=== PATIENT | female | born 1935 | race Caucasian/White ===

== ENCOUNTER 2017-01-01 11:30 | Emergency (ER) | payer MEDICARE, OTHER ==
--- NOTE | 2017-01-01 12:10 | EDM.PDOC ---
ED HPI GI/ABDOMINAL - General Chief Complaint: Abdominal Pain Stated Complaint: Abdominal pain Time Seen by Provider: 01/01/17 12:00 Source of Information: Reports: Patient, RN notes reviewed History Limitations: Reports: No limitations - History of Present Illness INITIAL COMMENTS - FREE TEXT/NARRATIVE: 81 year old female presents to the ED today with a 1 month vague history of abdominal pain and bloating. The symptoms are intermittent. The pain is the most severe to the epigatric region and LUQ but does seem to involve her entire abdomen at times. She reports increased gas with frequent belching and occasional flatulence. She says spicy foods, tomatos, and acidic foods make her symptoms worse. Her pain also seems to be worse when she has an empty stomach. She's been eating a bland "brat" diet and that seems to be helping. She has a history of GERD but denies GERD like symptoms with this. She has regular bowel movements and denies constipation and diarrhea. She denies nausea, vomiting, chills, fever, throat pain, chest pain, shortness of breath, cough, dyspnea no exertion. No urinary symptoms but does report occasional flank pain with this. Pertinent surgical history includes an exploratory lap and appendectomy in her 20s. She denies hystorectomy or cholecystectomy. She has never had an EGD or colonoscopy. Hx of bilateral mastectomy due to breast cancer. No involvement of lymph nodes and is in remission according to patient. - Related Data Allergies/ADRs: Allergies Allergy/AdvReac Type Severity Reaction Status Date / Time benzocaine Allergy Swelling/ra Verified 01/01/17 11:42 procaine HCl [From Novocain] Allergy Swelling/ra Verified 01/01/17 11:42 Home Meds: Home Meds Acebutolol [Sectral] 1 cap PO DAILY 10/06/14 [History] Ascorbate Calcium [Vitamin C] 500 mg PO DAILY 10/06/14 [History] Calcium Citrate/Vitamin D3 [Citracal + D Maximum Caplet] 1 tab PO DAILY [History] Cholecalciferol (Vitamin D3) [Vitamin D3] 2,000 unit PO DAILY 10/06/14 [History] Cyanocobalamin (Vitamin B-12) [Vitamin B-12] 2,500 mcg SL DAILY 10/06/14 [ History] Hydrochlorothiazide 12.5 mg PO DAILY 10/06/14 [History] Levothyroxine 75 mcg PO ACBRK 10/06/14 [History] Losartan Potassium 100 mg PO DAILY 10/06/14 [History] Magnesium Oxide [Magnesium] 400 mg PO DAILY 10/06/14 [History] Multivitamin [Multi-Vitamin Daily] 1 tab PO DAILY 10/06/14 [History] Pyridoxine HCl [Vitamin B-6] 100 mg PO DAILY 10/06/14 [History] Thiamine Mononitrate [Vitamin B-1] 100 mg PO DAILY 10/06/14 [History] Ubidecarenone [Co Q-10] 200 mg PO DAILY 10/06/14 [History] atorvaSTATin [Lipitor] 10 mg PO BEDTIME 10/06/14 [History] Lecithin, Soy [Lecithin] 1,200 mg PO DAILY 11/13/14 [History] Vitamin E 400 unit PO DAILY 11/13/14 [History] Esomeprazole [NexIUM] 40 mg PO ACBREAKFAST #20 cap 01/01/17 [Rx] Sucralfate [Carafate] 1 gm PO ASDIRECTED #500 ml 01/01/17 [Rx] amLODIPine [Norvasc] 5 mg PO DAILY 01/01/17 [History] Past Medical History HEENT History: Reports: Cataract, Other (see below) Other HEENT History: wears glasses Cardiovascular History: Reports: Hypertension Musculoskeletal History: Reports: Arthritis Psychiatric History: Reports: Anxiety Endocrine/Metabolic History: Reports: Hypothyroidism Oncologic (Cancer) History: Reports: Breast - Past Surgical History GI Surgical History: Reports: Appendectomy Oncologic Surgical History: Reports: Mastectomy Social & Family History - Tobacco Use Smoking Status *Q: Never Smoker Second Hand Smoke Exposure: No - Alcohol Use Days Per Week of Alcohol Use: 0 - Recreational Drug Use Recreational Drug Use: No Drug Use in Last 12 Months: No ED ROS GENERAL - Review of Systems Review Of Systems: See Below Constitutional: Reports: no symptoms. Denies: fever, chills, diaphoresis HEENT: Reports: No symptoms Respiratory: Denies: Shortness of Breath, Pleuritic Chest Pain, Cough, Sputum Cardiovascular: Reports: No symptoms. Denies: Chest pain, Edema, Lightheadedness GI/Abdominal: Reports: Abdominal pain. Denies: Black stool, Bloody stool, Constipation, Diarrhea, Hematochezia, Nausea, Vomiting : Reports: flank pain. Denies: dysuria, frequency, urgency ED EXAM, GI/ABD - Physical Exam Exam: See Below Exam Limited By: No limitations General Appearance: alert, WD/WN, no apparent distress Respiratory/Chest: no respiratory distress, lungs clear, normal breath sounds, no accessory muscle use, chest non-tender Cardiovascular: normal peripheral pulses, regular rate, rhythm, no murmur GI/Abdominal: normal bowel sounds, soft, no organomegaly, no distention, tenderness (epigastric and LUQ). No: guarding, rebound, rigidity, Barrios's sign Back Exam: normal inspection, full range of motion. No: CVA tenderness (L), CVA tenderness (R) Course - Vital Signs Last Recorded V/S: Last Vital Signs Temp 99.2 F 01/01/17 11:39 Pulse 79 01/01/17 14:35 Resp 18 01/01/17 14:35 BP 173/69 H 01/01/17 14:35 Pulse Ox 97 01/01/17 14:35 - Orders/Labs/Meds Orders: Active Orders 24 hr Category Date Time Status EKG 12 Lead [EKG Documentation Completion] [RC] STAT Care 01/01/17 12:09 Active Labs: Laboratory Tests 01/01/17 01/01/17 01/01/17 Range/Units 12:25 12:25 13:00 WBC 5.56 (3.98-10.04) K/mm3 RBC 4.91 (3.98-5.22) M/mm3 Hgb 15.6 (11.2-15.7) gm/L Hct 46.7 H (34.1-44.9) % MCV 95.1 H (79.4-94.8) fl MCH 31.8 (25.6-32.2) pg MCHC 33.4 (32.2-35.5) g/dl RDW Std Deviation 42.3 (36.4-46.3) fL Plt Count 169 L (182-369) K/mm3 MPV 9.6 (9.4-12.3) fl Neut % (Auto) 52.8 (34.0-71.1) % Lymph % (Auto) 35.3 (19.3-51.7) % [place] % (Auto) 8.6 (4.7-12.5) % Eos % (Auto) 2.7 (0.7-5.8) Baso % (Auto) 0.4 (0.1-1.2) % Neut # (Auto) 2.94 (1.56-6.13) K/mm3 Lymph # (Auto) 1.96 (1.18-3.74) K/mm3 [place] # (Auto) 0.48 H (0.24-0.36) K/mm3 Eos # (Auto) 0.15 (0.04-0.36) K/mm3 Baso # (Auto) 0.02 (0.01-0.08) K/mm3 Sodium 140 (136-145) mEq/L Potassium 3.6 (3.5-5.1) mEq/L Chloride 104 (98-107) mEq/L Carbon Dioxide 29 (21-32) mEq/L Anion Gap 10.6 (5-15) BUN 18 (7-18) mg/dL Creatinine 0.9 (0.55-1.02) mg/dL Est Cr Clr Drug Dosing 39.18 mL/min Estimated GFR (MDRD) 60 (>60) mL/min BUN/Creatinine Ratio 20.0 H (14-18) Glucose 120 H (83-115) mg/dL Calcium 9.3 (8.5-10.1) mg/dL Total Bilirubin 0.7 (0.2-1.0) mg/dL AST 23 (15-37) U/L ALT 22 (14-59) U/L Alkaline Phosphatase 69 (46-116) U/L Total Protein 7.6 (6.4-8.2) g/dl Albumin 3.7 (3.4-5.0) g/dl Globulin 3.9 gm/dL Albumin/Globulin Ratio 1.0 (1-2) Lipase 148 (73-393) U/L Urine Color Light yellow (Yellow) Urine Appearance Clear (Clear) Urine pH 7.5 (5.0-8.0) Ur Specific [place] 1.015 (1.005-1.030) Urine Protein Negative (Negative) Urine Glucose (UA) Negative (Negative) Urine Ketones Negative (Negative) Urine Occult Blood Negative (Negative) Urine Nitrite Negative (Negative) Urine Bilirubin Negative (Negative) Urine Urobilinogen 0.2 (0.2-1.0) Ur Leukocyte Esterase Negative (Negative) Urine RBC Not seen (0-5) /hpf Urine WBC 0-5 (0-5) /hpf Ur Epithelial Cells 0-5 (0-5) /hpf Ur Squamous Epith Cells 0-5 (0-5) /hpf Urine Bacteria Few (FEW) /hpf Urine Mucus Not seen (FEW) /hpf - Re-Assessments/Exams Free Text/Narrative Re-Assessment/Exam: CBC, CMP, lipase, and UA are normal. The patients physical exam is negative for peritoneal inflammation signs. EKG reveals first degree AV block, 59 bpm. No acute ischemic changes. Acute causes of epigastric pain have been ruled out. Symptoms are consistent with gastritis. Will start her on carafate and nexium and have her f/u with her PCP. If not improved, further outpatient workup is recommended. She has an upcoming appointment with Dr. Villeda later this month. We called [facility] and attempted to schedule this sooner. Will fax the records from today and Dr. Villeda office will be in touch with the patient. Patient was encouraged to return with any worsening of symptoms or additional concerns. Departure - Departure Time of Disposition: 14:01 Disposition: Home, Self-Care 01 Condition: good Clinical Impression: Gastritis Qualifiers: Gastritis type: unspecified gastritis Chronicity: unspecified Gastritis bleeding: without bleeding Qualified Code(s): K29.70 - Gastritis, unspecified, without bleeding Prescriptions: Esomeprazole [NexIUM] 40 mg PO ACBREAKFAST #20 cap Sucralfate [Carafate] 1 gm PO ASDIRECTED #500 ml Instructions: Gastritis, Adult, [id number] Referrals: Rashi Villeda MD [Primary Care Provider] - Forms: ED Department Discharge Additional Instructions: Avoid spicy foods, acidic foods, caffeine Follow-up with Dr. Villeda as scheduled. We placed a call to his office and they will try to work you in sooner and will call with appointment time. Carafate 10ml before meals and bedtime Nexium 40mg daily, before breakfast. Return to ER if your symptoms worsen or any new symptoms arise. - My Orders Last 24 Hours: My Active Orders 01/01/17 12:09 EKG 12 Lead [EKG Documentation Completion] [RC] STAT - Assessment/Plan Last 24 Hours: My Active Orders 01/01/17 12:09 EKG 12 Lead [EKG Documentation Completion] [RC] STAT
[2017-01-01 14:41] VITALS: BP 173/69
== END 2017-01-01 14:35 | disposition home or self-care (01) ==
LOC: JD.ED 11:30
DX: K29.70 Gastritis, unspecified, without bleeding (principal); I10 Essential (primary) hypertension; F41.9 Anxiety disorder, unspecified; E03.9 Hypothyroidism, unspecified; Z85.3 Personal history of malignant neoplasm of breast; Z90.13 Acquired absence of bilateral breasts and nipples; Z90.49 Acquired absence of other specified parts of digestive tract; Z79.899 Other long term (current) drug therapy
CPT/HCPCS: 36415; 80053; 81001; 83690; 85025; 93005; 99283; 99284-25

== ENCOUNTER 2017-02-08 09:42 | Inpatient (IN) | payer MEDICARE, OTHER ==
[2017-02-08] MEDS ORDERED: Sodium Chloride 0.9% 10 ML Syringe FLUSH PRN (10:08)
[2017-02-08] MEDS ORDERED: Ondansetron 4 MG/2 ML SDV IVPUSH ONE (10:08)
[2017-02-08] MEDS ORDERED: Alum Hydrox/Mag Hydrox/Simeth 30 ML, Lidocaine 2% 15 ML PO ONE ×2 (10:09)
[2017-02-08] MEDS ORDERED: HYDROmorphone 0.5 MG/0.5 ML Syringe IVPUSH ONE (10:09)
[2017-02-08] MEDS ORDERED: Sodium Chloride 0.9% 1,000 ML IV SCH (10:15)
[2017-02-08] MEDS ORDERED: Sodium Chloride 0.9% 10 ML Syringe FLUSH ONE (12:02)
[2017-02-08] MEDS ORDERED: Iopamidol 612 MG/ML 100 ML Bottle IVPUSH ONE (12:02)
[2017-02-08] MEDS ORDERED: Diatrizoate Meglumine/Diatrizoate Sodium 37% 120 ML Bottle PO ONE (12:02)
--- NOTE | 2017-02-08 12:23 | EDM.PDOC ---
ED HPI GENERAL MEDICAL PROBLEM - General Chief Complaint: Abdominal Pain Stated Complaint: ABDOMINAL PAIN Time Seen by Provider: 02/08/17 10:00 Source of Information: Reports: Patient History Limitations: Reports: No Limitations - History of Present Illness INITIAL COMMENTS - FREE TEXT/NARRATIVE: The patient presents with upper abdominal pain. This all started January 01. She was evaluated here and found to have gastritis. She was put on carafate and nexium. She has been doing okay. At times she will have pain. Today at [facility] she developed severe pain to the upper abdomen. She has nausea and vomiting wit it. She has no diarrhea. She has some burning pain at times. Food does not affect it. She has no fever, chills or cough. She has no chest pain or shortness of breath. She saw her primary care doctor and he referred her to Dr Correa for a EKG on February 27. Onset: Gradual Duration: Week(s): Location: Reports: Abdomen (Upper) Quality: Reports: Burning, Sharp Severity: Severe Improves with: Reports: None Worsens with: Reports: None Context: Reports: Other (She was at [facility] when this started) Associated Symptoms: Reports: Nausea/Vomiting. Denies: Chest Pain, Cough, Fever /Chills, Shortness of Breath Bilateral Abdomen Pain Score (Numeric/FACES): 9 - Related Data Allergies Allergy/AdvReac Type Severity Reaction Status Date / Time benzocaine Allergy Swelling/ra Verified 02/08/17 10:01 pneumococcal vaccine Allergy Difficulty Verified 02/08/17 10:01 Breathing procaine HCl [From Novocain] Allergy Swelling/ra Verified 02/08/17 10:01 Home Meds: Home Meds Acebutolol [Sectral] 1 cap PO DAILY 10/06/14 [History] Ascorbate Calcium [Vitamin C] 500 mg PO DAILY 10/06/14 [History] Calcium Citrate/Vitamin D3 [Citracal + D Maximum Caplet] 1 tab PO DAILY [History] Cholecalciferol (Vitamin D3) [Vitamin D3] 2,000 unit PO DAILY 10/06/14 [History] Cyanocobalamin (Vitamin B-12) [Vitamin B-12] 2,500 mcg SL DAILY 10/06/14 [ History] Hydrochlorothiazide 12.5 mg PO DAILY 10/06/14 [History] Levothyroxine 75 mcg PO ACBRK 10/06/14 [History] Losartan Potassium 100 mg PO DAILY 10/06/14 [History] Magnesium Oxide [Magnesium] 400 mg PO DAILY 10/06/14 [History] Multivitamin [Multi-Vitamin Daily] 1 tab PO DAILY 10/06/14 [History] Pyridoxine HCl [Vitamin B-6] 100 mg PO DAILY 10/06/14 [History] Thiamine Mononitrate [Vitamin B-1] 100 mg PO DAILY 10/06/14 [History] Ubidecarenone [Co Q-10] 200 mg PO DAILY 10/06/14 [History] atorvaSTATin [Lipitor] 10 mg PO BEDTIME 10/06/14 [History] Lecithin, Soy [Lecithin] 1,200 mg PO DAILY 11/13/14 [History] Vitamin E 400 unit PO DAILY 11/13/14 [History] Esomeprazole [NexIUM] 40 mg PO ACBREAKFAST #20 cap 01/01/17 [Rx] Sucralfate [Carafate] 1 gm PO ASDIRECTED #500 ml 01/01/17 [Rx] amLODIPine [Norvasc] 5 mg PO DAILY 01/01/17 [History] Past Medical History HEENT History: Reports: Cataract, Other (See Below) Other HEENT History: wears glasses Cardiovascular History: Reports: Hypertension Musculoskeletal History: Reports: Arthritis Psychiatric History: Reports: Anxiety Endocrine/Metabolic History: Reports: Hypothyroidism Oncologic (Cancer) History: Reports: Breast - Past Surgical History GI Surgical History: Reports: Appendectomy Oncologic Surgical History: Reports: Mastectomy Social & Family History - Tobacco Use Smoking Status *Q: Never Smoker Second Hand Smoke Exposure: No - Caffeine Use Caffeine Use: Reports: None - Alcohol Use Days Per Week of Alcohol Use: 0 - Recreational Drug Use Recreational Drug Use: No Drug Use in Last 12 Months: No ED ROS GENERAL - Review of Systems Review Of Systems: See Below Constitutional: Reports: No Symptoms HEENT: Reports: No Symptoms Respiratory: Reports: No Symptoms Cardiovascular: Reports: No Symptoms Endocrine: Reports: No Symptoms GI/Abdominal: Reports: Abdominal Pain, Nausea, Vomiting : Reports: No Symptoms Musculoskeletal: Reports: No Symptoms Skin: Reports: No Symptoms ED EXAM, GI/ABD - Physical Exam Exam: See Below Exam Limited By: No Limitations General Appearance: Alert, No Apparent Distress Ears: Normal External Exam Nose: Normal Inspection Head: Atraumatic, Normocephalic Neck: Normal Inspection Respiratory/Chest: No Respiratory Distress, Lungs Clear, Normal Breath Sounds Cardiovascular: Regular Rate, Rhythm, No Edema, No Murmur GI/Abdominal: Soft, No Organomegaly, Tenderness (Moderate to the upper abdomen) Back Exam: Normal Inspection Extremities: Normal Inspection Course - Vital Signs Last Recorded V/S: Last Vital Signs Temp 97.6 F 02/08/17 09:54 Pulse 67 02/08/17 09:54 Resp 20 02/08/17 09:54 BP 181/67 H 02/08/17 09:54 Pulse Ox 100 02/08/17 09:54 - Orders/Labs/Meds Orders: Active Orders 24 hr Category Date Time Status Peripheral IV Care [RC] . DIRECTED Care 02/08/17 10:08 Active Abdomen Pelvis w Cont [CT] Stat Exams 02/08/17 10:08 Taken Levofloxacin/Dextrose 5%-Water [Levaquin in D5W 500 MG/ Med 02/08/17 13:39 Ordered 100 ML] 500 mg Premix Bag 1 bag IV ONETIME Sodium Chloride 0.9% [Normal Saline] 1,000 ml Med 02/08/17 10:15 Active IV ASDIRECTED Sodium Chloride 0.9% [Saline Flush] Med 02/08/17 10:08 Active 10 ml FLUSH ASDIRECTED PRN metroNIDAZOLE/Normal Saline [Flagyl 500 MG in NS 100 ML Med 02/08/17 13:39 Ordered ] 500 mg Premix Bag 1 bag IV ONETIME ED Antiemetic Medication Reflex [OM.PC] Stat Oth 02/08/17 10:08 Ordered Peripheral IV Insertion Adult [OM.PC] Stat Oth 02/08/17 10:08 Ordered Medication Orders Sodium Chloride (Normal Saline) 1,000 mls @ 125 mls/hr IV ASDIRECTED ANDREW Last Admin: 02/08/17 10:32 Dose: 125 mls/hr Sodium Chloride (Saline Flush) 10 ml FLUSH ASDIRECTED PRN PRN Reason: Keep Vein Open Last Admin: 02/08/17 10:36 Dose: 10 ml Labs: Laboratory Tests 02/08/17 02/08/17 02/08/17 Range/Units 10:50 10:50 12:01 WBC 7.31 (3.98-10.04) K/mm3 RBC 5.03 (3.98-5.22) M/mm3 Hgb 16.0 H (11.2-15.7) gm/L Hct 47.5 H (34.1-44.9) % MCV 94.4 (79.4-94.8) fl MCH 31.8 (25.6-32.2) pg MCHC 33.7 (32.2-35.5) g/dl RDW Std Deviation 42.8 (36.4-46.3) fL Plt Count 167 L (182-369) K/mm3 MPV 9.8 (9.4-12.3) fl Neut % (Auto) 59.3 (34.0-71.1) % Lymph % (Auto) 29.4 (19.3-51.7) % [place] % (Auto) 7.9 (4.7-12.5) % Eos % (Auto) 2.6 (0.7-5.8) Baso % (Auto) 0.5 (0.1-1.2) % Neut # (Auto) 4.33 (1.56-6.13) K/mm3 Lymph # (Auto) 2.15 (1.18-3.74) K/mm3 [place] # (Auto) 0.58 H (0.24-0.36) K/mm3 Eos # (Auto) 0.19 (0.04-0.36) K/mm3 Baso # (Auto) 0.04 (0.01-0.08) K/mm3 Sodium 143 (136-145) mEq/L Potassium 3.6 (3.5-5.1) mEq/L Chloride 105 (98-107) mEq/L Carbon Dioxide 29 (21-32) mEq/L Anion Gap 12.6 (5-15) BUN 18 (7-18) mg/dL Creatinine 0.9 (0.55-1.02) mg/dL Est Cr Clr Drug Dosing 39.18 mL/min Estimated GFR (MDRD) 60 (>60) mL/min BUN/Creatinine Ratio 20.0 H (14-18) Glucose 105 (83-115) mg/dL Calcium 9.7 (8.5-10.1) mg/dL Total Bilirubin 0.7 (0.2-1.0) mg/dL AST 19 (15-37) U/L ALT 27 (14-59) U/L Alkaline Phosphatase 76 (46-116) U/L Total Protein 8.3 H (6.4-8.2) g/dl Albumin 4.0 (3.4-5.0) g/dl Globulin 4.3 gm/dL Albumin/Globulin Ratio 0.9 L (1-2) Lipase 176 (73-393) U/L Urine Color Yellow (Yellow) Urine Appearance Clear (Clear) Urine pH 7.0 (5.0-8.0) Ur Specific [place] 1.020 (1.005-1.030) Urine Protein Negative (Negative) Urine Glucose (UA) Negative (Negative) Urine Ketones Negative (Negative) Urine Occult Blood Trace-intact H (Negative) Urine Nitrite Negative (Negative) Urine Bilirubin Negative (Negative) Urine Urobilinogen 0.2 (0.2-1.0) Ur Leukocyte Esterase Negative (Negative) Urine RBC 0-5 (0-5) /hpf Urine WBC 0-5 (0-5) /hpf Urine WBC Clumps Not seen (NOT SEEN) /hpf Ur Epithelial Cells 0-5 (0-5) /hpf Urine Bacteria Rare (FEW) /hpf Urine Mucus Not seen (FEW) /hpf Urine Yeast Not seen (NOT SEEN) Meds: Medications Generic Name Dose Route Start Last Admin Trade Name Freq PRN Reason Stop Dose Admin Sodium Chloride 1,000 mls @ 125 mls/hr 02/08/17 10:15 02/08/17 10:32 Normal Saline IV 125 mls/hr ASDIRECTED ANDREW Administration Sodium Chloride 10 ml 02/08/17 10:08 02/08/17 10:36 Saline Flush FLUSH 10 ml ASDIRECTED PRN Administration Keep Vein Open Discontinued Medications Generic Name Dose Route Start Last Admin Trade Name Freq PRN Reason Stop Dose Admin Al Hydroxide/Mg Hydroxide 30 0 ml 02/08/17 10:09 02/08/17 10:30 ml/ Lidocaine HCl 15 ml PO 02/08/17 10:10 30 ml ONETIME ONE Administration Diatrizoate Meglum/Diatrizoate Sod 90 ml 02/08/17 12:02 02/08/17 12:26 Gastrografin 37% PO 02/08/17 12:03 90 ml ONETIME ONE Administration Hydromorphone HCl 0.5 mg 02/08/17 10:09 02/08/17 10:36 Dilaudid IVPUSH 02/08/17 10:10 0.5 mg ONETIME ONE Administration Hydromorphone HCl 1 mg 02/08/17 12:49 02/08/17 12:55 Dilaudid IVPUSH 02/08/17 12:50 1 mg ONETIME ONE Administration Iopamidol 100 ml 02/08/17 12:02 02/08/17 12:26 Isovue-300 (61%) IVPUSH 02/08/17 12:03 100 ml ONETIME ONE Administration Metoclopramide HCl 10 mg 02/08/17 12:49 02/08/17 12:54 Reglan IVPUSH 02/08/17 12:50 10 mg ONETIME ONE Administration Ondansetron HCl 4 mg 02/08/17 10:08 02/08/17 10:33 Zofran IVPUSH 02/08/17 10:09 4 mg ONETIME ONE Administration Sodium Chloride 10 ml 02/08/17 12:02 02/08/17 12:26 Saline Flush FLUSH 02/08/17 12:03 10 ml ONETIME ONE Administration - Re-Assessments/Exams Free Text/Narrative Re-Assessment/Exam: 02/08/17 12:24 I ordered an IV NS, zofran 4mg IV, dilaudid 0.5g IV, GI cocktail, labs, UA and CT of the abdomen and pelvis. 02/08/17 13:40 Her CBC and CMP look good. Her UA shows nothing acute. Her CT shows multiple loops of dilated small bowel with air contrast levels. Inflammatory changes are seen around loops of small bowel in the right abdomen. There is mucosal thickening of the small bowel in this region. This may represent enteritis. Differential of dilated loops of bowel includes ileus and small bowel obstruction. Gallstones in the gallbladder. 7mm hypodense mass in the right kidney is not a cyst. Differential includes complex cyst, infection, hematoma or neoplasm. Recommend further evaluation. I feel she needs to be admitted. I called Dr Morris and he agreed to the admission. I have started flagyl 500mg IV and levaquin 500mg IV. Departure - Departure Time of Disposition: 13:45 Disposition: Admitted As Inpatient 64 Condition: fair Clinical Impression: Ileus, Enteritis, Mass of right kidney Abdominal pain Qualifiers: Abdominal location: generalized Qualified Code(s): R10.84 - Generalized abdominal pain - Discharge Information Forms: ED Department Discharge - My Orders Last 24 Hours: My Active Orders 02/08/17 10:08 Peripheral IV Care [RC] . DIRECTED Abdomen Pelvis w Cont [CT] Stat Sodium Chloride 0.9% [Saline Flush] 10 ml FLUSH ASDIRECTED PRN ED Antiemetic Medication Reflex [OM.PC] Stat Peripheral IV Insertion Adult [OM.PC] Stat 02/08/17 10:15 Sodium Chloride 0.9% [Normal Saline] 1,000 ml IV ASDIRECTED 02/08/17 13:39 Levofloxacin/Dextrose 5%-Water [Levaquin in D5W 500 MG/100 ML] 500 mg Premix Bag 1 bag IV ONETIME metroNIDAZOLE/Normal Saline [Flagyl 500 MG in NS 100 ML] 500 mg Premix Bag 1 bag IV ONETIME - Assessment/Plan Last 24 Hours: My Active Orders 02/08/17 10:08 Peripheral IV Care [RC] . DIRECTED Abdomen Pelvis w Cont [CT] Stat Sodium Chloride 0.9% [Saline Flush] 10 ml FLUSH ASDIRECTED PRN ED Antiemetic Medication Reflex [OM.PC] Stat Peripheral IV Insertion Adult [OM.PC] Stat 02/08/17 10:15 Sodium Chloride 0.9% [Normal Saline] 1,000 ml IV ASDIRECTED 02/08/17 13:39 Levofloxacin/Dextrose 5%-Water [Levaquin in D5W 500 MG/100 ML] 500 mg Premix Bag 1 bag IV ONETIME metroNIDAZOLE/Normal Saline [Flagyl 500 MG in NS 100 ML] 500 mg Premix Bag 1 bag IV ONETIME
[2017-02-08] MEDS ORDERED: Metoclopramide 10 MG/2 ML SDV IVPUSH ONE (12:49)
[2017-02-08] MEDS ORDERED: HYDROmorphone 1 MG/ML Syringe IVPUSH ONE (12:49)
[2017-02-08] MEDS ORDERED: metroNIDAZOLE/Normal Saline 500 MG in Premix Bag 1 BAG IV ONE (13:39)
[2017-02-08] MEDS ORDERED: Levofloxacin/Dextrose 5%-Water 500 MG in Premix Bag 1 BAG IV ONE (13:39)
--- NOTE | 2017-02-08 15:03 | PCM.HP ---
H&P History of Present Illness - General Date of Service: 02/08/17 Admit Problem/Dx: Admission Diagnosis/Problem Admission Diagnosis/Problem Abdominal pain Source of Information: Patient, Old Records, Provider, RN Notes Reviewed History Limitations: Reports: No Limitations - History of Present Illness Initial Comments - Free Text/Narative: This is an 81-year-old pleasant elderly white female with past medical history of hypertension, osteoarthritis/DJD, anxiety, hypothyroidism, history of breast , breast cancer status post mastectomy who comes in with with complains of abdominal pain after she attended [employer] services today. She is currently nauseous without emesis. She has no diarrhea. He is passing gas. She denies taking any unusual drink or food. Her symptom has no associated with food. She denies any systemic symptoms. Her abdominal pain started back early December of this year. She was found to have gastritis and currently on Carafate and PPI. Patient is scheduled to see Dr. Correa for possible EGD on the of this month. Her initial emergency department workup shows a CBC remarkable for hemoglobin 16 , hematocrit 47.5 and platelet 167. Her chemistries remarkable for total protein 8.3. Liver enzymes and lipase are all normal. CRP is normal. UA shows negative for urinary tract infection. Her abdominal CT scan report reads 1) There are multiple loops of dilated small bowel with air contrast levels. Inflammatory changes are seen around loops of small bowel in the right abdomen. There is mucosal thickening of the small bowel in this region. This may represent enteritis differential of dilated loops of bowel includes ileus and small bowel obstruction. 2) Gallstones in the gallbladder. 3) 7 mm hypodense mass in the right kidney is not a cyst. Differential diagnosis includes complex cyst infection hematoma neoplasm. Patient is being admitted for medical management of acute enteritis. She is DNR/ DNI. Bilateral Abdomen Pain Score (Numeric/FACES): 9 - Related Data Allergies/Adverse Reactions: Allergies Allergy/AdvReac Type Severity Reaction Status Date / Time benzocaine Allergy Swelling/ra Verified 02/08/17 15:57 pneumococcal vaccine Allergy Difficulty Verified 02/08/17 15:57 Breathing procaine HCl [From Novocain] Allergy Swelling/ra Verified 02/08/17 15:57 Home Medications: Home Meds Acebutolol [Sectral] 1 cap PO DAILY 10/06/14 [History] Ascorbate Calcium [Vitamin C] 500 mg PO DAILY 10/06/14 [History] Calcium Citrate/Vitamin D3 [Citracal + D Maximum Caplet] 1 tab PO DAILY [History] Cholecalciferol (Vitamin D3) [Vitamin D3] 2,000 unit PO DAILY 10/06/14 [History] Cyanocobalamin (Vitamin B-12) [Vitamin B-12] 2,500 mcg SL DAILY 10/06/14 [ History] Hydrochlorothiazide 12.5 mg PO DAILY 10/06/14 [History] Levothyroxine 75 mcg PO ACBRK 10/06/14 [History] Losartan Potassium 100 mg PO DAILY 10/06/14 [History] Magnesium Oxide [Magnesium] 400 mg PO DAILY 10/06/14 [History] Multivitamin [Multi-Vitamin Daily] 1 tab PO DAILY 10/06/14 [History] Pyridoxine HCl [Vitamin B-6] 100 mg PO DAILY 10/06/14 [History] Thiamine Mononitrate [Vitamin B-1] 100 mg PO DAILY 10/06/14 [History] Ubidecarenone [Co Q-10] 200 mg PO DAILY 10/06/14 [History] atorvaSTATin [Lipitor] 10 mg PO BEDTIME 10/06/14 [History] Lecithin, Soy [Lecithin] 1,200 mg PO DAILY 11/13/14 [History] Vitamin E 400 unit PO DAILY 11/13/14 [History] Esomeprazole [NexIUM] 40 mg PO ACBREAKFAST #20 cap 01/01/17 [Rx] Sucralfate [Carafate] 1 gm PO ASDIRECTED #500 ml 01/01/17 [Rx] amLODIPine [Norvasc] 5 mg PO DAILY 01/01/17 [History] Past Medical History HEENT History: Reports: Cataract, Other (See Below) Other HEENT History: wears glasses Cardiovascular History: Reports: Hypertension Musculoskeletal History: Reports: Arthritis Psychiatric History: Reports: Anxiety Endocrine/Metabolic History: Reports: Hypothyroidism Oncologic (Cancer) History: Reports: Breast - Past Surgical History GI Surgical History: Reports: Appendectomy Oncologic Surgical History: Reports: Mastectomy Social & Family History - Tobacco Use Smoking Status *Q: Never Smoker Second Hand Smoke Exposure: No - Caffeine Use Caffeine Use: Reports: None - Alcohol Use Days Per Week of Alcohol Use: 0 - Recreational Drug Use Recreational Drug Use: No Drug Use in Last 12 Months: No H&P Review of Systems - Review of Systems: Review Of Systems: See Below General: Denies: Fever, Chills, Malaise, Weakness, Fatigue HEENT: Reports: No Symptoms Pulmonary: Denies: Shortness of Breath Cardiovascular: Denies: Chest Pain Gastrointestinal: Reports: Abdominal Pain, Flatus, Nausea. Denies: Anorexia, Black Stool, Bloody Stool, Diarrhea, Decreased Appetite, Difficulty Swallowing, Distension, Hematemesis, Hematochezia, Melena, Mucous in Stool, Stool Incontinence, Vomiting Genitourinary: Reports: No Symptoms Musculoskeletal: Reports: No Symptoms Skin: Denies: Cyanosis, Rash, Erythema Psychiatric: Denies: Depression, Anxiety, Hallucinations Neurological: Denies: Confusion, Dizziness, Difficulty Walking, Weakness, Gait Disturbance Hematologic/Lymphatic: Reports: No Symptoms Immunologic: Reports: No Symptoms Exam - Exam Exam: See Below - Vital Signs Vital Signs: Last Vital Signs Temp 36.4 C 02/08/17 09:54 Pulse 67 02/08/17 09:54 Resp 20 02/08/17 09:54 BP 181/67 H 02/08/17 09:54 Pulse Ox 100 02/08/17 09:54 Weight: 74.843 kg - Exam General: Alert, Oriented, Cooperative, Mild Distress HEENT: Conjunctiva Clear, EACs Clear, EOMI, Hearing Intact, Mucosa Moist & Lutz , Nares Patent, Normal Nasal Septum, Posterior Pharynx Clear, Pupils Equal, Pupils Reactive Neck: Supple, Trachea Midline, +2 Carotid Pulse wo Bruit Lungs: Clear to Auscultation, Normal Respiratory Effort Cardiovascular: Regular Rate, Regular Rhythm Abdomen: Normal Bowel Sounds, Soft, Tenderness (mild tenderness on upper quadrant). No: Organomegaly, Peritoneal Signs, Distention, Guarding, Rigidity, Rebound (Female) Exam: Deferred Rectal (Female) Exam: Deferred Back Exam: Normal Inspection, Decreased Range of Motion Extremities: Normal Inspection, Normal Pulses. No: Edema Peripheral Pulses: 2+: Posterior Tibial (L), Posterior Tibial (R), Dorsalis Pedis (L), Dorsalis Pedis (R) Skin: Warm, Dry, Intact Neuro Extensive - Mental Status: Oriented x3, Normal Cognition, Memory Intact Neuro Extensive - Motor, Sensory, Reflexes: CN II-XII Intact, Normal Gait Psychiatric: Alert, Normal Affect, Normal Mood - Patient Data Result Diagrams: 02/08/17 10:50 02/08/17 10:50 *Q Meaningful Use (ADM) - VTE *Q VTE Criteria *Q: - Stroke *Q Stroke Criteria *Q: - AMI *Q AMI Criteria *Q: Problem List Initiated/Reviewed/Updated: Yes Orders Last 24hrs: Medication Orders Sodium Chloride (Normal Saline) 1,000 mls @ 125 mls/hr IV ASDIRECTED ANDREW Last Admin: 02/08/17 10:32 Dose: 125 mls/hr Sodium Chloride (Saline Flush) 10 ml FLUSH ASDIRECTED PRN PRN Reason: Keep Vein Open Last Admin: 02/08/17 10:36 Dose: 10 ml Assessment/Plan Comment:: Assessment/Plan: Acute: Enteritis - DDx: Ileus vs SBO - Viral vs Bacterial - No unusual drink or food - No travel outside the country - She is able to eat or drink - She is PPI for presumptive PUD pending EGD on the of this month - Supportive care and IV Abx with Levaquin and Flagyl - Oral Probiotic - PRN meds for symptomatic control Abdominal Pain/Hx/o Gastritis - May have worsened by above - Started way back on January 01 - Currently on Carafate and PPI - She is scheduled to see Dr. Correa at the end of the month - Treatment as above Cholelithiasis - CT scan finding - Stable at this time Right Kidney 7 mm Hypodense Mass - CT scan finding - DDx: cyst, infection, hematoma or neoplasm - Informed patient about it - Defer further work up outpatient Chronic: HTN OA/DJD Anxiety HTN Gastritis Hypothyroidism Vit D Deficiency Hx/o Breast Cancer S/p Mastectomy Plan: Admit to the floor Routine AM Labs My use home compression stockings Resume Home Meds SW/CM for d/c planning Additional orders as above Code status: DNR/DNI
[2017-02-08] MEDS ORDERED: Acetaminophen 325 MG Tab PO PRN (15:42)
[2017-02-08] MEDS ORDERED: Albuterol/Ipratropium 3.0-0.5 MG/3 ML Neb Soln NEB PRN (15:42)
[2017-02-08] MEDS ORDERED: LORazepam 2 MG/ML MDV IV PRN (15:42)
[2017-02-08] MEDS ORDERED: Promethazine 12.5 MG in Sodium Chloride 0.9% 50 ML IV PRN (15:42)
[2017-02-08] MEDS ORDERED: Metoprolol Tartrate 5 MG/5 ML SDV IVPUSH PRN (15:53)
[2017-02-08] MEDS ORDERED: Temazepam 7.5 MG Cap PO PRN (16:15)
[2017-02-08] MEDS: Acetaminophen/HYDROcodone 325-5 MG Tab PO PRN ×2 (17:21→21:13)
[2017-02-08] MEDS: Sucralfate Suspension 1 GM/10 ML Cup PO SCH ×2 (19:23→21:12)
[2017-02-08] MEDS: metroNIDAZOLE/Normal Saline 500 MG in Premix Bag 1 BAG IV SCH (21:09)
[2017-02-08] MEDS: Simvastatin 10 MG Tab PO SCH (21:12)
[2017-02-08] MEDS: Famotidine 20 MG Tab PO SCH (21:12)
[2017-02-08] MEDS: Saccharomyces Boulardii (Probiotic) 250 MG Cap PO SCH (21:12)
[2017-02-08] MEDS: hydrALAZINE 20 MG/ML SDV IVPUSH PRN (21:13)
[2017-02-08] MEDS ORDERED: HYDROmorphone 0.5 MG/0.5 ML Syringe IVPUSH PRN (21:51)
[2017-02-09] MEDS: metroNIDAZOLE/Normal Saline 500 MG in Premix Bag 1 BAG IV SCH ×3 (06:37→21:35)
[2017-02-09] MEDS: Levothyroxine 75 MCG Tab PO SCH (06:39)
[2017-02-09] MEDS: Sucralfate Suspension 1 GM/10 ML Cup PO SCH ×4 (06:39→21:30)
[2017-02-09] MEDS: Metoclopramide 10 MG/2 ML SDV IVPUSH PRN ×2 (06:53→18:26)
--- NOTE | 2017-02-09 07:48 | PCM.PN ---
- General Info Date of Service: 02/09/17 Admission Dx/Problem (Free Text): Admission Diagnosis/Problem Admission Diagnosis/Problem Abdominal pain Subjective Update: Follow Up Functional Status: Reports: pain controlled, ambulating, urinating, new symptoms. Denies: tolerating diet - Review of Systems General: Denies: Fever, Weakness, Fatigue, Malaise, Chills, Night Sweats HEENT: Reports: no symptoms Pulmonary: Denies: shortness of breath Gastrointestinal: Reports: Abdominal pain, Flatus, Nausea, Vomiting. Denies: Diarrhea Genitourinary: Reports: no symptoms Musculoskeletal: Reports: no symptoms Neurological: Denies: Confusion, Difficulty Walking, Weakness, Gait Disturbance Psychiatric: Denies: confusion, depression, agitation, hallucinations Systems Review Comment:: No overnight issues. She did not sleep well last night due to pain. She has been getting PRN Dilaudid. She is not feeling good this morning. Still complaints of crmapy abdominal pain with a pain scale of 8/10. She is nauseous with x1 emesis this am. She is passing gas. No bowel movement so far. Her WBC went up but she is afebrile. CRP level picke up to 2.2. - Patient Data Vitals - most recent: Last Vital Signs Temp 36.8 C 02/09/17 07:32 Pulse 75 02/09/17 07:32 Resp 18 02/09/17 07:32 BP 129/68 02/09/17 07:32 Pulse Ox 91 L 02/09/17 07:32 Weight - most recent: 74.843 kg I&O - last 24 hours: Intake & Output 02/08/17 02/09/17 02/09/17 22:59 06:59 14:59 Intake Total 60 300 Output Total 775 Balance 60 -475 Lab Results last 24 hrs: Laboratory Results - last 24 hr 02/09/17 02/09/17 Range/Units 06:10 06:10 WBC 19.30 H (3.98-10.04) K/mm3 RBC 5.27 H (3.98-5.22) M/mm3 Hgb 17.2 H (11.2-15.7) gm/L Hct 49.4 H (34.1-44.9) % MCV 93.7 (79.4-94.8) fl MCH 32.6 H (25.6-32.2) pg MCHC 34.8 (32.2-35.5) g/dl RDW Std Deviation 43.3 (36.4-46.3) fL Plt Count 204 (182-369) K/mm3 MPV 9.9 (9.4-12.3) fl Neut % (Auto) 87.1 H (34.0-71.1) % Lymph % (Auto) 6.5 L (19.3-51.7) % [place] % (Auto) 6.3 (4.7-12.5) % Eos % (Auto) 0 L (0.7-5.8) Baso % (Auto) 0.1 (0.1-1.2) % Neut # (Auto) 16.81 H (1.56-6.13) K/mm3 Lymph # (Auto) 1.26 (1.18-3.74) K/mm3 [place] # (Auto) 1.22 H (0.24-0.36) K/mm3 Eos # (Auto) 0.00 L (0.04-0.36) K/mm3 Baso # (Auto) 0.01 (0.01-0.08) K/mm3 Manual Slide Review Abnormal smear Sodium 140 (136-145) mEq/L Potassium 3.5 (3.5-5.1) mEq/L Chloride 99 (98-107) mEq/L Carbon Dioxide 28 (21-32) mEq/L Anion Gap 16.5 H (5-15) BUN 23 H (7-18) mg/dL Creatinine 1.0 (0.55-1.02) mg/dL Est Cr Clr Drug Dosing 36.03 mL/min Estimated GFR (MDRD) 53 (>60) mL/min BUN/Creatinine Ratio 23.0 H (14-18) Glucose 136 H (83-115) mg/dL Calcium 9.7 (8.5-10.1) mg/dL Magnesium 1.9 (1.8-2.4) mg/dl C-Reactive Protein 2.2 H* (<1.0) mg/dL Med Orders - Current: Current Medications Acetaminophen (Tylenol) 650 mg PO Q4H PRN PRN Reason: Pain (Mild 1-3)/fever Hydrocodone Bitart/Acetaminophen ([place] 325-5 Mg) 1 tab PO Q4H PRN PRN Reason: Pain (moderate 4-6) Last Admin: 02/08/17 21:13 Dose: 1 tab Albuterol/Ipratropium (Duoneb 3.0-0.5 Mg/3 Ml) 3 ml NEB Q4H PRN PRN Reason: Shortness Of Breath/wheezing Amlodipine Besylate (Norvasc) 5 mg PO DAILY [facility] Atenolol (Tenormin) 25 mg PO DAILY [facility] Cholecalciferol (Vitamin D3) 2,000 units PO DAILY [facility] Enoxaparin Sodium (Lovenox) 40 mg SUBCUT DAILY [facility] Famotidine (Pepcid) 20 mg PO BID [facility] Last Admin: 02/08/17 21:12 Dose: 20 mg Hydralazine HCl (Apresoline) 10 mg IVPUSH Q4H PRN PRN Reason: Hypertension Last Admin: 02/08/17 21:13 Dose: 10 mg Hydrochlorothiazide (Hydrochlorothiazide) 12.5 mg PO DAILY [facility] Hydromorphone HCl (Dilaudid) 0.25 mg IVPUSH Q4H PRN PRN Reason: Pain (severe 7-10) Last Admin: 02/09/17 06:54 Dose: 0.25 mg Levofloxacin/Dextrose 500 mg/ (Premix) 100 mls @ 100 mls/hr IV Q24H [facility] Promethazine HCl 12.5 mg/ (Sodium Chloride) 50.5 mls @ 100 mls/hr IV Q6H PRN PRN Reason: Nausea/Vomiting Metronidazole 500 mg/ Premix 100 mls @ 100 mls/hr IV Q8H [facility] Last Admin: 02/09/17 06:37 Dose: 100 mls/hr Levothyroxine Sodium (Levothyroxine) 75 mcg PO ACBRK [facility] Last Admin: 02/09/17 06:39 Dose: 75 mcg Lorazepam (Ativan) 0.25 mg IV Q6H PRN PRN Reason: Anxiety Losartan Potassium (Cozaar) 100 mg PO DAILY [facility] Magnesium Oxide (Magnesium Oxide) 400 mg PO DAILY [facility] Metoclopramide HCl (Reglan) 10 mg IVPUSH Q4H PRN PRN Reason: Nausea/Vomiting Last Admin: 02/09/17 06:53 Dose: 10 mg Metoprolol Tartrate (Lopressor) 2.5 mg IVPUSH Q4H PRN PRN Reason: Tachycardia Multivitamins (Thera) 1 each PO DAILY [facility] Ondansetron HCl (Zofran) 4 mg IV Q6H PRN PRN Reason: Nausea/Vomiting Cyanocobalamin ( Vitamin B-12) [ Vitamin B-12] 2,500 Mcg 0 each PO DAILY [facility] Ubidecarenone 200 Mg 0 each PO DAILY [facility] Pyridoxine HCl (Vitamin B6-Pyridoxine) 100 mg PO DAILY [facility] Saccharomyces Boulardii (Florastor) 250 mg PO TID [facility] Last Admin: 02/08/17 21:12 Dose: 250 mg Scopolamine (Transderm-Scop) 1.5 mg TOP ONETIME ONE Stop: 02/09/17 08:01 Simvastatin (Zocor) 10 mg PO BEDTIME [facility] Last Admin: 02/08/17 21:12 Dose: 10 mg Sodium Chloride (Saline Flush) 10 ml FLUSH ASDIRECTED PRN PRN Reason: Keep Vein Open Last Admin: 02/08/17 10:36 Dose: 10 ml Sucralfate (Carafate) 1 gm PO ACBED [facility] Last Admin: 02/09/17 06:39 Dose: 1 gm Temazepam (Restoril) 7.5 mg PO BEDTIME PRN PRN Reason: SLEEP Thiamine HCl (Vitamin B-1) 100 mg PO DAILY [facility] Vitamin E (Vitamin E) 400 units PO DAILY [facility] Discontinued Medications Al Hydroxide/Mg Hydroxide 30 (ml/ Lidocaine HCl 15 ml) 0 ml PO ONETIME ONE Stop: 02/08/17 10:10 Last Admin: 02/08/17 10:30 Dose: 30 ml Diatrizoate Meglum/Diatrizoate Sod (Gastrografin 37%) 90 ml PO ONETIME ONE Stop: 02/08/17 12:03 Last Admin: 02/08/17 12:26 Dose: 90 ml Hydromorphone HCl (Dilaudid) 0.5 mg IVPUSH ONETIME ONE Stop: 02/08/17 10:10 Last Admin: 02/08/17 10:36 Dose: 0.5 mg Hydromorphone HCl (Dilaudid) 1 mg IVPUSH ONETIME ONE Stop: 02/08/17 12:50 Last Admin: 02/08/17 12:55 Dose: 1 mg Sodium Chloride (Normal Saline) 1,000 mls @ 125 mls/hr IV ASDIRECTED ANDREW Last Admin: 02/08/17 10:32 Dose: 125 mls/hr Levofloxacin/Dextrose 500 mg/ (Premix) 100 mls @ 100 mls/hr IV ONETIME ONE Stop: 02/08/17 14:38 Last Admin: 02/08/17 14:02 Dose: 100 mls/hr Metronidazole 500 mg/ Premix 100 mls @ 100 mls/hr IV ONETIME ONE Stop: 02/08/17 14:38 Last Admin: 02/08/17 21:08 Dose: Not Given Iopamidol (Isovue-300 (61%)) 100 ml IVPUSH ONETIME ONE Stop: 02/08/17 12:03 Last Admin: 02/08/17 12:26 Dose: 100 ml Metoclopramide HCl (Reglan) 10 mg IVPUSH ONETIME ONE Stop: 02/08/17 12:50 Last Admin: 02/08/17 12:54 Dose: 10 mg Ondansetron HCl (Zofran) 4 mg IVPUSH ONETIME ONE Stop: 02/08/17 10:09 Last Admin: 02/08/17 10:33 Dose: 4 mg Sodium Chloride (Saline Flush) 10 ml FLUSH ONETIME ONE Stop: 02/08/17 12:03 Last Admin: 02/08/17 12:26 Dose: 10 ml - Exam General: alert, oriented, cooperative, no acute distress HEENT: Pupils equal, Pupils reactive, EOMI, Mucous membr. moist/pink Neck: supple, trachea midline, no JVD Lungs: Clear to auscultation, Normal respiratory effort Cardiovascular: Regular Rate, Regular Rhythm Abdomen: bowel sounds present, soft, tenderness (mid, right lower and epigastric region) (Female) Exam: Deferred Back Exam: Normal Inspection, Decreased Range of Motion Extremities: no edema, normal pulses, no tenderness/swelling, no clubbing, no cyanosis, no calf tenderness, calf tenderness Peripheral Pulses: 2+: Dorsalis Pedis (L), Dorsalis Pedis (R) Skin: warm, dry, intact Neurological: no new focal deficit Psy/Mental Status: alert, normal affect, normal mood - Problem List Review Problem List Initiated/Reviewed/Updated: Yes - My Orders Last 24 Hours: My Active Orders 02/08/17 15:42 Ambulate [RC] ASDIRECTED Height and Weight [RC] 0400 Oxygen Therapy [RC] PRN Up ad Amee [RC] ASDIRECTED VTE/DVT Education [RC] DAILY Vital Signs [RC] Q4HR Acetaminophen [Tylenol] 650 mg PO Q4H PRN Acetaminophen/HYDROcodone [[place] 325-5 MG] 1 tab PO Q4H PRN Albuterol/Ipratropium [DuoNeb 3.0-0.5 MG/3 ML] 3 ml NEB Q4H PRN LORazepam [Ativan] 0.25 mg IV Q6H PRN Ondansetron [Zofran] 4 mg IV Q6H PRN Promethazine [Phenergan] 12.5 mg Sodium Chloride 0.9% [Normal Saline] 50 ml IV Q6H 02/08/17 15:43 Intake and Output [RC] 0400,1600 02/08/17 15:45 RT Aerosol Therapy [RC] .PRN 02/08/17 15:46 Consult to Case Management [CONS] Routine Consult to Supplier Development Manager [CONS] Routine Consult to Spiritual Care [CONS] Routine 02/08/17 15:53 Metoprolol Tartrate [Lopressor] 2.5 mg IVPUSH Q4H PRN hydrALAZINE [Apresoline] 10 mg IVPUSH Q4H PRN 02/08/17 15:55 Metoclopramide [Reglan] 10 mg IVPUSH Q4H PRN 02/08/17 16:15 Temazepam [Restoril] 7.5 mg PO BEDTIME PRN 02/08/17 17:00 Sucralfate [Carafate] 1 gm PO ACBED 02/08/17 17:34 C DIFFICILE BY PCR W/NAP1 [MOLEC] Routine 02/08/17 18:18 Code Status [Resuscitation Status] Routine 02/08/17 21:00 Famotidine [Pepcid] 20 mg PO BID Saccharomyces Boulardii [Florastor] 250 mg PO TID Simvastatin [Zocor] 10 mg PO BEDTIME 02/08/17 21:51 HYDROmorphone [Dilaudid] 0.25 mg IVPUSH Q4H PRN 02/08/17 22:00 metroNIDAZOLE/Normal Saline [Flagyl 500 MG in NS 100 ML] 500 mg Premix Bag 1 bag IV Q8H 02/08/17 Dinner Clear Liquid Diet [DIET] 02/09/17 06:00 Levothyroxine 75 mcg PO ACBRK 02/09/17 08:00 Scopolamine [Transderm-Scop] 1.5 mg TOP ONETIME ONE 02/09/17 09:00 Atenolol [Tenormin] 25 mg PO DAILY Cholecalciferol (Vitamin D3) [Vitamin D3] 2,000 units PO DAILY Enoxaparin [Lovenox] 40 mg SUBCUT DAILY Hydrochlorothiazide 12.5 mg PO DAILY Levofloxacin/Dextrose 5%-Water [Levaquin in D5W 500 MG/100 ML] 500 mg Premix Bag 1 bag IV Q24H Losartan [Cozaar] 100 mg PO DAILY Magnesium Oxide 400 mg PO DAILY Multivitamins,Therapeutic [Thera] 1 each PO DAILY Patient's Own Medication [Ptom] 0 each PO DAILY Patient's Own Medication [Ptom] 0 each PO DAILY Thiamine [Vitamin B-1] 100 mg PO DAILY Vitamin B6-pyridOXINE 100 mg PO DAILY Vitamin E (dl, acetate) [Vitamin E] 400 units PO DAILY amLODIPine [Norvasc] 5 mg PO DAILY 02/10/17 05:11 BASIC METABOLIC PANEL,BMP [CHEM] AM C-REACTIVE PROTEIN [CHEM] AM CBC WITH AUTO DIFF [HEME] AM MAGNESIUM [CHEM] AM 02/11/17 05:11 BASIC METABOLIC PANEL,BMP [CHEM] AM C-REACTIVE PROTEIN [CHEM] AM CBC WITH AUTO DIFF [HEME] AM MAGNESIUM [CHEM] AM 02/12/17 05:11 BASIC METABOLIC PANEL,BMP [CHEM] AM C-REACTIVE PROTEIN [CHEM] AM CBC WITH AUTO DIFF [HEME] AM MAGNESIUM [CHEM] AM 02/13/17 05:11 BASIC METABOLIC PANEL,BMP [CHEM] AM C-REACTIVE PROTEIN [CHEM] AM MAGNESIUM [CHEM] AM - Plan Plan:: Assessment/Plan: Acute: Enteritis - DDx: Ileus vs SBO - Viral vs Bacterial - No unusual drink or food - No travel outside the country - She was able to eat or drink - She was PPI for presumptive Gastritis/PUD pending EGD on the of this month - Continue supportive care and intravenous antibiotics with Levaquin and Flagyl - Oral Probiotic - PRN meds for symptomatic control Abdominal Pain/Hx/o Gastritis - May have worsened by above - Started way back on January 01 - Was on Carafate and PPI - She is scheduled to see Dr. Correa at the end of the month - Treatment as above Leukocytosis - WBC 19.30 (7.31), CRP is 2.2 (normal yesterday) - 2/2 Above - Will monitor Cholelithiasis - CT scan finding - Stable at this time Right Kidney 7 mm Hypodense Mass - CT scan finding - DDx: cyst, infection, hematoma or neoplasm - Informed patient about it - Defer further work up outpatient Chronic: HTN OA/DJD Anxiety HTN Gastritis Hypothyroidism Vit D Deficiency Hx/o Breast Cancer S/p Mastectomy Plan: She is clinically stable NPO for now except ice chips, sips of water and oral meds Scopolamine Patch x 1 now Increased Dilaudid dose to 0.5 mg IVP Q4 PRN Pain (hold for excessive sedation) Start D5W NS at 100 cc/hr Routine AM Labs SW/CM for d/c planning Additional orders as above Code status: DNR/DNI
[2017-02-09] MEDS ORDERED: Scopolamine 1.5 MG Transdermal Patch TOP ONE (08:00)
[2017-02-09] MEDS: Saccharomyces Boulardii (Probiotic) 250 MG Cap PO SCH ×3 (08:13→21:27)
[2017-02-09] MEDS: Hydrochlorothiazide 12.5 MG Cap PO SCH (08:13)
[2017-02-09] MEDS: Losartan 100 MG Tab PO SCH (08:13)
[2017-02-09] MEDS: Enoxaparin 40 MG/0.4 ML Syringe SUBCUT SCH (08:15)
[2017-02-09] MEDS: Levofloxacin/Dextrose 5%-Water 500 MG in Premix Bag 1 BAG IV SCH (08:15)
[2017-02-09] MEDS: amLODIPine 5 MG Tab PO SCH (08:16)
[2017-02-09] MEDS: Magnesium Oxide 400 MG Tab PO SCH (08:16)
[2017-02-09] MEDS: Famotidine 20 MG Tab PO SCH (08:16)
[2017-02-09] MEDS: Atenolol 25 MG Tab PO SCH (08:17)
[2017-02-09] MEDS: Multivitamins,Therapeutic Tab PO SCH (08:17)
[2017-02-09] MEDS: UBIDECARENONE 200 MG PO SCH (08:17)
[2017-02-09] MEDS: Cyanocobalamin (Vitamin B-12) [Vitamin B-12] 2,500 MCG PO SCH (08:17)
[2017-02-09] MEDS: Thiamine 100 MG Tab PO SCH (08:17)
[2017-02-09] MEDS: Vitamin B6-pyridOXINE 50 MG Tab PO SCH (08:18)
[2017-02-09] MEDS: Cholecalciferol (Vitamin D3) 1,000 Unit Tab PO SCH (08:18)
[2017-02-09] MEDS: Vitamin E (dl-alpha-tocopherol acetate) 400 Unit Cap PO SCH (08:18)
[2017-02-09] MEDS: HYDROmorphone 0.5 MG/0.5 ML Syringe IVPUSH PRN ×4 (09:24→23:39)
[2017-02-09] MEDS: Dextrose 5%-0.9% NaCl 1,000 ML IV SCH ×2 (09:25→23:42)
--- NOTE | 2017-02-09 11:13 | CT ---
CT abdomen and pelvis Technique: Multiple axial sections were obtained from above the dome of the diaphragm inferiorly through the pubic symphysis. Intravenous and oral contrast was utilized. Delayed images were obtained through the bladder. Comparison: No previous abdominal imaging. Findings: Small portion of the visualized lung bases shows nothing acute. Liver shows no focal parenchymal abnormality. Reflux of contrast seen into the distal esophagus. Spleen appears within normal limits. Gallbladder shows mild increased density possibly due to slightly dense sludge or small gallstones. No gallbladder wall thickening is appreciated by this exam. Adrenal glands show no nodule. Aorta shows atherosclerotic change which continues into the iliac vessels but no aneurysm is seen. No retroperitoneal adenopathy or mesenteric abnormalities are seen. No pelvic mass or adenopathy is seen. Cystic area noted near the junction of the lower uterine segment and cervix measuring approximately 1.9 cm possibly due to large nabothian cyst. Dilated loops of proximal jejunum and mid jejunum are seen. There is inflammatory change near the transitional area within the right lower abdomen. Findings may represent mild ileus or early obstruction from enteritis or other inflammatory or neoplastic process. Small low density area noted within the right kidney measuring 7 mm which is likely incidental given the patient's age but is otherwise nonspecific. Bone window settings were reviewed which show degenerative change and scoliosis within the spine. Impression: 1. Dilated loops of proximal and mid jejunum with transitional level being within the right lower abdomen. In the area of transition, there is inflammatory change which may represent enteritis or other inflammatory neoplastic process. 2. Increased density within the gallbladder either due to high density sludge or gallstones. 3. Other incidental findings as noted above. Diagnostic code #5 Agree with preliminary report issued by [facility] ([facility] preliminary report dictated on 02/08/17, 2:15 PM Central Time)
[2017-02-09] MEDS: Simvastatin 10 MG Tab PO SCH (21:34)
[2017-02-10] MEDS: HYDROmorphone 0.5 MG/0.5 ML Syringe IVPUSH PRN (04:04)
[2017-02-10] MEDS: Metoclopramide 10 MG/2 ML SDV IVPUSH PRN ×2 (04:07→17:51)
[2017-02-10] MEDS: metroNIDAZOLE/Normal Saline 500 MG in Premix Bag 1 BAG IV SCH ×3 (06:23→22:28)
[2017-02-10] MEDS: Sucralfate Suspension 1 GM/10 ML Cup PO SCH ×3 (06:23→10:46)
[2017-02-10] MEDS: Levothyroxine 75 MCG Tab PO SCH (06:23)
[2017-02-10] MEDS ORDERED: Scopolamine 1.5 MG Transdermal Patch TOP ONE (07:36)
--- NOTE | 2017-02-10 07:36 | PCM.PN ---
- General Info Date of Service: 02/10/17 Admission Dx/Problem (Free Text): Admission Diagnosis/Problem Admission Diagnosis/Problem Abdominal pain Subjective Update: Follow Up Functional Status: Reports: pain controlled, ambulating, urinating. Denies: new symptoms - Review of Systems General: Denies: Fever, Weakness, Chills, Night Sweats HEENT: Reports: no symptoms Pulmonary: Denies: shortness of breath Gastrointestinal: Reports: Flatus. Denies: Abdominal pain, Decreased appetite, Diarrhea, Difficulty swallowing, Nausea, Vomiting Genitourinary: Reports: no symptoms Musculoskeletal: Reports: no symptoms Skin: Denies: cyanosis, mottled, pallor Neurological: Denies: Confusion, Dizziness, Syncope, Weakness, Gait Disturbance Psychiatric: Denies: depression, agitation, hallucinations, suicidal ideation Systems Review Comment:: No overnight issues. 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 She is currently not symptomatic. She is afebrile and WBC is trending down. She has no new complaints. - Patient Data Vitals - most recent: Last Vital Signs Temp 36.8 C 02/10/17 04:34 Pulse 74 02/10/17 04:34 Resp 16 02/10/17 04:34 BP 118/60 02/10/17 04:34 Pulse Ox 96 02/10/17 04:34 Weight - most recent: 74.661 kg I&O - last 24 hours: Intake & Output 02/09/17 02/10/17 02/10/17 22:59 06:59 14:59 Intake Total 658 1900 Output Total 1450 Balance 658 450 Lab Results last 24 hrs: Laboratory Results - last 24 hr 02/10/17 02/10/17 Range/Units 06:21 06:21 WBC 15.12 H (3.98-10.04) K/mm3 RBC 4.41 (3.98-5.22) M/mm3 Hgb 14.2 (11.2-15.7) gm/L Hct 42.5 (34.1-44.9) % MCV 96.4 H (79.4-94.8) fl MCH 32.2 (25.6-32.2) pg MCHC 33.4 (32.2-35.5) g/dl RDW Std Deviation 44.0 (36.4-46.3) fL Plt Count 166 L (182-369) K/mm3 MPV 10.1 (9.4-12.3) fl Neut % (Auto) 87.3 H (34.0-71.1) % Lymph % (Auto) 7.9 L (19.3-51.7) % Ray % (Auto) 4.5 L (4.7-12.5) % Eos % (Auto) 0 L (0.7-5.8) Baso % (Auto) 0.1 (0.1-1.2) % Neut # (Auto) 13.21 H (1.56-6.13) K/mm3 Lymph # (Auto) 1.19 (1.18-3.74) K/mm3 Ray # (Auto) 0.68 H (0.24-0.36) K/mm3 Eos # (Auto) 0.00 L (0.04-0.36) K/mm3 Baso # (Auto) 0.01 (0.01-0.08) K/mm3 Sodium 140 (136-145) mEq/L Potassium 3.2 L (3.5-5.1) mEq/L Chloride 103 (98-107) mEq/L Carbon Dioxide 31 (21-32) mEq/L Anion Gap 9.2 (5-15) BUN 29 H (7-18) mg/dL Creatinine 0.9 (0.55-1.02) mg/dL Est Cr Clr Drug Dosing 40.04 mL/min Estimated GFR (MDRD) 60 (>60) mL/min BUN/Creatinine Ratio 32.2 H (14-18) Glucose 139 H (83-115) mg/dL Calcium 8.7 (8.5-10.1) mg/dL Magnesium 1.9 (1.8-2.4) mg/dl C-Reactive Protein 9.2 H* (<1.0) mg/dL Med Orders - Current: Current Medications Acetaminophen (Tylenol) 650 mg PO Q4H PRN PRN Reason: Pain (Mild 1-3)/fever Hydrocodone Bitart/Acetaminophen (Alpha 325-5 Mg) 1 tab PO Q4H PRN PRN Reason: Pain (moderate 4-6) Last Admin: 02/08/17 21:13 Dose: 1 tab Albuterol/Ipratropium (Duoneb 3.0-0.5 Mg/3 Ml) 3 ml NEB Q4H PRN PRN Reason: Shortness Of Breath/wheezing Amlodipine Besylate (Norvasc) 5 mg PO DAILY [facility] Last Admin: 02/09/17 08:16 Dose: 5 mg Atenolol (Tenormin) 25 mg PO DAILY [facility] Last Admin: 02/09/17 08:17 Dose: 25 mg Cholecalciferol (Vitamin D3) 2,000 units PO DAILY [facility] Last Admin: 02/09/17 08:18 Dose: 2,000 units Enoxaparin Sodium (Lovenox) 40 mg SUBCUT DAILY [facility] Last Admin: 02/09/17 08:15 Dose: 40 mg Famotidine (Pepcid) 20 mg PO DAILY [facility] Hydralazine HCl (Apresoline) 10 mg IVPUSH Q4H PRN PRN Reason: Hypertension Last Admin: 02/08/17 21:13 Dose: 10 mg Hydrochlorothiazide (Hydrochlorothiazide) 12.5 mg PO DAILY [facility] Last Admin: 02/09/17 08:13 Dose: 12.5 mg Hydromorphone HCl (Dilaudid) 0.5 mg IVPUSH Q4H PRN PRN Reason: Pain (severe 7-10) Last Admin: 02/10/17 04:04 Dose: 0.5 mg Levofloxacin/Dextrose 500 mg/ (Premix) 100 mls @ 100 mls/hr IV Q24H [facility] Last Admin: 02/09/17 08:15 Dose: 100 mls/hr Promethazine HCl 12.5 mg/ (Sodium Chloride) 50.5 mls @ 100 mls/hr IV Q6H PRN PRN Reason: Nausea/Vomiting Metronidazole 500 mg/ Premix 100 mls @ 100 mls/hr IV Q8H [facility] Last Admin: 02/10/17 06:23 Dose: 100 mls/hr Dextrose/Sodium Chloride (Dextrose 5%-Normal Saline) 1,000 mls @ 100 mls/hr IV ASDIRECTED [facility] Last Admin: 02/09/17 23:42 Dose: 100 mls/hr Levothyroxine Sodium (Levothyroxine) 75 mcg PO ACBRK [facility] Last Admin: 02/10/17 06:23 Dose: 75 mcg Lorazepam (Ativan) 0.25 mg IV Q6H PRN PRN Reason: Anxiety Losartan Potassium (Cozaar) 100 mg PO DAILY [facility] Last Admin: 02/09/17 08:13 Dose: 100 mg Magnesium Oxide (Magnesium Oxide) 400 mg PO DAILY [facility] Last Admin: 02/09/17 08:16 Dose: 400 mg Metoclopramide HCl (Reglan) 10 mg IVPUSH Q4H PRN PRN Reason: Nausea/Vomiting Last Admin: 02/10/17 04:07 Dose: 10 mg Metoprolol Tartrate (Lopressor) 2.5 mg IVPUSH Q4H PRN PRN Reason: Tachycardia Miscellaneous Information (Remove Patch) 1 ea TRDERM DAILY [facility] Stop: 02/12/17 09:01 Multivitamins (Thera) 1 each PO DAILY [facility] Last Admin: 02/09/17 08:17 Dose: 1 each Ondansetron HCl (Zofran) 4 mg IV Q6H PRN PRN Reason: Nausea/Vomiting Cyanocobalamin ( Vitamin B-12) [ Vitamin B-12] 2,500 Mcg 0 each PO DAILY [facility] Last Admin: 02/09/17 08:17 Dose: Not Given Ubidecarenone 200 Mg 0 each PO DAILY [facility] Last Admin: 02/09/17 08:17 Dose: Not Given Pyridoxine HCl (Vitamin B6-Pyridoxine) 100 mg PO DAILY [facility] Last Admin: 02/09/17 08:18 Dose: 100 mg Saccharomyces Boulardii (Florastor) 250 mg PO TID [facility] Last Admin: 02/09/17 21:27 Dose: 250 mg Simvastatin (Zocor) 10 mg PO BEDTIME [facility] Last Admin: 02/09/17 21:34 Dose: 10 mg Sodium Chloride (Saline Flush) 10 ml FLUSH ASDIRECTED PRN PRN Reason: Keep Vein Open Last Admin: 02/08/17 10:36 Dose: 10 ml Sucralfate (Carafate) 1 gm PO ACBED [facility] Last Admin: 02/10/17 06:23 Dose: Not Given Temazepam (Restoril) 7.5 mg PO BEDTIME PRN PRN Reason: SLEEP Thiamine HCl (Vitamin B-1) 100 mg PO DAILY [facility] Last Admin: 02/09/17 08:17 Dose: 100 mg Vitamin E (Vitamin E) 400 units PO DAILY [facility] Last Admin: 02/09/17 08:18 Dose: 400 units Discontinued Medications Al Hydroxide/Mg Hydroxide 30 (ml/ Lidocaine HCl 15 ml) 0 ml PO ONETIME ONE Stop: 02/08/17 10:10 Last Admin: 02/08/17 10:30 Dose: 30 ml Diatrizoate Meglum/Diatrizoate Sod (Gastrografin 37%) 90 ml PO ONETIME ONE Stop: 02/08/17 12:03 Last Admin: 02/08/17 12:26 Dose: 90 ml Famotidine (Pepcid) 20 mg PO BID [facility] Last Admin: 02/09/17 08:16 Dose: 20 mg Hydromorphone HCl (Dilaudid) 0.5 mg IVPUSH ONETIME ONE Stop: 02/08/17 10:10 Last Admin: 02/08/17 10:36 Dose: 0.5 mg Hydromorphone HCl (Dilaudid) 1 mg IVPUSH ONETIME ONE Stop: 02/08/17 12:50 Last Admin: 02/08/17 12:55 Dose: 1 mg Hydromorphone HCl (Dilaudid) 0.25 mg IVPUSH Q4H PRN PRN Reason: Pain (severe 7-10) Last Admin: 02/09/17 06:54 Dose: 0.25 mg Sodium Chloride (Normal Saline) 1,000 mls @ 125 [facility]ls[facility] Admin: 02/08/17 10:32 Dose: 125 mls/hr Levofloxacin/Dextrose 500 mg/ (Premix) 100 mls @ 100 mls/hr IV ONETIME ONE Stop: 02/08/17 14:38 Last Admin: 02/08/17 14:02 Dose: 100 mls/hr Metronidazole 500 mg/ Premix 100 mls @ 100 mls/hr IV ONETIME ONE Stop: 02/08/17 14:38 Last Admin: 02/08/17 21:08 Dose: Not Given Iopamidol (Isovue-300 (61%)) 100 ml IVPUSH ONETIME ONE Stop: 02/08/17 12:03 Last Admin: 02/08/17 12:26 Dose: 100 ml Metoclopramide HCl (Reglan) 10 mg IVPUSH ONETIME ONE Stop: 02/08/17 12:50 Last Admin: 02/08/17 12:54 Dose: 10 mg Ondansetron HCl (Zofran) 4 mg IVPUSH ONETIME ONE Stop: 02/08/17 10:09 Last Admin: 02/08/17 10:33 Dose: 4 mg Scopolamine (Transderm-Scop) 1.5 mg TOP ONETIME ONE Stop: 02/09/17 08:01 Last Admin: 02/09/17 08:12 Dose: 1.5 mg Sodium Chloride (Saline Flush) 10 ml FLUSH ONETIME ONE Stop: 02/08/17 12:03 Last Admin: 02/08/17 12:26 Dose: 10 ml - Exam General: alert, oriented, cooperative HEENT: Pupils equal, Pupils reactive, EOMI, Mucous membr. moist/pink Neck: supple, trachea midline, no JVD, no thyromegaly, +2 carotid pulse wo bruit Lungs: Clear to auscultation, Normal respiratory effort Cardiovascular: Regular Rate, Regular Rhythm Abdomen: bowel sounds present, soft, no distension, tenderness (mild) (Female) Exam: Deferred Back Exam: Normal Inspection, Full Range of Motion Extremities: no edema, normal pulses, no tenderness/swelling, no clubbing, no cyanosis, no calf tenderness Peripheral Pulses: 2+: Dorsalis Pedis (L), Dorsalis Pedis (R) Skin: warm, dry, intact Neurological: no new focal deficit Psy/Mental Status: alert, normal affect, normal mood - Problem List Review Problem List Initiated/Reviewed/Updated: Yes - My Orders Last 24 Hours: My Active Orders 02/09/17 08:15 Dextrose 5%-0.9% NaCl [Dextrose 5%-Normal Saline] 1,000 ml IV ASDIRECTED 02/09/17 08:26 HYDROmorphone [Dilaudid] 0.5 mg IVPUSH Q4H PRN 02/09/17 09:00 Atenolol [Tenormin] 25 mg PO DAILY Cholecalciferol (Vitamin D3) [Vitamin D3] 2,000 units PO DAILY Enoxaparin [Lovenox] 40 mg SUBCUT DAILY Hydrochlorothiazide 12.5 mg PO DAILY Levofloxacin/Dextrose 5%-Water [Levaquin in D5W 500 MG/100 ML] 500 mg Premix Bag 1 bag IV Q24H Losartan [Cozaar] 100 mg PO DAILY Magnesium Oxide 400 mg PO DAILY Multivitamins,Therapeutic [Thera] 1 each PO DAILY Patient's Own Medication [Ptom] 0 each PO DAILY Patient's Own Medication [Ptom] 0 each PO DAILY Thiamine [Vitamin B-1] 100 mg PO DAILY Vitamin B6-pyridOXINE 100 mg PO DAILY Vitamin E (dl, acetate) [Vitamin E] 400 units PO DAILY amLODIPine [Norvasc] 5 mg PO DAILY 02/09/17 Lunch NPO Now [Nothing per Oral Now Diet] [DIET] 02/10/17 09:00 Famotidine [Pepcid] 20 mg PO DAILY 02/11/17 05:11 BASIC METABOLIC PANEL,BMP [CHEM] AM C-REACTIVE PROTEIN [CHEM] AM CBC WITH AUTO DIFF [HEME] AM MAGNESIUM [CHEM] AM 02/12/17 05:11 BASIC METABOLIC PANEL,BMP [CHEM] AM C-REACTIVE PROTEIN [CHEM] AM CBC WITH AUTO DIFF [HEME] AM MAGNESIUM [CHEM] AM 02/12/17 09:00 Remove Patch 1 ea TRDERM DAILY 02/13/17 05:11 BASIC METABOLIC PANEL,BMP [CHEM] AM C-REACTIVE PROTEIN [CHEM] AM MAGNESIUM [CHEM] AM - Plan Plan:: Assessment/Plan: Acute: Enteritis - DDx: Ileus vs SBO - Viral vs Bacterial - No unusual drink or food - No travel outside the country - She was able to eat or drink - She was PPI for presumptive Gastritis/PUD pending EGD on the of this month - Continue supportive care and intravenous antibiotics with Levaquin and Flagyl - Oral Probiotic - PRN meds for symptomatic control - She is responding to treatment Abdominal Pain/Hx/o Gastritis, improved - May have worsened by above - Started way back on January 01 - Was on Carafate and PPI - She is scheduled to see Dr. Correa at the end of the month - Treatment as above Leukocytosis - WBC 19.30 --> 15.12, CRP is 2.2 --> 9.2 - 2/2 Above - Will monitor Hypokalemia - K 3.2 2/2 inadequate intake - Pharmacy to replete and monitor Cholelithiasis - CT scan finding - Stable at this time Right Kidney 7 mm Hypodense Mass - CT scan finding - DDx: cyst, infection, hematoma or neoplasm - Informed patient about it - Defer further work up outpatient Chronic: HTN OA/DJD Anxiety HTN Gastritis Hypothyroidism Vit D Deficiency Hx/o Breast Cancer S/p Mastectomy Plan: She is clinically stable Start clear liquid diet and advance as tolerated Discontinue D5W NS at 100 cc/hr once she is po meals Routine AM Labs SW/CM for d/c planning Additional orders as above Code status: DNR/DNI Discharge once she is tolerant to regular meal
[2017-02-10] MEDS: Saccharomyces Boulardii (Probiotic) 250 MG Cap PO SCH ×3 (08:06→22:04)
[2017-02-10] MEDS: Cholecalciferol (Vitamin D3) 1,000 Unit Tab PO SCH (08:07)
[2017-02-10] MEDS: Thiamine 100 MG Tab PO SCH (08:07)
[2017-02-10] MEDS: Vitamin B6-pyridOXINE 50 MG Tab PO SCH (08:07)
[2017-02-10] MEDS: Vitamin E (dl-alpha-tocopherol acetate) 400 Unit Cap PO SCH (08:07)
[2017-02-10] MEDS: Magnesium Oxide 400 MG Tab PO SCH (08:07)
[2017-02-10] MEDS: Multivitamins,Therapeutic Tab PO SCH (08:07)
[2017-02-10] MEDS: Atenolol 25 MG Tab PO SCH (08:08)
[2017-02-10] MEDS: Enoxaparin 40 MG/0.4 ML Syringe SUBCUT SCH (08:08)
[2017-02-10] MEDS: Hydrochlorothiazide 12.5 MG Cap PO SCH (08:09)
[2017-02-10] MEDS: amLODIPine 5 MG Tab PO SCH (08:09)
[2017-02-10] MEDS: Levofloxacin/Dextrose 5%-Water 500 MG in Premix Bag 1 BAG IV SCH (08:10)
[2017-02-10] MEDS: Losartan 100 MG Tab PO SCH (08:10)
[2017-02-10] MEDS: UBIDECARENONE 200 MG PO SCH (08:11)
[2017-02-10] MEDS: Cyanocobalamin (Vitamin B-12) [Vitamin B-12] 2,500 MCG PO SCH (08:11)
[2017-02-10] MEDS: Dextrose 5%-0.9% NaCl 1,000 ML IV SCH (08:13)
[2017-02-10] MEDS ORDERED: Famotidine 20 MG Tab PO SCH (09:00)
[2017-02-10] MEDS ORDERED: Potassium Chloride 20 MEQ Tab.ER PO SCH (13:00)
[2017-02-10] MEDS: Potassium Chloride 10 MEQ in Premix Bag 1 BAG IV SCH ×2 (14:46→16:42)
[2017-02-10] MEDS: Ondansetron 4 MG/2 ML SDV IV PRN (18:17)
--- NOTE | 2017-02-10 19:09 | CR ---
Abdomen: Supine view of the abdomen was obtained. Comparison: Previous abdominal x-ray of 02/08/17. Vascular calcification is seen. Bowel gas pattern shows fluid and contrast-filled small bowel with the bowel slightly prominent in size. Small amount of air and stool is noted within the right colon. Degenerative change and scoliosis is present within the spine. Impression: 1. Contrast and fluid filled small bowel which is slightly dilated and is suspicious for continuing small bowel obstruction. 2. Other incidental findings. Diagnostic code #3
[2017-02-10] MEDS ORDERED: Metoclopramide 10 MG/2 ML SDV IVPUSH SCH (20:15)
[2017-02-10] MEDS: Simvastatin 10 MG Tab PO SCH (22:04)
[2017-02-10] MEDS: Metoclopramide 10 MG/2 ML SDV IVPUSH SCH (22:04)
[2017-02-10] MEDS: Pantoprazole 40 MG Tab.CR PO SCH (22:04)
[2017-02-11] MEDS: HYDROmorphone 0.5 MG/0.5 ML Syringe IVPUSH PRN (00:10)
[2017-02-11] MEDS: Metoclopramide 10 MG/2 ML SDV IVPUSH SCH ×4 (04:58→21:41)
[2017-02-11] MEDS: Levothyroxine 75 MCG Tab PO SCH (05:02)
[2017-02-11] MEDS: metroNIDAZOLE/Normal Saline 500 MG in Premix Bag 1 BAG IV SCH ×3 (05:24→21:40)
--- NOTE | 2017-02-11 07:22 | PCM.PN ---
- General Info Date of Service: 02/11/17 Admission Dx/Problem (Free Text): Admission Diagnosis/Problem Admission Diagnosis/Problem Abdominal pain Subjective Update: Follow Up Functional Status: Reports: pain controlled, urinating. Denies: tolerating diet , ambulating, new symptoms - Review of Systems General: Denies: Fever, Weakness, Fatigue, Malaise, Chills HEENT: Reports: other (dry mouth) Pulmonary: Denies: shortness of breath Cardiovascular: Reports: No Symptoms Gastrointestinal: Reports: Flatus (she is passing gas but not much). Denies: Abdominal pain, Decreased appetite, Difficulty swallowing, Nausea, Vomiting Genitourinary: Reports: no symptoms Musculoskeletal: Reports: no symptoms Skin: Denies: cyanosis, pruritis, rash Neurological: Denies: Confusion, Pre-Existing Deficit, Difficulty Walking, Weakness, Gait Disturbance Psychiatric: Denies: depression, anxiety Systems Review Comment:: No overnight or acute issues. She seems to be better. Pain is controlled. She had one bowel movement already. She has been ambulating. Her labs are improving. She denies any nausea or vomiting. Family would like Dr. Correa consulted. - Patient Data Vitals - most recent: Last Vital Signs Temp 36.4 C 02/11/17 05:03 Pulse 64 02/11/17 05:03 Resp 16 02/11/17 05:03 BP 137/61 02/11/17 05:03 Pulse Ox 87 L 02/11/17 05:03 Weight - most recent: 74.48 kg I&O - last 24 hours: Intake & Output 02/10/17 02/11/17 02/11/17 22:59 06:59 14:59 Intake Total 1400 201 Output Total 900 650 Balance 500 -449 Lab Results last 24 hrs: Laboratory Results - last 24 hr 02/10/17 02/10/17 02/10/17 Range/Units 06:21 06:21 16:40 WBC 15.12 H (3.98-10.04) K/mm3 RBC 4.41 (3.98-5.22) M/mm3 Hgb 14.2 (11.2-15.7) gm/L Hct 42.5 (34.1-44.9) % MCV 96.4 H (79.4-94.8) fl MCH 32.2 (25.6-32.2) pg MCHC 33.4 (32.2-35.5) g/dl RDW Std Deviation 44.0 (36.4-46.3) fL Plt Count 166 L (182-369) K/mm3 MPV 10.1 (9.4-12.3) fl Neut % (Auto) 87.3 H (34.0-71.1) % Lymph % (Auto) 7.9 L (19.3-51.7) % [place] % (Auto) 4.5 L (4.7-12.5) % Eos % (Auto) 0 L (0.7-5.8) Baso % (Auto) 0.1 (0.1-1.2) % Neut # (Auto) 13.21 H (1.56-6.13) K/mm3 Lymph # (Auto) 1.19 (1.18-3.74) K/mm3 [place] # (Auto) 0.68 H (0.24-0.36) K/mm3 Eos # (Auto) 0.00 L (0.04-0.36) K/mm3 Baso # (Auto) 0.01 (0.01-0.08) K/mm3 Sodium 140 (136-145) mEq/L Potassium 3.2 L (3.5-5.1) mEq/L Chloride 103 (98-107) mEq/L Carbon Dioxide 31 (21-32) mEq/L Anion Gap 9.2 (5-15) BUN 29 H (7-18) mg/dL Creatinine 0.9 (0.55-1.02) mg/dL Est Cr Clr Drug Dosing 40.04 mL/min Estimated GFR (MDRD) 60 (>60) mL/min BUN/Creatinine Ratio 32.2 H (14-18) Glucose 139 H (83-115) mg/dL Calcium 8.7 (8.5-10.1) mg/dL Magnesium 1.9 (1.8-2.4) mg/dl C-Reactive Protein 9.2 H* (<1.0) mg/dL C.difficile 027-NAP1-B1 TNP C. difficile Tox (PCR) TNP 02/10/17 02/11/17 Range/Units 20:05 06:00 WBC 11.09 H (3.98-10.04) K/mm3 RBC 4.76 (3.98-5.22) M/mm3 Hgb 15.2 (11.2-15.7) gm/L Hct 46.0 H (34.1-44.9) % MCV 96.6 H (79.4-94.8) fl MCH 31.9 (25.6-32.2) pg MCHC 33.0 (32.2-35.5) g/dl RDW Std Deviation 45.1 (36.4-46.3) fL Plt Count 162 L (182-369) K/mm3 MPV 10.4 (9.4-12.3) fl Neut % (Auto) 74.3 H (34.0-71.1) % Lymph % (Auto) 16.0 L (19.3-51.7) % [place] % (Auto) 8.6 (4.7-12.5) % Eos % (Auto) 0.8 (0.7-5.8) Baso % (Auto) 0.1 (0.1-1.2) % Neut # (Auto) 8.25 H (1.56-6.13) K/mm3 Lymph # (Auto) 1.77 (1.18-3.74) K/mm3 [place] # (Auto) 0.95 H (0.24-0.36) K/mm3 Eos # (Auto) 0.09 (0.04-0.36) K/mm3 Baso # (Auto) 0.01 (0.01-0.08) K/mm3 Sodium 140 (136-145) mEq/L Potassium 3.5 (3.5-5.1) mEq/L Chloride 104 (98-107) mEq/L Carbon Dioxide 30 (21-32) mEq/L Anion Gap 9.5 (5-15) BUN 25 H (7-18) mg/dL Creatinine 0.8 (0.55-1.02) mg/dL Est Cr Clr Drug Dosing 45.04 mL/min Estimated GFR (MDRD) > 60 (>60) mL/min BUN/Creatinine Ratio 31.3 H (14-18) Glucose 125 H (83-115) mg/dL Calcium 8.9 (8.5-10.1) mg/dL Magnesium (1.8-2.4) mg/dl C-Reactive Protein (<1.0) mg/dL C.difficile 027-NAP1-B1 C. difficile Tox (PCR) Med Orders - Current: Current Medications Acetaminophen (Tylenol) 650 mg PO Q4H PRN PRN Reason: Pain (Mild 1-3)/fever Hydrocodone Bitart/Acetaminophen ([place] 325-5 Mg) 1 tab PO Q4H PRN PRN Reason: Pain (moderate 4-6) Last Admin: 02/08/17 21:13 Dose: 1 tab Albuterol/Ipratropium (Duoneb 3.0-0.5 Mg/3 Ml) 3 ml NEB Q4H PRN PRN Reason: Shortness Of Breath/wheezing Amlodipine Besylate (Norvasc) 5 mg PO DAILY [facility] Last Admin: 02/10/17 08:09 Dose: 5 mg Atenolol (Tenormin) 25 mg PO DAILY [facility] Last Admin: 02/10/17 08:08 Dose: 25 mg Cholecalciferol (Vitamin D3) 2,000 units PO DAILY [facility] Last Admin: 02/10/17 08:07 Dose: 2,000 units Enoxaparin Sodium (Lovenox) 40 mg SUBCUT DAILY [facility] Last Admin: 02/10/17 08:08 Dose: 40 mg Hydralazine HCl (Apresoline) 10 mg IVPUSH Q4H PRN PRN Reason: Hypertension Last Admin: 02/08/17 21:13 Dose: 10 mg Hydrochlorothiazide (Hydrochlorothiazide) 12.5 mg PO DAILY [facility] Last Admin: 02/10/17 08:09 Dose: 12.5 mg Hydromorphone HCl (Dilaudid) 0.5 mg IVPUSH Q4H PRN PRN Reason: Pain (severe 7-10) Last Admin: 02/11/17 00:10 Dose: 0.5 mg Levofloxacin/Dextrose 500 mg/ (Premix) 100 mls @ 100 mls/hr IV Q24H [facility] Last Admin: 02/10/17 08:10 Dose: 100 mls/hr Promethazine HCl 12.5 mg/ (Sodium Chloride) 50.5 mls @ 100 mls/hr IV Q6H PRN PRN Reason: Nausea/Vomiting Metronidazole 500 mg/ Premix 100 mls @ 100 mls/hr IV Q8H [facility] Last Admin: 02/11/17 05:24 Dose: 100 mls/hr Levothyroxine Sodium (Levothyroxine) 75 mcg PO ACBRK [facility] Last Admin: 02/11/17 05:02 Dose: 75 mcg Lorazepam (Ativan) 0.25 mg IV Q6H PRN PRN Reason: Anxiety Losartan Potassium (Cozaar) 100 mg PO DAILY [facility] Last Admin: 02/10/17 08:10 Dose: 100 mg Magnesium Oxide (Magnesium Oxide) 400 mg PO DAILY [facility] Last Admin: 02/10/17 08:07 Dose: 400 mg Magnesium Sulfate (Pharmacy To Dose - Magnesium Replacement) 1 dose .XX ASDIRECTED [facility] Metoclopramide HCl (Reglan) 10 mg IVPUSH Q4H PRN PRN Reason: Nausea/Vomiting Last Admin: 02/10/17 17:51 Dose: 10 mg Metoclopramide HCl (Reglan) 10 mg IVPUSH Q6H [facility] Last Admin: 02/11/17 04:58 Dose: 10 mg Metoprolol Tartrate (Lopressor) 2.5 mg IVPUSH Q4H PRN PRN Reason: Tachycardia Miscellaneous Information (Remove Patch) 1 ea TRDERM DAILY [facility] Stop: 02/12/17 09:01 Miscellaneous Information (Remove Patch) 0 ea TRDERM ONETIME ONE Stop: 02/13/17 07:46 Multivitamins (Thera) 1 each PO DAILY [facility] Last Admin: 02/10/17 08:07 Dose: 1 each Ondansetron HCl (Zofran) 4 mg IV Q6H PRN PRN Reason: Nausea/Vomiting Last Admin: 02/10/17 18:17 Dose: 4 mg Pantoprazole Sodium (Protonix) 40 mg PO BID [facility] Last Admin: 02/10/17 22:04 Dose: 40 mg Cyanocobalamin ( Vitamin B-12) [ Vitamin B-12] 2,500 Mcg 0 each PO DAILY [facility] Last Admin: 02/10/17 08:11 Dose: Not Given Ubidecarenone 200 Mg 0 each PO DAILY [facility] Last Admin: 02/10/17 08:11 Dose: Not Given Potassium Chloride (Pharmacy To Dose - Potassium Replacement) 1 dose .XX ASDIRECTED [facility] Pyridoxine HCl (Vitamin B6-Pyridoxine) 100 mg PO DAILY [facility] Last Admin: 02/10/17 08:07 Dose: 100 mg Saccharomyces Boulardii (Florastor) 250 mg PO TID [facility] Last Admin: 02/10/17 22:04 Dose: 250 mg Simvastatin (Zocor) 10 mg PO BEDTIME [facility] Last Admin: 02/10/17 22:04 Dose: 10 mg Sodium Chloride (Saline Flush) 10 ml FLUSH ASDIRECTED PRN PRN Reason: Keep Vein Open Last Admin: 02/08/17 10:36 Dose: 10 ml Temazepam (Restoril) 7.5 mg PO BEDTIME PRN PRN Reason: SLEEP Thiamine HCl (Vitamin B-1) 100 mg PO DAILY [facility] Last Admin: 02/10/17 08:07 Dose: 100 mg Vitamin E (Vitamin E) 400 units PO DAILY [facility] Last Admin: 02/10/17 08:07 Dose: 400 units Discontinued Medications Al Hydroxide/Mg Hydroxide 30 (ml/ Lidocaine HCl 15 ml) 0 ml PO ONETIME ONE Stop: 02/08/17 10:10 Last Admin: 02/08/17 10:30 Dose: 30 ml Diatrizoate Meglum/Diatrizoate Sod (Gastrografin 37%) 90 ml PO ONETIME ONE Stop: 02/08/17 12:03 Last Admin: 02/08/17 12:26 Dose: 90 ml Famotidine (Pepcid) 20 mg PO BID [facility] Last Admin: 02/09/17 08:16 Dose: 20 mg Famotidine (Pepcid) 20 mg PO DAILY [facility] Last Admin: 02/10/17 08:08 Dose: 20 mg Hydromorphone HCl (Dilaudid) 0.5 mg IVPUSH ONETIME ONE Stop: 02/08/17 10:10 Last Admin: 02/08/17 10:36 Dose: 0.5 mg Hydromorphone HCl (Dilaudid) 1 mg IVPUSH ONETIME ONE Stop: 02/08/17 12:50 Last Admin: 02/08/17 12:55 Dose: 1 mg Hydromorphone HCl (Dilaudid) 0.25 mg IVPUSH Q4H PRN PRN Reason: Pain (severe 7-10) Last Admin: 02/09/17 06:54 Dose: 0.25 mg Sodium Chloride (Normal Saline) 1,000 mls @ 125 mls/hr IV ASDIRECTED [facility] Last Admin: 02/08/17 10:32 Dose: 125 mls/hr Levofloxacin/Dextrose 500 mg/ (Premix) 100 mls @ 100 mls/hr IV ONETIME ONE Stop: 02/08/17 14:38 Last Admin: 02/08/17 14:02 Dose: 100 mls/hr Metronidazole 500 mg/ Premix 100 mls @ 100 mls/hr IV ONETIME ONE Stop: 02/08/17 14:38 Last Admin: 02/08/17 21:08 Dose: Not Given Dextrose/Sodium Chloride (Dextrose 5%-Normal Saline) 1,000 mls @ 100 mls/hr IV ASDIRECTED [facility] Last Admin: 02/10/17 08:13 Dose: 100 mls/hr Potassium Chloride 10 meq/ (Premix) 100 mls @ 100 mls/hr IV Q1H [facility] Stop: 02/10/17 16:29 Last Admin: 02/10/17 16:42 Dose: 100 mls/hr Iopamidol (Isovue-300 (61%)) 100 ml IVPUSH ONETIME ONE Stop: 02/08/17 12:03 Last Admin: 02/08/17 12:26 Dose: 100 ml Metoclopramide HCl (Reglan) 10 mg IVPUSH ONETIME ONE Stop: 02/08/17 12:50 Last Admin: 02/08/17 12:54 Dose: 10 mg Metoclopramide HCl (Reglan) 10 mg IVPUSH Q6H [facility] Last Admin: 02/11/17 06:14 Dose: Not Given Ondansetron HCl (Zofran) 4 mg IVPUSH ONETIME ONE Stop: 02/08/17 10:09 Last Admin: 02/08/17 10:33 Dose: 4 mg Potassium Chloride (Klor-Con M20) 40 meq PO Q4H [facility] Stop: 02/10/17 17:01 Last Admin: 02/10/17 13:10 Dose: 40 meq Scopolamine (Transderm-Scop) 1.5 mg TOP ONETIME ONE Stop: 02/09/17 08:01 Last Admin: 02/09/17 08:12 Dose: 1.5 mg Scopolamine (Transderm-Scop) 1.5 mg TOP ONETIME ONE Stop: 02/10/17 07:37 Last Admin: 02/10/17 08:05 Dose: 1.5 mg Sodium Chloride (Saline Flush) 10 ml FLUSH ONETIME ONE Stop: 02/08/17 12:03 Last Admin: 02/08/17 12:26 Dose: 10 ml Sucralfate (Carafate) 1 gm PO ACBED [facility]REW Last Admin: 02/10/17 10:46 Dose: Not Given - Exam General: alert, oriented, cooperative, no acute distress HEENT: Pupils equal, Pupils reactive, EOMI, Mucous membr. moist/pink Neck: supple, trachea midline, no JVD Lungs: Clear to auscultation, Normal respiratory effort Cardiovascular: Regular Rate, Regular Rhythm Abdomen: bowel sounds present, soft, no distension, tenderness (with deep palpation) (Female) Exam: Deferred Back Exam: Normal Inspection, Decreased Range of Motion Extremities: no edema, normal pulses, no tenderness/swelling, no clubbing, no cyanosis, no calf tenderness Peripheral Pulses: 2+: Dorsalis Pedis (L), Dorsalis Pedis (R) Skin: warm, dry, intact Neurological: no new focal deficit Psy/Mental Status: alert, normal affect, normal mood - Problem List Review Problem List Initiated/Reviewed/Updated: Yes - My Orders Last 24 Hours: My Active Orders 02/10/17 12:15 Magnesium Rep Pharmacy to Dose [Pharmacy to Dose - Magnesium Replacement] 1 dose .XX ASDIRECTED Potassium Rep Pharmacy to Dose [Pharmacy to Dose - Potassium Replacement] 1 dose .XX ASDIRECTED 02/10/17 21:00 Pantoprazole [ProTONIX] 40 mg PO BID 02/10/17 22:00 Metoclopramide [Reglan] 10 mg IVPUSH Q6H 02/10/17 Dinner NPO [Nothing Per Oral Diet] [DIET] 02/11/17 06:00 BASIC METABOLIC PANEL,BMP [CHEM] AM C-REACTIVE PROTEIN [CHEM] AM MAGNESIUM [CHEM] AM 02/12/17 05:11 BASIC METABOLIC PANEL,BMP [CHEM] AM C-REACTIVE PROTEIN [CHEM] AM CBC WITH AUTO DIFF [HEME] AM MAGNESIUM [CHEM] AM 02/12/17 09:00 Remove Patch 1 ea TRDERM DAILY 02/13/17 05:11 BASIC METABOLIC PANEL,BMP [CHEM] AM C-REACTIVE PROTEIN [CHEM] AM MAGNESIUM [CHEM] AM 02/13/17 07:45 Remove Patch 0 ea TRDERM ONETIME ONE - Plan Plan:: Assessment/Plan: Acute: Enteritis - Viral vs Bacterial - No unusual drink or food - No travel outside the country - She was able to eat or drink - She was PPI for presumptive Gastritis/PUD pending EGD on the of this month - Continue supportive care and intravenous antibiotics with Levaquin and Flagyl - Oral Probiotic - PRN meds for symptomatic control - She is responding to treatment [place] Obstruction - 2/2 Above - Supportive Care and Conservative Management - She seems to be responding Abdominal Pain/Hx/o Gastritis, improved - May have worsened by above - Started way back on January 01 - Was on Carafate and PPI - She is scheduled to see Dr. Correa at the end of the month - Treatment as above Leukocytosis - WBC 19.30 --> 15.12 ---> 11.09, CRP is 2.2 --> 9.2 --> 4.9 - 2/2 Above - Will monitor Hypokalemia - K 3.1 2/2 inadequate intake - Pharmacy to replete and monitor Cholelithiasis - CT scan finding - Stable at this time Right Kidney 7 mm Hypodense Mass - CT scan finding - DDx: cyst, infection, hematoma or neoplasm - Informed patient about it - Defer further work up outpatient Chronic: HTN OA/DJD Anxiety HTN Gastritis Hypothyroidism Vit D Deficiency Hx/o Breast Cancer S/p Mastectomy Plan: She remains clinically stable Continue NPO status Consider clear liquid diet and advance as tolerated in morning Start D5W NS at 100 cc/hr (gave verbal orders to her nurse yesterday) Routine AM Labs SW/CM for d/c planning Consulted Dr. Correa Additional orders as above Code status: DNR/DNI Discharge once she is tolerant to regular meal Spoke to Dr. Correa and informed her about the consultation. She agreed to see patient tomorrow as she is leaving out of town today. Further informed her that patient is scheduled to see her at the end of the month but family would like patient (if all possible) be evaluated while here in the hospital.
[2017-02-11] MEDS: Dextrose 5%-0.9% NaCl 1,000 ML IV SCH (10:42)
--- NOTE | 2017-02-11 11:02 | PCM.CONSN ---
- General Info Date of Service: 02/11/17 Admission Dx/Problem (Free Text): Admission Diagnosis/Problem Admission Diagnosis/Problem Abdominal pain Subjective Update: 81 year old female, known to the general surgery service, surgery consult requested by Dr. Morris. The patient was initially evaluated in the clinic on 02/05/17 for weight loss, bloating, upper abdominal pain, lower abdominal pain. She is scheduled for EGD/ colonoscopy on 02/27/17. She was initially evaluated at the ED on 01/01 when she reported vague abdominal pain with bloating x 1 month. Pain in epigastric and LUQ regions, with generalized abdominal pain at times. Pain was worse with empty stomach. Acidic/spicy foods seemed to bother her. CBC showed increased Hct at 46.7/MCV 95.1, otherwise normal. CMP normal with the exception of elevated BUN/CR ratio at 20/ Glucose of 120. Lipase was normal at 148. No elevation of liver enzymes or bilirubin. UA was negative. 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 She was diagnosed with gastritis and started on Nexium and Carafate. GERD gastritis diet advised. She also did have an abdominal US 01/08 at [place] that did not find anything acute. Hepatic steatosis was noted. She reports she was doing well up until 02/08. She reports she had really bad abdominal cramping and then did go to the ED. She reports the night prior to the ED visit she thinks she had a chicken sandwich and had toast before scientology. Denies she had constipation or diarrhea prior to symptom onset. Reports she is usually very regular. On the during scientology she had uper abdominal pain and nausea and vomiting with this, as well as a burning sensation. Her CBC was normal with the exception of Hgb/ hematocrit were elevated at 16 and 47.5. Monocytes were also elevated at 0.58. Her CMP was normal with the exception of an elevated BUN/creatinine increased creatinine ratio 20. Total protein was elevated 8.3. Lipase is normal at 176. UA was normal with exception of trace of occult blood in urine. She was given IV fluid, Zofran, Dilaudid and a GI cocktail in the ED. She also had a CT scan of her abdomen. CT report noted reflux of contrast in the distal esophagus, gallbladder showed mild increased density possibly due to slightly dense sludge or small gallstones. No gallbladder wall thickening. Cystic area noted near the junction of the lower uterine segment and cervix measuring 1.9 cm possibly due to large nabothian cyst. Dilated loops of proximal jejunum and mid jejunum were seen. Inflammatory change near the transitional area within the right lower abdomen. Findings were felt may represent mild ileus or early obstruction from enteritis or other inflammatory or neoplastic process. There is also a small low -density area noted within the right kidney measuring 7 mm which was felt to be incidental but otherwise nonspecific.She was then started on Flagyl and Levaquin and admitted to hospitalist service. 02/08 documentation from hospitalist did note patient was passing gas. She was admitted with a working diagnosis of ileus versus small bowel obstruction, viral versus bacterial enteritis. She was placed on a PPI. Supportive care and IV antibiotics with Levaquin and Flagyl were administered. Oral probiotic was given. It appears on 02/09 patient was having nausea and did vomit. She was still passing gas at that point. But had no bowel movement. Her white count did increase to 19.3. Hemoglobin was 17.2/hematocrit 49.4. Monocytes and neutrophils did increase to 16.81 and 1.22 respectively. CMP was normal with the following exceptions, BUN creatinine ratio is elevated at 23. Glucose was elevated at 136. Her CRP did increase to 2.2. Her magnesium was normal at 1.9. She was placed on nothing by mouth status that. Scopolamine patch was placed. 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 Her white count was elevated but had come down to 15.2. Hemoglobin and hematocrit were normal at that point. Neutrophil number was elevated but had decreased to 13.21. CMP was normal with the following exceptions.Potassium was low at 3.2. BUN elevated at 29. Glucose elevated 139. CRP elevated at 9.2. She was then started on a clear liquid diet. Patient later had an emesis in the afternoon. She did have a bowel movement. C. difficile was ordered but was canceled as the stool was formed. Patient was then switched to an nothing by mouth diet. She did have an x-ray of her abdomen that did show contrast and fluid-filled small bowel which is slightly dilated and is suspicious for continuing small bowel obstruction per radiology report. 02/11 was also patient was improving family requested Dr. Correa be consult. The white blood count is elevated but down to 11.09. Platelet count is down to 162. Neutrophil number is elevated but down to 8.25. CMP is normal following exceptions. BUN is elevated 26. Glucose is elevated 125. CRP is elevated but down to 4.9. Potassium is down to 3.1. The patient is in room with a friend. The friend did leave for the interview. The patient reports she still is until the past but she is feeling much better than when she initially came in. She denies she feels bloated. She reports that she is having some upper and lower abdominal pain motions to epigastric and right lateral quadrants. Rates pain a 3 out of 10. Describes this as sore. She reports that eating makes her symptoms worse. She has been avoiding eating. She has been nothing by mouth since last evening. She has ice chips in her room. She is taking pain medications with relief of symptoms. Again she denies any abdominal pain prior to symptom onset on Thursday. She reports she was doing very well up until Thursday. She denies that she was constipated or had any diarrhea prior to symptom onset. She denies any blood in her stools or black stools. She denies any reflux or heartburn. She did have a bowel movement yesterday. She denies that she has had a bowel movement today. She is unsure when she last passed gas. She denies she is passing gas today however she has not been paying attention to this. She reports she has been given Reglan to assist with this. She reports her last emesis was last night. She denies that her emesis had had stool, blood, or coffee-ground emesis. She reports that she occasionally has nausea but does not have nausea presently. She denies any fever, night sweats. She reports she does just feel cold at times. She has been up ambulating. She denies any travel, bad food, illnesses, or ill contacts prior to symptom onset. Functional Status: Reports: pain controlled, ambulating, urinating Pain Score: 3 - Review of Systems General: Reports: Other (Feels cold ). Denies: Fever, Night Sweats HEENT: Reports: no symptoms. Denies: visual changes Pulmonary: Reports: no symptoms. Denies: shortness of breath, cough, wheezing Cardiovascular: Reports: No Symptoms. Denies: Chest Pain, Palpitations, Dyspnea on Exertion, Orthopnea, Edema, Lightheadedness Gastrointestinal: Reports: Abdominal pain, Decreased appetite, Nausea (when eating; denies presently ), Vomiting (when eating; denies emesis since yesterday ). Denies: Diarrhea Genitourinary: Reports: no symptoms Musculoskeletal: Reports: shoulder pain Skin: Reports: no symptoms Neurological: Reports: No Symptoms. Denies: Dizziness, Headache, Syncope Psychiatric: Reports: no symptoms - Patient Data Vitals - most recent: Last Vital Signs Temp 98.1 F 02/11/17 08:43 Pulse 65 02/11/17 08:43 Resp 20 02/11/17 08:43 BP 148/62 H 02/11/17 09:03 Pulse Ox 90 L 02/11/17 08:43 Weight - most recent: 74.48 kg I&O - last 24 hours: Intake & Output 02/10/17 02/11/17 02/11/17 22:59 06:59 14:59 Intake Total 1400 201 Output Total 900 650 Balance 500 -449 Lab Results last 24 hrs: Laboratory Results - last 24 hr 02/10/17 02/10/17 02/11/17 Range/Units 16:40 20:05 06:00 WBC 11.09 H (3.98-10.04) K/mm3 RBC 4.76 (3.98-5.22) M/mm3 Hgb 15.2 (11.2-15.7) gm/L Hct 46.0 H (34.1-44.9) % MCV 96.6 H (79.4-94.8) fl MCH 31.9 (25.6-32.2) pg MCHC 33.0 (32.2-35.5) g/dl RDW Std Deviation 45.1 (36.4-46.3) fL Plt Count 162 L (182-369) K/mm3 MPV 10.4 (9.4-12.3) fl Neut % (Auto) 74.3 H (34.0-71.1) % Lymph % (Auto) 16.0 L (19.3-51.7) % [place] % (Auto) 8.6 (4.7-12.5) % Eos % (Auto) 0.8 (0.7-5.8) Baso % (Auto) 0.1 (0.1-1.2) % Neut # (Auto) 8.25 H (1.56-6.13) K/mm3 Lymph # (Auto) 1.77 (1.18-3.74) K/mm3 [place] # (Auto) 0.95 H (0.24-0.36) K/mm3 Eos # (Auto) 0.09 (0.04-0.36) K/mm3 Baso # (Auto) 0.01 (0.01-0.08) K/mm3 Sodium 140 (136-145) mEq/L Potassium 3.5 (3.5-5.1) mEq/L Chloride 104 (98-107) mEq/L Carbon Dioxide 30 (21-32) mEq/L Anion Gap 9.5 (5-15) BUN 25 H (7-18) mg/dL Creatinine 0.8 (0.55-1.02) mg/dL Est Cr Clr Drug Dosing 45.04 mL/min Estimated GFR (MDRD) > 60 (>60) mL/min BUN/Creatinine Ratio 31.3 H (14-18) Glucose 125 H (83-115) mg/dL Calcium 8.9 (8.5-10.1) mg/dL Magnesium (1.8-2.4) mg/dl C-Reactive Protein (<1.0) mg/dL C.difficile 027-NAP1-B1 TNP C. difficile Tox (PCR) TNP 02/11/17 Range/Units 06:00 WBC (3.98-10.04) K/mm3 RBC (3.98-5.22) M/mm3 Hgb (11.2-15.7) gm/L Hct (34.1-44.9) % MCV (79.4-94.8) fl MCH (25.6-32.2) pg MCHC (32.2-35.5) g/dl RDW Std Deviation (36.4-46.3) fL Plt Count (182-369) K/mm3 MPV (9.4-12.3) fl Neut % (Auto) (34.0-71.1) % Lymph % (Auto) (19.3-51.7) % [place] % (Auto) (4.7-12.5) % Eos % (Auto) (0.7-5.8) Baso % (Auto) (0.1-1.2) % Neut # (Auto) (1.56-6.13) K/mm3 Lymph # (Auto) (1.18-3.74) K/mm3 [place] # (Auto) (0.24-0.36) K/mm3 Eos # (Auto) (0.04-0.36) K/mm3 Baso # (Auto) (0.01-0.08) K/mm3 Sodium 141 (136-145) mEq/L Potassium 3.1 L (3.5-5.1) mEq/L Chloride 103 (98-107) mEq/L Carbon Dioxide 31 (21-32) mEq/L Anion Gap 10.1 (5-15) BUN 26 H (7-18) mg/dL Creatinine 0.9 (0.55-1.02) mg/dL Est Cr Clr Drug Dosing 40.04 mL/min Estimated GFR (MDRD) 60 (>60) mL/min BUN/Creatinine Ratio 28.9 H (14-18) Glucose 103 (83-115) mg/dL Calcium 9.1 (8.5-10.1) mg/dL Magnesium 2.0 (1.8-2.4) mg/dl C-Reactive Protein 4.9 H* (<1.0) mg/dL C.difficile 027-NAP1-B1 C. difficile Tox (PCR) Med Orders - Current: Current Medications Acetaminophen (Tylenol) 650 mg PO Q4H PRN PRN Reason: Pain (Mild 1-3)/fever Hydrocodone Bitart/Acetaminophen ([place] 325-5 Mg) 1 tab PO Q4H PRN PRN Reason: Pain (moderate 4-6) Last Admin: 02/08/17 21:13 Dose: 1 tab Albuterol/Ipratropium (Duoneb 3.0-0.5 Mg/3 Ml) 3 ml NEB Q4H PRN PRN Reason: Shortness Of Breath/wheezing Amlodipine Besylate (Norvasc) 5 mg PO DAILY [facility] Last Admin: 02/10/17 08:09 Dose: 5 mg Atenolol (Tenormin) 25 mg PO DAILY [facility] Last Admin: 02/10/17 08:08 Dose: 25 mg Cholecalciferol (Vitamin D3) 2,000 units PO DAILY [facility] Last Admin: 02/10/17 08:07 Dose: 2,000 units Enoxaparin Sodium (Lovenox) 40 mg SUBCUT DAILY [facility] Last Admin: 02/10/17 08:08 Dose: 40 mg Hydralazine HCl (Apresoline) 10 mg IVPUSH Q4H PRN PRN Reason: Hypertension Last Admin: 02/08/17 21:13 Dose: 10 mg Hydrochlorothiazide (Hydrochlorothiazide) 12.5 mg PO DAILY [facility] Last Admin: 02/10/17 08:09 Dose: 12.5 mg Hydromorphone HCl (Dilaudid) 0.5 mg IVPUSH Q4H PRN PRN Reason: Pain (severe 7-10) Last Admin: 02/11/17 00:10 Dose: 0.5 mg Levofloxacin/Dextrose 500 mg/ (Premix) 100 mls @ 100 mls/hr IV Q24H [facility] Last Admin: 02/10/17 08:10 Dose: 100 mls/hr Promethazine HCl 12.5 mg/ (Sodium Chloride) 50.5 mls @ 100 mls/hr IV Q6H PRN PRN Reason: Nausea/Vomiting Metronidazole 500 mg/ Premix 100 mls @ 100 mls/hr IV Q8H [facility] Last Admin: 02/11/17 05:24 Dose: 100 mls/hr Dextrose/Sodium Chloride (Dextrose 5%-Normal Saline) 1,000 mls @ 100 mls/hr IV ASDIRECTED [facility] Last Admin: 02/11/17 10:42 Dose: 100 mls/hr Levothyroxine Sodium (Levothyroxine) 75 mcg PO ACBRK [facility] Last Admin: 02/11/17 05:02 Dose: 75 mcg Lorazepam (Ativan) 0.25 mg IV Q6H PRN PRN Reason: Anxiety Losartan Potassium (Cozaar) 100 mg PO DAILY [facility] Last Admin: 02/10/17 08:10 Dose: 100 mg Magnesium Oxide (Magnesium Oxide) 400 mg PO DAILY [facility] Last Admin: 02/10/17 08:07 Dose: 400 mg Magnesium Sulfate (Pharmacy To Dose - Magnesium Replacement) 1 dose .XX ASDIRECTED [facility] Metoclopramide HCl (Reglan) 10 mg IVPUSH Q4H PRN PRN Reason: Nausea/Vomiting Last Admin: 02/10/17 17:51 Dose: 10 mg Metoclopramide HCl (Reglan) 10 mg IVPUSH Q6H [facility] Last Admin: 02/11/17 04:58 Dose: 10 mg Metoprolol Tartrate (Lopressor) 2.5 mg IVPUSH Q4H PRN PRN Reason: Tachycardia Miscellaneous Information (Remove Patch) 1 ea TRDERM DAILY [facility] Stop: 02/12/17 09:01 Miscellaneous Information (Remove Patch) 0 ea TRDERM ONETIME ONE Stop: 02/13/17 07:46 Multivitamins (Thera) 1 each PO DAILY [facility] Last Admin: 02/10/17 08:07 Dose: 1 each Ondansetron HCl (Zofran) 4 mg IV Q6H PRN PRN Reason: Nausea/Vomiting Last Admin: 02/10/17 18:17 Dose: 4 mg Pantoprazole Sodium (Protonix) 40 mg PO BID [facility] Last Admin: 02/10/17 22:04 Dose: 40 mg Cyanocobalamin ( Vitamin B-12) [ Vitamin B-12] 2,500 Mcg 0 each PO DAILY [facility] Last Admin: 02/10/17 08:11 Dose: Not Given Ubidecarenone 200 Mg 0 each PO DAILY [facility] Last Admin: 02/10/17 08:11 Dose: Not Given Potassium Chloride (Pharmacy To Dose - Potassium Replacement) 1 dose .XX ASDIRECTED [facility] Potassium Chloride (Klor-Con M20) 40 meq PO Q4H [facility] Stop: 02/11/17 12:01 Pyridoxine HCl (Vitamin B6-Pyridoxine) 100 mg PO DAILY [facility] Last Admin: 02/10/17 08:07 Dose: 100 mg Saccharomyces Boulardii (Florastor) 250 mg PO TID [facility] Last Admin: 02/10/17 22:04 Dose: 250 mg Simvastatin (Zocor) 10 mg PO BEDTIME [facility] Last Admin: 02/10/17 22:04 Dose: 10 mg Sodium Chloride (Saline Flush) 10 ml FLUSH ASDIRECTED PRN PRN Reason: Keep Vein Open Last Admin: 02/08/17 10:36 Dose: 10 ml Temazepam (Restoril) 7.5 mg PO BEDTIME PRN PRN Reason: SLEEP Thiamine HCl (Vitamin B-1) 100 mg PO DAILY [facility] Last Admin: 02/10/17 08:07 Dose: 100 mg Vitamin E (Vitamin E) 400 units PO DAILY [facility] Last Admin: 02/10/17 08:07 Dose: 400 units Discontinued Medications Al Hydroxide/Mg Hydroxide 30 (ml/ Lidocaine HCl 15 ml) 0 ml PO ONETIME ONE Stop: 02/08/17 10:10 Last Admin: 02/08/17 10:30 Dose: 30 ml Diatrizoate Meglum/Diatrizoate Sod (Gastrografin 37%) 90 ml PO ONETIME ONE Stop: 02/08/17 12:03 Last Admin: 02/08/17 12:26 Dose: 90 ml Famotidine (Pepcid) 20 mg PO BID [facility] Last Admin: 02/09/17 08:16 Dose: 20 mg Famotidine (Pepcid) 20 mg PO DAILY [facility] Last Admin: 02/10/17 08:08 Dose: 20 mg Hydromorphone HCl (Dilaudid) 0.5 mg IVPUSH ONETIME ONE Stop: 02/08/17 10:10 Last Admin: 02/08/17 10:36 Dose: 0.5 mg Hydromorphone HCl (Dilaudid) 1 mg IVPUSH ONETIME ONE Stop: 02/08/17 12:50 Last Admin: 02/08/17 12:55 Dose: 1 mg Hydromorphone HCl (Dilaudid) 0.25 mg IVPUSH Q4H PRN PRN Reason: Pain (severe 7-10) Last Admin: 02/09/17 06:54 Dose: 0.25 mg Sodium Chloride (Normal Saline) 1,000 mls [facility] 125 [facility] Admin: 02/08/17 10:32 Dose: 125 mls/hr Levofloxacin/Dextrose 500 mg/ (Premix) 100 mls @ 100 mls/hr IV ONETIME ONE Stop: 02/08/17 14:38 Last Admin: 02/08/17 14:02 Dose: 100 mls/hr Metronidazole 500 mg/ Premix 100 mls @ 100 mls/hr IV ONETIME ONE Stop: 02/08/17 14:38 Last Admin: 02/08/17 21:08 Dose: Not Given Dextrose/Sodium Chloride (Dextrose 5%-Normal Saline) 1,000 mls @ 100 [facility] Last Admin: 02/10/17 08:13 Dose: 100 mls/hr Potassium Chloride 10 meq/ (Premix) 100 mls @ 100 mls/hr IV Q1H [facility] Stop: 02/10/17 16:29 Last Admin: 02/10/17 16:42 Dose: 100 mls/hr Iopamidol (Isovue-300 (61%)) 100 ml IVPUSH ONETIME ONE Stop: 02/08/17 12:03 Last Admin: 02/08/17 12:26 Dose: 100 ml Metoclopramide HCl (Reglan) 10 mg IVPUSH ONETIME ONE Stop: 02/08/17 12:50 Last Admin: 02/08/17 12:54 Dose: 10 mg Metoclopramide HCl (Reglan) 10 mg IVPUSH Q6H [facility] Last Admin: 02/11/17 06:14 Dose: Not Given Ondansetron HCl (Zofran) 4 mg IVPUSH ONETIME ONE Stop: 02/08/17 10:09 Last Admin: 02/08/17 10:33 Dose: 4 mg Potassium Chloride (Klor-Con M20) 40 meq PO Q4H [facility] Stop: 02/10/17 17:01 Last Admin: 02/10/17 13:10 Dose: 40 meq Scopolamine (Transderm-Scop) 1.5 mg TOP ONETIME ONE Stop: 02/09/17 08:01 Last Admin: 02/09/17 08:12 Dose: 1.5 mg Scopolamine (Transderm-Scop) 1.5 mg TOP ONETIME ONE Stop: 02/10/17 07:37 Last Admin: 02/10/17 08:05 Dose: 1.5 mg Sodium Chloride (Saline Flush) 10 ml FLUSH ONETIME ONE Stop: 02/08/17 12:03 Last Admin: 02/08/17 12:26 Dose: 10 ml Sucralfate (Carafate) 1 gm PO ACBED [facility] Last Admin: 02/10/17 10:46 Dose: Not Given - Exam Quality Assessment: DVT prophylaxis General: alert, oriented, cooperative, no acute distress HEENT: Pupils equal, Pupils reactive, Mucous membr. moist/pink Neck: supple, no JVD. No: lymphadenopathy Lungs: Clear to auscultation, Normal respiratory effort, Crackles (in posterior bases ) Cardiovascular: Regular Rate, Regular Rhythm (with the exception of occasional extra systole ), Murmurs Abdomen: bowel sounds present (hypoactive in left lower quadrant ), soft, tenderness (generalized with deep palpation; epigastric; right lateral, left lateral ), distension (slight ). No: rigidity, rebound, guarding Back Exam: Normal Inspection Extremities: no edema, normal pulses, no tenderness/swelling, no clubbing, no cyanosis, no calf tenderness Skin: warm, dry, intact, other (pale) Neurological: no new focal deficit, normal speech Psy/Mental Status: alert, normal affect, normal mood Consult PN Assessment/Plan Procedures: Procedures ASSAY OF LIPASE (01/01/17) ASSAY OF NATRIURETIC PEPTIDE (11/13/14) ASSAY OF TROPONIN QUANT (11/13/14) ASSAY THYROID STIM HORMONE (11/13/14) BIOPSY/REMOVAL LYMPH NODES (10/11/14) BLOOD GASES ANY COMBINATION (10/11/14) BLOOD TYPING SEROLOGIC ABO (10/11/14) BLOOD TYPING SEROLOGIC RH(D) (10/11/14) CHEST X-RAY 1 VIEW FRONTAL (11/13/14) COMPATIBILITY TEST ANTIGLOB (10/11/14) COMPLETE CBC AUTOMATED (10/11/14) COMPLETE CBC W/AUTO DIFF WBC (01/01/17) COMPREHEN METABOLIC PANEL (01/01/17) CREATINE MB FRACTION (11/13/14) DRAINAGE OF HEMATOMA/FLUID (10/11/14) DXA BONE DENSITY AXIAL (11/23/15) ELECTROCARDIOGRAM TRACING (01/01/17) EMERGENCY DEPT VISIT (01/01/17) EMERGENCY DEPT VISIT (11/13/14) FIBRIN DEGRADATION QUANT (11/13/14) HEMATOCRIT (10/11/14) HEMOGLOBIN (10/11/14) IMMUNOHISTO ANTB 1ST STAIN (10/11/14) IO MAP OF SENT LYMPH NODE (10/11/14) METABOLIC PANEL TOTAL CA (10/11/14) MRI JOINT UPR EXTREM W/O DYE (01/30/17) MRI NECK SPINE W/O DYE (01/30/17) PARTIAL MASTECTOMY (10/11/14) PATH CONSULT INTRAOP 1 BLOC (10/11/14) PROTHROMBIN TIME (11/13/14) RA TRACER ID OF SENTINL NODE (10/11/14) RBC ANTIBODY SCREEN (10/11/14) ROUTINE VENIPUNCTURE (01/01/17) THER/PROPH/DIAG IV INF INIT (10/11/14) THROMBOPLASTIN TIME PARTIAL (10/11/14) TISSUE EXAM BY PATHOLOGIST (10/11/14) TISSUE EXAM BY PATHOLOGIST (10/11/14) TISSUE EXAM BY PATHOLOGIST (10/11/14) URINALYSIS AUTO W/SCOPE (01/01/17) WITHDRAWAL OF ARTERIAL BLOOD (10/11/14) (1) Abdominal pain SNOMED Code(s): 22421026 Code(s): R10.9 - UNSPECIFIED ABDOMINAL PAIN Priority: High Current Visit : Yes Qualifiers: Abdominal location: generalized Qualified Code(s): R10.84 - Generalized abdominal pain Problem List Initiated/Reviewed/Updated: Yes Plan: Assessment: 81 year old female with abdominal pain, nausea, vomiting, segment of inflamed RLQ small bowel of uncertain etiology Plan: Labs and images were reviewed with and personally by Dr. Correa. As above patient has a segment of inflamed RLQ small bowel of uncertain etiology. It appears the patient may be improving, with her decrease in WBC and CRP, as well as one bowel movement. She has not had an emesis since yesterday. Is having occasional nausea now. However, patient is not currently passing gas. The patient should remain NPO. She may have hard candy. She may chew gum. She may have sips of warm tea. At this point she should be monitored closely. If she continues to have clinical improvement we can proceed with EGD/colonoscopy as planned on 02/27 after patient has completed after resolution of symptoms and after 7 day course of antibiotics have been completed. If she continues to fail to pass gas/stool or worsens clinically surgical intervention will be considered. I did discuss this with the patient. She seemed to be inclined to want to manage conservatively. She does have epigastric pain, prior diagnosis of gastritis, she should continue PPI therapy. She did also have an occasional extrasystole and crackles in her lung bases. She denies chest pain/palpitations/cardiac symptoms. She reported she has been told she has crackles and after she has been up walking, these resolve. She has no edema. She did have a CXR in 2014, no cardiomegaly was demonstrated. This should be monitored by hospitalist service. She was encouraged to cough and deep breath, as well as ambulate. Also of note, her recent CT report did comment on gallbladder sludge, however, abdominal US was normal, no stones were noted. DVT prophylaxis, medical management to be continued by hospitalist service. Jazlyn Guzman NP-C General Surgery
[2017-02-11] MEDS: Losartan 100 MG Tab PO SCH (11:38)
[2017-02-11] MEDS: Hydrochlorothiazide 12.5 MG Cap PO SCH (11:40)
[2017-02-11] MEDS: Magnesium Oxide 400 MG Tab PO SCH (11:40)
[2017-02-11] MEDS: Atenolol 25 MG Tab PO SCH (11:41)
[2017-02-11] MEDS: Enoxaparin 40 MG/0.4 ML Syringe SUBCUT SCH (11:42)
[2017-02-11] MEDS: amLODIPine 5 MG Tab PO SCH (11:42)
[2017-02-11] MEDS: Cholecalciferol (Vitamin D3) 1,000 Unit Tab PO SCH (11:47)
[2017-02-11] MEDS: Vitamin E (dl-alpha-tocopherol acetate) 400 Unit Cap PO SCH (11:48)
[2017-02-11] MEDS: Thiamine 100 MG Tab PO SCH (11:48)
[2017-02-11] MEDS: Vitamin B6-pyridOXINE 50 MG Tab PO SCH (11:48)
[2017-02-11] MEDS: Levofloxacin/Dextrose 5%-Water 500 MG in Premix Bag 1 BAG IV SCH (11:49)
[2017-02-11] MEDS: Potassium Chloride 20 MEQ Tab.ER PO SCH ×2 (12:02→12:08)
[2017-02-11] MEDS: Saccharomyces Boulardii (Probiotic) 250 MG Cap PO SCH ×3 (12:06→20:52)
[2017-02-11] MEDS: Multivitamins,Therapeutic Tab PO SCH (12:06)
[2017-02-11] MEDS: Pantoprazole 40 MG Tab.CR PO SCH ×2 (12:06→20:52)
[2017-02-11] MEDS: UBIDECARENONE 200 MG PO SCH (12:09)
[2017-02-11] MEDS: Cyanocobalamin (Vitamin B-12) [Vitamin B-12] 2,500 MCG PO SCH (12:09)
[2017-02-11] MEDS: Potassium Chloride 10 MEQ in Premix Bag 1 BAG IV SCH ×4 (15:05→19:24)
[2017-02-11] MEDS: Simvastatin 10 MG Tab PO SCH (20:52)
[2017-02-12] MEDS: Ondansetron 4 MG/2 ML SDV IV PRN (02:22)
[2017-02-12] MEDS: Dextrose 5%-0.9% NaCl 1,000 ML IV SCH ×2 (02:26→14:55)
[2017-02-12] MEDS: Metoclopramide 10 MG/2 ML SDV IVPUSH SCH ×6 (05:01→22:11)
[2017-02-12] MEDS: metroNIDAZOLE/Normal Saline 500 MG in Premix Bag 1 BAG IV SCH ×3 (05:04→22:11)
[2017-02-12] MEDS: Levothyroxine 75 MCG Tab PO SCH (05:07)
--- NOTE | 2017-02-12 07:06 | PCM.PN ---
- General Info Date of Service: 02/12/17 Admission Dx/Problem (Free Text): Admission Diagnosis/Problem Admission Diagnosis/Problem Abdominal pain Subjective Update: Follow Up Functional Status: Reports: pain controlled, ambulating, urinating. Denies: new symptoms - Review of Systems General: Denies: Fever, Weakness, Fatigue, Malaise, Chills, Night Sweats HEENT: Reports: no symptoms Pulmonary: Denies: shortness of breath Cardiovascular: Denies: Chest Pain, Dyspnea on Exertion Gastrointestinal: Reports: Other (Abdominal tenderness). Denies: Nausea, Vomiting Genitourinary: Denies: urgency Musculoskeletal: Reports: no symptoms, neck pain, shoulder pain Skin: Denies: cyanosis, pallor, diaphoresis, pruritis Neurological: Reports: Gait Disturbance. Denies: Confusion, Dizziness, Weakness Psychiatric: Denies: depression, mood lability, agitation, hallucinations Systems Review Comment:: No overnight. She was a little nauseous associated with some reflux this morning. She has been refusing some of her pills. She is unsure if she is passing gas but she told Dr. Correa this morning she had flatulence. - Patient Data Vitals - most recent: Last Vital Signs Temp 36.6 C 02/11/17 23:43 Pulse 62 02/11/17 23:43 Resp 16 02/11/17 23:43 BP 141/73 H 02/11/17 23:43 Pulse Ox 93 L 02/11/17 23:43 Weight - most recent: 74.48 kg I&O - last 24 hours: Intake & Output 02/11/17 02/12/17 02/12/17 22:59 06:59 14:59 Intake Total 1750 Output Total 550 Balance 1200 Lab Results last 24 hrs: Laboratory Results - last 24 hr 02/11/17 02/11/17 02/12/17 Range/Units 06:00 06:00 06:00 WBC 11.09 H 11.86 H (3.98-10.04) K/mm3 RBC 4.76 5.07 (3.98-5.22) M/mm3 Hgb 15.2 16.1 H (11.2-15.7) gm/L Hct 46.0 H 47.9 H (34.1-44.9) % MCV 96.6 H 94.5 (79.4-94.8) fl MCH 31.9 31.8 (25.6-32.2) pg MCHC 33.0 33.6 (32.2-35.5) g/dl RDW Std Deviation 45.1 43.0 (36.4-46.3) fL Plt Count 162 L 188 (182-369) K/mm3 MPV 10.4 9.8 (9.4-12.3) fl Neut % (Auto) 74.3 H 74.3 H (34.0-71.1) % Lymph % (Auto) 16.0 L 15.9 L (19.3-51.7) % Howard % (Auto) 8.6 8.9 (4.7-12.5) % Eos % (Auto) 0.8 0.5 L (0.7-5.8) Baso % (Auto) 0.1 0.1 (0.1-1.2) % Neut # (Auto) 8.25 H 8.81 H (1.56-6.13) K/mm3 Lymph # (Auto) 1.77 1.88 (1.18-3.74) K/mm3 Howard # (Auto) 0.95 H 1.06 H (0.24-0.36) K/mm3 Eos # (Auto) 0.09 0.06 (0.04-0.36) K/mm3 Baso # (Auto) 0.01 0.01 (0.01-0.08) K/mm3 Sodium 141 (136-145) mEq/L Potassium 3.1 L (3.5-5.1) mEq/L Chloride 103 (98-107) mEq/L Carbon Dioxide 31 (21-32) mEq/L Anion Gap 10.1 (5-15) BUN 26 H (7-18) mg/dL Creatinine 0.9 (0.55-1.02) mg/dL Est Cr Clr Drug Dosing 40.04 mL/min Estimated GFR (MDRD) 60 (>60) mL/min BUN/Creatinine Ratio 28.9 H (14-18) Glucose 103 (83-115) mg/dL Calcium 9.1 (8.5-10.1) mg/dL Magnesium 2.0 (1.8-2.4) mg/dl C-Reactive Protein 4.9 H* (<1.0) mg/dL Med Orders - Current: Current Medications Acetaminophen (Tylenol) 650 mg PO Q4H PRN PRN Reason: Pain (Mild 1-3)/fever Hydrocodone Bitart/Acetaminophen ([place] 325-5 Mg) 1 tab PO Q4H PRN PRN Reason: Pain (moderate 4-6) Last Admin: 02/08/17 21:13 Dose: 1 tab Albuterol/Ipratropium (Duoneb 3.0-0.5 Mg/3 Ml) 3 ml NEB Q4H PRN PRN Reason: Shortness Of Breath/wheezing Amlodipine Besylate (Norvasc) 5 mg PO DAILY [facility] Last Admin: 02/11/17 11:42 Dose: 5 mg Atenolol (Tenormin) 25 mg PO DAILY [facility] Last Admin: 02/11/17 11:41 Dose: 25 mg Cholecalciferol (Vitamin D3) 2,000 units PO DAILY [facility] Last Admin: 02/11/17 11:47 Dose: Not Given Enoxaparin Sodium (Lovenox) 40 mg SUBCUT DAILY [facility] Last Admin: 02/11/17 11:42 Dose: 40 mg Hydralazine HCl (Apresoline) 10 mg IVPUSH Q4H PRN PRN Reason: Hypertension Last Admin: 02/08/17 21:13 Dose: 10 mg Hydrochlorothiazide (Hydrochlorothiazide) 12.5 mg PO DAILY [facility] Last Admin: 02/11/17 11:40 Dose: 12.5 mg Hydromorphone HCl (Dilaudid) 0.5 mg IVPUSH Q4H PRN PRN Reason: Pain (severe 7-10) Last Admin: 02/11/17 00:10 Dose: 0.5 mg Levofloxacin/Dextrose 500 mg/ (Premix) 100 mls @ 100 mls/hr IV Q24H [facility] Last Admin: 02/11/17 11:49 Dose: 100 mls/hr Promethazine HCl 12.5 mg/ (Sodium Chloride) 50.5 mls @ 100 mls/hr IV Q6H PRN PRN Reason: Nausea/Vomiting Metronidazole 500 mg/ Premix 100 mls @ 100 mls/hr IV Q8H [facility] Last Admin: 02/12/17 05:04 Dose: 100 mls/hr Dextrose/Sodium Chloride (Dextrose 5%-Normal Saline) 1,000 mls @ 100 mls/hr IV ASDIRECTED [facility] Last Admin: 02/12/17 02:26 Dose: 100 mls/hr Levothyroxine Sodium (Levothyroxine) 75 mcg PO ACBRK [facility] Last Admin: 02/12/17 05:07 Dose: 75 mcg Lorazepam (Ativan) 0.25 mg IV Q6H PRN PRN Reason: Anxiety Losartan Potassium (Cozaar) 100 mg PO DAILY [facility] Last Admin: 02/11/17 11:38 Dose: 100 mg Magnesium Oxide (Magnesium Oxide) 400 mg PO DAILY [facility] Last Admin: 02/11/17 11:40 Dose: 400 mg Magnesium Sulfate (Pharmacy To Dose - Magnesium Replacement) 1 dose .XX ASDIRECTED [facility] Metoclopramide HCl (Reglan) 10 mg IVPUSH Q4H PRN PRN Reason: Nausea/Vomiting Last Admin: 02/10/17 17:51 Dose: 10 mg Metoclopramide HCl (Reglan) 10 mg IVPUSH Q6H [facility] Last Admin: 02/12/17 05:01 Dose: 10 mg Metoprolol Tartrate (Lopressor) 2.5 mg IVPUSH Q4H PRN PRN Reason: Tachycardia Miscellaneous Information (Remove Patch) 1 ea TRDERM DAILY [facility] Stop: 02/12/17 09:01 Miscellaneous Information (Remove Patch) 0 ea TRDERM ONETIME ONE Stop: 02/13/17 07:46 Multivitamins (Thera) 1 each PO DAILY [facility] Last Admin: 02/11/17 12:06 Dose: Not Given Ondansetron HCl (Zofran) 4 mg IV Q6H PRN PRN Reason: Nausea/Vomiting Last Admin: 02/12/17 02:22 Dose: 4 mg Pantoprazole Sodium (Protonix) 40 mg PO BID [facility] Last Admin: 02/11/17 20:52 Dose: 40 mg Cyanocobalamin ( Vitamin B-12) [ Vitamin B-12] 2,500 Mcg 0 each PO DAILY [facility] Last Admin: 02/11/17 12:09 Dose: Not Given Ubidecarenone 200 Mg 0 each PO DAILY [facility] Last Admin: 02/11/17 12:09 Dose: Not Given Potassium Chloride (Pharmacy To Dose - Potassium Replacement) 1 dose .XX ASDIRECTED [facility] Pyridoxine HCl (Vitamin B6-Pyridoxine) 100 mg PO DAILY [facility] Last Admin: 02/11/17 11:48 Dose: Not Given Saccharomyces Boulardii (Florastor) 250 mg PO TID [facility] Last Admin: 02/11/17 20:52 Dose: 250 mg Simvastatin (Zocor) 10 mg PO BEDTIME [facility] Last Admin: 02/11/17 20:52 Dose: 10 mg Sodium Chloride (Saline Flush) 10 ml FLUSH ASDIRECTED PRN PRN Reason: Keep Vein Open Last Admin: 02/08/17 10:36 Dose: 10 ml Temazepam (Restoril) 7.5 mg PO BEDTIME PRN PRN Reason: SLEEP Thiamine HCl (Vitamin B-1) 100 mg PO DAILY [facility] Last Admin: 02/11/17 11:48 Dose: Not Given Vitamin E (Vitamin E) 400 units PO DAILY [facility] Last Admin: 02/11/17 11:48 Dose: Not Given Discontinued Medications Al Hydroxide/Mg Hydroxide 30 (ml/ Lidocaine HCl 15 ml) 0 ml PO ONETIME ONE Stop: 02/08/17 10:10 Last Admin: 02/08/17 10:30 Dose: 30 ml Diatrizoate Meglum/Diatrizoate Sod (Gastrografin 37%) 90 ml PO ONETIME ONE Stop: 02/08/17 12:03 Last Admin: 02/08/17 12:26 Dose: 90 ml Famotidine (Pepcid) 20 mg PO BID [facility] Last Admin: 02/09/17 08:16 Dose: 20 mg Famotidine (Pepcid) 20 mg PO DAILY [facility] Last Admin: 02/10/17 08:08 Dose: 20 mg Hydromorphone HCl (Dilaudid) 0.5 mg IVPUSH ONETIME ONE Stop: 02/08/17 10:10 Last Admin: 02/08/17 10:36 Dose: 0.5 mg Hydromorphone HCl (Dilaudid) 1 mg IVPUSH ONETIME ONE Stop: 02/08/17 12:50 Last Admin: 02/08/17 12:55 Dose: 1 mg Hydromorphone HCl (Dilaudid) 0.25 mg IVPUSH Q4H PRN PRN Reason: Pain (severe 7-10) Last Admin: 02/09/17 06:54 Dose: 0.25 mg Sodium Chloride (Normal Saline) 1,000 mls @ 125 mls/hr IV ASDIRECTED [facility] Last Admin: 02/08/17 10:32 Dose: 125 mls/hr Levofloxacin/Dextrose 500 mg/ (Premix) 100 mls @ 100 mls/hr IV ONETIME ONE Stop: 02/08/17 14:38 Last Admin: 02/08/17 14:02 Dose: 100 mls/hr Metronidazole 500 mg/ Premix 100 mls @ 100 mls/hr IV ONETIME ONE Stop: 02/08/17 14:38 Last Admin: 02/08/17 21:08 Dose: Not Given Dextrose/Sodium Chloride (Dextrose 5%-Normal Saline) 1,000 mls @ 100 mls/hr IV ASDIRECTED [facility] Last Admin: 02/10/17 08:13 Dose: 100 mls/hr Potassium Chloride 10 meq/ (Premix) 100 mls @ 100 mls/hr IV Q1H [facility] Stop: 02/10/17 16:29 Last Admin: 02/10/17 16:42 Dose: 100 mls/hr Potassium Chloride 10 meq/ (Premix) 100 mls @ 100 mls/hr IV Q1H [facility] Stop: 02/11/17 17:14 Last Admin: 02/11/17 19:24 Dose: 100 mls/hr Iopamidol (Isovue-300 (61%)) 100 ml IVPUSH ONETIME ONE Stop: 02/08/17 12:03 Last Admin: 02/08/17 12:26 Dose: 100 ml Metoclopramide HCl (Reglan) 10 mg IVPUSH ONETIME ONE Stop: 02/08/17 12:50 Last Admin: 02/08/17 12:54 Dose: 10 mg Metoclopramide HCl (Reglan) 10 mg IVPUSH Q6H [facility] Last Admin: 02/11/17 06:14 Dose: Not Given Ondansetron HCl (Zofran) 4 mg IVPUSH ONETIME ONE Stop: 02/08/17 10:09 Last Admin: 02/08/17 10:33 Dose: 4 mg Potassium Chloride (Klor-Con M20) 40 meq PO Q4H [facility] Stop: 02/10/17 17:01 Last Admin: 02/10/17 13:10 Dose: 40 meq Potassium Chloride (Klor-Con M20) 40 meq PO Q4H [facility] Stop: 02/11/17 12:01 Last Admin: 02/11/17 12:08 Dose: Not Given Scopolamine (Transderm-Scop) 1.5 mg TOP ONETIME ONE Stop: 02/09/17 08:01 Last Admin: 02/09/17 08:12 Dose: 1.5 mg Scopolamine (Transderm-Scop) 1.5 mg TOP ONETIME ONE Stop: 02/10/17 07:37 Last Admin: 02/10/17 08:05 Dose: 1.5 mg Sodium Chloride (Saline Flush) 10 ml FLUSH ONETIME ONE Stop: 02/08/17 12:03 Last Admin: 02/08/17 12:26 Dose: 10 ml Sucralfate (Carafate) 1 gm PO ACBED [facility] Last Admin: 02/10/17 10:46 Dose: Not Given - Exam General: alert, oriented, cooperative, no acute distress HEENT: Pupils equal, Pupils reactive, EOMI, Mucous membr. moist/pink Neck: supple, trachea midline, no JVD, no thyromegaly Lungs: Clear to auscultation, Normal respiratory effort Cardiovascular: Regular Rate, Regular Rhythm Abdomen: soft, tenderness, abnormal bowel sounds. No: rigidity, rebound, guarding, distension (Female) Exam: Deferred Back Exam: Normal Inspection Extremities: no edema, normal pulses, no tenderness/swelling, no clubbing, no cyanosis, no calf tenderness Peripheral Pulses: 2+: Dorsalis Pedis (L), Dorsalis Pedis (R) Skin: warm, dry, intact Neurological: no new focal deficit Psy/Mental Status: alert, normal affect, normal mood - Problem List Review Problem List Initiated/Reviewed/Updated: Yes - My Orders Last 24 Hours: My Active Orders 02/11/17 09:58 Consult to Physician [CONS] Routine 02/11/17 09:59 Notify Provider Consults [RC] ASDIRECTED 02/11/17 10:15 Dextrose 5%-0.9% NaCl [Dextrose 5%-Normal Saline] 1,000 ml IV ASDIRECTED 02/12/17 06:00 BASIC METABOLIC PANEL,BMP [CHEM] AM C-REACTIVE PROTEIN [CHEM] AM MAGNESIUM [CHEM] AM 02/12/17 09:00 Remove Patch 1 ea TRDERM DAILY 02/13/17 05:11 BASIC METABOLIC PANEL,BMP [CHEM] AM C-REACTIVE PROTEIN [CHEM] AM MAGNESIUM [CHEM] AM 02/13/17 07:45 Remove Patch 0 ea TRDERM ONETIME ONE - Plan Plan:: Assessment/Plan: Acute: Enteritis - Viral vs Bacterial - No unusual drink or food - No travel outside the country - She was able to eat or drink - She was PPI for presumptive Gastritis/PUD pending EGD on the of this month - Continue supportive care and intravenous antibiotics with Levaquin and Flagyl ( day) - Oral Probiotic - PRN meds for symptomatic control - She is responding to treatment Small [place] Obstruction - 2/2 Above cannot r/o neoplasm or inflammatory tumor - Supportive Care and Conservative Management - She schedule for endoscopy at the end of the month - Dr. Cjea following Abdominal Pain/Hx/o Gastritis, improved - May have worsened by above - Started way back on January 01 - Was on Carafate and PPI - She is scheduled to see Dr. Correa at the end of the month - Treatment as above Leukocytosis - WBC 11.86 now and CRP is 2.6 - 2/2 Above Hypokalemia and Hypomagnesemia - K 2.9 and Mg 1.7 2/2 inadequate intake - Pharmacy to replete and monitor Cholelithiasis - CT scan finding - Stable at this time Right Kidney 7 mm Hypodense Mass - CT scan finding - DDx: cyst, infection, hematoma or neoplasm - Informed patient about it - Defer further work up outpatient Chronic: HTN OA/DJD Anxiety HTN Gastritis Hypothyroidism Vit D Deficiency Hx/o Breast Cancer S/p Mastectomy Plan: She remains clinically stable Consider clear liquid diet for dinner and advance as tolerated Will d/c D5W NS at 100 cc/hr once she is tolerating full liquids Routine AM Labs SW/CM for d/c planning Dr. Correa following Consider follow up CT scan if no symptom improvement Additional orders as above Code status: DNR/DNI LOS > 96 hrs due to slow response to treatment
[2017-02-12] MEDS ORDERED: Magnesium Sulfate/Water 2 GM in Premix Bag 1 BAG IV ONE (08:30)
--- NOTE | 2017-02-12 08:30 | PCM.CONSN ---
- General Info Date of Service: 02/12/17 - Review of Systems Systems Review Comment:: Difficult to ascertain current pain. Some abdominal discomfort, improved or the same from yesterday. No emesis. Denies flatus or BM. Last ate 2 days ago. Last BM 2 days ago. Afebrile. - Patient Data Vitals - most recent: Last Vital Signs Temp 98.8 F 02/12/17 07:56 Pulse 60 02/12/17 07:56 Resp 12 02/12/17 07:56 BP 176/74 H 02/12/17 07:56 Pulse Ox 92 L 02/12/17 07:56 Weight - most recent: 164 lb 3.2 oz I&O - last 24 hours: Intake & Output 02/11/17 02/12/17 02/12/17 22:59 06:59 14:59 Intake Total 1750 1766 Output Total 550 1000 Balance 1200 766 Lab Results last 24 hrs: Laboratory Results - last 24 hr 02/12/17 02/12/17 Range/Units 06:00 06:00 WBC 11.86 H (3.98-10.04) K/mm3 RBC 5.07 (3.98-5.22) M/mm3 Hgb 16.1 H (11.2-15.7) gm/L Hct 47.9 H (34.1-44.9) % MCV 94.5 (79.4-94.8) fl MCH 31.8 (25.6-32.2) pg MCHC 33.6 (32.2-35.5) g/dl RDW Std Deviation 43.0 (36.4-46.3) fL Plt Count 188 (182-369) K/mm3 MPV 9.8 (9.4-12.3) fl Neut % (Auto) 74.3 H (34.0-71.1) % Lymph % (Auto) 15.9 L (19.3-51.7) % [place] % (Auto) 8.9 (4.7-12.5) % Eos % (Auto) 0.5 L (0.7-5.8) Baso % (Auto) 0.1 (0.1-1.2) % Neut # (Auto) 8.81 H (1.56-6.13) K/mm3 Lymph # (Auto) 1.88 (1.18-3.74) K/mm3 [place] # (Auto) 1.06 H (0.24-0.36) K/mm3 Eos # (Auto) 0.06 (0.04-0.36) K/mm3 Baso # (Auto) 0.01 (0.01-0.08) K/mm3 Sodium 139 (136-145) mEq/L Potassium 2.9 L (3.5-5.1) mEq/L Chloride 103 (98-107) mEq/L Carbon Dioxide 28 (21-32) mEq/L Anion Gap 10.9 (5-15) BUN 19 H (7-18) mg/dL Creatinine 0.8 (0.55-1.02) mg/dL Est Cr Clr Drug Dosing 45.04 mL/min Estimated GFR (MDRD) > 60 (>60) mL/min BUN/Creatinine Ratio 23.8 H (14-18) Glucose 113 (83-115) mg/dL Calcium 8.6 (8.5-10.1) mg/dL Magnesium 1.7 L (1.8-2.4) mg/dl C-Reactive Protein 2.6 H* (<1.0) mg/dL Med Orders - Current: Current Medications Acetaminophen (Tylenol) 650 mg PO Q4H PRN PRN Reason: Pain (Mild 1-3)/fever Hydrocodone Bitart/Acetaminophen ([place] 325-5 Mg) 1 tab PO Q4H PRN PRN Reason: Pain (moderate 4-6) Last Admin: 02/08/17 21:13 Dose: 1 tab Albuterol/Ipratropium (Duoneb 3.0-0.5 Mg/3 Ml) 3 ml NEB Q4H PRN PRN Reason: Shortness Of Breath/wheezing Amlodipine Besylate (Norvasc) 5 mg PO DAILY [facility] Last Admin: 02/11/17 11:42 Dose: 5 mg Atenolol (Tenormin) 25 mg PO DAILY [facility] Last Admin: 02/11/17 11:41 Dose: 25 mg Cholecalciferol (Vitamin D3) 2,000 units PO DAILY [facility] Last Admin: 02/11/17 11:47 Dose: Not Given Enoxaparin Sodium (Lovenox) 40 mg SUBCUT DAILY [facility] Last Admin: 02/11/17 11:42 Dose: 40 mg Hydralazine HCl (Apresoline) 10 mg IVPUSH Q4H PRN PRN Reason: Hypertension Last Admin: 02/08/17 21:13 Dose: 10 mg Hydrochlorothiazide (Hydrochlorothiazide) 12.5 mg PO DAILY [facility] Last Admin: 02/11/17 11:40 Dose: 12.5 mg Hydromorphone HCl (Dilaudid) 0.5 mg IVPUSH Q4H PRN PRN Reason: Pain (severe 7-10) Last Admin: 02/11/17 00:10 Dose: 0.5 mg Levofloxacin/Dextrose 500 mg/ (Premix) 100 mls @ 100 mls/hr IV Q24H [facility] Last Admin: 02/11/17 11:49 Dose: 100 mls/hr Promethazine HCl 12.5 mg/ (Sodium Chloride) 50.5 mls @ 100 mls/hr IV Q6H PRN PRN Reason: Nausea/Vomiting Metronidazole 500 mg/ Premix 100 mls @ 100 mls/hr IV Q8H [facility] Last Admin: 02/12/17 05:04 Dose: 100 mls/hr Dextrose/Sodium Chloride (Dextrose 5%-Normal Saline) 1,000 mls @ 100 mls/hr IV ASDIRECTED [facility] Last Admin: 02/12/17 02:26 Dose: 100 mls/hr Magnesium Sulfate 2 gm/ Premix 50 mls @ 25 mls/hr IV ONETIME ONE Stop: 02/12/17 10:29 Potassium Chloride 10 meq/ (Premix) 100 mls @ 100 mls/hr IV Q1H [facility] Stop: 02/12/17 14:29 Levothyroxine Sodium (Levothyroxine) 75 mcg PO ACBRK [facility] Last Admin: 02/12/17 05:07 Dose: 75 mcg Lorazepam (Ativan) 0.25 mg IV Q6H PRN PRN Reason: Anxiety Losartan Potassium (Cozaar) 100 mg PO DAILY [facility] Last Admin: 02/11/17 11:38 Dose: 100 mg Magnesium Oxide (Magnesium Oxide) 400 mg PO DAILY [facility] Last Admin: 02/11/17 11:40 Dose: 400 mg Magnesium Sulfate (Pharmacy To Dose - Magnesium Replacement) 1 dose .XX ASDIRECTED [facility] Metoclopramide HCl (Reglan) 10 mg IVPUSH Q4H PRN PRN Reason: Nausea/Vomiting Last Admin: 02/10/17 17:51 Dose: 10 mg Metoclopramide HCl (Reglan) 10 mg IVPUSH Q6H [facility] Last Admin: 02/12/17 05:01 Dose: 10 mg Metoprolol Tartrate (Lopressor) 2.5 mg IVPUSH Q4H PRN PRN Reason: Tachycardia Miscellaneous Information (Remove Patch) 1 ea TRDERM DAILY [facility] Stop: 02/12/17 09:01 Miscellaneous Information (Remove Patch) 0 ea TRDERM ONETIME ONE Stop: 02/13/17 07:46 Multivitamins (Thera) 1 each PO DAILY [facility] Last Admin: 02/11/17 12:06 Dose: Not Given Ondansetron HCl (Zofran) 4 mg IV Q6H PRN PRN Reason: Nausea/Vomiting Last Admin: 02/12/17 02:22 Dose: 4 mg Pantoprazole Sodium (Protonix) 40 mg PO BID [facility] Last Admin: 02/11/17 20:52 Dose: 40 mg Cyanocobalamin ( Vitamin B-12) [ Vitamin B-12] 2,500 Mcg 0 each PO DAILY [facility] Last Admin: 02/11/17 12:09 Dose: Not Given Ubidecarenone 200 Mg 0 each PO DAILY [facility] Last Admin: 02/11/17 12:09 Dose: Not Given Potassium Chloride (Pharmacy To Dose - Potassium Replacement) 1 dose .XX ASDIRECTED [facility] Pyridoxine HCl (Vitamin B6-Pyridoxine) 100 mg PO DAILY [facility] Last Admin: 02/11/17 11:48 Dose: Not Given Saccharomyces Boulardii (Florastor) 250 mg PO TID [facility] Last Admin: 02/11/17 20:52 Dose: 250 mg Simvastatin (Zocor) 10 mg PO BEDTIME [facility] Last Admin: 02/11/17 20:52 Dose: 10 mg Sodium Chloride (Saline Flush) 10 ml FLUSH ASDIRECTED PRN PRN Reason: Keep Vein Open Last Admin: 02/08/17 10:36 Dose: 10 ml Temazepam (Restoril) 7.5 mg PO BEDTIME PRN PRN Reason: SLEEP Thiamine HCl (Vitamin B-1) 100 mg PO DAILY [facility] Last Admin: 02/11/17 11:48 Dose: Not Given Vitamin E (Vitamin E) 400 units PO DAILY [facility] Last Admin: 02/11/17 11:48 Dose: Not Given Discontinued Medications Al Hydroxide/Mg Hydroxide 30 (ml/ Lidocaine HCl 15 ml) 0 ml PO ONETIME ONE Stop: 02/08/17 10:10 Last Admin: 02/08/17 10:30 Dose: 30 ml Diatrizoate Meglum/Diatrizoate Sod (Gastrografin 37%) 90 ml PO ONETIME ONE Stop: 02/08/17 12:03 Last Admin: 02/08/17 12:26 Dose: 90 ml Famotidine (Pepcid) 20 mg PO BID [facility] Last Admin: 02/09/17 08:16 Dose: 20 mg Famotidine (Pepcid) 20 mg PO DAILY [facility] Last Admin: 02/10/17 08:08 Dose: 20 mg Hydromorphone HCl (Dilaudid) 0.5 mg IVPUSH ONETIME ONE Stop: 02/08/17 10:10 Last Admin: 02/08/17 10:36 Dose: 0.5 mg Hydromorphone HCl (Dilaudid) 1 mg IVPUSH ONETIME ONE Stop: 02/08/17 12:50 Last Admin: 02/08/17 12:55 Dose: 1 mg Hydromorphone HCl (Dilaudid) 0.25 mg IVPUSH Q4H PRN PRN Reason: Pain (severe 7-10) Last Admin: 02/09/17 06:54 Dose: 0.25 mg Sodium Chloride (Normal Saline) 1,000 mls @ 125 [facility]ls[facility] Last Admin: 02/08/17 10:32 Dose: 125 mls/hr Levofloxacin/Dextrose 500 mg/ (Premix) 100 mls @ 100 mls/hr IV ONETIME ONE Stop: 02/08/17 14:38 Last Admin: 02/08/17 14:02 Dose: 100 mls/hr Metronidazole 500 mg/ Premix 100 mls @ 100 mls/hr IV ONETIME ONE Stop: 02/08/17 14:38 Last Admin: 02/08/17 21:08 Dose: Not Given Dextrose/Sodium Chloride (Dextrose 5%-Normal Saline) 1,000 mls @ 100 [facility]ls[facility] Last Admin: 02/10/17 08:13 Dose: 100 mls/hr Potassium Chloride 10 meq/ (Premix) 100 mls @ 100 mls/hr IV Q1H [facility] Stop: 02/10/17 16:29 Last Admin: 02/10/17 16:42 Dose: 100 mls/hr Potassium Chloride 10 meq/ (Premix) 100 mls @ 100 mls/hr IV Q1H [facility] Stop: 02/11/17 17:14 Last Admin: 02/11/17 19:24 Dose: 100 mls/hr Iopamidol (Isovue-300 (61%)) 100 ml IVPUSH ONETIME ONE Stop: 02/08/17 12:03 Last Admin: 02/08/17 12:26 Dose: 100 ml Metoclopramide HCl (Reglan) 10 mg IVPUSH ONETIME ONE Stop: 02/08/17 12:50 Last Admin: 02/08/17 12:54 Dose: 10 mg Metoclopramide HCl (Reglan) 10 mg IVPUSH Q6H [facility] Last Admin: 02/11/17 06:14 Dose: Not Given Ondansetron HCl (Zofran) 4 mg IVPUSH ONETIME ONE Stop: 02/08/17 10:09 Last Admin: 02/08/17 10:33 Dose: 4 mg Potassium Chloride (Klor-Con M20) 40 meq PO Q4H [facility] Stop: 02/10/17 17:01 Last Admin: 02/10/17 13:10 Dose: 40 meq Potassium Chloride (Klor-Con M20) 40 meq PO Q4H [facility] Stop: 02/11/17 12:01 Last Admin: 02/11/17 12:08 Dose: Not Given Scopolamine (Transderm-Scop) 1.5 mg TOP ONETIME ONE Stop: 02/09/17 08:01 Last Admin: 02/09/17 08:12 Dose: 1.5 mg Scopolamine (Transderm-Scop) 1.5 mg TOP ONETIME ONE Stop: 02/10/17 07:37 Last Admin: 02/10/17 08:05 Dose: 1.5 mg Sodium Chloride (Saline Flush) 10 ml FLUSH ONETIME ONE Stop: 02/08/17 12:03 Last Admin: 02/08/17 12:26 Dose: 10 ml Sucralfate (Carafate) 1 gm PO ACBED [facility] Last Admin: 02/10/17 10:46 Dose: Not Given - Exam General: alert, oriented, cooperative, no acute distress HEENT: No: Scleral icterus Lungs: Clear to auscultation, Normal respiratory effort Cardiovascular: Regular Rate, Regular Rhythm Abdomen: soft, no distension, tenderness (mild generalized abdominal tenderness ). No: rigidity, guarding Extremities: no edema, no clubbing Skin: warm, dry, intact Neurological: no new focal deficit Psy/Mental Status: alert, normal affect, normal mood Consult PN Assessment/Plan Procedures: Procedures ASSAY OF LIPASE (01/01/17) ASSAY OF NATRIURETIC PEPTIDE (11/13/14) ASSAY OF TROPONIN QUANT (11/13/14) ASSAY THYROID STIM HORMONE (11/13/14) BIOPSY/REMOVAL LYMPH NODES (10/11/14) BLOOD GASES ANY COMBINATION (10/11/14) BLOOD TYPING SEROLOGIC ABO (10/11/14) BLOOD TYPING SEROLOGIC RH(D) (10/11/14) CHEST X-RAY 1 VIEW FRONTAL (11/13/14) COMPATIBILITY TEST ANTIGLOB (10/11/14) COMPLETE CBC AUTOMATED (10/11/14) COMPLETE CBC W/AUTO DIFF WBC (01/01/17) COMPREHEN METABOLIC PANEL (01/01/17) CREATINE MB FRACTION (11/13/14) DRAINAGE OF HEMATOMA/FLUID (10/11/14) DXA BONE DENSITY AXIAL (11/23/15) ELECTROCARDIOGRAM TRACING (01/01/17) EMERGENCY DEPT VISIT (01/01/17) EMERGENCY DEPT VISIT (11/13/14) FIBRIN DEGRADATION QUANT (11/13/14) HEMATOCRIT (10/11/14) HEMOGLOBIN (10/11/14) IMMUNOHISTO ANTB 1ST STAIN (10/11/14) IO MAP OF SENT LYMPH NODE (10/11/14) METABOLIC PANEL TOTAL CA (10/11/14) MRI JOINT UPR EXTREM W/O DYE (01/30/17) MRI NECK SPINE W/O DYE (01/30/17) PARTIAL MASTECTOMY (10/11/14) PATH CONSULT INTRAOP 1 BLOC (10/11/14) PROTHROMBIN TIME (11/13/14) RA TRACER ID OF SENTINL NODE (10/11/14) RBC ANTIBODY SCREEN (10/11/14) ROUTINE VENIPUNCTURE (01/01/17) THER/PROPH/DIAG IV INF INIT (10/11/14) THROMBOPLASTIN TIME PARTIAL (10/11/14) TISSUE EXAM BY PATHOLOGIST (10/11/14) TISSUE EXAM BY PATHOLOGIST (10/11/14) TISSUE EXAM BY PATHOLOGIST (10/11/14) URINALYSIS AUTO W/SCOPE (01/01/17) WITHDRAWAL OF ARTERIAL BLOOD (10/11/14) (1) Abdominal pain SNOMED Code(s): 16532845 Code(s): R10.9 - UNSPECIFIED ABDOMINAL PAIN Priority: High Current Visit : Yes Qualifiers: Abdominal location: generalized Qualified Code(s): R10.84 - Generalized abdominal pain (2) Enteritis SNOMED Code(s): 59006855 Code(s): K52.9 - NONINFECTIVE GASTROENTERITIS AND COLITIS, UNSPECIFIED Priority: High Current Visit: Yes (3) Ileus SNOMED Code(s): 584957847 Code(s): K56.7 - ILEUS, UNSPECIFIED Priority: High Current Visit: Yes (4) Hypokalemia SNOMED Code(s): 25552431 Code(s): E87.6 - HYPOKALEMIA Priority: High Current Visit: Yes (5) Gastritis SNOMED Code(s): 8559237 Code(s): K29.70 - GASTRITIS, UNSPECIFIED, WITHOUT BLEEDING Current Visit: No Qualifiers: Gastritis type: unspecified gastritis Chronicity: unspecified Gastritis bleeding: without bleeding Qualified Code(s): K29.70 - Gastritis, unspecified , without bleeding Problem List Initiated/Reviewed/Updated: Yes Plan: 81 yo woman with suspected ileus 2/2 enteritis of uncertain etiology and gastritis NPO until patient has resumption of flatus Recommend replacing K to 4.0, Mg to 2.0 and Phos to 3.0 to optimize bowel motility CRP decreased today, WBC nearly normal, but essentially unchanged from yesterday. Etiology of enteritis unclear. Discussed with patient that we would plan to obtain repeat CAT scan with oral contrast on Thursday if still no bowel function, if evidence of bowel obstruction versus ileus at that time, surgery will need to be considered. Discussed my recommendations with Case Management at the time of this morning's visit.
[2017-02-12] MEDS: Pantoprazole 40 MG Tab.CR PO SCH ×2 (08:54→20:01)
[2017-02-12] MEDS: amLODIPine 5 MG Tab PO SCH (08:56)
[2017-02-12] MEDS: Losartan 100 MG Tab PO SCH (08:58)
[2017-02-12] MEDS: Hydrochlorothiazide 12.5 MG Cap PO SCH (08:58)
[2017-02-12] MEDS ORDERED: Remove TRANSDERM SCOP Patch TRDERM SCH (09:00)
[2017-02-12] MEDS: Enoxaparin 40 MG/0.4 ML Syringe SUBCUT SCH (09:01)
[2017-02-12] MEDS: Vitamin E (dl-alpha-tocopherol acetate) 400 Unit Cap PO SCH (09:11)
[2017-02-12] MEDS: Thiamine 100 MG Tab PO SCH (09:11)
[2017-02-12] MEDS: Cholecalciferol (Vitamin D3) 1,000 Unit Tab PO SCH (09:11)
[2017-02-12] MEDS: Vitamin B6-pyridOXINE 50 MG Tab PO SCH (09:11)
[2017-02-12] MEDS: Multivitamins,Therapeutic Tab PO SCH (09:11)
[2017-02-12] MEDS: UBIDECARENONE 200 MG PO SCH (09:12)
[2017-02-12] MEDS: Cyanocobalamin (Vitamin B-12) [Vitamin B-12] 2,500 MCG PO SCH (09:14)
[2017-02-12] MEDS: Magnesium Oxide 400 MG Tab PO SCH (09:14)
[2017-02-12] MEDS: Potassium Chloride 10 MEQ in Premix Bag 1 BAG IV SCH ×7 (11:01→15:02)
[2017-02-12] MEDS: Saccharomyces Boulardii (Probiotic) 250 MG Cap PO SCH ×3 (11:02→20:01)
[2017-02-12] MEDS: Atenolol 25 MG Tab PO SCH (11:03)
[2017-02-12] MEDS: Levofloxacin/Dextrose 5%-Water 500 MG in Premix Bag 1 BAG IV SCH (11:05)
[2017-02-12] MEDS: hydrALAZINE 20 MG/ML SDV IVPUSH PRN (18:01)
[2017-02-12] MEDS: Aluminum Hydroxide/Magnesium Hydroxide/Simethicone Susp 30 ML Cup PO PRN (18:01)
[2017-02-12] MEDS: Simvastatin 10 MG Tab PO SCH (20:00)
[2017-02-12] MEDS: Pantoprazole 40 MG Vial IVPUSH SCH (20:43)
[2017-02-12] MEDS ORDERED: Famotidine 20 MG/2 ML SDV IVPUSH SCH (21:00)
[2017-02-13] MEDS: Aluminum Hydroxide/Magnesium Hydroxide/Simethicone Susp 30 ML Cup PO PRN (01:30)
[2017-02-13] MEDS: HYDROmorphone 0.5 MG/0.5 ML Syringe IVPUSH PRN ×2 (01:54→17:34)
[2017-02-13] MEDS: Dextrose 5%-0.9% NaCl 1,000 ML IV SCH ×2 (02:44→19:01)
[2017-02-13] MEDS: Metoclopramide 10 MG/2 ML SDV IVPUSH SCH ×4 (05:04→21:11)
[2017-02-13] MEDS: Levothyroxine 75 MCG Tab PO SCH (05:04)
[2017-02-13] MEDS: metroNIDAZOLE/Normal Saline 500 MG in Premix Bag 1 BAG IV SCH ×3 (05:05→21:11)
[2017-02-13] MEDS: Simvastatin 10 MG Tab PO SCH ×2 (05:27→21:10)
[2017-02-13] MEDS: Saccharomyces Boulardii (Probiotic) 250 MG Cap PO SCH ×3 (05:28→21:10)
--- NOTE | 2017-02-13 07:43 | PCM.PN ---
Addendum entered and electronically signed by Gali Manuel PA-C 13:28: Reviewed POC with Dr. Correa this afternoon; recommends NPO until passing gas. If not resolved by Thursday, repeat CT scan of abd/pelvis. Original Note: - General Info Date of Service: 02/13/17 Admission Dx/Problem (Free Text): Admission Diagnosis/Problem Admission Diagnosis/Problem Abdominal pain Lola is seen this morning on team rounding. States overall abdominal pain is improved this morning, intermittent nausea. Slept fairly well last night. Ambulated loop this morning and several times yesterday. No new complaints/concerns. VSS, afebrile. Functional Status: Reports: pain controlled, ambulating, urinating. Denies: tolerating diet (NPO), new symptoms - Review of Systems General: Reports: Weakness. Denies: Fever HEENT: Reports: no symptoms Pulmonary: Denies: shortness of breath, cough Cardiovascular: Denies: Chest Pain, Palpitations Gastrointestinal: Reports: Abdominal pain, Nausea, Vomiting (x 1 overnight, 500ml bilious reported by nursing) Neurological: Reports: No Symptoms Psychiatric: Reports: no symptoms - Patient Data Vitals - most recent: Last Vital Signs Temp 99.0 F 02/12/17 15:12 Pulse 57 L 02/12/17 15:12 Resp 18 02/12/17 15:12 BP 167/65 H 02/12/17 15:12 Pulse Ox 92 L 02/12/17 15:12 Weight - most recent: 168 lb 14.4 oz I&O - last 24 hours: Intake & Output 02/12/17 02/13/17 02/13/17 22:59 06:59 14:59 Intake Total 1500 984 Output Total 650 1000 Balance 850 -16 Med Orders - Current: Current Medications Acetaminophen (Tylenol) 650 mg PO Q4H PRN PRN Reason: Pain (Mild 1-3)/fever Hydrocodone Bitart/Acetaminophen ([place]ver 325-5 Mg) 1 tab PO Q4H PRN PRN Reason: Pain (moderate 4-6) Last Admin: 02/08/17 21:13 Dose: 1 tab Al Hydroxide/Mg Hydroxide (Mag-Al Plus) 30 ml PO Q4H PRN PRN Reason: Heartburn Last Admin: 02/13/17 01:30 Dose: 30 ml Albuterol/Ipratropium (Duoneb 3.0-0.5 Mg/3 Ml) 3 ml NEB Q4H PRN PRN Reason: Shortness Of Breath/wheezing Amlodipine Besylate (Norvasc) 5 mg PO DAILY [facility] Last Admin: 02/12/17 08:56 Dose: 5 mg Atenolol (Tenormin) 25 mg PO DAILY [facility] Last Admin: 02/12/17 11:03 Dose: 25 mg Cholecalciferol (Vitamin D3) 2,000 units PO DAILY [facility] Last Admin: 02/12/17 09:11 Dose: Not Given Enoxaparin Sodium (Lovenox) 40 mg SUBCUT DAILY [facility] Last Admin: 02/12/17 09:01 Dose: 40 mg Famotidine (Pepcid) 20 mg IVPUSH BID [facility] Last Admin: 02/12/17 22:12 Dose: 20 mg Hydralazine HCl (Apresoline) 10 mg IVPUSH Q4H PRN PRN Reason: Hypertension Last Admin: 02/12/17 18:01 Dose: 10 mg Hydrochlorothiazide (Hydrochlorothiazide) 12.5 mg PO DAILY [facility] Last Admin: 02/12/17 08:58 Dose: 12.5 mg Hydromorphone HCl (Dilaudid) 0.5 mg IVPUSH Q4H PRN PRN Reason: Pain (severe 7-10) Last Admin: 02/13/17 01:54 Dose: 0.5 mg Levofloxacin/Dextrose 500 mg/ (Premix) 100 mls @ 100 mls/hr IV Q24H [facility] Last Admin: 02/12/17 11:05 Dose: 100 mls/hr Promethazine HCl 12.5 mg/ (Sodium Chloride) 50.5 mls @ 100 mls/hr IV Q6H PRN PRN Reason: Nausea/Vomiting Metronidazole 500 mg/ Premix 100 mls @ 100 mls/hr IV Q8H [facility] Last Admin: 02/13/17 05:05 Dose: 100 mls/hr Dextrose/Sodium Chloride (Dextrose 5%-Normal Saline) 1,000 mls @ 100 mls/hr IV ASDIRECTED [facility] Last Admin: 02/13/17 02:44 Dose: 100 mls/hr Levothyroxine Sodium (Levothyroxine) 75 mcg PO ACBRK [facility] Last Admin: 02/13/17 05:04 Dose: 75 mcg Lorazepam (Ativan) 0.25 mg IV Q6H PRN PRN Reason: Anxiety Losartan Potassium (Cozaar) 100 mg PO DAILY [facility] Last Admin: 02/12/17 08:58 Dose: 100 mg Magnesium Oxide (Magnesium Oxide) 400 mg PO DAILY [facility] Last Admin: 02/12/17 09:14 Dose: 400 mg Magnesium Sulfate (Pharmacy To Dose - Magnesium Replacement) 1 dose .XX ASDIRECTED [facility] Metoclopramide HCl (Reglan) 10 mg IVPUSH Q4H PRN PRN Reason: Nausea/Vomiting Last Admin: 02/10/17 17:51 Dose: 10 mg Metoclopramide HCl (Reglan) 10 mg IVPUSH Q6H [facility] Last Admin: 02/13/17 05:04 Dose: 10 mg Metoprolol Tartrate (Lopressor) 2.5 mg IVPUSH Q4H PRN PRN Reason: Tachycardia Miscellaneous Information (Remove Patch) 0 ea TRDERM ONETIME ONE Stop: 02/13/17 07:46 Multivitamins (Thera) 1 each PO DAILY [facility] Last Admin: 02/12/17 09:11 Dose: Not Given Ondansetron HCl (Zofran) 4 mg IV Q6H PRN PRN Reason: Nausea/Vomiting Last Admin: 02/12/17 02:22 Dose: 4 mg Pantoprazole Sodium (Protonix Iv) 40 mg IVPUSH Q12H [facility] Last Admin: 02/12/17 20:43 Dose: 40 mg Cyanocobalamin ( Vitamin B-12) [ Vitamin B-12] 2,500 Mcg 0 each PO DAILY [facility] Last Admin: 02/12/17 09:14 Dose: Not Given Ubidecarenone 200 Mg 0 each PO DAILY [facility] Last Admin: 02/12/17 09:12 Dose: Not Given Potassium Chloride (Pharmacy To Dose - Potassium Replacement) 1 dose .XX ASDIRECTED [facility] Pyridoxine HCl (Vitamin B6-Pyridoxine) 100 mg PO DAILY [facility] Last Admin: 02/12/17 09:11 Dose: Not Given Saccharomyces Boulardii (Florastor) 250 mg PO TID [facility] Last Admin: 02/13/17 05:28 Dose: Not Given Simvastatin (Zocor) 10 mg PO BEDTIME [facility] Last Admin: 02/13/17 05:27 Dose: Not Given Sodium Chloride (Saline Flush) 10 ml FLUSH ASDIRECTED PRN PRN Reason: Keep Vein Open Last Admin: 02/08/17 10:36 Dose: 10 ml Temazepam (Restoril) 7.5 mg PO BEDTIME PRN PRN Reason: SLEEP Thiamine HCl (Vitamin B-1) 100 mg PO DAILY [facility] Last Admin: 02/12/17 09:11 Dose: Not Given Vitamin E (Vitamin E) 400 units PO DAILY [facility] Last Admin: 02/12/17 09:11 Dose: Not Given Discontinued Medications Al Hydroxide/Mg Hydroxide 30 (ml/ Lidocaine HCl 15 ml) 0 ml PO ONETIME ONE Stop: 02/08/17 10:10 Last Admin: 02/08/17 10:30 Dose: 30 ml Diatrizoate Meglum/Diatrizoate Sod (Gastrografin 37%) 90 ml PO ONETIME ONE Stop: 02/08/17 12:03 Last Admin: 02/08/17 12:26 Dose: 90 ml Famotidine (Pepcid) 20 mg PO BID [facility] Last Admin: 02/09/17 08:16 Dose: 20 mg Famotidine (Pepcid) 20 mg PO DAILY [facility] Last Admin: 02/10/17 08:08 Dose: 20 mg Hydromorphone HCl (Dilaudid) 0.5 mg IVPUSH ONETIME ONE Stop: 02/08/17 10:10 Last Admin: 02/08/17 10:36 Dose: 0.5 mg Hydromorphone HCl (Dilaudid) 1 mg IVPUSH ONETIME ONE Stop: 02/08/17 12:50 Last Admin: 02/08/17 12:55 Dose: 1 mg Hydromorphone HCl (Dilaudid) 0.25 mg IVPUSH Q4H PRN PRN Reason: Pain (severe 7-10) Last Admin: 02/09/17 06:54 Dose: 0.25 mg Sodium Chloride (Normal Saline) 1,000 mls @ 125 mls/hr IV ASDIRECTED [facility] Last Admin: 02/08/17 10:32 Dose: 125 mls/hr Levofloxacin/Dextrose 500 mg/ (Premix) 100 mls @ 100 mls/hr IV ONETIME ONE Stop: 02/08/17 14:38 Last Admin: 02/08/17 14:02 Dose: 100 mls/hr Metronidazole 500 mg/ Premix 100 mls @ 100 mls/hr IV ONETIME ONE Stop: 02/08/17 14:38 Last Admin: 02/08/17 21:08 Dose: Not Given Dextrose/Sodium Chloride (Dextrose 5%-Normal Saline) 1,000 mls @ 100 mls/hr IV ASDIRECTED [facility] Last Admin: 02/10/17 08:13 Dose: 100 mls/hr Potassium Chloride 10 meq/ (Premix) 100 mls @ 100 mls/hr IV Q1H [facility] Stop: 02/10/17 16:29 Last Admin: 02/10/17 16:42 Dose: 100 mls/hr Potassium Chloride 10 meq/ (Premix) 100 mls @ 100 mls/hr IV Q1H [facility] Stop: 02/11/17 17:14 Last Admin: 02/11/17 19:24 Dose: 100 mls/hr Magnesium Sulfate 2 gm/ Premix 50 mls @ 25 mls/hr IV ONETIME ONE Stop: 02/12/17 10:29 Last Admin: 02/12/17 10:02 Dose: 25 mls/hr Potassium Chloride 10 meq/ (Premix) 100 mls @ 100 mls/hr IV Q1H [facility] Stop: 02/12/17 14:29 Last Admin: 02/12/17 15:02 Dose: Not Given Iopamidol (Isovue-300 (61%)) 100 ml IVPUSH ONETIME ONE Stop: 02/08/17 12:03 Last Admin: 02/08/17 12:26 Dose: 100 ml Metoclopramide HCl (Reglan) 10 mg IVPUSH ONETIME ONE Stop: 02/08/17 12:50 Last Admin: 02/08/17 12:54 Dose: 10 mg Metoclopramide HCl (Reglan) 10 mg IVPUSH Q6H [facility] Last Admin: 02/11/17 06:14 Dose: Not Given Miscellaneous Information (Remove Patch) 1 ea TRDERM DAILY [facility] Stop: 02/12/17 09:01 Last Admin: 02/12/17 09:13 Dose: 1 ea Ondansetron HCl (Zofran) 4 mg IVPUSH ONETIME ONE Stop: 02/08/17 10:09 Last Admin: 02/08/17 10:33 Dose: 4 mg Pantoprazole Sodium (Protonix) 40 mg PO BID [facility] Last Admin: 02/12/17 08:54 Dose: 40 mg Potassium Chloride (Klor-Con M20) 40 meq PO Q4H [facility] Stop: 02/10/17 17:01 Last Admin: 02/10/17 13:10 Dose: 40 meq Potassium Chloride (Klor-Con M20) 40 meq PO Q4H [facility] Stop: 02/11/17 12:01 Last Admin: 02/11/17 12:08 Dose: Not Given Scopolamine (Transderm-Scop) 1.5 mg TOP ONETIME ONE Stop: 02/09/17 08:01 Last Admin: 02/09/17 08:12 Dose: 1.5 mg Scopolamine (Transderm-Scop) 1.5 mg TOP ONETIME ONE Stop: 02/10/17 07:37 Last Admin: 02/10/17 08:05 Dose: 1.5 mg Sodium Chloride (Saline Flush) 10 ml FLUSH ONETIME ONE Stop: 02/08/17 12:03 Last Admin: 02/08/17 12:26 Dose: 10 ml Sucralfate (Carafate) 1 gm PO ACBED [facility] Last Admin: 02/10/17 10:46 Dose: Not Given - Exam Quality Assessment: DVT prophylaxis General: alert, oriented, cooperative, no acute distress HEENT: Pupils equal, Pupils reactive, EOMI, Mucous membr. moist/pink Neck: supple Lungs: Clear to auscultation, Normal respiratory effort, Decreased breath sounds (bases bilat). No: Crackles, Rales Cardiovascular: Regular Rate, Regular Rhythm Abdomen: bowel sounds present (normoactive this morning), soft, tenderness ( epigastric and upper abdomen). No: no distension, rigidity, rebound, guarding (Female) Exam: Deferred Back Exam: Normal Inspection Extremities: no edema, no calf tenderness Peripheral Pulses: 1+: Dorsalis Pedis (L), Dorsalis Pedis (R) Neurological: no new focal deficit Psy/Mental Status: alert, normal affect, normal mood - Problem List & Annotations (1) Abdominal pain SNOMED Code(s): 50102117 Code(s): R10.9 - UNSPECIFIED ABDOMINAL PAIN Status: Acute Priority: High Current Visit: Yes Qualifiers: Abdominal location: generalized Qualified Code(s): R10.84 - Generalized abdominal pain (2) Enteritis SNOMED Code(s): 47707103 Code(s): K52.9 - NONINFECTIVE GASTROENTERITIS AND COLITIS, UNSPECIFIED Status: Acute Priority: High Current Visit: Yes (3) Ileus SNOMED Code(s): 693732898 Code(s): K56.7 - ILEUS, UNSPECIFIED Status: Acute Priority: High Current Visit: Yes (4) Hypokalemia SNOMED Code(s): 60091470 Code(s): E87.6 - HYPOKALEMIA Status: Acute Priority: High Current Visit : Yes - Problem List Review Problem List Initiated/Reviewed/Updated: Yes - My Orders Last 24 Hours: My Active Orders 02/13/17 07:36 TSH [CHEM] Routine - Plan Plan:: Assessment/Plan: Acute: Enteritis - Viral vs Bacterial--day 6 of IV levaquin and flagyl today--will plan to stop IV abx tomorrow - No unusual drink or food - No travel outside the country - She was able to eat or drink - She was PPI for presumptive Gastritis/PUD pending EGD on the of this month with Dr. Correa - Continue supportive care and intravenous antibiotics with Levaquin and Flagyl - Oral Probiotic - PRN meds for symptomatic control; antiementic and pain control Small Bowell Obstruction - 2/2 Above cannot r/o neoplasm or inflammatory tumor - Supportive Care and Conservative Management - She schedule for endoscopy at the end of the month - Dr. Correa consulted- consulted and following Abdominal Pain/Hx/o Gastritis, improved - May have worsened by above - Started on January 01 - Was on Carafate and PPI - She is scheduled to see Dr. Correa at the end of the month - Treatment as above Leukocytosis--improved - 2/2 Above Hypokalemia and Hypomagnesemia - Pharmacy to replete and monitor Cholelithiasis - CT scan finding, negative prior abd US as outpatient. - Stable at this time Right Kidney 7 mm Hypodense Mass - CT scan finding - DDx: cyst, infection, hematoma or neoplasm - Informed patient about findings - Defer further work up at this time; defer to outpatient eval with PCP. Chronic: HTN OA/DJD Anxiety HTN Gastritis Hypothyroidism Vit D Deficiency Hx/o Breast Cancer S/p Mastectomy Plan: She remains clinically stable Consider clear liquid diet for dinner and advance as tolerated Will d/c D5W NS at 100 cc/hr once she is tolerating full liquids Routine AM Labs SW/CM for d/c planning Dr. Correa Consulted Consider follow up CT scan if no symptom improvement Additional orders as above Code status: DNR/DNI LOS > 96 hrs due to slow response to treatment
[2017-02-13] MEDS: Magnesium Oxide 400 MG Tab PO SCH (08:25)
[2017-02-13] MEDS: Multivitamins,Therapeutic Tab PO SCH ×2 (08:25→09:14)
[2017-02-13] MEDS: Vitamin B6-pyridOXINE 50 MG Tab PO SCH ×2 (08:25→09:15)
[2017-02-13] MEDS: Thiamine 100 MG Tab PO SCH ×2 (08:25→09:15)
[2017-02-13] MEDS: Hydrochlorothiazide 12.5 MG Cap PO SCH (08:25)
[2017-02-13] MEDS: Cholecalciferol (Vitamin D3) 1,000 Unit Tab PO SCH ×2 (08:25→09:15)
[2017-02-13] MEDS: Atenolol 25 MG Tab PO SCH (08:26)
[2017-02-13] MEDS: Vitamin E (dl-alpha-tocopherol acetate) 400 Unit Cap PO SCH ×2 (08:26→09:15)
[2017-02-13] MEDS: amLODIPine 5 MG Tab PO SCH (08:26)
[2017-02-13] MEDS: Enoxaparin 40 MG/0.4 ML Syringe SUBCUT SCH (08:27)
[2017-02-13] MEDS: Losartan 100 MG Tab PO SCH (08:27)
[2017-02-13] MEDS: Pantoprazole 40 MG Vial IVPUSH SCH ×2 (08:27→21:10)
[2017-02-13] MEDS: Cyanocobalamin (Vitamin B-12) [Vitamin B-12] 2,500 MCG PO SCH (08:31)
[2017-02-13] MEDS: Levofloxacin/Dextrose 5%-Water 500 MG in Premix Bag 1 BAG IV SCH (08:32)
[2017-02-13] MEDS: Potassium Chloride 10 MEQ in Premix Bag 1 BAG IV SCH ×6 (08:32→17:11)
--- NOTE | 2017-02-13 08:45 | PCM.CONSN ---
- General Info Date of Service: 02/13/17 Subjective Update: No particular complaints at this time. Emesis last noc after given CLD for dinner. No nausea now. No belching. No flatus or BM. Abd pain improved. Afebrile. Functional Status: Denies: new symptoms - Patient Data Vitals - most recent: Last Vital Signs Temp 99.0 F 02/12/17 15:12 Pulse 57 L 02/13/17 08:26 Resp 18 02/12/17 15:12 BP 146/64 H 02/13/17 08:27 Pulse Ox 92 L 02/12/17 15:12 Weight - most recent: 168 lb 14.4 oz I&O - last 24 hours: Intake & Output 02/12/17 02/13/17 02/13/17 22:59 06:59 14:59 Intake Total 1500 984 Output Total 650 1000 Balance 850 -16 Lab Results last 24 hrs: Laboratory Results - last 24 hr 02/13/17 02/13/17 Range/Units 05:55 06:53 Sodium 140 (136-145) mEq/L Potassium 3.1 L (3.5-5.1) mEq/L Chloride 104 (98-107) mEq/L Carbon Dioxide 26 (21-32) mEq/L Anion Gap 13.1 (5-15) BUN 16 (7-18) mg/dL Creatinine 0.8 (0.55-1.02) mg/dL Est Cr Clr Drug Dosing 45.04 mL/min Estimated GFR (MDRD) > 60 (>60) mL/min BUN/Creatinine Ratio 20.0 H (14-18) Glucose 107 (83-115) mg/dL Calcium 8.5 (8.5-10.1) mg/dL Magnesium 2.1 (1.8-2.4) mg/dl C-Reactive Protein 1.2 H* (<1.0) mg/dL TSH 3rd Generation 4.260 H (0.358-3.74) uIU/mL Med Orders - Current: Current Medications Acetaminophen (Tylenol) 650 mg PO Q4H PRN PRN Reason: Pain (Mild 1-3)/fever Hydrocodone Bitart/Acetaminophen (Sterling 325-5 Mg) 1 tab PO Q4H PRN PRN Reason: Pain (moderate 4-6) Last Admin: 02/08/17 21:13 Dose: 1 tab Al Hydroxide/Mg Hydroxide (Mag-Al Plus) 30 ml PO Q4H PRN PRN Reason: Heartburn Last Admin: 02/13/17 01:30 Dose: 30 ml Albuterol/Ipratropium (Duoneb 3.0-0.5 Mg/3 Ml) 3 ml NEB Q4H PRN PRN Reason: Shortness Of Breath/wheezing Amlodipine Besylate (Norvasc) 5 mg PO DAILY [facility] Last Admin: 02/13/17 08:26 Dose: 5 mg Atenolol (Tenormin) 25 mg PO DAILY [facility] Last Admin: 02/13/17 08:26 Dose: 25 mg Cholecalciferol (Vitamin D3) 2,000 units PO DAILY [facility] Last Admin: 02/13/17 08:25 Dose: 2,000 units Enoxaparin Sodium (Lovenox) 40 mg SUBCUT DAILY [facility] Last Admin: 02/13/17 08:27 Dose: 40 mg Hydralazine HCl (Apresoline) 10 mg IVPUSH Q4H PRN PRN Reason: Hypertension Last Admin: 02/12/17 18:01 Dose: 10 mg Hydrochlorothiazide (Hydrochlorothiazide) 12.5 mg PO DAILY [facility] Last Admin: 02/13/17 08:25 Dose: 12.5 mg Hydromorphone HCl (Dilaudid) 0.5 mg IVPUSH Q4H PRN PRN Reason: Pain (severe 7-10) Last Admin: 02/13/17 01:54 Dose: 0.5 mg Levofloxacin/Dextrose 500 mg/ (Premix) 100 mls @ 100 mls/hr IV Q24H [facility] Last Admin: 02/13/17 08:32 Dose: 100 mls/hr Promethazine HCl 12.5 mg/ (Sodium Chloride) 50.5 mls @ 100 mls/hr IV Q6H PRN PRN Reason: Nausea/Vomiting Metronidazole 500 mg/ Premix 100 mls @ 100 mls/hr IV Q8H [facility] Last Admin: 02/13/17 05:05 Dose: 100 mls/hr Dextrose/Sodium Chloride (Dextrose 5%-Normal Saline) 1,000 mls @ 100 mls/hr IV ASDIRECTED [facility] Last Admin: 02/13/17 02:44 Dose: 100 mls/hr Potassium Chloride 10 meq/ (Premix) 100 mls @ 100 mls/hr IV Q1H [facility] Stop: 02/13/17 14:14 Last Admin: 02/13/17 08:32 Dose: 100 mls/hr Levothyroxine Sodium (Levothyroxine) 75 mcg PO ACBRK [facility] Last Admin: 02/13/17 05:04 Dose: 75 mcg Lorazepam (Ativan) 0.25 mg IV Q6H PRN PRN Reason: Anxiety Losartan Potassium (Cozaar) 100 mg PO DAILY [facility] Last Admin: 02/13/17 08:27 Dose: 100 mg Magnesium Oxide (Magnesium Oxide) 400 mg PO DAILY [facility] Last Admin: 02/13/17 08:25 Dose: 400 mg Magnesium Sulfate (Pharmacy To Dose - Magnesium Replacement) 1 dose .XX ASDIRECTED [facility] Metoclopramide HCl (Reglan) 10 mg IVPUSH Q4H PRN PRN Reason: Nausea/Vomiting Last Admin: 02/10/17 17:51 Dose: 10 mg Metoclopramide HCl (Reglan) 10 mg IVPUSH Q6H [facility] Last Admin: 02/13/17 05:04 Dose: 10 mg Metoprolol Tartrate (Lopressor) 2.5 mg IVPUSH Q4H PRN PRN Reason: Tachycardia Multivitamins (Thera) 1 each PO DAILY [facility] Last Admin: 02/13/17 08:25 Dose: 1 each Ondansetron HCl (Zofran) 4 mg IV Q6H PRN PRN Reason: Nausea/Vomiting Last Admin: 02/12/17 02:22 Dose: 4 mg Pantoprazole Sodium (Protonix Iv) 40 mg IVPUSH Q12H [facility] Last Admin: 02/13/17 08:27 Dose: 40 mg Cyanocobalamin ( Vitamin B-12) [ Vitamin B-12] 2,500 Mcg 0 each PO DAILY [facility] Last Admin: 02/13/17 08:31 Dose: Not Given Ubidecarenone 200 Mg 0 each PO DAILY [facility] Last Admin: 02/12/17 09:12 Dose: Not Given Potassium Chloride (Pharmacy To Dose - Potassium Replacement) 1 dose .XX ASDIRECTED [facility] Pyridoxine HCl (Vitamin B6-Pyridoxine) 100 mg PO DAILY [facility] Last Admin: 02/13/17 08:25 Dose: 100 mg Saccharomyces Boulardii (Florastor) 250 mg PO BID [facility] Last Admin: 02/13/17 08:25 Dose: 250 mg Simvastatin (Zocor) 10 mg PO BEDTIME [facility] Last Admin: 02/13/17 05:27 Dose: Not Given Sodium Chloride (Saline Flush) 10 ml FLUSH ASDIRECTED PRN PRN Reason: Keep Vein Open Last Admin: 02/08/17 10:36 Dose: 10 ml Temazepam (Restoril) 7.5 mg PO BEDTIME PRN PRN Reason: SLEEP Thiamine HCl (Vitamin B-1) 100 mg PO DAILY [facility] Last Admin: 02/13/17 08:25 Dose: 100 mg Vitamin E (Vitamin E) 400 units PO DAILY [facility] Last Admin: 02/13/17 08:26 Dose: 400 units Discontinued Medications Al Hydroxide/Mg Hydroxide 30 (ml/ Lidocaine HCl 15 ml) 0 ml PO ONETIME ONE Stop: 02/08/17 10:10 Last Admin: 02/08/17 10:30 Dose: 30 ml Diatrizoate Meglum/Diatrizoate Sod (Gastrografin 37%) 90 ml PO ONETIME ONE Stop: 02/08/17 12:03 Last Admin: 02/08/17 12:26 Dose: 90 ml Famotidine (Pepcid) 20 mg PO BID [facility] Last Admin: 02/09/17 08:16 Dose: 20 mg Famotidine (Pepcid) 20 mg PO DAILY [facility] Last Admin: 02/10/17 08:08 Dose: 20 mg Famotidine (Pepcid) 20 mg IVPUSH BID [facility] Last Admin: 02/12/17 22:12 Dose: 20 mg Hydromorphone HCl (Dilaudid) 0.5 mg IVPUSH ONETIME ONE Stop: 02/08/17 10:10 Last Admin: 02/08/17 10:36 Dose: 0.5 mg Hydromorphone HCl (Dilaudid) 1 mg IVPUSH ONETIME ONE Stop: 02/08/17 12:50 Last Admin: 02/08/17 12:55 Dose: 1 mg Hydromorphone HCl (Dilaudid) 0.25 mg IVPUSH Q4H PRN PRN Reason: Pain (severe 7-10) Last Admin: 02/09/17 06:54 Dose: 0.25 mg Sodium Chloride (Normal Saline) 1,000 mls @ 125 mls/hr IV ASDIRECTED [facility] Last Admin: 02/08/17 10:32 Dose: 125 mls/hr Levofloxacin/Dextrose 500 mg/ (Premix) 100 mls @ 100 mls/hr IV ONETIME ONE Stop: 02/08/17 14:38 Last Admin: 02/08/17 14:02 Dose: 100 mls/hr Metronidazole 500 mg/ Premix 100 mls @ 100 mls/hr IV ONETIME ONE Stop: 02/08/17 14:38 Last Admin: 02/08/17 21:08 Dose: Not Given Dextrose/Sodium Chloride (Dextrose 5%-Normal Saline) 1,000 mls @ 100 mls/hr IV ASDIRECTED [facility] Last Admin: 02/10/17 08:13 Dose: 100 mls/hr Potassium Chloride 10 meq/ (Premix) 100 mls @ 100 mls/hr IV Q1H [facility] Stop: 02/10/17 16:29 Last Admin: 02/10/17 16:42 Dose: 100 mls/hr Potassium Chloride 10 meq/ (Premix) 100 mls @ 100 mls/hr IV Q1H [facility] Stop: 02/11/17 17:14 Last Admin: 02/11/17 19:24 Dose: 100 mls/hr Magnesium Sulfate 2 gm/ Premix 50 mls @ 25 mls/hr IV ONETIME ONE Stop: 02/12/17 10:29 Last Admin: 02/12/17 10:02 Dose: 25 mls/hr Potassium Chloride 10 meq/ (Premix) 100 mls @ 100 mls/hr IV Q1H [facility] Stop: 02/12/17 14:29 Last Admin: 02/12/17 15:02 Dose: Not Given Iopamidol (Isovue-300 (61%)) 100 ml IVPUSH ONETIME ONE Stop: 02/08/17 12:03 Last Admin: 02/08/17 12:26 Dose: 100 ml Metoclopramide HCl (Reglan) 10 mg IVPUSH ONETIME ONE Stop: 02/08/17 12:50 Last Admin: 02/08/17 12:54 Dose: 10 mg Metoclopramide HCl (Reglan) 10 mg IVPUSH Q6H [facility] Last Admin: 02/11/17 06:14 Dose: Not Given Miscellaneous Information (Remove Patch) 1 ea TRDERM DAILY [facility] Stop: 02/12/17 09:01 Last Admin: 02/12/17 09:13 Dose: 1 ea Miscellaneous Information (Remove Patch) 0 ea TRDERM ONETIME ONE Stop: 02/13/17 07:46 Last Admin: 02/13/17 08:24 Dose: Not Given Ondansetron HCl (Zofran) 4 mg IVPUSH ONETIME ONE Stop: 02/08/17 10:09 Last Admin: 02/08/17 10:33 Dose: 4 mg Pantoprazole Sodium (Protonix) 40 mg PO BID [facility] Last Admin: 02/12/17 08:54 Dose: 40 mg Potassium Chloride (Klor-Con M20) 40 meq PO Q4H [facility] Stop: 02/10/17 17:01 Last Admin: 02/10/17 13:10 Dose: 40 meq Potassium Chloride (Klor-Con M20) 40 meq PO Q4H [facility] Stop: 02/11/17 12:01 Last Admin: 02/11/17 12:08 Dose: Not Given Saccharomyces Boulardii (Florastor) 250 mg PO TID [facility] Last Admin: 02/13/17 05:28 Dose: Not Given Scopolamine (Transderm-Scop) 1.5 mg TOP ONETIME ONE Stop: 02/09/17 08:01 Last Admin: 02/09/17 08:12 Dose: 1.5 mg Scopolamine (Transderm-Scop) 1.5 mg TOP ONETIME ONE Stop: 02/10/17 07:37 Last Admin: 02/10/17 08:05 Dose: 1.5 mg Sodium Chloride (Saline Flush) 10 ml FLUSH ONETIME ONE Stop: 02/08/17 12:03 Last Admin: 02/08/17 12:26 Dose: 10 ml Sucralfate (Carafate) 1 gm PO ACBED [facility] Last Admin: 02/10/17 10:46 Dose: Not Given - Exam Quality Assessment: No: supplemental oxygen General: alert, oriented, cooperative, no acute distress Lungs: Normal respiratory effort Cardiovascular: Regular Rate Abdomen: soft, no distension, tenderness (minimal epigastric ). No: rigidity, rebound, guarding, distension Extremities: no edema Skin: warm, dry, intact Neurological: no new focal deficit Psy/Mental Status: alert, normal affect, normal mood Consult PN Assessment/Plan Procedures: Procedures ASSAY OF LIPASE (01/01/17) ASSAY OF NATRIURETIC PEPTIDE (11/13/14) ASSAY OF TROPONIN QUANT (11/13/14) ASSAY THYROID STIM HORMONE (11/13/14) BIOPSY/REMOVAL LYMPH NODES (10/11/14) BLOOD GASES ANY COMBINATION (10/11/14) BLOOD TYPING SEROLOGIC ABO (10/11/14) BLOOD TYPING SEROLOGIC RH(D) (10/11/14) CHEST X-RAY 1 VIEW FRONTAL (11/13/14) COMPATIBILITY TEST ANTIGLOB (10/11/14) COMPLETE CBC AUTOMATED (10/11/14) COMPLETE CBC W/AUTO DIFF WBC (01/01/17) COMPREHEN METABOLIC PANEL (01/01/17) CREATINE MB FRACTION (11/13/14) DRAINAGE OF HEMATOMA/FLUID (10/11/14) DXA BONE DENSITY AXIAL (11/23/15) ELECTROCARDIOGRAM TRACING (01/01/17) EMERGENCY DEPT VISIT (01/01/17) EMERGENCY DEPT VISIT (11/13/14) FIBRIN DEGRADATION QUANT (11/13/14) HEMATOCRIT (10/11/14) HEMOGLOBIN (10/11/14) IMMUNOHISTO ANTB 1ST STAIN (10/11/14) IO MAP OF SENT LYMPH NODE (10/11/14) METABOLIC PANEL TOTAL CA (10/11/14) MRI JOINT UPR EXTREM W/O DYE (01/30/17) MRI NECK SPINE W/O DYE (01/30/17) PARTIAL MASTECTOMY (10/11/14) PATH CONSULT INTRAOP 1 BLOC (10/11/14) PROTHROMBIN TIME (11/13/14) RA TRACER ID OF SENTINL NODE (10/11/14) RBC ANTIBODY SCREEN (10/11/14) ROUTINE VENIPUNCTURE (01/01/17) THER/PROPH/DIAG IV INF INIT (10/11/14) THROMBOPLASTIN TIME PARTIAL (10/11/14) TISSUE EXAM BY PATHOLOGIST (10/11/14) TISSUE EXAM BY PATHOLOGIST (10/11/14) TISSUE EXAM BY PATHOLOGIST (10/11/14) URINALYSIS AUTO W/SCOPE (01/01/17) WITHDRAWAL OF ARTERIAL BLOOD (10/11/14) (1) Abdominal pain SNOMED Code(s): 48053072 Code(s): R10.9 - UNSPECIFIED ABDOMINAL PAIN Priority: High Current Visit : Yes Qualifiers: Abdominal location: generalized Qualified Code(s): R10.84 - Generalized abdominal pain (2) Enteritis SNOMED Code(s): 26345502 Code(s): K52.9 - NONINFECTIVE GASTROENTERITIS AND COLITIS, UNSPECIFIED Priority: High Current Visit: Yes (3) Hypokalemia SNOMED Code(s): 81517176 Code(s): E87.6 - HYPOKALEMIA Priority: High Current Visit: Yes (4) Ileus SNOMED Code(s): 438641370 Code(s): K56.7 - ILEUS, UNSPECIFIED Priority: High Current Visit: Yes (5) Gastritis SNOMED Code(s): 7040064 Code(s): K29.70 - GASTRITIS, UNSPECIFIED, WITHOUT BLEEDING Current Visit: No Qualifiers: Gastritis type: unspecified gastritis Chronicity: unspecified Gastritis bleeding: without bleeding Qualified Code(s): K29.70 - Gastritis, unspecified , without bleeding Problem List Initiated/Reviewed/Updated: Yes Plan: 81 yo woman with suspected ileus 2/2 enteritis of uncertain etiology and gastritis NPO until patient has resumption of flatus Could consider PICC line and initiation of TPN over weekend if bowel function still has not resumed Recommend replacing K to 4.0, Mg to 2.0 and Phos to 3.0 to optimize bowel motility Recommend completing abx course for 10 days Labs improved today, CRP nearly normal Abdominal examination improved. Etiology of enteritis unclear. Discussed with patient that we would plan to obtain repeat CAT scan with oral contrast on Thursday if still no bowel function, if evidence of bowel obstruction versus ileus at that time, surgery will need to be considered. Discussed my recommendations with Gali Manuel PA-C at the time of this morning's visit.
[2017-02-13] MEDS: UBIDECARENONE 200 MG PO SCH (09:11)
[2017-02-13] MEDS ORDERED: amLODIPine 5 MG Tab PO ONE (12:55)
[2017-02-13] MEDS ORDERED: Scopolamine 1.5 MG Transdermal Patch TRDERM ONE (13:00)
[2017-02-13] MEDS: Ondansetron 4 MG/2 ML SDV IV PRN (17:33)
[2017-02-14] MEDS: metroNIDAZOLE/Normal Saline 500 MG in Premix Bag 1 BAG IV SCH ×3 (05:38→20:59)
[2017-02-14] MEDS: Metoclopramide 10 MG/2 ML SDV IVPUSH SCH ×4 (05:38→20:59)
[2017-02-14] MEDS: Levothyroxine 88 MCG Tab PO SCH (05:39)
--- NOTE | 2017-02-14 07:09 | PCM.PN ---
- General Info Date of Service: 02/14/17 Admission Dx/Problem (Free Text): Admission Diagnosis/Problem Admission Diagnosis/Problem Abdominal pain Subjective Update: Follow Up Functional Status: Reports: pain controlled, ambulating, urinating. Denies: new symptoms - Review of Systems General: Denies: Fever, Weakness, Fatigue, Malaise, Chills HEENT: Reports: no symptoms Pulmonary: Denies: shortness of breath Cardiovascular: Denies: Chest Pain, Palpitations Gastrointestinal: Reports: Abdominal pain, Flatus (tiny). Denies: Constipation , Decreased appetite, Diarrhea, Difficulty swallowing, Nausea, Vomiting Genitourinary: Reports: no symptoms Musculoskeletal: Reports: no symptoms Skin: Reports: no symptoms Neurological: Denies: Confusion, Difficulty Walking, Gait Disturbance Psychiatric: Denies: depression, anxiety, hallucinations - Patient Data Vitals - most recent: Last Vital Signs Temp 37.3 C 02/14/17 05:00 Pulse 59 L 02/14/17 05:00 Resp 16 02/14/17 05:00 BP 121/80 02/14/17 05:00 Pulse Ox 96 02/14/17 05:00 Weight - most recent: 76.612 kg I&O - last 24 hours: Intake & Output 02/13/17 02/14/17 02/14/17 22:59 06:59 14:59 Intake Total 1236 Output Total 800 Balance 436 Lab Results last 24 hrs: Laboratory Results - last 24 hr 02/13/17 02/13/17 02/13/17 Range/Units 05:55 05:55 06:53 WBC 10.76 H (3.98-10.04) K/mm3 RBC 4.97 (3.98-5.22) M/mm3 Hgb 15.9 H (11.2-15.7) gm/L Hct 46.3 H (34.1-44.9) % MCV 93.2 (79.4-94.8) fl MCH 32.0 (25.6-32.2) pg MCHC 34.3 (32.2-35.5) g/dl RDW Std Deviation 42.2 (36.4-46.3) fL Plt Count 140 L (182-369) K/mm3 MPV 9.9 (9.4-12.3) fl Neut % (Auto) 66.2 (34.0-71.1) % Lymph % (Auto) 21.9 (19.3-51.7) % Cottle % (Auto) 9.8 (4.7-12.5) % Eos % (Auto) 1.5 (0.7-5.8) Baso % (Auto) 0.1 (0.1-1.2) % Neut # (Auto) 7.13 H (1.56-6.13) K/mm3 Lymph # (Auto) 2.36 (1.18-3.74) K/mm3 Cottle # (Auto) 1.05 H (0.24-0.36) K/mm3 Eos # (Auto) 0.16 (0.04-0.36) K/mm3 Baso # (Auto) 0.01 (0.01-0.08) K/mm3 Sodium 140 (136-145) mEq/L Potassium 3.1 L (3.5-5.1) mEq/L Chloride 104 (98-107) mEq/L Carbon Dioxide 26 (21-32) mEq/L Anion Gap 13.1 (5-15) BUN 16 (7-18) mg/dL Creatinine 0.8 (0.55-1.02) mg/dL Est Cr Clr Drug Dosing 45.04 mL/min Estimated GFR (MDRD) > 60 (>60) mL/min BUN/Creatinine Ratio 20.0 H (14-18) Glucose 107 (83-115) mg/dL Calcium 8.5 (8.5-10.1) mg/dL Magnesium 2.1 (1.8-2.4) mg/dl C-Reactive Protein 1.2 H* (<1.0) mg/dL TSH 3rd Generation 4.260 H (0.358-3.74) uIU/mL 02/14/17 Range/Units 06:00 WBC 11.43 H (3.98-10.04) K/mm3 RBC 4.79 (3.98-5.22) M/mm3 Hgb 15.5 (11.2-15.7) gm/L Hct 44.8 (34.1-44.9) % MCV 93.5 (79.4-94.8) fl MCH 32.4 H (25.6-32.2) pg MCHC 34.6 (32.2-35.5) g/dl RDW Std Deviation 43.0 (36.4-46.3) fL Plt Count 195 (182-369) K/mm3 MPV 9.6 (9.4-12.3) fl Neut % (Auto) 71.7 H (34.0-71.1) % Lymph % (Auto) 16.0 L (19.3-51.7) % Cottle % (Auto) 9.6 (4.7-12.5) % Eos % (Auto) 2.1 (0.7-5.8) Baso % (Auto) 0.2 (0.1-1.2) % Neut # (Auto) 8.19 H (1.56-6.13) K/mm3 Lymph # (Auto) 1.83 (1.18-3.74) K/mm3 Cottle # (Auto) 1.10 H (0.24-0.36) K/mm3 Eos # (Auto) 0.24 (0.04-0.36) K/mm3 Baso # (Auto) 0.02 (0.01-0.08) K/mm3 Sodium (136-145) mEq/L Potassium (3.5-5.1) mEq/L Chloride (98-107) mEq/L Carbon Dioxide (21-32) mEq/L Anion Gap (5-15) BUN (7-18) mg/dL Creatinine (0.55-1.02) mg/dL Est Cr Clr Drug Dosing mL/min Estimated GFR (MDRD) (>60) mL/min BUN/Creatinine Ratio (14-18) Glucose (83-115) mg/dL Calcium (8.5-10.1) mg/dL Magnesium (1.8-2.4) mg/dl C-Reactive Protein (<1.0) mg/dL TSH 3rd Generation (0.358-3.74) uIU/mL Med Orders - Current: Current Medications Acetaminophen (Tylenol) 650 mg PO Q4H PRN PRN Reason: Pain (Mild 1-3)/fever Hydrocodone Bitart/Acetaminophen (Buckley 325-5 Mg) 1 tab PO Q4H PRN PRN Reason: Pain (moderate 4-6) Last Admin: 02/08/17 21:13 Dose: 1 tab Al Hydroxide/Mg Hydroxide (Mag-Al Plus) 30 ml PO Q4H PRN PRN Reason: Heartburn Last Admin: 02/13/17 01:30 Dose: 30 ml Albuterol/Ipratropium (Duoneb 3.0-0.5 Mg/3 Ml) 3 ml NEB Q4H PRN PRN Reason: Shortness Of Breath/wheezing Amlodipine Besylate (Norvasc) 10 mg PO DAILY [facility] Cholecalciferol (Vitamin D3) 2,000 units PO DAILY [facility] Last Admin: 02/13/17 09:15 Dose: Not Given Enoxaparin Sodium (Lovenox) 40 mg SUBCUT DAILY [facility] Last Admin: 02/13/17 08:27 Dose: 40 mg Hydralazine HCl (Apresoline) 10 mg IVPUSH Q4H PRN PRN Reason: Hypertension Last Admin: 02/12/17 18:01 Dose: 10 mg Hydrochlorothiazide (Hydrochlorothiazide) 12.5 mg PO DAILY [facility] Last Admin: 02/13/17 08:25 Dose: 12.5 mg Hydromorphone HCl (Dilaudid) 0.5 mg IVPUSH Q4H PRN PRN Reason: Pain (severe 7-10) Last Admin: 02/13/17 17:34 Dose: 0.5 mg Levofloxacin/Dextrose 500 mg/ (Premix) 100 mls @ 100 mls/hr IV Q24H [facility] Stop: 02/16/17 10:00 Last Admin: 02/13/17 08:32 Dose: 100 mls/hr Promethazine HCl 12.5 mg/ (Sodium Chloride) 50.5 mls @ 100 mls/hr IV Q6H PRN PRN Reason: Nausea/Vomiting Metronidazole 500 mg/ Premix 100 mls @ 100 mls/hr IV Q8H [facility] Stop: 02/16/17 23:30 Last Admin: 02/14/17 05:38 Dose: 100 mls/hr Dextrose/Sodium Chloride (Dextrose 5%-Normal Saline) 1,000 mls @ 100 mls/hr IV ASDIRECTED [facility] Last Admin: 02/13/17 19:01 Dose: 100 mls/hr Levothyroxine Sodium (Synthroid) 88 mcg PO ACBREAKFAST [facility] Last Admin: 02/14/17 05:39 Dose: 88 mcg Lorazepam (Ativan) 0.25 mg IV Q6H PRN PRN Reason: Anxiety Losartan Potassium (Cozaar) 100 mg PO DAILY [facility] Last Admin: 02/13/17 08:27 Dose: 100 mg Magnesium Oxide (Magnesium Oxide) 400 mg PO DAILY [facility] Last Admin: 02/13/17 08:25 Dose: 400 mg Magnesium Sulfate (Pharmacy To Dose - Magnesium Replacement) 1 dose .XX ASDIRECTED [facility] Metoclopramide HCl (Reglan) 10 mg IVPUSH Q4H PRN PRN Reason: Nausea/Vomiting Last Admin: 02/10/17 17:51 Dose: 10 mg Metoclopramide HCl (Reglan) 10 mg IVPUSH Q6H [facility] Last Admin: 02/14/17 05:38 Dose: 10 mg Metoprolol Tartrate (Lopressor) 2.5 mg IVPUSH Q4H PRN PRN Reason: Tachycardia Miscellaneous Information (Remove Patch) 0 ea TRDERM ONETIME ONE Stop: 02/16/17 13:01 Multivitamins (Thera) 1 each PO DAILY [facility] Last Admin: 02/13/17 09:14 Dose: Not Given Ondansetron HCl (Zofran) 4 mg IV Q6H PRN PRN Reason: Nausea/Vomiting Last Admin: 02/13/17 17:33 Dose: 4 mg Pantoprazole Sodium (Protonix Iv) 40 mg IVPUSH Q12H [facility] Last Admin: 02/13/17 21:10 Dose: 40 mg Cyanocobalamin ( Vitamin B-12) [ Vitamin B-12] 2,500 Mcg 0 each PO DAILY [facility] Last Admin: 02/13/17 08:31 Dose: Not Given Ubidecarenone 200 Mg 0 each PO DAILY [facility] Last Admin: 02/13/17 09:11 Dose: Not Given Potassium Chloride (Pharmacy To Dose - Potassium Replacement) 1 dose .XX ASDIRECTED [facility] Pyridoxine HCl (Vitamin B6-Pyridoxine) 100 mg PO DAILY [facility] Last Admin: 02/13/17 09:15 Dose: Not Given Saccharomyces Boulardii (Florastor) 250 mg PO BID [facility] Last Admin: 02/13/17 21:10 Dose: 250 mg Simvastatin (Zocor) 10 mg PO BEDTIME [facility] Last Admin: 02/13/17 21:10 Dose: 10 mg Sodium Chloride (Saline Flush) 10 ml FLUSH ASDIRECTED PRN PRN Reason: Keep Vein Open Last Admin: 02/08/17 10:36 Dose: 10 ml Temazepam (Restoril) 7.5 mg PO BEDTIME PRN PRN Reason: SLEEP Thiamine HCl (Vitamin B-1) 100 mg PO DAILY [facility] Last Admin: 02/13/17 09:15 Dose: Not Given Vitamin E (Vitamin E) 400 units PO DAILY [facility] Last Admin: 02/13/17 09:15 Dose: Not Given Discontinued Medications Amlodipine Besylate (Norvasc) 5 mg PO DAILY [facility] Last Admin: 02/13/17 08:26 Dose: 5 mg Amlodipine Besylate (Norvasc) 5 mg PO ONETIME ONE Stop: 02/13/17 12:56 Last Admin: 02/13/17 13:23 Dose: 5 mg Atenolol (Tenormin) 25 mg PO DAILY [facility] Last Admin: 02/13/17 08:26 Dose: 25 mg Al Hydroxide/Mg Hydroxide 30 (ml/ Lidocaine HCl 15 ml) 0 ml PO ONETIME ONE Stop: 02/08/17 10:10 Last Admin: 02/08/17 10:30 Dose: 30 ml Diatrizoate Meglum/Diatrizoate Sod (Gastrografin 37%) 90 ml PO ONETIME ONE Stop: 02/08/17 12:03 Last Admin: 02/08/17 12:26 Dose: 90 ml Famotidine (Pepcid) 20 mg PO BID [facility] Last Admin: 02/09/17 08:16 Dose: 20 mg Famotidine (Pepcid) 20 mg PO DAILY [facility] Last Admin: 02/10/17 08:08 Dose: 20 mg Famotidine (Pepcid) 20 mg IVPUSH BID [facility] Last Admin: 02/12/17 22:12 Dose: 20 mg Hydromorphone HCl (Dilaudid) 0.5 mg IVPUSH ONETIME ONE Stop: 02/08/17 10:10 Last Admin: 02/08/17 10:36 Dose: 0.5 mg Hydromorphone HCl (Dilaudid) 1 mg IVPUSH ONETIME ONE Stop: 02/08/17 12:50 Last Admin: 02/08/17 12:55 Dose: 1 mg Hydromorphone HCl (Dilaudid) 0.25 mg IVPUSH Q4H PRN PRN Reason: Pain (severe 7-10) Last Admin: 02/09/17 06:54 Dose: 0.25 mg Sodium Chloride (Normal Saline) 1,000 mls @ 125 mls/hr IV ASDIRECTED ANDREW Last Admin: 02/08/17 10:32 Dose: 125 mls/hr Levofloxacin/Dextrose 500 mg/ (Premix) 100 mls @ 100 mls/hr IV ONETIME ONE Stop: 02/08/17 14:38 Last Admin: 02/08/17 14:02 Dose: 100 mls/hr Metronidazole 500 mg/ Premix 100 mls @ 100 mls/hr IV ONETIME ONE Stop: 02/08/17 14:38 Last Admin: 02/08/17 21:08 Dose: Not Given Dextrose/Sodium Chloride (Dextrose 5%-Normal Saline) 1,000 mls @ 100 mls/hr IV ASDIRECTED [facility] Last Admin: 02/10/17 08:13 Dose: 100 mls/hr Potassium Chloride 10 meq/ (Premix) 100 mls @ 100 mls/hr IV Q1H ANDREW Stop: 02/10/17 16:29 Last Admin: 02/10/17 16:42 Dose: 100 mls/hr Potassium Chloride 10 meq/ (Premix) 100 mls @ 100 mls/hr IV Q1H ANDREW Stop: 02/11/17 17:14 Last Admin: 02/11/17 19:24 Dose: 100 mls/hr Magnesium Sulfate 2 gm/ Premix 50 mls @ 25 mls/hr IV ONETIME ONE Stop: 02/12/17 10:29 Last Admin: 02/12/17 10:02 Dose: 25 mls/hr Potassium Chloride 10 meq/ (Premix) 100 mls @ 100 mls/hr IV Q1H ANDREW Stop: 02/12/17 14:29 Last Admin: 02/12/17 15:02 Dose: Not Given Potassium Chloride 10 meq/ (Premix) 100 mls @ 100 mls/hr IV Q1H ANDREW Stop: 02/13/17 14:14 Last Admin: 02/13/17 17:11 Dose: 100 mls/hr Iopamidol (Isovue-300 (61%)) 100 ml IVPUSH ONETIME ONE Stop: 02/08/17 12:03 Last Admin: 02/08/17 12:26 Dose: 100 ml Levothyroxine Sodium (Levothyroxine) 75 mcg PO ACBRK [facility] Last Admin: 02/13/17 05:04 Dose: 75 mcg Metoclopramide HCl (Reglan) 10 mg IVPUSH ONETIME ONE Stop: 02/08/17 12:50 Last Admin: 02/08/17 12:54 Dose: 10 mg Metoclopramide HCl (Reglan) 10 mg IVPUSH Q6H [facility] Last Admin: 02/11/17 06:14 Dose: Not Given Miscellaneous Information (Remove Patch) 1 ea TRDERM DAILY [facility] Stop: 02/12/17 09:01 Last Admin: 02/12/17 09:13 Dose: 1 ea Miscellaneous Information (Remove Patch) 0 ea TRDERM ONETIME ONE Stop: 02/13/17 07:46 Last Admin: 02/13/17 08:24 Dose: Not Given Ondansetron HCl (Zofran) 4 mg IVPUSH ONETIME ONE Stop: 02/08/17 10:09 Last Admin: 02/08/17 10:33 Dose: 4 mg Pantoprazole Sodium (Protonix) 40 mg PO BID [facility] Last Admin: 02/12/17 08:54 Dose: 40 mg Potassium Chloride (Klor-Con M20) 40 meq PO Q4H [facility] Stop: 02/10/17 17:01 Last Admin: 02/10/17 13:10 Dose: 40 meq Potassium Chloride (Klor-Con M20) 40 meq PO Q4H [facility] Stop: 02/11/17 12:01 Last Admin: 02/11/17 12:08 Dose: Not Given Saccharomyces Boulardii (Florastor) 250 mg PO TID [facility] Last Admin: 02/13/17 05:28 Dose: Not Given Scopolamine (Transderm-Scop) 1.5 mg TOP ONETIME ONE Stop: 02/09/17 08:01 Last Admin: 02/09/17 08:12 Dose: 1.5 mg Scopolamine (Transderm-Scop) 1.5 mg TOP ONETIME ONE Stop: 02/10/17 07:37 Last Admin: 02/10/17 08:05 Dose: 1.5 mg Scopolamine (Transderm-Scop) 1.5 mg TRDERM Q72H ONE Stop: 02/13/17 13:01 Last Admin: 02/13/17 13:22 Dose: 1.5 mg Sodium Chloride (Saline Flush) 10 ml FLUSH ONETIME ONE Stop: 02/08/17 12:03 Last Admin: 02/08/17 12:26 Dose: 10 ml Sucralfate (Carafate) 1 gm PO ACBED ANDREW Last Admin: 02/10/17 10:46 Dose: Not Given - Exam General: alert, oriented, cooperative, no acute distress HEENT: Pupils equal, Pupils reactive, EOMI, Mucous membr. moist/pink Neck: supple, trachea midline Lungs: Clear to auscultation, Normal respiratory effort Cardiovascular: Regular Rate, Regular Rhythm Abdomen: bowel sounds present, soft, no distension, tenderness. No: rigidity, rebound, guarding (Female) Exam: Deferred Back Exam: Normal Inspection, Decreased Range of Motion Extremities: no edema, normal pulses, no tenderness/swelling, no clubbing, no cyanosis, no calf tenderness Peripheral Pulses: 2+: Dorsalis Pedis (L), Dorsalis Pedis (R) Skin: warm, dry, intact Neurological: no new focal deficit Psy/Mental Status: alert, normal affect, normal mood - Problem List Review Problem List Initiated/Reviewed/Updated: Yes - My Orders Last 24 Hours: My Active Orders 02/13/17 09:00 Saccharomyces Boulardii [Florastor] 250 mg PO BID 02/16/17 13:00 Remove Patch 0 ea TRDERM ONETIME ONE - Plan Plan:: Assessment/Plan: Acute: Enteritis - Viral vs Bacterial vs Inflammatory - No unusual drink or food - No travel outside the country - She was able to eat or drink - She was PPI for presumptive Gastritis/PUD pending EGD on the of this month with Dr. Correa - Continue supportive care and intravenous antibiotics with Levaquin and Flagyl - Oral Probiotic - PRN meds for symptomatic control; antiementic and pain control Small Bowell Obstruction - 2/2 Above cannot r/o neoplasm or inflammatory tumor - Supportive Care and Conservative Management - She schedule for endoscopy at the end of the month - Dr. Correa consulted- consulted and following Abdominal Pain/Hx/o Gastritis, improved - May have worsened by above - Started on January 01 - Was on Carafate and PPI - She is scheduled to see Dr. Correa at the end of the month - Treatment as above Leukocytosis - 2/2 Above Hypokalemia and Hypomagnesemia - Pharmacy to replete and monitor Cholelithiasis - CT scan finding, negative prior abd US as outpatient. - Stable at this time Right Kidney 7 mm Hypodense Mass - CT scan finding - DDx: cyst, infection, hematoma or neoplasm - Informed patient about findings - Defer further work up at this time; defer to outpatient eval with PCP. Chronic: HTN OA/DJD Anxiety HTN Gastritis Hypothyroidism Vit D Deficiency Hx/o Breast Cancer S/p Mastectomy Plan: She remains clinically stable Routine AM Labs 1 gram Mag Sulfate IV x1 Hold of PICC since she has tiny flatus reported today Dr. Correa Consulted Additional orders as above Code status: DNR/DNI Dr. Correa's Recommendations: NPO until patient has resumption of flatus Could consider PICC line and initiation of TPN over weekend if bowel function still has not resumed Recommend replacing K to 4.0, Mg to 2.0 and Phos to 3.0 to optimize bowel motility Recommend completing abx course for 10 days Labs improved today, CRP nearly normal Abdominal examination improved Etiology of enteritis unclear Discussed with patient that we would plan to obtain repeat CAT scan with oral contrast on Thursday if still no bowel function, if evidence of bowel obstruction versus ileus at that time, surgery will need to be considered. LOS > 96 hrs due to slow response to treatment
[2017-02-14] MEDS: Losartan 100 MG Tab PO SCH (10:00)
[2017-02-14] MEDS: amLODIPine 10 MG Tab PO SCH (10:00)
[2017-02-14] MEDS: Hydrochlorothiazide 12.5 MG Cap PO SCH (10:00)
[2017-02-14] MEDS: Pantoprazole 40 MG Vial IVPUSH SCH ×2 (10:00→20:42)
[2017-02-14] MEDS: Saccharomyces Boulardii (Probiotic) 250 MG Cap PO SCH ×2 (10:00→20:42)
[2017-02-14] MEDS: Magnesium Oxide 400 MG Tab PO SCH (10:00)
[2017-02-14] MEDS: Enoxaparin 40 MG/0.4 ML Syringe SUBCUT SCH (10:01)
[2017-02-14] MEDS: Levofloxacin/Dextrose 5%-Water 500 MG in Premix Bag 1 BAG IV SCH (10:01)
[2017-02-14] MEDS: Dextrose 5%-0.9% NaCl 1,000 ML IV SCH ×2 (10:02→21:08)
[2017-02-14] MEDS: Cholecalciferol (Vitamin D3) 1,000 Unit Tab PO SCH (10:08)
[2017-02-14] MEDS: Multivitamins,Therapeutic Tab PO SCH (10:08)
[2017-02-14] MEDS: Thiamine 100 MG Tab PO SCH (10:08)
[2017-02-14] MEDS: Cyanocobalamin (Vitamin B-12) [Vitamin B-12] 2,500 MCG PO SCH (10:08)
[2017-02-14] MEDS: Vitamin B6-pyridOXINE 50 MG Tab PO SCH (10:08)
[2017-02-14] MEDS: UBIDECARENONE 200 MG PO SCH (10:08)
[2017-02-14] MEDS: Vitamin E (dl-alpha-tocopherol acetate) 400 Unit Cap PO SCH (10:08)
[2017-02-14] MEDS: HYDROmorphone 0.5 MG/0.5 ML Syringe IVPUSH PRN ×2 (11:42→20:44)
--- NOTE | 2017-02-14 12:32 | PCM.CONSN ---
- General Info Date of Service: 02/14/17 - Review of Systems Systems Review Comment:: No significant changes overnight. A small amt of flatus this AM. No N/V. Afebrile. Patient is NOT hungry. - Patient Data Vitals - most recent: Last Vital Signs Temp 98.8 F 02/14/17 12:03 Pulse 59 L 02/14/17 12:03 Resp 16 02/14/17 12:03 BP 127/61 02/14/17 12:03 Pulse Ox 99 02/14/17 12:03 Weight - most recent: 164 lb 3.2 oz I&O - last 24 hours: Intake & Output 02/13/17 02/14/17 02/14/17 22:59 06:59 14:59 Intake Total 1236 976 Output Total 800 750 Balance 436 226 Lab Results last 24 hrs: Laboratory Results - last 24 hr 02/13/17 02/14/17 02/14/17 Range/Units 05:55 06:00 06:00 WBC 10.76 H 11.43 H (3.98-10.04) K/mm3 RBC 4.97 4.79 (3.98-5.22) M/mm3 Hgb 15.9 H 15.5 (11.2-15.7) gm/L Hct 46.3 H 44.8 (34.1-44.9) % MCV 93.2 93.5 (79.4-94.8) fl MCH 32.0 32.4 H (25.6-32.2) pg MCHC 34.3 34.6 (32.2-35.5) g/dl RDW Std Deviation 42.2 43.0 (36.4-46.3) fL Plt Count 140 L 195 (182-369) K/mm3 MPV 9.9 9.6 (9.4-12.3) fl Neut % (Auto) 66.2 71.7 H (34.0-71.1) % Lymph % (Auto) 21.9 16.0 L (19.3-51.7) % Gove % (Auto) 9.8 9.6 (4.7-12.5) % Eos % (Auto) 1.5 2.1 (0.7-5.8) Baso % (Auto) 0.1 0.2 (0.1-1.2) % Neut # (Auto) 7.13 H 8.19 H (1.56-6.13) K/mm3 Lymph # (Auto) 2.36 1.83 (1.18-3.74) K/mm3 Gove # (Auto) 1.05 H 1.10 H (0.24-0.36) K/mm3 Eos # (Auto) 0.16 0.24 (0.04-0.36) K/mm3 Baso # (Auto) 0.01 0.02 (0.01-0.08) K/mm3 Sodium 139 (136-145) mEq/L Potassium 3.2 L (3.5-5.1) mEq/L Chloride 106 (98-107) mEq/L Carbon Dioxide 24 (21-32) mEq/L Anion Gap 12.2 (5-15) BUN 15 (7-18) mg/dL Creatinine 0.8 (0.55-1.02) mg/dL Est Cr Clr Drug Dosing 45.04 mL/min Estimated GFR (MDRD) > 60 (>60) mL/min BUN/Creatinine Ratio 18.8 H (14-18) Glucose 106 (83-115) mg/dL Calcium 8.0 L (8.5-10.1) mg/dL Magnesium 1.8 (1.8-2.4) mg/dl C-Reactive Protein 1.0 (<1.0) mg/dL Med Orders - Current: Current Medications Acetaminophen (Tylenol) 650 mg PO Q4H PRN PRN Reason: Pain (Mild 1-3)/fever Hydrocodone Bitart/Acetaminophen ([place] 325-5 Mg) 1 tab PO Q4H PRN PRN Reason: Pain (moderate 4-6) Last Admin: 02/08/17 21:13 Dose: 1 tab Al Hydroxide/Mg Hydroxide (Mag-Al Plus) 30 ml PO Q4H PRN PRN Reason: Heartburn Last Admin: 02/13/17 01:30 Dose: 30 ml Albuterol/Ipratropium (Duoneb 3.0-0.5 Mg/3 Ml) 3 ml NEB Q4H PRN PRN Reason: Shortness Of Breath/wheezing Amlodipine Besylate (Norvasc) 10 mg PO DAILY [facility] Last Admin: 02/14/17 10:00 Dose: 10 mg Cholecalciferol (Vitamin D3) 2,000 units PO DAILY [facility] Last Admin: 02/14/17 10:08 Dose: Not Given Enoxaparin Sodium (Lovenox) 40 mg SUBCUT DAILY [facility] Last Admin: 02/14/17 10:01 Dose: 40 mg Hydralazine HCl (Apresoline) 10 mg IVPUSH Q4H PRN PRN Reason: Hypertension Last Admin: 02/12/17 18:01 Dose: 10 mg Hydrochlorothiazide (Hydrochlorothiazide) 12.5 mg PO DAILY [facility] Last Admin: 02/14/17 10:00 Dose: 12.5 mg Hydromorphone HCl (Dilaudid) 0.5 mg IVPUSH Q4H PRN PRN Reason: Pain (severe 7-10) Last Admin: 02/14/17 11:42 Dose: 0.5 mg Levofloxacin/Dextrose 500 mg/ (Premix) 100 mls @ 100 mls/hr IV Q24H [facility] Stop: 02/16/17 10:00 Last Admin: 02/14/17 10:01 Dose: 100 mls/hr Promethazine HCl 12.5 mg/ (Sodium Chloride) 50.5 mls @ 100 mls/hr IV Q6H PRN PRN Reason: Nausea/Vomiting Metronidazole 500 mg/ Premix 100 mls @ 100 mls/hr IV Q8H [facility] Stop: 02/16/17 23:30 Last Admin: 02/14/17 05:38 Dose: 100 mls/hr Dextrose/Sodium Chloride (Dextrose 5%-Normal Saline) 1,000 mls @ 100 mls/hr IV ASDIRECTED [facility] Last Admin: 02/14/17 10:02 Dose: 100 mls/hr Levothyroxine Sodium (Synthroid) 88 mcg PO ACBREAKFAST [facility] Last Admin: 02/14/17 05:39 Dose: 88 mcg Lorazepam (Ativan) 0.25 mg IV Q6H PRN PRN Reason: Anxiety Losartan Potassium (Cozaar) 100 mg PO DAILY [facility] Last Admin: 02/14/17 10:00 Dose: 100 mg Magnesium Oxide (Magnesium Oxide) 400 mg PO DAILY [facility] Last Admin: 02/14/17 10:00 Dose: 400 mg Magnesium Sulfate (Pharmacy To Dose - Magnesium Replacement) 1 dose .XX ASDIRECTED [facility] Metoclopramide HCl (Reglan) 10 mg IVPUSH Q4H PRN PRN Reason: Nausea/Vomiting Last Admin: 02/10/17 17:51 Dose: 10 mg Metoclopramide HCl (Reglan) 10 mg IVPUSH Q6H [facility] Last Admin: 02/14/17 10:01 Dose: 10 mg Metoprolol Tartrate (Lopressor) 2.5 mg IVPUSH Q4H PRN PRN Reason: Tachycardia Miscellaneous Information (Remove Patch) 0 ea TRDERM ONETIME ONE Stop: 02/16/17 13:01 Multivitamins (Thera) 1 each PO DAILY [facility] Last Admin: 02/14/17 10:08 Dose: Not Given Ondansetron HCl (Zofran) 4 mg IV Q6H PRN PRN Reason: Nausea/Vomiting Last Admin: 02/13/17 17:33 Dose: 4 mg Pantoprazole Sodium (Protonix Iv) 40 mg IVPUSH Q12H [facility] Last Admin: 02/14/17 10:00 Dose: 40 mg Cyanocobalamin ( Vitamin B-12) [ Vitamin B-12] 2,500 Mcg 0 each PO DAILY [facility] Last Admin: 02/14/17 10:08 Dose: Not Given Ubidecarenone 200 Mg 0 each PO DAILY [facility] Last Admin: 02/14/17 10:08 Dose: Not Given Potassium Chloride (Pharmacy To Dose - Potassium Replacement) 1 dose .XX ASDIRECTED [facility] Pyridoxine HCl (Vitamin B6-Pyridoxine) 100 mg PO DAILY [facility] Last Admin: 02/14/17 10:08 Dose: Not Given Saccharomyces Boulardii (Florastor) 250 mg PO BID [facility] Last Admin: 02/14/17 10:00 Dose: 250 mg Simvastatin (Zocor) 10 mg PO BEDTIME [facility] Last Admin: 02/13/17 21:10 Dose: 10 mg Sodium Chloride (Saline Flush) 10 ml FLUSH ASDIRECTED PRN PRN Reason: Keep Vein Open Last Admin: 02/08/17 10:36 Dose: 10 ml Temazepam (Restoril) 7.5 mg PO BEDTIME PRN PRN Reason: SLEEP Thiamine HCl (Vitamin B-1) 100 mg PO DAILY [facility] Last Admin: 02/14/17 10:08 Dose: Not Given Vitamin E (Vitamin E) 400 units PO DAILY [facility] Last Admin: 02/14/17 10:08 Dose: Not Given Discontinued Medications Amlodipine Besylate (Norvasc) 5 mg PO DAILY [facility] Last Admin: 02/13/17 08:26 Dose: 5 mg Amlodipine Besylate (Norvasc) 5 mg PO ONETIME ONE Stop: 02/13/17 12:56 Last Admin: 02/13/17 13:23 Dose: 5 mg Atenolol (Tenormin) 25 mg PO DAILY [facility] Last Admin: 02/13/17 08:26 Dose: 25 mg Al Hydroxide/Mg Hydroxide 30 (ml/ Lidocaine HCl 15 ml) 0 ml PO ONETIME ONE Stop: 02/08/17 10:10 Last Admin: 02/08/17 10:30 Dose: 30 ml Diatrizoate Meglum/Diatrizoate Sod (Gastrografin 37%) 90 ml PO ONETIME ONE Stop: 02/08/17 12:03 Last Admin: 02/08/17 12:26 Dose: 90 ml Famotidine (Pepcid) 20 mg PO BID [facility] Last Admin: 02/09/17 08:16 Dose: 20 mg Famotidine (Pepcid) 20 mg PO DAILY [facility] Last Admin: 02/10/17 08:08 Dose: 20 mg Famotidine (Pepcid) 20 mg IVPUSH BID [facility] Last Admin: 02/12/17 22:12 Dose: 20 mg Hydromorphone HCl (Dilaudid) 0.5 mg IVPUSH ONETIME ONE Stop: 02/08/17 10:10 Last Admin: 02/08/17 10:36 Dose: 0.5 mg Hydromorphone HCl (Dilaudid) 1 mg IVPUSH ONETIME ONE Stop: 02/08/17 12:50 Last Admin: 02/08/17 12:55 Dose: 1 mg Hydromorphone HCl (Dilaudid) 0.25 mg IVPUSH Q4H PRN PRN Reason: Pain (severe 7-10) Last Admin: 02/09/17 06:54 Dose: 0.25 mg Sodium Chloride (Normal Saline) 1,000 mls @ 125 mls/hr IV ASDIRECTED [facility] Last Admin: 02/08/17 10:32 Dose: 125 mls/hr Levofloxacin/Dextrose 500 mg/ (Premix) 100 mls @ 100 mls/hr IV ONETIME ONE Stop: 02/08/17 14:38 Last Admin: 02/08/17 14:02 Dose: 100 mls/hr Metronidazole 500 mg/ Premix 100 mls @ 100 mls/hr IV ONETIME ONE Stop: 02/08/17 14:38 Last Admin: 02/08/17 21:08 Dose: Not Given Dextrose/Sodium Chloride (Dextrose 5%-Normal Saline) 1,000 mls @ 100 mls/hr IV ASDIRECTED [facility] Last Admin: 02/10/17 08:13 Dose: 100 mls/hr Potassium Chloride 10 meq/ (Premix) 100 mls @ 100 mls/hr IV Q1H [facility] Stop: 02/10/17 16:29 Last Admin: 02/10/17 16:42 Dose: 100 mls/hr Potassium Chloride 10 meq/ (Premix) 100 mls @ 100 mls/hr IV Q1H [facility] Stop: 02/11/17 17:14 Last Admin: 02/11/17 19:24 Dose: 100 mls/hr Magnesium Sulfate 2 gm/ Premix 50 mls @ 25 mls/hr IV ONETIME ONE Stop: 02/12/17 10:29 Last Admin: 02/12/17 10:02 Dose: 25 mls/hr Potassium Chloride 10 meq/ (Premix) 100 mls @ 100 mls/hr IV Q1H [facility] Stop: 02/12/17 14:29 Last Admin: 02/12/17 15:02 Dose: Not Given Potassium Chloride 10 meq/ (Premix) 100 mls @ 100 mls/hr IV Q1H [facility] Stop: 02/13/17 14:14 Last Admin: 02/13/17 17:11 Dose: 100 mls/hr Iopamidol (Isovue-300 (61%)) 100 ml IVPUSH ONETIME ONE Stop: 02/08/17 12:03 Last Admin: 02/08/17 12:26 Dose: 100 ml Levothyroxine Sodium (Levothyroxine) 75 mcg PO ACBRK [facility] Last Admin: 02/13/17 05:04 Dose: 75 mcg Metoclopramide HCl (Reglan) 10 mg IVPUSH ONETIME ONE Stop: 02/08/17 12:50 Last Admin: 02/08/17 12:54 Dose: 10 mg Metoclopramide HCl (Reglan) 10 mg IVPUSH Q6H [facility] Last Admin: 02/11/17 06:14 Dose: Not Given Miscellaneous Information (Remove Patch) 1 ea TRDERM DAILY [facility] Stop: 02/12/17 09:01 Last Admin: 02/12/17 09:13 Dose: 1 ea Miscellaneous Information (Remove Patch) 0 ea TRDERM ONETIME ONE Stop: 02/13/17 07:46 Last Admin: 02/13/17 08:24 Dose: Not Given Ondansetron HCl (Zofran) 4 mg IVPUSH ONETIME ONE Stop: 02/08/17 10:09 Last Admin: 02/08/17 10:33 Dose: 4 mg Pantoprazole Sodium (Protonix) 40 mg PO BID [facility] Last Admin: 02/12/17 08:54 Dose: 40 mg Potassium Chloride (Klor-Con M20) 40 meq PO Q4H [facility] Stop: 02/10/17 17:01 Last Admin: 02/10/17 13:10 Dose: 40 meq Potassium Chloride (Klor-Con M20) 40 meq PO Q4H [facility] Stop: 02/11/17 12:01 Last Admin: 02/11/17 12:08 Dose: Not Given Saccharomyces Boulardii (Florastor) 250 mg PO TID [facility] Last Admin: 02/13/17 05:28 Dose: Not Given Scopolamine (Transderm-Scop) 1.5 mg TOP ONETIME ONE Stop: 02/09/17 08:01 Last Admin: 02/09/17 08:12 Dose: 1.5 mg Scopolamine (Transderm-Scop) 1.5 mg TOP ONETIME ONE Stop: 02/10/17 07:37 Last Admin: 02/10/17 08:05 Dose: 1.5 mg Scopolamine (Transderm-Scop) 1.5 mg TRDERM Q72H ONE Stop: 02/13/17 13:01 Last Admin: 02/13/17 13:22 Dose: 1.5 mg Sodium Chloride (Saline Flush) 10 ml FLUSH ONETIME ONE Stop: 02/08/17 12:03 Last Admin: 02/08/17 12:26 Dose: 10 ml Sucralfate (Carafate) 1 gm PO ACBED [facility] Last Admin: 02/10/17 10:46 Dose: Not Given - Exam Quality Assessment: No: supplemental oxygen General: alert, oriented, cooperative, no acute distress Lungs: Clear to auscultation, Normal respiratory effort Cardiovascular: Regular Rate, Regular Rhythm Abdomen: soft, no distension, tenderness (mild diffuse, worst at epigastrium ). No: rigidity, rebound, guarding Skin: warm, dry, intact Neurological: no new focal deficit Psy/Mental Status: alert, normal affect, normal mood Consult PN Assessment/Plan Procedures: Procedures ASSAY OF LIPASE (01/01/17) ASSAY OF NATRIURETIC PEPTIDE (11/13/14) ASSAY OF TROPONIN QUANT (11/13/14) ASSAY THYROID STIM HORMONE (11/13/14) BIOPSY/REMOVAL LYMPH NODES (10/11/14) BLOOD GASES ANY COMBINATION (10/11/14) BLOOD TYPING SEROLOGIC ABO (10/11/14) BLOOD TYPING SEROLOGIC RH(D) (10/11/14) CHEST X-RAY 1 VIEW FRONTAL (11/13/14) COMPATIBILITY TEST ANTIGLOB (10/11/14) COMPLETE CBC AUTOMATED (10/11/14) COMPLETE CBC W/AUTO DIFF WBC (01/01/17) COMPREHEN METABOLIC PANEL (01/01/17) CREATINE MB FRACTION (11/13/14) DRAINAGE OF HEMATOMA/FLUID (10/11/14) DXA BONE DENSITY AXIAL (11/23/15) ELECTROCARDIOGRAM TRACING (01/01/17) EMERGENCY DEPT VISIT (01/01/17) EMERGENCY DEPT VISIT (11/13/14) FIBRIN DEGRADATION QUANT (11/13/14) HEMATOCRIT (10/11/14) HEMOGLOBIN (10/11/14) IMMUNOHISTO ANTB 1ST STAIN (10/11/14) IO MAP OF SENT LYMPH NODE (10/11/14) METABOLIC PANEL TOTAL CA (10/11/14) MRI JOINT UPR EXTREM W/O DYE (01/30/17) MRI NECK SPINE W/O DYE (01/30/17) PARTIAL MASTECTOMY (10/11/14) PATH CONSULT INTRAOP 1 BLOC (10/11/14) PROTHROMBIN TIME (11/13/14) RA TRACER ID OF SENTINL NODE (10/11/14) RBC ANTIBODY SCREEN (10/11/14) ROUTINE VENIPUNCTURE (01/01/17) THER/PROPH/DIAG IV INF INIT (10/11/14) THROMBOPLASTIN TIME PARTIAL (10/11/14) TISSUE EXAM BY PATHOLOGIST (10/11/14) TISSUE EXAM BY PATHOLOGIST (10/11/14) TISSUE EXAM BY PATHOLOGIST (10/11/14) URINALYSIS AUTO W/SCOPE (01/01/17) WITHDRAWAL OF ARTERIAL BLOOD (10/11/14) (1) Abdominal pain SNOMED Code(s): 48058215 Code(s): R10.9 - UNSPECIFIED ABDOMINAL PAIN Priority: High Current Visit : Yes Qualifiers: Abdominal location: generalized Qualified Code(s): R10.84 - Generalized abdominal pain (2) Enteritis SNOMED Code(s): 89990882 Code(s): K52.9 - NONINFECTIVE GASTROENTERITIS AND COLITIS, UNSPECIFIED Priority: High Current Visit: Yes (3) Ileus SNOMED Code(s): 674415565 Code(s): K56.7 - ILEUS, UNSPECIFIED Priority: High Current Visit: Yes (4) Hypokalemia SNOMED Code(s): 14328030 Code(s): E87.6 - HYPOKALEMIA Priority: High Current Visit: Yes (5) Gastritis SNOMED Code(s): 9456218 Code(s): K29.70 - GASTRITIS, UNSPECIFIED, WITHOUT BLEEDING Current Visit: No Qualifiers: Gastritis type: unspecified gastritis Chronicity: unspecified Gastritis bleeding: without bleeding Qualified Code(s): K29.70 - Gastritis, unspecified , without bleeding Problem List Initiated/Reviewed/Updated: Yes Plan: 81 yo woman with suspected ileus 2/2 enteritis of uncertain etiology and gastritis NPO until patient has resumption of flatus, small amt of flatus this AM, but with lack of hunger would wait on advancing to [facility] Could consider PICC line and initiation of TPN over weekend if bowel function still has not resumed Recommend replacing K to 4.0, Mg to 2.0 and Phos to 3.0 to optimize bowel motility Recommend completing abx course for 10 days Labs improved today, CRP normal WBC slightly up? Abdominal examination stable. Etiology of enteritis unclear. Discussed with patient that we would plan to obtain repeat CAT scan with oral contrast on Thursday if still no bowel function, if evidence of bowel obstruction versus ileus at that time, surgery will need to be considered.
[2017-02-14] MEDS: Potassium Chloride 100 ML IV SCH ×4 (15:38→18:57)
[2017-02-14] MEDS: Simvastatin 10 MG Tab PO SCH (20:42)
[2017-02-15] MEDS: metroNIDAZOLE/Normal Saline 500 MG in Premix Bag 1 BAG IV SCH ×3 (06:08→21:02)
[2017-02-15] MEDS: Levothyroxine 88 MCG Tab PO SCH (06:09)
[2017-02-15] MEDS: Metoclopramide 10 MG/2 ML SDV IVPUSH SCH ×4 (06:09→21:09)
--- NOTE | 2017-02-15 06:17 | PCM.PN ---
- General Info Date of Service: 02/15/17 Admission Dx/Problem (Free Text): Admission Diagnosis/Problem Admission Diagnosis/Problem Abdominal pain Subjective Update: Follow Up Functional Status: Reports: pain controlled, ambulating, urinating. Denies: new symptoms - Review of Systems General: Denies: Fever, Weakness, Fatigue, Malaise, Chills HEENT: Reports: no symptoms Pulmonary: Denies: shortness of breath Cardiovascular: Denies: Chest Pain Gastrointestinal: Reports: Flatus. Denies: Abdominal pain, Constipation, Decreased appetite, Diarrhea, Hematochezia, Melena, Nausea, Vomiting, Other ( tenderness) Genitourinary: Reports: no symptoms Musculoskeletal: Reports: no symptoms Skin: Reports: no symptoms Neurological: Reports: No Symptoms. Denies: Confusion, Difficulty Walking, Weakness, Gait Disturbance Psychiatric: Denies: depression, anxiety, agitation, hallucinations Systems Review Comment:: No overnight or acute issues. She states "you gonna be very happy". "I felt like I exploded last night like a geyser". She has no new complaints. She has been ambulating TID-QID as tolerated. - Patient Data Vitals - most recent: Last Vital Signs Temp 36.7 C 02/15/17 02:35 Pulse 56 L 02/15/17 02:35 Resp 16 02/15/17 02:35 BP 123/57 L 02/15/17 02:35 Pulse Ox 96 02/15/17 02:35 Weight - most recent: 78.744 kg I&O - last 24 hours: Intake & Output 02/14/17 02/14/17 02/15/17 14:59 22:59 06:59 Intake Total 1050 1288 Output Total 900 1000 Balance 150 288 Lab Results last 24 hrs: Laboratory Results - last 24 hr 02/14/17 02/14/17 Range/Units 06:00 06:00 WBC 11.43 H (3.98-10.04) K/mm3 RBC 4.79 (3.98-5.22) M/mm3 Hgb 15.5 (11.2-15.7) gm/L Hct 44.8 (34.1-44.9) % MCV 93.5 (79.4-94.8) fl MCH 32.4 H (25.6-32.2) pg MCHC 34.6 (32.2-35.5) g/dl RDW Std Deviation 43.0 (36.4-46.3) fL Plt Count 195 (182-369) K/mm3 MPV 9.6 (9.4-12.3) fl Neut % (Auto) 71.7 H (34.0-71.1) % Lymph % (Auto) 16.0 L (19.3-51.7) % [place] % (Auto) 9.6 (4.7-12.5) % Eos % (Auto) 2.1 (0.7-5.8) Baso % (Auto) 0.2 (0.1-1.2) % Neut # (Auto) 8.19 H (1.56-6.13) K/mm3 Lymph # (Auto) 1.83 (1.18-3.74) K/mm3 [place] # (Auto) 1.10 H (0.24-0.36) K/mm3 Eos # (Auto) 0.24 (0.04-0.36) K/mm3 Baso # (Auto) 0.02 (0.01-0.08) K/mm3 Sodium 139 (136-145) mEq/L Potassium 3.2 L (3.5-5.1) mEq/L Chloride 106 (98-107) mEq/L Carbon Dioxide 24 (21-32) mEq/L Anion Gap 12.2 (5-15) BUN 15 (7-18) mg/dL Creatinine 0.8 (0.55-1.02) mg/dL Est Cr Clr Drug Dosing 45.04 mL/min Estimated GFR (MDRD) > 60 (>60) mL/min BUN/Creatinine Ratio 18.8 H (14-18) Glucose 106 (83-115) mg/dL Calcium 8.0 L (8.5-10.1) mg/dL Magnesium 1.8 (1.8-2.4) mg/dl C-Reactive Protein 1.0 (<1.0) mg/dL Med Orders - Current: Current Medications Acetaminophen (Tylenol) 650 mg PO Q4H PRN PRN Reason: Pain (Mild 1-3)/fever Hydrocodone Bitart/Acetaminophen (Ingraham 325-5 Mg) 1 tab PO Q4H PRN PRN Reason: Pain (moderate 4-6) Last Admin: 02/08/17 21:13 Dose: 1 tab Al Hydroxide/Mg Hydroxide (Mag-Al Plus) 30 ml PO Q4H PRN PRN Reason: Heartburn Last Admin: 02/13/17 01:30 Dose: 30 ml Albuterol/Ipratropium (Duoneb 3.0-0.5 Mg/3 Ml) 3 ml NEB Q4H PRN PRN Reason: Shortness Of Breath/wheezing Amlodipine Besylate (Norvasc) 10 mg PO DAILY [facility] Last Admin: 02/14/17 10:00 Dose: 10 mg Cholecalciferol (Vitamin D3) 2,000 units PO DAILY [facility] Last Admin: 02/14/17 10:08 Dose: Not Given Enoxaparin Sodium (Lovenox) 40 mg SUBCUT DAILY [facility] Last Admin: 02/14/17 10:01 Dose: 40 mg Hydralazine HCl (Apresoline) 10 mg IVPUSH Q4H PRN PRN Reason: Hypertension Last Admin: 02/12/17 18:01 Dose: 10 mg Hydrochlorothiazide (Hydrochlorothiazide) 12.5 mg PO DAILY [facility] Last Admin: 02/14/17 10:00 Dose: 12.5 mg Hydromorphone HCl (Dilaudid) 0.5 mg IVPUSH Q4H PRN PRN Reason: Pain (severe 7-10) Last Admin: 02/14/17 20:44 Dose: 0.5 mg Levofloxacin/Dextrose 500 mg/ (Premix) 100 mls @ 100 mls/hr IV Q24H [facility] Stop: 02/16/17 10:00 Last Admin: 02/14/17 10:01 Dose: 100 mls/hr Promethazine HCl 12.5 mg/ (Sodium Chloride) 50.5 mls @ 100 mls/hr IV Q6H PRN PRN Reason: Nausea/Vomiting Metronidazole 500 mg/ Premix 100 mls @ 100 mls/hr IV Q8H [facility] Stop: 02/16/17 23:30 Last Admin: 02/15/17 06:08 Dose: 100 mls/hr Dextrose/Sodium Chloride (Dextrose 5%-Normal Saline) 1,000 mls @ 100 mls/hr IV ASDIRECTED [facility] Last Admin: 02/14/17 21:08 Dose: 100 mls/hr Levothyroxine Sodium (Synthroid) 88 mcg PO ACBREAKFAST [facility] Last Admin: 02/15/17 06:09 Dose: 88 mcg Lorazepam (Ativan) 0.25 mg IV Q6H PRN PRN Reason: Anxiety Losartan Potassium (Cozaar) 100 mg PO DAILY [facility] Last Admin: 02/14/17 10:00 Dose: 100 mg Magnesium Oxide (Magnesium Oxide) 400 mg PO DAILY [facility] Last Admin: 02/14/17 10:00 Dose: 400 mg Magnesium Sulfate (Pharmacy To Dose - Magnesium Replacement) 1 dose .XX ASDIRECTED [facility] Metoclopramide HCl (Reglan) 10 mg IVPUSH Q4H PRN PRN Reason: Nausea/Vomiting Last Admin: 02/10/17 17:51 Dose: 10 mg Metoclopramide HCl (Reglan) 10 mg IVPUSH Q6H [facility] Last Admin: 02/15/17 06:09 Dose: 10 mg Metoprolol Tartrate (Lopressor) 2.5 mg IVPUSH Q4H PRN PRN Reason: Tachycardia Miscellaneous Information (Remove Patch) 0 ea TRDERM ONETIME ONE Stop: 02/16/17 13:01 Multivitamins (Thera) 1 each PO DAILY [facility] Last Admin: 02/14/17 10:08 Dose: Not Given Ondansetron HCl (Zofran) 4 mg IV Q6H PRN PRN Reason: Nausea/Vomiting Last Admin: 02/13/17 17:33 Dose: 4 mg Pantoprazole Sodium (Protonix Iv) 40 mg IVPUSH Q12H [facility] Last Admin: 02/14/17 20:42 Dose: 40 mg Cyanocobalamin ( Vitamin B-12) [ Vitamin B-12] 2,500 Mcg 0 each PO DAILY [facility] Last Admin: 02/14/17 10:08 Dose: Not Given Ubidecarenone 200 Mg 0 each PO DAILY [facility] Last Admin: 02/14/17 10:08 Dose: Not Given Potassium Chloride (Pharmacy To Dose - Potassium Replacement) 1 dose .XX ASDIRECTED [facility] Pyridoxine HCl (Vitamin B6-Pyridoxine) 100 mg PO DAILY [facility] Last Admin: 02/14/17 10:08 Dose: Not Given Saccharomyces Boulardii (Florastor) 250 mg PO BID [facility] Last Admin: 02/14/17 20:42 Dose: 250 mg Simvastatin (Zocor) 10 mg PO BEDTIME [facility] Last Admin: 02/14/17 20:42 Dose: 10 mg Sodium Chloride (Saline Flush) 10 ml FLUSH ASDIRECTED PRN PRN Reason: Keep Vein Open Last Admin: 02/08/17 10:36 Dose: 10 ml Temazepam (Restoril) 7.5 mg PO BEDTIME PRN PRN Reason: SLEEP Thiamine HCl (Vitamin B-1) 100 mg PO DAILY [facility] Last Admin: 02/14/17 10:08 Dose: Not Given Vitamin E (Vitamin E) 400 units PO DAILY [facility] Last Admin: 02/14/17 10:08 Dose: Not Given Discontinued Medications Amlodipine Besylate (Norvasc) 5 mg PO DAILY [facility] Last Admin: 02/13/17 08:26 Dose: 5 mg Amlodipine Besylate (Norvasc) 5 mg PO ONETIME ONE Stop: 02/13/17 12:56 Last Admin: 02/13/17 13:23 Dose: 5 mg Atenolol (Tenormin) 25 mg PO DAILY [facility] Last Admin: 02/13/17 08:26 Dose: 25 mg Al Hydroxide/Mg Hydroxide 30 (ml/ Lidocaine HCl 15 ml) 0 ml PO ONETIME ONE Stop: 02/08/17 10:10 Last Admin: 02/08/17 10:30 Dose: 30 ml Diatrizoate Meglum/Diatrizoate Sod (Gastrografin 37%) 90 ml PO ONETIME ONE Stop: 02/08/17 12:03 Last Admin: 02/08/17 12:26 Dose: 90 ml Famotidine (Pepcid) 20 mg PO BID [facility] Last Admin: 02/09/17 08:16 Dose: 20 mg Famotidine (Pepcid) 20 mg PO DAILY [facility] Last Admin: 02/10/17 08:08 Dose: 20 mg Famotidine (Pepcid) 20 mg IVPUSH BID [facility] Last Admin: 02/12/17 22:12 Dose: 20 mg Hydromorphone HCl (Dilaudid) 0.5 mg IVPUSH ONETIME ONE Stop: 02/08/17 10:10 Last Admin: 02/08/17 10:36 Dose: 0.5 mg Hydromorphone HCl (Dilaudid) 1 mg IVPUSH ONETIME ONE Stop: 02/08/17 12:50 Last Admin: 06/11/17 12:55 Dose: 1 mg Hydromorphone HCl (Dilaudid) 0.25 mg IVPUSH Q4H PRN PRN Reason: Pain (severe 7-10) Last Admin: 02/09/17 06:54 Dose: 0.25 mg Sodium Chloride (Normal Saline) 1,000 mls @ 125 mls/hr IV ASDIRECTED [facility] Last Admin: 02/08/17 10:32 Dose: 125 mls/hr Levofloxacin/Dextrose 500 mg/ (Premix) 100 mls @ 100 mls/hr IV ONETIME ONE Stop: 02/08/17 14:38 Last Admin: 02/08/17 14:02 Dose: 100 mls/hr Metronidazole 500 mg/ Premix 100 mls @ 100 mls/hr IV ONETIME ONE Stop: 02/08/17 14:38 Last Admin: 02/08/17 21:08 Dose: Not Given Dextrose/Sodium Chloride (Dextrose 5%-Normal Saline) 1,000 mls @ 100 mls/hr IV ASDIRECTED [facility] Last Admin: 02/10/17 08:13 Dose: 100 mls/hr Potassium Chloride 10 meq/ (Premix) 100 mls @ 100 mls/hr IV Q1H [facility] Stop: 02/10/17 16:29 Last Admin: 02/10/17 16:42 Dose: 100 mls/hr Potassium Chloride 10 meq/ (Premix) 100 mls @ 100 mls/hr IV Q1H [facility] Stop: 02/11/17 17:14 Last Admin: 02/11/17 19:24 Dose: 100 mls/hr Magnesium Sulfate 2 gm/ Premix 50 mls @ 25 mls/hr IV ONETIME ONE Stop: 02/12/17 10:29 Last Admin: 02/12/17 10:02 Dose: 25 mls/hr Potassium Chloride 10 meq/ (Premix) 100 mls @ 100 mls/hr IV Q1H [facility] Stop: 02/12/17 14:29 Last Admin: 02/12/17 15:02 Dose: Not Given Potassium Chloride 10 meq/ (Premix) 100 mls @ 100 mls/hr IV Q1H [facility] Stop: 02/13/17 14:14 Last Admin: 02/13/17 17:11 Dose: 100 mls/hr Potassium Chloride (Kcl 10 Meq In Water 100 Ml) 100 mls @ 100 mls/hr IV Q1H [facility] Stop: 02/14/17 17:59 Last Admin: 02/14/17 18:57 Dose: 100 mls/hr Magnesium Sulfate/Dextrose 1 (gm/ Premix) 100 mls @ 100 mls/hr IV ONETIME ONE Stop: 02/14/17 14:46 Last Admin: 02/14/17 15:38 Dose: 100 mls/hr Iopamidol (Isovue-300 (61%)) 100 ml IVPUSH ONETIME ONE Stop: 02/08/17 12:03 Last Admin: 02/08/17 12:26 Dose: 100 ml Levothyroxine Sodium (Levothyroxine) 75 mcg PO ACBRK [facility] Last Admin: 02/13/17 05:04 Dose: 75 mcg Metoclopramide HCl (Reglan) 10 mg IVPUSH ONETIME ONE Stop: 02/08/17 12:50 Last Admin: 02/08/17 12:54 Dose: 10 mg Metoclopramide HCl (Reglan) 10 mg IVPUSH Q6H [facility] Last Admin: 02/11/17 06:14 Dose: Not Given Miscellaneous Information (Remove Patch) 1 ea TRDERM DAILY [facility] Stop: 02/12/17 09:01 Last Admin: 02/12/17 09:13 Dose: 1 ea Miscellaneous Information (Remove Patch) 0 ea TRDERM ONETIME ONE Stop: 02/13/17 07:46 Last Admin: 02/13/17 08:24 Dose: Not Given Ondansetron HCl (Zofran) 4 mg IVPUSH ONETIME ONE Stop: 02/08/17 10:09 Last Admin: 02/08/17 10:33 Dose: 4 mg Pantoprazole Sodium (Protonix) 40 mg PO BID [facility] Last Admin: 02/12/17 08:54 Dose: 40 mg Potassium Chloride (Klor-Con M20) 40 meq PO Q4H [facility] Stop: 02/10/17 17:01 Last Admin: 02/10/17 13:10 Dose: 40 meq Potassium Chloride (Klor-Con M20) 40 meq PO Q4H [facility] Stop: 02/11/17 12:01 Last Admin: 02/11/17 12:08 Dose: Not Given Saccharomyces Boulardii (Florastor) 250 mg PO TID [facility] Last Admin: 02/13/17 05:28 Dose: Not Given Scopolamine (Transderm-Scop) 1.5 mg TOP ONETIME ONE Stop: 02/09/17 08:01 Last Admin: 02/09/17 08:12 Dose: 1.5 mg Scopolamine (Transderm-Scop) 1.5 mg TOP ONETIME ONE Stop: 02/10/17 07:37 Last Admin: 02/10/17 08:05 Dose: 1.5 mg Scopolamine (Transderm-Scop) 1.5 mg TRDERM Q72H ONE Stop: 02/13/17 13:01 Last Admin: 02/13/17 13:22 Dose: 1.5 mg Sodium Chloride (Saline Flush) 10 ml FLUSH ONETIME ONE Stop: 02/08/17 12:03 Last Admin: 02/08/17 12:26 Dose: 10 ml Sucralfate (Carafate) 1 gm PO ACBED [facility] Last Admin: 02/10/17 10:46 Dose: Not Given - Exam General: alert, oriented, cooperative, no acute distress HEENT: Pupils equal, Pupils reactive, EOMI, Mucous membr. moist/pink Neck: supple, trachea midline, no JVD, no thyromegaly Lungs: Clear to auscultation, Normal respiratory effort Cardiovascular: Regular Rate, Regular Rhythm Abdomen: bowel sounds present, soft, no distension, tenderness (mild on deep palpation). No: rigidity, rebound, guarding (Female) Exam: Deferred Back Exam: Normal Inspection, Decreased Range of Motion Extremities: no edema, normal pulses, no tenderness/swelling, no clubbing, no cyanosis, no calf tenderness Skin: warm, dry, intact Neurological: no new focal deficit Psy/Mental Status: alert, normal affect, normal mood - Problem List Review Problem List Initiated/Reviewed/Updated: Yes - My Orders Last 24 Hours: My Active Orders 02/15/17 05:11 T4 FREE [CHEM] AM 02/16/17 13:00 Remove Patch 0 ea TRDERM ONETIME ONE - Plan Plan:: Assessment/Plan: Acute: Enteritis - Viral vs Bacterial vs Inflammatory - No unusual drink or food - No travel outside the country - She was able to eat or drink - She was PPI for presumptive Gastritis/PUD pending EGD on the of this month with Dr. Correa - Continue supportive care and intravenous antibiotics with Levaquin and Flagyl - Oral Probiotic - PRN meds for symptomatic control; antiementic and pain control Small Bowell Obstruction - 2/2 Above cannot r/o neoplasm or inflammatory tumor - Supportive Care and Conservative Management - She schedule for endoscopy at the end of the month - Dr. Correa consulted- consulted and following Abdominal Pain/Hx/o Gastritis, improved - May have worsened by above - Started on January 01 - Was on Carafate and PPI - She is scheduled to see Dr. Correa at the end of the month - Treatment as above Hypokalemia and Hypomagnesemia - Pharmacy to replete and monitor Cholelithiasis - CT scan finding, negative prior abd US as outpatient. - Stable at this time Right Kidney 7 mm Hypodense Mass - CT scan finding - DDx: cyst, infection, hematoma or neoplasm - Informed patient about findings - Defer further work up at this time; defer to outpatient eval with PCP. Resolved: S/p Leukocytosis - 2/2 Above Chronic: HTN OA/DJD Anxiety HTN Gastritis Hypothyroidism, patient dose has been increased from 75 to 88 mcg Vit D Deficiency Hx/o Breast Cancer S/p Mastectomy Plan: She remains clinically stable Will defer to Dr. Correa if patient okay to start clear liquid today Routine AM Labs Dr. Correa following Continue to ambulate TID-QID Additional orders as above Code status: DNR/DNI LOS > 96 hrs due to slow response to treatment
[2017-02-15] MEDS: Dextrose 5%-0.9% NaCl 1,000 ML IV SCH ×2 (09:01→20:59)
[2017-02-15] MEDS: Levofloxacin/Dextrose 5%-Water 500 MG in Premix Bag 1 BAG IV SCH (09:03)
[2017-02-15] MEDS: Saccharomyces Boulardii (Probiotic) 250 MG Cap PO SCH ×2 (09:05→21:01)
[2017-02-15] MEDS: Enoxaparin 40 MG/0.4 ML Syringe SUBCUT SCH (09:05)
[2017-02-15] MEDS: Pantoprazole 40 MG Vial IVPUSH SCH ×2 (09:05→21:02)
[2017-02-15] MEDS: Magnesium Oxide 400 MG Tab PO SCH (09:06)
[2017-02-15] MEDS: Hydrochlorothiazide 12.5 MG Cap PO SCH (09:06)
[2017-02-15] MEDS: Losartan 100 MG Tab PO SCH (09:06)
[2017-02-15] MEDS: Cyanocobalamin (Vitamin B-12) [Vitamin B-12] 2,500 MCG PO SCH (09:07)
[2017-02-15] MEDS: amLODIPine 10 MG Tab PO SCH (09:07)
[2017-02-15] MEDS: UBIDECARENONE 200 MG PO SCH (09:07)
[2017-02-15] MEDS: Vitamin E (dl-alpha-tocopherol acetate) 400 Unit Cap PO SCH (09:08)
[2017-02-15] MEDS: Thiamine 100 MG Tab PO SCH (09:08)
[2017-02-15] MEDS: Multivitamins,Therapeutic Tab PO SCH (09:08)
[2017-02-15] MEDS: Cholecalciferol (Vitamin D3) 1,000 Unit Tab PO SCH (09:08)
[2017-02-15] MEDS: Vitamin B6-pyridOXINE 50 MG Tab PO SCH (09:08)
[2017-02-15] MEDS ORDERED: Magnesium Sulfate/Water 50 ML IV ONE (10:00)
[2017-02-15] MEDS: Potassium Chloride 100 ML IV SCH ×4 (10:22→14:11)
--- NOTE | 2017-02-15 12:24 | PCM.CONSN ---
- General Info Date of Service: 02/15/17 - Review of Systems Systems Review Comment:: 3+ BMs over the past 24 hours. Afebrile. Feels so much better. "Feels like a plug was pulled." - Patient Data Vitals - most recent: Last Vital Signs Temp 98.4 F 02/15/17 11:57 Pulse 61 02/15/17 11:57 Resp 16 02/15/17 11:57 BP 116/56 L 02/15/17 11:57 Pulse Ox 98 02/15/17 11:57 Weight - most recent: 164 lb 3.2 oz I&O - last 24 hours: Intake & Output 02/14/17 02/15/17 02/15/17 22:59 06:59 14:59 Intake Total 1050 1288 Output Total 900 1000 250 Balance 150 288 -250 Lab Results last 24 hrs: Laboratory Results - last 24 hr 02/15/17 02/15/17 02/15/17 Range/Units 05:45 05:45 05:45 WBC 10.00 (3.98-10.04) K/mm3 RBC 4.26 (3.98-5.22) M/mm3 Hgb 13.8 (11.2-15.7) gm/L Hct 40.4 (34.1-44.9) % MCV 94.8 (79.4-94.8) fl MCH 32.4 H (25.6-32.2) pg MCHC 34.2 (32.2-35.5) g/dl RDW Std Deviation 42.7 (36.4-46.3) fL Plt Count 178 L (182-369) K/mm3 MPV 9.8 (9.4-12.3) fl Neut % (Auto) 66.3 (34.0-71.1) % Lymph % (Auto) 20.5 (19.3-51.7) % [place] % (Auto) 9.7 (4.7-12.5) % Eos % (Auto) 2.7 (0.7-5.8) Baso % (Auto) 0.2 (0.1-1.2) % Neut # (Auto) 6.63 H (1.56-6.13) K/mm3 Lymph # (Auto) 2.05 (1.18-3.74) K/mm3 [place] # (Auto) 0.97 H (0.24-0.36) K/mm3 Eos # (Auto) 0.27 (0.04-0.36) K/mm3 Baso # (Auto) 0.02 (0.01-0.08) K/mm3 Sodium 141 (136-145) mEq/L Potassium 3.1 L (3.5-5.1) mEq/L Chloride 108 H (98-107) mEq/L Carbon Dioxide 22 (21-32) mEq/L Anion Gap 14.1 (5-15) BUN 11 (7-18) mg/dL Creatinine 0.8 (0.55-1.02) mg/dL Est Cr Clr Drug Dosing 45.04 mL/min Estimated GFR (MDRD) > 60 (>60) mL/min BUN/Creatinine Ratio 13.8 L (14-18) Glucose 96 (83-115) mg/dL Calcium 7.5 L (8.5-10.1) mg/dL Magnesium (1.8-2.4) mg/dl Free T4 1.48 H (0.76-1.46) ng/dL 02/15/17 Range/Units 05:45 WBC (3.98-10.04) K/mm3 RBC (3.98-5.22) M/mm3 Hgb (11.2-15.7) gm/L Hct (34.1-44.9) % MCV (79.4-94.8) fl MCH (25.6-32.2) pg MCHC (32.2-35.5) g/dl RDW Std Deviation (36.4-46.3) fL Plt Count (182-369) K/mm3 MPV (9.4-12.3) fl Neut % (Auto) (34.0-71.1) % Lymph % (Auto) (19.3-51.7) % [place] % (Auto) (4.7-12.5) % Eos % (Auto) (0.7-5.8) Baso % (Auto) (0.1-1.2) % Neut # (Auto) (1.56-6.13) K/mm3 Lymph # (Auto) (1.18-3.74) K/mm3 [place] # (Auto) (0.24-0.36) K/mm3 Eos # (Auto) (0.04-0.36) K/mm3 Baso # (Auto) (0.01-0.08) K/mm3 Sodium (136-145) mEq/L Potassium (3.5-5.1) mEq/L Chloride (98-107) mEq/L Carbon Dioxide (21-32) mEq/L Anion Gap (5-15) BUN (7-18) mg/dL Creatinine (0.55-1.02) mg/dL Est Cr Clr Drug Dosing mL/min Estimated GFR (MDRD) (>60) mL/min BUN/Creatinine Ratio (14-18) Glucose (83-115) mg/dL Calcium (8.5-10.1) mg/dL Magnesium 1.9 (1.8-2.4) mg/dl Free T4 (0.76-1.46) ng/dL Med Orders - Current: Current Medications Acetaminophen (Tylenol) 650 mg PO Q4H PRN PRN Reason: Pain (Mild 1-3)/fever Hydrocodone Bitart/Acetaminophen ([place] 325-5 Mg) 1 tab PO Q4H PRN PRN Reason: Pain (moderate 4-6) Last Admin: 02/08/17 21:13 Dose: 1 tab Al Hydroxide/Mg Hydroxide (Mag-Al Plus) 30 ml PO Q4H PRN PRN Reason: Heartburn Last Admin: 02/13/17 01:30 Dose: 30 ml Albuterol/Ipratropium (Duoneb 3.0-0.5 Mg/3 Ml) 3 ml NEB Q4H PRN PRN Reason: Shortness Of Breath/wheezing Amlodipine Besylate (Norvasc) 10 mg PO DAILY [facility] Last Admin: 02/15/17 09:07 Dose: 10 mg Cholecalciferol (Vitamin D3) 2,000 units PO DAILY [facility] Last Admin: 02/15/17 09:08 Dose: Not Given Enoxaparin Sodium (Lovenox) 40 mg SUBCUT DAILY [facility] Last Admin: 02/15/17 09:05 Dose: 40 mg Hydralazine HCl (Apresoline) 10 mg IVPUSH Q4H PRN PRN Reason: Hypertension Last Admin: 02/12/17 18:01 Dose: 10 mg Hydrochlorothiazide (Hydrochlorothiazide) 12.5 mg PO DAILY [facility] Last Admin: 02/15/17 09:06 Dose: 12.5 mg Hydromorphone HCl (Dilaudid) 0.5 mg IVPUSH Q4H PRN PRN Reason: Pain (severe 7-10) Last Admin: 02/14/17 20:44 Dose: 0.5 mg Levofloxacin/Dextrose 500 mg/ (Premix) 100 mls @ 100 mls/hr IV Q24H [facility] Stop: 02/16/17 10:00 Last Admin: 02/15/17 09:03 Dose: 100 mls/hr Promethazine HCl 12.5 mg/ (Sodium Chloride) 50.5 mls @ 100 mls/hr IV Q6H PRN PRN Reason: Nausea/Vomiting Metronidazole 500 mg/ Premix 100 mls @ 100 mls/hr IV Q8H [facility] Stop: 02/16/17 23:30 Last Admin: 02/15/17 06:08 Dose: 100 mls/hr Dextrose/Sodium Chloride (Dextrose 5%-Normal Saline) 1,000 mls @ 100 mls/hr IV ASDIRECTED [facility] Last Admin: 02/15/17 09:01 Dose: 100 mls/hr Potassium Chloride (Kcl 10 Meq In Water 100 Ml) 100 mls @ 100 mls/hr IV Q1H [facility] Stop: 02/15/17 13:59 Last Admin: 02/15/17 12:02 Dose: 100 mls/hr Levothyroxine Sodium (Synthroid) 88 mcg PO ACBREAKFAST [facility] Last Admin: 02/15/17 06:09 Dose: 88 mcg Lorazepam (Ativan) 0.25 mg IV Q6H PRN PRN Reason: Anxiety Losartan Potassium (Cozaar) 100 mg PO DAILY [facility] Last Admin: 02/15/17 09:06 Dose: 100 mg Magnesium Oxide (Magnesium Oxide) 400 mg PO DAILY [facility] Last Admin: 02/15/17 09:06 Dose: 400 mg Magnesium Sulfate (Pharmacy To Dose - Magnesium Replacement) 1 dose .XX ASDIRECTED [facility] Metoclopramide HCl (Reglan) 10 mg IVPUSH Q4H PRN PRN Reason: Nausea/Vomiting Last Admin: 02/10/17 17:51 Dose: 10 mg Metoclopramide HCl (Reglan) 10 mg IVPUSH Q6H [facility] Last Admin: 02/15/17 09:05 Dose: 10 mg Metoprolol Tartrate (Lopressor) 2.5 mg IVPUSH Q4H PRN PRN Reason: Tachycardia Miscellaneous Information (Remove Patch) 0 ea TRDERM ONETIME ONE Stop: 02/16/17 13:01 Multivitamins (Thera) 1 each PO DAILY [facility] Last Admin: 02/15/17 09:08 Dose: Not Given Ondansetron HCl (Zofran) 4 mg IV Q6H PRN PRN Reason: Nausea/Vomiting Last Admin: 02/13/17 17:33 Dose: 4 mg Pantoprazole Sodium (Protonix Iv) 40 mg IVPUSH Q12H [facility] Last Admin: 02/15/17 09:05 Dose: 40 mg Cyanocobalamin ( Vitamin B-12) [ Vitamin B-12] 2,500 Mcg 0 each PO DAILY [facility] Last Admin: 02/15/17 09:07 Dose: Not Given Ubidecarenone 200 Mg 0 each PO DAILY [facility] Last Admin: 02/15/17 09:07 Dose: Not Given Potassium Chloride (Pharmacy To Dose - Potassium Replacement) 1 dose .XX ASDIRECTED [facility] Pyridoxine HCl (Vitamin B6-Pyridoxine) 100 mg PO DAILY [facility] Last Admin: 02/15/17 09:08 Dose: Not Given Saccharomyces Boulardii (Florastor) 250 mg PO BID [facility] Last Admin: 02/15/17 09:05 Dose: 250 mg Simvastatin (Zocor) 10 mg PO BEDTIME [facility] Last Admin: 02/14/17 20:42 Dose: 10 mg Sodium Chloride (Saline Flush) 10 ml FLUSH ASDIRECTED PRN PRN Reason: Keep Vein Open Last Admin: 02/08/17 10:36 Dose: 10 ml Temazepam (Restoril) 7.5 mg PO BEDTIME PRN PRN Reason: SLEEP Thiamine HCl (Vitamin B-1) 100 mg PO DAILY [facility] Last Admin: 02/15/17 09:08 Dose: Not Given Vitamin E (Vitamin E) 400 units PO DAILY [facility] Last Admin: 02/15/17 09:08 Dose: Not Given Discontinued Medications Amlodipine Besylate (Norvasc) 5 mg PO DAILY [facility] Last Admin: 02/13/17 08:26 Dose: 5 mg Amlodipine Besylate (Norvasc) 5 mg PO ONETIME ONE Stop: 02/13/17 12:56 Last Admin: 02/13/17 13:23 Dose: 5 mg Atenolol (Tenormin) 25 mg PO DAILY [facility] Last Admin: 02/13/17 08:26 Dose: 25 mg Al Hydroxide/Mg Hydroxide 30 (ml/ Lidocaine HCl 15 ml) 0 ml PO ONETIME ONE Stop: 02/08/17 10:10 Last Admin: 02/08/17 10:30 Dose: 30 ml Diatrizoate Meglum/Diatrizoate Sod (Gastrografin 37%) 90 ml PO ONETIME ONE Stop: 02/08/17 12:03 Last Admin: 02/08/17 12:26 Dose: 90 ml Famotidine (Pepcid) 20 mg PO BID [facility] Last Admin: 02/09/17 08:16 Dose: 20 mg Famotidine (Pepcid) 20 mg PO DAILY [facility] Last Admin: 02/10/17 08:08 Dose: 20 mg Famotidine (Pepcid) 20 mg IVPUSH BID [facility] Last Admin: 02/12/17 22:12 Dose: 20 mg Hydromorphone HCl (Dilaudid) 0.5 mg IVPUSH ONETIME ONE Stop: 02/08/17 10:10 Last Admin: 02/08/17 10:36 Dose: 0.5 mg Hydromorphone HCl (Dilaudid) 1 mg IVPUSH ONETIME ONE Stop: 02/08/17 12:50 Last Admin: 02/08/17 12:55 Dose: 1 mg Hydromorphone HCl (Dilaudid) 0.25 mg IVPUSH Q4H PRN PRN Reason: Pain (severe 7-10) Last Admin: 02/09/17 06:54 Dose: 0.25 mg Sodium Chloride (Normal Saline) 1,000 mls @ 125 mls/hr IV ASDIRECTED [facility] Last Admin: 02/08/17 10:32 Dose: 125 mls/hr Levofloxacin/Dextrose 500 mg/ (Premix) 100 mls @ 100 mls/hr IV ONETIME ONE Stop: 02/08/17 14:38 Last Admin: 02/08/17 14:02 Dose: 100 mls/hr Metronidazole 500 mg/ Premix 100 mls @ 100 mls/hr IV ONETIME ONE Stop: 02/08/17 14:38 Last Admin: 02/08/17 21:08 Dose: Not Given Dextrose/Sodium Chloride (Dextrose 5%-Normal Saline) 1,000 mls @ 100 mls/hr IV ASDIRECTED [facility] Last Admin: 02/10/17 08:13 Dose: 100 mls/hr Potassium Chloride 10 meq/ (Premix) 100 mls @ 100 mls/hr IV Q1H [facility] Stop: 02/10/17 16:29 Last Admin: 02/10/17 16:42 Dose: 100 mls/hr Potassium Chloride 10 meq/ (Premix) 100 mls @ 100 mls/hr IV Q1H [facility] Stop: 02/11/17 17:14 Last Admin: 02/11/17 19:24 Dose: 100 mls/hr Magnesium Sulfate 2 gm/ Premix 50 mls @ 25 mls/hr IV ONETIME ONE Stop: 02/12/17 10:29 Last Admin: 02/12/17 10:02 Dose: 25 mls/hr Potassium Chloride 10 meq/ (Premix) 100 mls @ 100 mls/hr IV Q1H [facility] Stop: 02/12/17 14:29 Last Admin: 02/12/17 15:02 Dose: Not Given Potassium Chloride 10 meq/ (Premix) 100 mls @ 100 mls/hr IV Q1H [facility] Stop: 02/13/17 14:14 Last Admin: 02/13/17 17:11 Dose: 100 mls/hr Potassium Chloride (Kcl 10 Meq In Water 100 Ml) 100 mls @ 100 mls/hr IV Q1H [facility] Stop: 02/14/17 17:59 Last Admin: 02/14/17 18:57 Dose: 100 mls/hr Magnesium Sulfate/Dextrose 1 (gm/ Premix) 100 mls @ 100 mls/hr IV ONETIME ONE Stop: 02/14/17 14:46 Last Admin: 02/14/17 15:38 Dose: 100 mls/hr Magnesium Sulfate (Magnesium Sulfate 2 Gm In Water 50 Ml) 50 mls @ 50 mls/hr IV ONETIME ONE Stop: 02/15/17 10:59 Iopamidol (Isovue-300 (61%)) 100 ml IVPUSH ONETIME ONE Stop: 02/08/17 12:03 Last Admin: 02/08/17 12:26 Dose: 100 ml Levothyroxine Sodium (Levothyroxine) 75 mcg PO ACBRK [facility] Last Admin: 02/13/17 05:04 Dose: 75 mcg Metoclopramide HCl (Reglan) 10 mg IVPUSH ONETIME ONE Stop: 02/08/17 12:50 Last Admin: 02/08/17 12:54 Dose: 10 mg Metoclopramide HCl (Reglan) 10 mg IVPUSH Q6H [facility] Last Admin: 02/11/17 06:14 Dose: Not Given Miscellaneous Information (Remove Patch) 1 ea TRDERM DAILY [facility] Stop: 02/12/17 09:01 Last Admin: 02/12/17 09:13 Dose: 1 ea Miscellaneous Information (Remove Patch) 0 ea TRDERM ONETIME ONE Stop: 02/13/17 07:46 Last Admin: 02/13/17 08:24 Dose: Not Given Ondansetron HCl (Zofran) 4 mg IVPUSH ONETIME ONE Stop: 02/08/17 10:09 Last Admin: 02/08/17 10:33 Dose: 4 mg Pantoprazole Sodium (Protonix) 40 mg PO BID [facility] Last Admin: 02/12/17 08:54 Dose: 40 mg Potassium Chloride (Klor-Con M20) 40 meq PO Q4H [facility] Stop: 02/10/17 17:01 Last Admin: 02/10/17 13:10 Dose: 40 meq Potassium Chloride (Klor-Con M20) 40 meq PO Q4H [facility] Stop: 02/11/17 12:01 Last Admin: 02/11/17 12:08 Dose: Not Given Saccharomyces Boulardii (Florastor) 250 mg PO TID [facility] Last Admin: 02/13/17 05:28 Dose: Not Given Scopolamine (Transderm-Scop) 1.5 mg TOP ONETIME ONE Stop: 02/09/17 08:01 Last Admin: 02/09/17 08:12 Dose: 1.5 mg Scopolamine (Transderm-Scop) 1.5 mg TOP ONETIME ONE Stop: 02/10/17 07:37 Last Admin: 02/10/17 08:05 Dose: 1.5 mg Scopolamine (Transderm-Scop) 1.5 mg TRDERM Q72H ONE Stop: 02/13/17 13:01 Last Admin: 02/13/17 13:22 Dose: 1.5 mg Sodium Chloride (Saline Flush) 10 ml FLUSH ONETIME ONE Stop: 02/08/17 12:03 Last Admin: 02/08/17 12:26 Dose: 10 ml Sucralfate (Carafate) 1 gm PO ACBED [facility] Last Admin: 02/10/17 10:46 Dose: Not Given - Exam General: alert, oriented, cooperative, no acute distress Lungs: Clear to auscultation Cardiovascular: Regular Rate, Regular Rhythm Abdomen: soft, no tenderness, no distension, other (states "sore" in upper abdomen ) Skin: warm, dry, intact Neurological: no new focal deficit Psy/Mental Status: alert, normal affect, normal mood Consult PN Assessment/Plan Procedures: Procedures ASSAY OF LIPASE (01/01/17) ASSAY OF NATRIURETIC PEPTIDE (11/13/14) ASSAY OF TROPONIN QUANT (11/13/14) ASSAY THYROID STIM HORMONE (11/13/14) BIOPSY/REMOVAL LYMPH NODES (10/11/14) BLOOD GASES ANY COMBINATION (10/11/14) BLOOD TYPING SEROLOGIC ABO (10/11/14) BLOOD TYPING SEROLOGIC RH(D) (10/11/14) CHEST X-RAY 1 VIEW FRONTAL (11/13/14) COMPATIBILITY TEST ANTIGLOB (10/11/14) COMPLETE CBC AUTOMATED (10/11/14) COMPLETE CBC W/AUTO DIFF WBC (01/01/17) COMPREHEN METABOLIC PANEL (01/01/17) CREATINE MB FRACTION (11/13/14) DRAINAGE OF HEMATOMA/FLUID (10/11/14) DXA BONE DENSITY AXIAL (11/23/15) ELECTROCARDIOGRAM TRACING (01/01/17) EMERGENCY DEPT VISIT (01/01/17) EMERGENCY DEPT VISIT (11/13/14) FIBRIN DEGRADATION QUANT (11/13/14) HEMATOCRIT (10/11/14) HEMOGLOBIN (10/11/14) IMMUNOHISTO ANTB 1ST STAIN (10/11/14) IO MAP OF SENT LYMPH NODE (10/11/14) METABOLIC PANEL TOTAL CA (10/11/14) MRI JOINT UPR EXTREM W/O DYE (01/30/17) MRI NECK SPINE W/O DYE (01/30/17) PARTIAL MASTECTOMY (10/11/14) PATH CONSULT INTRAOP 1 BLOC (10/11/14) PROTHROMBIN TIME (11/13/14) RA TRACER ID OF SENTINL NODE (10/11/14) RBC ANTIBODY SCREEN (10/11/14) ROUTINE VENIPUNCTURE (01/01/17) THER/PROPH/DIAG IV INF INIT (10/11/14) THROMBOPLASTIN TIME PARTIAL (10/11/14) TISSUE EXAM BY PATHOLOGIST (10/11/14) TISSUE EXAM BY PATHOLOGIST (10/11/14) TISSUE EXAM BY PATHOLOGIST (10/11/14) URINALYSIS AUTO W/SCOPE (01/01/17) WITHDRAWAL OF ARTERIAL BLOOD (10/11/14) (1) Abdominal pain SNOMED Code(s): 92191706 Code(s): R10.9 - UNSPECIFIED ABDOMINAL PAIN Priority: High Current Visit : Yes Qualifiers: Abdominal location: generalized Qualified Code(s): R10.84 - Generalized abdominal pain (2) Enteritis SNOMED Code(s): 79708409 Code(s): K52.9 - NONINFECTIVE GASTROENTERITIS AND COLITIS, UNSPECIFIED Priority: High Current Visit: Yes (3) Ileus SNOMED Code(s): 186605441 Code(s): K56.7 - ILEUS, UNSPECIFIED Priority: High Current Visit: Yes (4) Hypokalemia SNOMED Code(s): 95837625 Code(s): E87.6 - HYPOKALEMIA Priority: High Current Visit: Yes (5) Gastritis SNOMED Code(s): 1872201 Code(s): K29.70 - GASTRITIS, UNSPECIFIED, WITHOUT BLEEDING Current Visit: No Qualifiers: Gastritis type: unspecified gastritis Chronicity: unspecified Gastritis bleeding: without bleeding Qualified Code(s): K29.70 - Gastritis, unspecified , without bleeding Problem List Initiated/Reviewed/Updated: Yes Plan: 81 yo woman with suspected ileus 2/2 enteritis of uncertain etiology and gastritis Will advance FLD and may adv to Regular when tolerated. Recommend replacing K to 4.0, Mg to 2.0 and Phos to 3.0 to optimize bowel motility Recommend completing abx course for 10 days Labs improved today Abdominal examination improved. Etiology of enteritis unclear. Likely will not need surgical intervention, will plan for endoscopy on as previously planned.
[2017-02-15] MEDS: Ondansetron 4 MG/2 ML SDV IV PRN (13:06)
[2017-02-15] MEDS: HYDROmorphone 0.5 MG/0.5 ML Syringe IVPUSH PRN (14:11)
[2017-02-15] MEDS: Simvastatin 10 MG Tab PO SCH (21:01)
[2017-02-16] MEDS: Metoclopramide 10 MG/2 ML SDV IVPUSH SCH (03:16)
[2017-02-16] MEDS: Levothyroxine 88 MCG Tab PO SCH (06:11)
[2017-02-16] MEDS: metroNIDAZOLE/Normal Saline 500 MG in Premix Bag 1 BAG IV SCH (06:11)
[2017-02-16] MEDS: Dextrose 5%-0.9% NaCl 1,000 ML IV SCH (06:12)
--- NOTE | 2017-02-16 07:10 | PCM.CONSN ---
- General Info Date of Service: 02/16/17 Admission Dx/Problem (Free Text): Admission Diagnosis/Problem Admission Diagnosis/Problem Abdominal pain Subjective Update: Patient reports she is feeling much better. She did have four stools yesterday. She has not had a bowel movement today. Feels she is "emptied out. " She is passing gas. She had clear and full liquid meals yesterday and did tolerate these. Reports she was a little nauseated with the broth in the am, but had no nausea with the cream of wheat. She feels she is getting her appetite back. She denies any vomiting. She is passing gas. She denies pain, reports her abdomen just feels a bit sore, motions to her epigastrium and RUQ. She reports she has been pushing water and has noted an increase in urination, but no pain/burning with increased urination. She is wondering when she will be discharged, would prefer tomorrow. Is ordering a regular diet this am. Functional Status: Reports: pain controlled, tolerating diet, ambulating, urinating. Denies: new symptoms Pain Score: 0 (Generalized abdominal "soreness" RUQ and epigastrium ) - Review of Systems General: Reports: No Symptoms, Appetite (improved tolerated full and clear liquid diet ). Denies: Fever, Weakness, Fatigue, Chills, Night Sweats HEENT: Reports: no symptoms. Denies: headaches, visual changes Pulmonary: Reports: no symptoms. Denies: shortness of breath Cardiovascular: Reports: No Symptoms. Denies: Chest Pain, Palpitations, Dyspnea on Exertion, Edema, Lightheadedness Gastrointestinal: Reports: No symptoms. Denies: Constipation, Nausea, Vomiting Genitourinary: Reports: no symptoms (increased volume of urination, no pain or burning with urination ) Musculoskeletal: Reports: no symptoms Skin: Reports: no symptoms Neurological: Reports: No Symptoms. Denies: Confusion, Dizziness, Headache, Trouble Speaking, Difficulty Walking, Change in Speech Psychiatric: Reports: no symptoms. Denies: confusion - Patient Data Vitals - most recent: Last Vital Signs Temp 97.9 F 02/16/17 03:21 Pulse 54 L 02/16/17 03:21 Resp 18 02/16/17 03:21 BP 132/60 02/16/17 03:21 Pulse Ox 99 02/16/17 03:21 Weight - most recent: 77.474 kg I&O - last 24 hours: Intake & Output 02/15/17 02/16/17 02/16/17 22:59 06:59 14:59 Intake Total 2390 1228 Output Total 800 1925 Balance 1590 -697 Lab Results last 24 hrs: Laboratory Results - last 24 hr 02/15/17 02/15/17 02/15/17 Range/Units 05:45 05:45 05:45 WBC 10.00 (3.98-10.04) K/mm3 RBC 4.26 (3.98-5.22) M/mm3 Hgb 13.8 (11.2-15.7) gm/L Hct 40.4 (34.1-44.9) % MCV 94.8 (79.4-94.8) fl MCH 32.4 H (25.6-32.2) pg MCHC 34.2 (32.2-35.5) g/dl RDW Std Deviation 42.7 (36.4-46.3) fL Plt Count 178 L (182-369) K/mm3 MPV 9.8 (9.4-12.3) fl Neut % (Auto) 66.3 (34.0-71.1) % Lymph % (Auto) 20.5 (19.3-51.7) % [place] % (Auto) 9.7 (4.7-12.5) % Eos % (Auto) 2.7 (0.7-5.8) Baso % (Auto) 0.2 (0.1-1.2) % Neut # (Auto) 6.63 H (1.56-6.13) K/mm3 Lymph # (Auto) 2.05 (1.18-3.74) K/mm3 Wy[place] # (Auto) 0.97 H (0.24-0.36) K/mm3 Eos # (Auto) 0.27 (0.04-0.36) K/mm3 Baso # (Auto) 0.02 (0.01-0.08) K/mm3 Sodium 141 (136-145) mEq/L Potassium 3.1 L (3.5-5.1) mEq/L Chloride 108 H (98-107) mEq/L Carbon Dioxide 22 (21-32) mEq/L Anion Gap 14.1 (5-15) BUN 11 (7-18) mg/dL Creatinine 0.8 (0.55-1.02) mg/dL Est Cr Clr Drug Dosing 45.04 mL/min Estimated GFR (MDRD) > 60 (>60) mL/min BUN/Creatinine Ratio 13.8 L (14-18) Glucose 96 (83-115) mg/dL Calcium 7.5 L (8.5-10.1) mg/dL Magnesium 1.9 (1.8-2.4) mg/dl Med Orders - Current: Current Medications Acetaminophen (Tylenol) 650 mg PO Q4H PRN PRN Reason: Pain (Mild 1-3)/fever Hydrocodone Bitart/Acetaminophen ([place] 325-5 Mg) 1 tab PO Q4H PRN PRN Reason: Pain (moderate 4-6) Last Admin: 02/08/17 21:13 Dose: 1 tab Al Hydroxide/Mg Hydroxide (Mag-Al Plus) 30 ml PO Q4H PRN PRN Reason: Heartburn Last Admin: 02/13/17 01:30 Dose: 30 ml Albuterol/Ipratropium (Duoneb 3.0-0.5 Mg/3 Ml) 3 ml NEB Q4H PRN PRN Reason: Shortness Of Breath/wheezing Amlodipine Besylate (Norvasc) 10 mg PO DAILY [facility] Last Admin: 02/15/17 09:07 Dose: 10 mg Cholecalciferol (Vitamin D3) 2,000 units PO DAILY [facility] Last Admin: 02/15/17 09:08 Dose: Not Given Enoxaparin Sodium (Lovenox) 40 mg SUBCUT DAILY [facility] Last Admin: 02/15/17 09:05 Dose: 40 mg Hydralazine HCl (Apresoline) 10 mg IVPUSH Q4H PRN PRN Reason: Hypertension Last Admin: 02/12/17 18:01 Dose: 10 mg Hydrochlorothiazide (Hydrochlorothiazide) 12.5 mg PO DAILY [facility] Last Admin: 02/15/17 09:06 Dose: 12.5 mg Hydromorphone HCl (Dilaudid) 0.5 mg IVPUSH Q4H PRN PRN Reason: Pain (severe 7-10) Last Admin: 02/15/17 14:11 Dose: 0.5 mg Levofloxacin/Dextrose 500 mg/ (Premix) 100 mls @ 100 mls/hr IV Q24H [facility] Stop: 02/16/17 10:00 Last Admin: 02/15/17 09:03 Dose: 100 mls/hr Promethazine HCl 12.5 mg/ (Sodium Chloride) 50.5 mls @ 100 mls/hr IV Q6H PRN PRN Reason: Nausea/Vomiting Metronidazole 500 mg/ Premix 100 mls @ 100 mls/hr IV Q8H [facility] Stop: 02/16/17 23:30 Last Admin: 02/16/17 06:11 Dose: 100 mls/hr Dextrose/Sodium Chloride (Dextrose 5%-Normal Saline) 1,000 mls @ 100 mls/hr IV ASDIRECTED [facility] Last Admin: 02/16/17 06:12 Dose: 100 mls/hr Levothyroxine Sodium (Synthroid) 88 mcg PO [facility] Last Admin: 02/16/17 06:11 Dose: 88 mcg Lorazepam (Ativan) 0.25 mg IV Q6H PRN PRN Reason: Anxiety Losartan Potassium (Cozaar) 100 mg PO DAILY [facility] Last Admin: 02/15/17 09:06 Dose: 100 mg Magnesium Oxide (Magnesium Oxide) 400 mg PO DAILY [facility] Last Admin: 02/15/17 09:06 Dose: 400 mg Magnesium Sulfate (Pharmacy To Dose - Magnesium Replacement) 1 dose .XX ASDIRECTED [facility] Metoclopramide HCl (Reglan) 10 mg IVPUSH Q4H PRN PRN Reason: Nausea/Vomiting Last Admin: 02/10/17 17:51 Dose: 10 mg Metoclopramide HCl (Reglan) 10 mg IVPUSH Q6H [facility] Last Admin: 02/16/17 03:16 Dose: 10 mg Metoprolol Tartrate (Lopressor) 2.5 mg IVPUSH Q4H PRN PRN Reason: Tachycardia Miscellaneous Information (Remove Patch) 0 ea TRDERM ONETIME ONE Stop: 02/16/17 13:01 Multivitamins (Thera) 1 each PO DAILY [facility] Last Admin: 02/15/17 09:08 Dose: Not Given Ondansetron HCl (Zofran) 4 mg IV Q6H PRN PRN Reason: Nausea/Vomiting Last Admin: 02/15/17 13:06 Dose: 4 mg Pantoprazole Sodium (Protonix Iv) 40 mg IVPUSH Q12H [facility] Last Admin: 02/15/17 21:02 Dose: 40 mg Cyanocobalamin ( Vitamin B-12) [ Vitamin B-12] 2,500 Mcg 0 each PO DAILY [facility] Last Admin: 02/15/17 09:07 Dose: Not Given Ubidecarenone 200 Mg 0 each PO DAILY [facility] Last Admin: 02/15/17 09:07 Dose: Not Given Potassium Chloride (Pharmacy To Dose - Potassium Replacement) 1 dose .XX ASDIRECTED [facility] Pyridoxine HCl (Vitamin B6-Pyridoxine) 100 mg PO DAILY [facility] Last Admin: 02/15/17 09:08 Dose: Not Given Saccharomyces Boulardii (Florastor) 250 mg PO BID [facility] Last Admin: 02/15/17 21:01 Dose: 250 mg Simvastatin (Zocor) 10 mg PO BEDTIME [facility] Last Admin: 02/15/17 21:01 Dose: 10 mg Sodium Chloride (Saline Flush) 10 ml FLUSH ASDIRECTED PRN PRN Reason: Keep Vein Open Last Admin: 02/08/17 10:36 Dose: 10 ml Temazepam (Restoril) 7.5 mg PO BEDTIME PRN PRN Reason: SLEEP Thiamine HCl (Vitamin B-1) 100 mg PO DAILY [facility] Last Admin: 02/15/17 09:08 Dose: Not Given Vitamin E (Vitamin E) 400 units PO DAILY [facility] Last Admin: 02/15/17 09:08 Dose: Not Given Discontinued Medications Amlodipine Besylate (Norvasc) 5 mg PO DAILY [facility] Last Admin: 02/13/17 08:26 Dose: 5 mg Amlodipine Besylate (Norvasc) 5 mg PO ONETIME ONE Stop: 02/13/17 12:56 Last Admin: 02/13/17 13:23 Dose: 5 mg Atenolol (Tenormin) 25 mg PO DAILY [facility] Last Admin: 02/13/17 08:26 Dose: 25 mg Al Hydroxide/Mg Hydroxide 30 (ml/ Lidocaine HCl 15 ml) 0 ml PO ONETIME ONE Stop: 02/08/17 10:10 Last Admin: 02/08/17 10:30 Dose: 30 ml Diatrizoate Meglum/Diatrizoate Sod (Gastrografin 37%) 90 ml PO ONETIME ONE Stop: 02/08/17 12:03 Last Admin: 02/08/17 12:26 Dose: 90 ml Famotidine (Pepcid) 20 mg PO BID [facility] Last Admin: 02/09/17 08:16 Dose: 20 mg Famotidine (Pepcid) 20 mg PO DAILY [facility] Last Admin: 02/10/17 08:08 Dose: 20 mg Famotidine (Pepcid) 20 mg IVPUSH BID [facility] Last Admin: 02/12/17 22:12 Dose: 20 mg Hydromorphone HCl (Dilaudid) 0.5 mg IVPUSH ONETIME ONE Stop: 02/08/17 10:10 Last Admin: 02/08/17 10:36 Dose: 0.5 mg Hydromorphone HCl (Dilaudid) 1 mg IVPUSH ONETIME ONE Stop: 02/08/17 12:50 Last Admin: 02/08/17 12:55 Dose: 1 mg Hydromorphone HCl (Dilaudid) 0.25 mg IVPUSH Q4H PRN PRN Reason: Pain (severe 7-10) Last Admin: 02/09/17 06:54 Dose: 0.25 mg Sodium Chloride (Normal Saline) 1,000 mls @ 125 mls/hr IV ASDIRECTED [facility] Last Admin: 02/08/17 10:32 Dose: 125 mls/hr Levofloxacin/Dextrose 500 mg/ (Premix) 100 mls @ 100 mls/hr IV ONETIME ONE Stop: 02/08/17 14:38 Last Admin: 02/08/17 14:02 Dose: 100 mls/hr Metronidazole 500 mg/ Premix 100 mls @ 100 mls/hr IV ONETIME ONE Stop: 02/08/17 14:38 Last Admin: 02/08/17 21:08 Dose: Not Given Dextrose/Sodium Chloride (Dextrose 5%-Normal Saline) 1,000 mls @ 100 mls/hr IV [facility]IRECTED [facility] Last Admin: 02/10/17 08:13 Dose: 100 mls/hr Potassium Chloride 10 meq/ (Premix) 100 mls @ 100 mls/hr IV Q1H [facility] Stop: 02/10/17 16:29 Last Admin: 02/10/17 16:42 Dose: 100 mls/hr Potassium Chloride 10 meq/ (Premix) 100 mls @ 100 mls/hr IV Q1H [facility] Stop: 02/11/17 17:14 Last Admin: 02/11/17 19:24 Dose: 100 mls/hr Magnesium Sulfate 2 gm/ Premix 50 mls @ 25 mls/hr IV ONETIME ONE Stop: 02/12/17 10:29 Last Admin: 02/12/17 10:02 Dose: 25 mls/hr Potassium Chloride 10 meq/ (Premix) 100 mls @ 100 mls/hr IV Q1H [facility] Stop: 02/12/17 14:29 Last Admin: 02/12/17 15:02 Dose: Not Given Potassium Chloride 10 meq/ (Premix) 100 mls @ 100 mls/hr IV Q1H [facility] Stop: 02/13/17 14:14 Last Admin: 02/13/17 17:11 Dose: 100 mls/hr Potassium Chloride (Kcl 10 Meq In Water 100 Ml) 100 mls @ 100 mls/hr IV Q1H [facility] Stop: 02/14/17 17:59 Last Admin: 02/14/17 18:57 Dose: 100 mls/hr Magnesium Sulfate/Dextrose 1 (gm/ Premix) 100 mls @ 100 mls/hr IV ONETIME ONE Stop: 02/14/17 14:46 Last Admin: 02/14/17 15:38 Dose: 100 mls/hr Potassium Chloride (Kcl 10 Meq In Water 100 Ml) 100 mls @ 100 mls/hr IV Q1H [facility] Stop: 02/15/17 13:59 Last Admin: 02/15/17 14:11 Dose: 100 mls/hr Magnesium Sulfate (Magnesium Sulfate 2 Gm In Water 50 Ml) 50 mls @ 50 mls/hr IV ONETIME ONE Stop: 02/15/17 10:59 Last Admin: 02/15/17 15:14 Dose: 50 mls/hr Iopamidol (Isovue-300 (61%)) 100 ml IVPUSH ONETIME ONE Stop: 02/08/17 12:03 Last Admin: 02/08/17 12:26 Dose: 100 ml Levothyroxine Sodium (Levothyroxine) 75 mcg PO ACBRK [facility] Last Admin: 02/13/17 05:04 Dose: 75 mcg Metoclopramide HCl (Reglan) 10 mg IVPUSH ONETIME ONE Stop: 02/08/17 12:50 Last Admin: 02/08/17 12:54 Dose: 10 mg Metoclopramide HCl (Reglan) 10 mg IVPUSH Q6H [facility] Last Admin: 02/11/17 06:14 Dose: Not Given Miscellaneous Information (Remove Patch) 1 ea TRDERM DAILY [facility] Stop: 02/12/17 09:01 Last Admin: 02/12/17 09:13 Dose: 1 ea Miscellaneous Information (Remove Patch) 0 ea TRDERM ONETIME ONE Stop: 02/13/17 07:46 Last Admin: 02/13/17 08:24 Dose: Not Given Ondansetron HCl (Zofran) 4 mg IVPUSH ONETIME ONE Stop: 02/08/17 10:09 Last Admin: 02/08/17 10:33 Dose: 4 mg Pantoprazole Sodium (Protonix) 40 mg PO BID [facility] Last Admin: 02/12/17 08:54 Dose: 40 mg Potassium Chloride (Klor-Con M20) 40 meq PO Q4H [facility] Stop: 02/10/17 17:01 Last Admin: 02/10/17 13:10 Dose: 40 meq Potassium Chloride (Klor-Con M20) 40 meq PO Q4H [facility] Stop: 02/11/17 12:01 Last Admin: 02/11/17 12:08 Dose: Not Given Saccharomyces Boulardii (Florastor) 250 mg PO TID [facility] Last Admin: 02/13/17 05:28 Dose: Not Given Scopolamine (Transderm-Scop) 1.5 mg TOP ONETIME ONE Stop: 02/09/17 08:01 Last Admin: 02/09/17 08:12 Dose: 1.5 mg Scopolamine (Transderm-Scop) 1.5 mg TOP ONETIME ONE Stop: 02/10/17 07:37 Last Admin: 02/10/17 08:05 Dose: 1.5 mg Scopolamine (Transderm-Scop) 1.5 mg TRDERM Q72H ONE Stop: 02/13/17 13:01 Last Admin: 02/13/17 13:22 Dose: 1.5 mg Sodium Chloride (Saline Flush) 10 ml FLUSH ONETIME ONE Stop: 02/08/17 12:03 Last Admin: 02/08/17 12:26 Dose: 10 ml Sucralfate (Carafate) 1 gm PO ACBED [facility] Last Admin: 02/10/17 10:46 Dose: Not Given - Exam Quality Assessment: No: skin breakdown General: alert, oriented, cooperative, no acute distress HEENT: Pupils equal, Pupils reactive, Mucous membr. moist/pink. No: Scleral icterus Lungs: Clear to auscultation, Normal respiratory effort. No: Crackles, Rales, Rhonchi, Wheezing Cardiovascular: Regular Rate, Regular Rhythm, Murmurs (systolic ). No: Irregular Rhythm, Gallops, Rubs Abdomen: bowel sounds present, soft, no tenderness, no distension. No: rigidity , rebound, guarding Extremities: no edema, no tenderness/swelling (BLE TEDS in place ), no calf tenderness Skin: warm, dry, intact Neurological: no new focal deficit Psy/Mental Status: alert, normal affect, normal mood Consult PN Assessment/Plan Procedures: Procedures ASSAY OF LIPASE (01/01/17) ASSAY OF NATRIURETIC PEPTIDE (11/13/14) ASSAY OF TROPONIN QUANT (11/13/14) ASSAY THYROID STIM HORMONE (11/13/14) BIOPSY/REMOVAL LYMPH NODES (10/11/14) BLOOD GASES ANY COMBINATION (10/11/14) BLOOD TYPING SEROLOGIC ABO (10/11/14) BLOOD TYPING SEROLOGIC RH(D) (10/11/14) CHEST X-RAY 1 VIEW FRONTAL (11/13/14) COMPATIBILITY TEST ANTIGLOB (10/11/14) COMPLETE CBC AUTOMATED (10/11/14) COMPLETE CBC W/AUTO DIFF WBC (01/01/17) COMPREHEN METABOLIC PANEL (01/01/17) CREATINE MB FRACTION (11/13/14) DRAINAGE OF HEMATOMA/FLUID (10/11/14) DXA BONE DENSITY AXIAL (11/23/15) ELECTROCARDIOGRAM TRACING (01/01/17) EMERGENCY DEPT VISIT (01/01/17) EMERGENCY DEPT VISIT (11/13/14) FIBRIN DEGRADATION QUANT (11/13/14) HEMATOCRIT (10/11/14) HEMOGLOBIN (10/11/14) IMMUNOHISTO ANTB 1ST STAIN (10/11/14) IO MAP OF SENT LYMPH NODE (10/11/14) METABOLIC PANEL TOTAL CA (10/11/14) MRI JOINT UPR EXTREM W/O DYE (01/30/17) MRI NECK SPINE W/O DYE (01/30/17) PARTIAL MASTECTOMY (10/11/14) PATH CONSULT INTRAOP 1 BLOC (10/11/14) PROTHROMBIN TIME (11/13/14) RA TRACER ID OF SENTINL NODE (10/11/14) RBC ANTIBODY SCREEN (10/11/14) ROUTINE VENIPUNCTURE (01/01/17) THER/PROPH/DIAG IV INF INIT (10/11/14) THROMBOPLASTIN TIME PARTIAL (10/11/14) TISSUE EXAM BY PATHOLOGIST (10/11/14) TISSUE EXAM BY PATHOLOGIST (10/11/14) TISSUE EXAM BY PATHOLOGIST (10/11/14) URINALYSIS AUTO W/SCOPE (01/01/17) WITHDRAWAL OF ARTERIAL BLOOD (10/11/14) (1) Abdominal pain SNOMED Code(s): 87943127 Code(s): R10.9 - UNSPECIFIED ABDOMINAL PAIN Priority: High Current Visit : Yes Qualifiers: Abdominal location: generalized Qualified Code(s): R10.84 - Generalized abdominal pain Problem List Initiated/Reviewed/Updated: Yes Plan: 81 yo woman with suspected ileus 2/2 enteritis of uncertain etiology and gastritis -Will advance to Regular diet -Labs today: CBC is within acceptable limits. CMP shows low K of 3.2, Mg of 1.9. Vital signs are within normal limits -Recommend replacing K to 4.0, Mg to 2.0 and Phos to 3.0 to optimize bowel motility -Recommend completing abx course for 10 days -Abdominal examination improved. -Etiology of enteritis unclear. -Likely will not need surgical intervention, will plan for endoscopy on as previously planned. Surgical service will sign off on patient care, as she is tolerating diet, passing flatus and having bowel movements. Hospitalist to manage/discharge when deemed ready. Hospitalist team may contact general surgery with change/ worsening condition of patient. Patient will not need to follow up in the clinic after discharge, unless she has worsening of symptoms or concerns. Will plan endoscopy as above and follow up post endoscopy in the clinic. Case discussed with Dr. Correa. Plan formulated above. Jazlyn Guzman NP-C General Surgery
--- NOTE | 2017-02-16 07:37 | PCM.CONS ---
H&P History of Present Illness - General Date of Service: 02/11/17 Admit Problem/Dx: Admission Diagnosis/Problem Admission Diagnosis/Problem Abdominal pain Source of Information: Patient History Limitations: Reports: No Limitations - History of Present Illness Initial Comments - Free Text/Narative: 81 year old female, known to the general surgery service, surgery consult requested by Dr. Morris. The patient was initially evaluated in the clinic on 02/05/17 for weight loss, bloating, upper abdominal pain, lower abdominal pain. She is scheduled for EGD/ colonoscopy on 02/27/17. She was initially evaluated at the ED on 01/01 when she reported vague abdominal pain with bloating x 1 month. Pain in epigastric and LUQ regions, with generalized abdominal pain at times. Pain was worse with empty stomach. Acidic/spicy foods seemed to bother her. CBC showed increased Hct at 46.7/MCV 95.1, otherwise normal. CMP normal with the exception of elevated BUN/CR ratio at 20/ Glucose of 120. Lipase was normal at 148. No elevation of liver enzymes or bilirubin. UA was negative. 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 She was diagnosed with gastritis and started on Nexium and Carafate. GERD gastritis diet advised. She also did have an abdominal US 01/08 at [place] that did not find anything acute. Hepatic steatosis was noted. She reports she was doing well up until 02/08. She reports she had really bad abdominal cramping and then did go to the ED. She reports the night prior to the ED visit she thinks she had a chicken sandwich and had toast before sabianism. Denies she had constipation or diarrhea prior to symptom onset. Reports she is usually very regular. On the during sabianism she had uper abdominal pain and nausea and vomiting with this, as well as a burning sensation. Her CBC was normal with the exception of Hgb/ hematocrit were elevated at 16 and 47.5. Monocytes were also elevated at 0.58. Her CMP was normal with the exception of an elevated BUN/creatinine increased creatinine ratio 20. Total protein was elevated 8.3. Lipase is normal at 176. UA was normal with exception of trace of occult blood in urine. She was given IV fluid, Zofran, Dilaudid and a GI cocktail in the ED. She also had a CT scan of her abdomen. CT report noted reflux of contrast in the distal esophagus, gallbladder showed mild increased density possibly due to slightly dense sludge or small gallstones. No gallbladder wall thickening. Cystic area noted near the junction of the lower uterine segment and cervix measuring 1.9 cm possibly due to large nabothian cyst. Dilated loops of proximal jejunum and mid jejunum were seen. Inflammatory change near the transitional area within the right lower abdomen. Findings were felt may represent mild ileus or early obstruction from enteritis or other inflammatory or neoplastic process. There is also a small low -density area noted within the right kidney measuring 7 mm which was felt to be incidental but otherwise nonspecific.She was then started on Flagyl and Levaquin and admitted to hospitalist service. 02/08 documentation from hospitalist did note patient was passing gas. She was admitted with a working diagnosis of ileus versus small bowel obstruction, viral versus bacterial enteritis. She was placed on a PPI. Supportive care and IV antibiotics with Levaquin and Flagyl were administered. Oral probiotic was given. It appears on 02/09 patient was having nausea and did vomit. She was still passing gas at that point. But had no bowel movement. Her white count did increase to 19.3. Hemoglobin was 17.2/hematocrit 49.4. Monocytes and neutrophils did increase to 16.81 and 1.22 respectively. CMP was normal with the following exceptions, BUN creatinine ratio is elevated at 23. Glucose was elevated at 136. Her CRP did increase to 2.2. Her magnesium was normal at 1.9. She was placed on nothing by mouth status that. Scopolamine patch was placed. On 02/10 patient had a liter of vomit in the [employer]. Her white count was elevated but had come down to 15.2. Hemoglobin and hematocrit were normal at that point. Neutrophil number was elevated but had decreased to 13.21. CMP was normal with the following exceptions.Potassium was low at 3.2. BUN elevated at 29. Glucose elevated 139. CRP elevated at 9.2. She was then started on a clear liquid diet. Patient later had an emesis in the afternoon. She did have a bowel movement. C. difficile was ordered but was canceled as the stool was formed. Patient was then switched to an nothing by mouth diet. She did have an x-ray of her abdomen that did show contrast and fluid-filled small bowel which is slightly dilated and is suspicious for continuing small bowel obstruction per radiology report. 02/11 was also patient was improving family requested Dr. Correa be consult. The white blood count is elevated but down to 11.09. Platelet count is down to 162. Neutrophil number is elevated but down to 8.25. CMP is normal following exceptions. BUN is elevated 26. Glucose is elevated 125. CRP is elevated but down to 4.9. Potassium is down to 3.1. The patient is in room with a friend. The friend did leave for the interview. The patient reports she still is until the past but she is feeling much better than when she initially came in. She denies she feels bloated. She reports that she is having some upper and lower abdominal pain motions to epigastric and right lateral quadrants. Rates pain a 3 out of 10. Describes this as sore. She reports that eating makes her symptoms worse. She has been avoiding eating. She has been nothing by mouth since last evening. She has ice chips in her room. She is taking pain medications with relief of symptoms. Again she denies any abdominal pain prior to symptom onset on Thursday. She reports she was doing very well up until Thursday. She denies that she was constipated or had any diarrhea prior to symptom onset. She denies any blood in her stools or black stools. She denies any reflux or heartburn. She did have a bowel movement yesterday. She denies that she has had a bowel movement today. She is unsure when she last passed gas. She denies she is passing gas today however she has not been paying attention to this. She reports she has been given Reglan to assist with this. She reports her last emesis was last night. She denies that her emesis had had stool, blood, or coffee-ground emesis. She reports that she occasionally has nausea but does not have nausea presently. She denies any fever, night sweats. She reports she does just feel cold at times. She has been up ambulating. She denies any travel, bad food, illnesses, or ill contacts prior to symptom onset. Bilateral Abdomen Pain Score (Numeric/FACES): 9 Lower Abdomen Pain Score (Numeric/FACES): 6 - Related Data Allergies/Adverse Reactions: Allergies Allergy/AdvReac Type Severity Reaction Status Date / Time benzocaine Allergy Swelling/ra Verified 02/08/17 15:57 sh pneumococcal vaccine Allergy Difficulty Verified 02/08/17 15:57 Breathing procaine HCl [From Novocain] Allergy Swelling/ra Verified 02/08/17 15:57 sh Home Medications: Home Meds Acebutolol [Sectral] 1 cap PO DAILY 10/06/14 [History] Ascorbate Calcium [Vitamin C] 500 mg PO DAILY 10/06/14 [History] Calcium Citrate/Vitamin D3 [Citracal + D Maximum Caplet] 1 tab PO DAILY [History] Cholecalciferol (Vitamin D3) [Vitamin D3] 2,000 unit PO DAILY 10/06/14 [History] Cyanocobalamin (Vitamin B-12) [Vitamin B-12] 2,500 mcg SL DAILY 10/06/14 [ History] Hydrochlorothiazide 12.5 mg PO DAILY 10/06/14 [History] Levothyroxine 75 mcg PO ACBRK 10/06/14 [History] Losartan Potassium 100 mg PO DAILY 10/06/14 [History] Magnesium Oxide [Magnesium] 400 mg PO DAILY 10/06/14 [History] Multivitamin [Multi-Vitamin Daily] 1 tab PO DAILY 10/06/14 [History] Pyridoxine HCl [Vitamin B-6] 100 mg PO DAILY 10/06/14 [History] Thiamine Mononitrate [Vitamin B-1] 100 mg PO DAILY 10/06/14 [History] Ubidecarenone [Co Q-10] 200 mg PO DAILY 10/06/14 [History] atorvaSTATin [Lipitor] 10 mg PO BEDTIME 10/06/14 [History] Lecithin, Soy [Lecithin] 1,200 mg PO DAILY 11/13/14 [History] Vitamin E 400 unit PO DAILY 11/13/14 [History] Esomeprazole [NexIUM] 40 mg PO ACBREAKFAST #20 cap 01/01/17 [Rx] Sucralfate [Carafate] 1 gm PO ASDIRECTED #500 ml 01/01/17 [Rx] amLODIPine [Norvasc] 5 mg PO DAILY 01/01/17 [History] Past Medical History HEENT History: Reports: Cataract, Other (See Below) Other HEENT History: wears glasses Cardiovascular History: Reports: Hypertension Gastrointestinal History: Reports: Gastritis, GERD [employer] History: Reports: Other OB/BYN History: uncomplicated Musculoskeletal History: Reports: Arthritis Neurological History: Reports: None Psychiatric History: Reports: Anxiety Endocrine/Metabolic History: Reports: Hypothyroidism Hematologic History: Reports: None Oncologic (Cancer) History: Reports: Breast Dermatologic History: Reports: None - Infectious Disease History Infectious Disease History: Reports: Chicken Pox, Influenza, Measles - Past Surgical History GI Surgical History: Reports: Appendectomy Oncologic Surgical History: Reports: Mastectomy Social & Family History - Family History HEENT: Reports: None Cardiac: Reports: High Cholesterol, Hypertension, [place] Respiratory: Reports: None : Reports: None OBGYN: Reports: None Musculoskeletal: Reports: Arthritis Neurological: Reports: None Psychiatric: Reports: None Endocrine/Metabolic: Reports: Diabetes, type II Hematologic: Reports: None Dermatologic: Reports: None Oncologic: Reports: Breast Other Oncologic Family History: daughter had breast cancer - Tobacco Use Smoking Status *Q: Never Smoker Second Hand Smoke Exposure: No - Caffeine Use Caffeine Use: Reports: None - Alcohol Use Days Per Week of Alcohol Use: 0 - Recreational Drug Use Recreational Drug Use: No Drug Use in Last 12 Months: No H&P Review of Systems - Review of Systems: Review Of Systems: See Below Free Text/Narrative: General: Reports: Other (Feels cold ). Denies: Fever, Night Sweats HEENT: Reports: no symptoms. Denies: visual changes Pulmonary: Reports: no symptoms. Denies: shortness of breath, cough, wheezing Cardiovascular: Reports: No Symptoms. Denies: Chest Pain, Palpitations, Dyspnea on Exertion, Orthopnea, Edema, Lightheadedness Gastrointestinal: Reports: Abdominal pain, Decreased appetite, Nausea (when eating; denies presently ), Vomiting (when eating; denies emesis since yesterday ). Denies: Diarrhea Genitourinary: Reports: no symptoms Musculoskeletal: Reports: shoulder pain Skin: Reports: no symptoms Neurological: Reports: No Symptoms. Denies: Dizziness, Headache, Syncope Psychiatric: Reports: no symptoms Exam - Exam Exam: See Below - Vital Signs Vital Signs: Last Vital Signs Temp 97.9 F 02/16/17 03:21 Pulse 54 L 02/16/17 03:21 Resp 18 02/16/17 03:21 BP 132/60 02/16/17 03:21 Pulse Ox 99 02/16/17 03:21 Weight: 74.48 kg - Exam General: Alert, Oriented, Cooperative HEENT: Conjunctiva Clear. No: Scleral Icterus Lungs: Clear to Auscultation (posterior crackles ), Normal Respiratory Effort, Crackles Cardiovascular: Regular Rate, Regular Rhythm, Systolic Murmur Abdomen: Soft, Hypoactive Bowel Sounds Back Exam: Normal Inspection, Full Range of Motion Extremities: Normal Inspection. No: Clubbing, Calf Tenderness, Edema Skin: Warm, Dry, Intact Neuro Extensive - Mental Status: Alert, Oriented x3, Normal Mood/Affect, Normal Cognition, Memory Intact Psychiatric: Alert, Normal Affect, Normal Mood Physical Exam Comments:: Exam Quality Assessment: DVT prophylaxis General: alert, oriented, cooperative, no acute distress HEENT: Pupils equal, Pupils reactive, Mucous membr. moist/pink Neck: supple, no JVD. No: lymphadenopathy Lungs: Clear to auscultation, Normal respiratory effort, Crackles (in posterior bases ) Cardiovascular: Regular Rate, Regular Rhythm (with the exception of occasional extra systole ), Murmurs Abdomen: bowel sounds present (hypoactive in left lower quadrant ), soft, tenderness (generalized with deep palpation; epigastric; right lateral, left lateral ), distension (slight ). No: rigidity, rebound, guarding Back Exam: Normal Inspection Extremities: no edema, normal pulses, no tenderness/swelling, no clubbing, no cyanosis, no calf tenderness Skin: warm, dry, intact, other (pale) Neurological: no new focal deficit, normal speech Psy/Mental Status: alert, normal affect, normal mood - Patient Data Lab Results Last 24 hrs: Laboratory Results - last 24 hr 02/15/17 02/15/17 02/15/17 Range/Units 05:45 05:45 05:45 WBC 10.00 (3.98-10.04) K/mm3 RBC 4.26 (3.98-5.22) M/mm3 Hgb 13.8 (11.2-15.7) gm/L Hct 40.4 (34.1-44.9) % MCV 94.8 (79.4-94.8) fl MCH 32.4 H (25.6-32.2) pg MCHC 34.2 (32.2-35.5) g/dl RDW Std Deviation 42.7 (36.4-46.3) fL Plt Count 178 L (182-369) K/mm3 MPV 9.8 (9.4-12.3) fl Neut % (Auto) 66.3 (34.0-71.1) % Lymph % (Auto) 20.5 (19.3-51.7) % Nuckolls % (Auto) 9.7 (4.7-12.5) % Eos % (Auto) 2.7 (0.7-5.8) Baso % (Auto) 0.2 (0.1-1.2) % Neut # (Auto) 6.63 H (1.56-6.13) K/mm3 Lymph # (Auto) 2.05 (1.18-3.74) K/mm3 Nuckolls # (Auto) 0.97 H (0.24-0.36) K/mm3 Eos # (Auto) 0.27 (0.04-0.36) K/mm3 Baso # (Auto) 0.02 (0.01-0.08) K/mm3 Sodium 141 (136-145) mEq/L Potassium 3.1 L (3.5-5.1) mEq/L Chloride 108 H (98-107) mEq/L Carbon Dioxide 22 (21-32) mEq/L Anion Gap 14.1 (5-15) BUN 11 (7-18) mg/dL Creatinine 0.8 (0.55-1.02) mg/dL Est Cr Clr Drug Dosing 45.04 mL/min Estimated GFR (MDRD) > 60 (>60) mL/min BUN/Creatinine Ratio 13.8 L (14-18) Glucose 96 (83-115) mg/dL Calcium 7.5 L (8.5-10.1) mg/dL Magnesium 1.9 (1.8-2.4) mg/dl Result Diagrams: 02/15/17 05:45 02/15/17 05:45 Consult PN Assessment/Plan Procedures: Procedures ASSAY OF LIPASE (01/01/17) ASSAY OF NATRIURETIC PEPTIDE (11/13/14) ASSAY OF TROPONIN QUANT (11/13/14) ASSAY THYROID STIM HORMONE (11/13/14) BIOPSY/REMOVAL LYMPH NODES (10/11/14) BLOOD GASES ANY COMBINATION (10/11/14) BLOOD TYPING SEROLOGIC ABO (10/11/14) BLOOD TYPING SEROLOGIC RH(D) (10/11/14) CHEST X-RAY 1 VIEW FRONTAL (11/13/14) COMPATIBILITY TEST ANTIGLOB (10/11/14) COMPLETE CBC AUTOMATED (10/11/14) COMPLETE CBC W/AUTO DIFF WBC (01/01/17) COMPREHEN METABOLIC PANEL (01/01/17) CREATINE MB FRACTION (11/13/14) DRAINAGE OF HEMATOMA/FLUID (10/11/14) DXA BONE DENSITY AXIAL (11/23/15) ELECTROCARDIOGRAM TRACING (01/01/17) EMERGENCY DEPT VISIT (01/01/17) EMERGENCY DEPT VISIT (11/13/14) FIBRIN DEGRADATION QUANT (11/13/14) HEMATOCRIT (10/11/14) HEMOGLOBIN (10/11/14) IMMUNOHISTO ANTB 1ST STAIN (10/11/14) IO MAP OF SENT LYMPH NODE (10/11/14) METABOLIC PANEL TOTAL CA (10/11/14) MRI JOINT UPR EXTREM W/O DYE (01/30/17) MRI NECK SPINE W/O DYE (01/30/17) PARTIAL MASTECTOMY (10/11/14) PATH CONSULT INTRAOP 1 BLOC (10/11/14) PROTHROMBIN TIME (11/13/14) RA TRACER ID OF SENTINL NODE (10/11/14) RBC ANTIBODY SCREEN (10/11/14) ROUTINE VENIPUNCTURE (01/01/17) THER/PROPH/DIAG IV INF INIT (10/11/14) THROMBOPLASTIN TIME PARTIAL (10/11/14) TISSUE EXAM BY PATHOLOGIST (10/11/14) TISSUE EXAM BY PATHOLOGIST (10/11/14) TISSUE EXAM BY PATHOLOGIST (10/11/14) URINALYSIS AUTO W/SCOPE (01/01/17) WITHDRAWAL OF ARTERIAL BLOOD (10/11/14) (1) Abdominal pain SNOMED Code(s): 80658736 Code(s): R10.9 - UNSPECIFIED ABDOMINAL PAIN Priority: High Current Visit : Yes Qualifiers: Abdominal location: generalized Qualified Code(s): R10.84 - Generalized abdominal pain Problem List Initiated/Reviewed/Updated: Yes Plan: Assessment: 81 year old female with abdominal pain, nausea, vomiting, segment of inflamed RLQ small bowel of uncertain etiology Plan: Labs and images were reviewed with and personally by Dr. Correa. As above patient has a segment of inflamed RLQ small bowel of uncertain etiology. It appears the patient may be improving, with her decrease in WBC and CRP, as well as one bowel movement. She has not had an emesis since yesterday. Is having occasional nausea now. However, patient is not currently passing gas. The patient should remain NPO. She may have hard candy. She may chew gum. She may have sips of warm tea. At this point she should be monitored closely. If she continues to have clinical improvement we can proceed with EGD/colonoscopy as planned on 02/27 after patient has completed after resolution of symptoms and after 7 day course of antibiotics have been completed. If she continues to fail to pass gas/stool or worsens clinically surgical intervention will be considered. I did discuss this with the patient. She seemed to be inclined to want to manage conservatively. She does have epigastric pain, prior diagnosis of gastritis, she should continue PPI therapy. She did also have an occasional extrasystole and crackles in her lung bases. She denies chest pain/palpitations/cardiac symptoms. She reported she has been told she has crackles and after she has been up walking, these resolve. She has no edema. She did have a CXR in 2014, no cardiomegaly was demonstrated. This should be monitored by hospitalist service. She was encouraged to cough and deep breath, as well as ambulate. Also of note, her recent CT report did comment on gallbladder sludge, however, abdominal US was normal, no stones were noted. DVT prophylaxis, medical management to be continued by hospitalist service. Jazlyn Guzman NP-C General Surgery Requesting Provider: Dr. Jeet Morris Date Consult Requested: 02/11/17 Patient History Reviewed: Yes Admission H&P Reviewed: Yes Notified Requestor: Yes Time Spent (in minutes): 30
[2017-02-16] MEDS: Levofloxacin/Dextrose 5%-Water 500 MG in Premix Bag 1 BAG IV SCH (08:18)
[2017-02-16] MEDS: Pantoprazole 40 MG Vial IVPUSH SCH (08:19)
[2017-02-16] MEDS: Enoxaparin 40 MG/0.4 ML Syringe SUBCUT SCH (08:20)
[2017-02-16] MEDS: amLODIPine 10 MG Tab PO SCH (08:20)
[2017-02-16] MEDS: Hydrochlorothiazide 12.5 MG Cap PO SCH (08:21)
[2017-02-16] MEDS: Losartan 100 MG Tab PO SCH (08:21)
[2017-02-16] MEDS: Saccharomyces Boulardii (Probiotic) 250 MG Cap PO SCH ×2 (08:22→20:20)
[2017-02-16] MEDS: Multivitamins,Therapeutic Tab PO SCH (08:25)
[2017-02-16] MEDS: Vitamin B6-pyridOXINE 50 MG Tab PO SCH (08:25)
[2017-02-16] MEDS: Cyanocobalamin (Vitamin B-12) [Vitamin B-12] 2,500 MCG PO SCH (08:25)
[2017-02-16] MEDS: Thiamine 100 MG Tab PO SCH (08:25)
[2017-02-16] MEDS: UBIDECARENONE 200 MG PO SCH (08:25)
[2017-02-16] MEDS: Cholecalciferol (Vitamin D3) 1,000 Unit Tab PO SCH (08:26)
[2017-02-16] MEDS: Vitamin E (dl-alpha-tocopherol acetate) 400 Unit Cap PO SCH (08:26)
[2017-02-16] MEDS: Pantoprazole 40 MG Tab.CR PO SCH (09:01)
[2017-02-16] MEDS: Magnesium Oxide 400 MG Tab PO SCH (10:15)
[2017-02-16] MEDS: Potassium Chloride 20 MEQ Tab.ER PO SCH ×2 (10:29→20:21)
--- NOTE | 2017-02-16 11:47 | PCM.PN ---
<Gali Manuel M - Last Filed: 02/16/17 11:42> - General Info Date of Service: 02/16/17 Admission Dx/Problem (Free Text): Admission Diagnosis/Problem Admission Diagnosis/Problem Abdominal pain Lola is seen this morning with team rounding. She reports large BM last evening, good appetite- at 100% breakfast without n/v or abd pain. VSS. Labs with K+ remaining low but replaced with PO KCL today. If continues to tolerate meals today will plan for DC home tomorrow- she is anxious to return home. Functional Status: Reports: pain controlled, tolerating diet, ambulating, urinating. Denies: new symptoms - Review of Systems General: Reports: No Symptoms. Denies: Weakness (resolved) Pulmonary: Reports: no symptoms Cardiovascular: Reports: No Symptoms Gastrointestinal: Reports: No symptoms. Denies: Abdominal pain, Decreased appetite, Diarrhea, Hematochezia, Melena, Nausea, Vomiting Genitourinary: Reports: no symptoms Neurological: Reports: No Symptoms Psychiatric: Reports: no symptoms - Patient Data Vitals - most recent: Last Vital Signs Temp 98.1 F 02/16/17 11:38 Pulse 66 02/16/17 11:38 Resp 18 02/16/17 11:38 BP 121/61 02/16/17 11:38 Pulse Ox 97 02/16/17 11:38 Weight - most recent: 74.48 kg I&O - last 24 hours: Intake & Output 02/15/17 02/16/17 02/16/17 22:59 06:59 14:59 Intake Total 2390 1228 972 Output Total 800 1925 Balance 1590 -697 972 Lab Results last 24 hrs: Laboratory Results - last 24 hr 02/16/17 02/16/17 Range/Units 07:30 07:30 WBC 8.56 (3.98-10.04) K/mm3 RBC 4.33 (3.98-5.22) M/mm3 Hgb 14.0 (11.2-15.7) gm/L Hct 40.4 (34.1-44.9) % MCV 93.3 (79.4-94.8) fl MCH 32.3 H (25.6-32.2) pg MCHC 34.7 (32.2-35.5) g/dl RDW Std Deviation 42.9 (36.4-46.3) fL Plt Count 183 (182-369) K/mm3 MPV 9.3 L (9.4-12.3) fl Neut % (Auto) 63.4 (34.0-71.1) % Lymph % (Auto) 21.5 (19.3-51.7) % [place] % (Auto) 11.2 (4.7-12.5) % Eos % (Auto) 3.2 (0.7-5.8) Baso % (Auto) 0.2 (0.1-1.2) % Neut # (Auto) 5.43 (1.56-6.13) K/mm3 Lymph # (Auto) 1.84 (1.18-3.74) K/mm3 [place] # (Auto) 0.96 H (0.24-0.36) K/mm3 Eos # (Auto) 0.27 (0.04-0.36) K/mm3 Baso # (Auto) 0.02 (0.01-0.08) K/mm3 Sodium 141 (136-145) mEq/L Potassium 3.2 L (3.5-5.1) mEq/L Chloride 107 (98-107) mEq/L Carbon Dioxide 25 (21-32) mEq/L Anion Gap 12.2 (5-15) BUN 6 L (7-18) mg/dL Creatinine 0.7 (0.55-1.02) mg/dL Est Cr Clr Drug Dosing 51.48 mL/min Estimated GFR (MDRD) > 60 (>60) mL/min BUN/Creatinine Ratio 8.6 L (14-18) Glucose 101 (83-115) mg/dL Calcium 7.8 L (8.5-10.1) mg/dL Magnesium 1.9 (1.8-2.4) mg/dl Med Orders - Current: Current Medications Acetaminophen (Tylenol) 650 mg PO Q4H PRN PRN Reason: Pain (Mild 1-3)/fever Hydrocodone Bitart/Acetaminophen ([place] 325-5 Mg) 1 tab PO Q4H PRN PRN Reason: Pain (moderate 4-6) Last Admin: 02/08/17 21:13 Dose: 1 tab Al Hydroxide/Mg Hydroxide (Mag-Al Plus) 30 ml PO Q4H PRN PRN Reason: Heartburn Last Admin: 02/13/17 01:30 Dose: 30 ml Albuterol/Ipratropium (Duoneb 3.0-0.5 Mg/3 Ml) 3 ml NEB Q4H PRN PRN Reason: Shortness Of Breath/wheezing Amlodipine Besylate (Norvasc) 10 mg PO DAILY [facility] Last Admin: 02/16/17 08:20 Dose: 10 mg Cholecalciferol (Vitamin D3) 2,000 units PO DAILY [facility] Last Admin: 02/16/17 08:26 Dose: Not Given Enoxaparin Sodium (Lovenox) 40 mg SUBCUT DAILY [facility] Last Admin: 02/16/17 08:20 Dose: 40 mg Hydralazine HCl (Apresoline) 10 mg IVPUSH Q4H PRN PRN Reason: Hypertension Last Admin: 02/12/17 18:01 Dose: 10 mg Hydrochlorothiazide (Hydrochlorothiazide) 12.5 mg PO DAILY [facility] Last Admin: 02/16/17 08:21 Dose: 12.5 mg Hydromorphone HCl (Dilaudid) 0.5 mg IVPUSH Q4H PRN PRN Reason: Pain (severe 7-10) Last Admin: 02/15/17 14:11 Dose: 0.5 mg Promethazine HCl 12.5 mg/ (Sodium Chloride) 50.5 mls @ 100 mls/hr IV Q6H PRN PRN Reason: Nausea/Vomiting Levothyroxine Sodium (Synthroid) 88 mcg PO ACBREAKFAST [facility] Last Admin: 02/16/17 06:11 Dose: 88 mcg Lorazepam (Ativan) 0.25 mg IV Q6H PRN PRN Reason: Anxiety Losartan Potassium (Cozaar) 100 mg PO DAILY [facility] Last Admin: 02/16/17 08:21 Dose: 100 mg Magnesium Oxide (Magnesium Oxide) 400 mg PO DAILY [facility] Last Admin: 02/16/17 10:15 Dose: Not Given Metoclopramide HCl (Reglan) 10 mg IVPUSH Q4H PRN PRN Reason: Nausea/Vomiting Last Admin: 02/10/17 17:51 Dose: 10 mg Metoprolol Tartrate (Lopressor) 2.5 mg IVPUSH Q4H PRN PRN Reason: Tachycardia Miscellaneous Information (Remove Patch) 0 ea TRDERM ONETIME ONE Stop: 02/16/17 13:01 Multivitamins (Thera) 1 each PO DAILY [facility] Last Admin: 02/16/17 08:25 Dose: Not Given Ondansetron HCl (Zofran) 4 mg IV Q6H PRN PRN Reason: Nausea/Vomiting Last Admin: 02/15/17 13:06 Dose: 4 mg Pantoprazole Sodium (Protonix) 40 mg PO DAILY [facility] Last Admin: 02/16/17 09:01 Dose: Not Given Cyanocobalamin ( Vitamin B-12) [ Vitamin B-12] 2,500 Mcg 0 each PO DAILY [facility] Last Admin: 02/16/17 08:25 Dose: Not Given Ubidecarenone 200 Mg 0 each PO DAILY [facility] Last Admin: 02/16/17 08:25 Dose: Not Given Potassium Chloride (Klor-Con M20) 20 meq PO BID [facility] Last Admin: 02/16/17 10:29 Dose: 20 meq Pyridoxine HCl (Vitamin B6-Pyridoxine) 100 mg PO DAILY [facility] Last Admin: 02/16/17 08:25 Dose: Not Given Saccharomyces Boulardii (Florastor) 250 mg PO BID [facility] Last Admin: 02/16/17 08:22 Dose: 250 mg Simvastatin (Zocor) 10 mg PO BEDTIME [facility] Last Admin: 02/15/17 21:01 Dose: 10 mg Sodium Chloride (Saline Flush) 10 ml FLUSH ASDIRECTED PRN PRN Reason: Keep Vein Open Last Admin: 02/08/17 10:36 Dose: 10 ml Temazepam (Restoril) 7.5 mg PO BEDTIME PRN PRN Reason: SLEEP Thiamine HCl (Vitamin B-1) 100 mg PO DAILY [facility] Last Admin: 02/16/17 08:25 Dose: Not Given Vitamin E (Vitamin E) 400 units PO DAILY [facility] Last Admin: 02/16/17 08:26 Dose: Not Given Discontinued Medications Amlodipine Besylate (Norvasc) 5 mg PO DAILY [facility] Last Admin: 02/13/17 08:26 Dose: 5 mg Amlodipine Besylate (Norvasc) 5 mg PO ONETIME ONE Stop: 02/13/17 12:56 Last Admin: 02/13/17 13:23 Dose: 5 mg Atenolol (Tenormin) 25 mg PO DAILY [facility] Last Admin: 02/13/17 08:26 Dose: 25 mg Al Hydroxide/Mg Hydroxide 30 (ml/ Lidocaine HCl 15 ml) 0 ml PO ONETIME ONE Stop: 02/08/17 10:10 Last Admin: 02/08/17 10:30 Dose: 30 ml Diatrizoate Meglum/Diatrizoate Sod (Gastrografin 37%) 90 ml PO ONETIME ONE Stop: 02/08/17 12:03 Last Admin: 02/08/17 12:26 Dose: 90 ml Famotidine (Pepcid) 20 mg PO BID [facility] Last Admin: 02/09/17 08:16 Dose: 20 mg Famotidine (Pepcid) 20 mg PO DAILY [facility] Last Admin: 02/10/17 08:08 Dose: 20 mg Famotidine (Pepcid) 20 mg IVPUSH BID [facility] Last Admin: 02/12/17 22:12 Dose: 20 mg Hydromorphone HCl (Dilaudid) 0.5 mg IVPUSH ONETIME ONE Stop: 02/08/17 10:10 Last Admin: 02/08/17 10:36 Dose: 0.5 mg Hydromorphone HCl (Dilaudid) 1 mg IVPUSH ONETIME ONE Stop: 02/08/17 12:50 Last Admin: 02/08/17 12:55 Dose: 1 mg Hydromorphone HCl (Dilaudid) 0.25 mg IVPUSH Q4H PRN PRN Reason: Pain (severe 7-10) Last Admin: 02/09/17 06:54 Dose: 0.25 mg Sodium Chloride (Normal Saline) 1,000 mls @ 125 mls/hr IV ASDIRECTED [facility] Last Admin: 02/08/17 10:32 Dose: 125 mls/hr Levofloxacin/Dextrose 500 mg/ (Premix) 100 mls @ 100 mls/hr IV ONETIME ONE Stop: 02/08/17 14:38 Last Admin: 02/08/17 14:02 Dose: 100 mls/hr Metronidazole 500 mg/ Premix 100 mls @ 100 mls/hr IV ONETIME ONE Stop: 02/08/17 14:38 Last Admin: 02/08/17 21:08 Dose: Not Given Levofloxacin/Dextrose 500 mg/ (Premix) 100 mls @ 100 mls/hr IV Q24H [facility] Stop: 02/16/17 10:00 Last Admin: 02/16/17 08:18 Dose: 100 mls/hr Metronidazole 500 mg/ Premix 100 mls @ 100 mls/hr IV Q8H [facility] Stop: 02/16/17 23:30 Last Admin: 02/16/17 06:11 Dose: 100 mls/hr Dextrose/Sodium Chloride (Dextrose 5%-Normal Saline) 1,000 mls @ 100 mls/hr IV ASDIRECTED [facility] Last Admin: 02/10/17 08:13 Dose: 100 mls/hr Potassium Chloride 10 meq/ (Premix) 100 mls @ 100 mls/hr IV Q1H [facility] Stop: 02/10/17 16:29 Last Admin: 02/10/17 16:42 Dose: 100 mls/hr Dextrose/Sodium Chloride (Dextrose 5%-Normal Saline) 1,000 mls @ 100 mls/hr IV ASDIRECTED [facility] Last Admin: 02/16/17 06:12 Dose: 100 mls/hr Potassium Chloride 10 meq/ (Premix) 100 mls @ 100 mls/hr IV Q1H [facility] Stop: 02/11/17 17:14 Last Admin: 02/11/17 19:24 Dose: 100 mls/hr Magnesium Sulfate 2 gm/ Premix 50 mls @ 25 mls/hr IV ONETIME ONE Stop: 02/12/17 10:29 Last Admin: 02/12/17 10:02 Dose: 25 mls/hr Potassium Chloride 10 meq/ (Premix) 100 mls @ 100 mls/hr IV Q1H [facility] Stop: 02/12/17 14:29 Last Admin: 02/12/17 15:02 Dose: Not Given Potassium Chloride 10 meq/ (Premix) 100 mls @ 100 mls/hr IV Q1H [facility] Stop: 02/13/17 14:14 Last Admin: 02/13/17 17:11 Dose: 100 mls/hr Potassium Chloride (Kcl 10 Meq In Water 100 Ml) 100 mls @ 100 mls/hr IV Q1H [facility] Stop: 02/14/17 17:59 Last Admin: 02/14/17 18:57 Dose: 100 mls/hr Magnesium Sulfate/Dextrose 1 (gm/ Premix) 100 mls @ 100 mls/hr IV ONETIME ONE Stop: 02/14/17 14:46 Last Admin: 02/14/17 15:38 Dose: 100 mls/hr Potassium Chloride (Kcl 10 Meq In Water 100 Ml) 100 mls @ 100 mls/hr IV Q1H [facility] Stop: 02/15/17 13:59 Last Admin: 02/15/17 14:11 Dose: 100 mls/hr Magnesium Sulfate (Magnesium Sulfate 2 Gm In Water 50 Ml) 50 mls @ 50 mls/hr IV ONETIME ONE Stop: 02/15/17 10:59 Last Admin: 02/15/17 15:14 Dose: 50 mls/hr Iopamidol (Isovue-300 (61%)) 100 ml IVPUSH ONETIME ONE Stop: 02/08/17 12:03 Last Admin: 02/08/17 12:26 Dose: 100 ml Levothyroxine Sodium (Levothyroxine) 75 mcg PO ACBRK [facility] Last Admin: 02/13/17 05:04 Dose: 75 mcg Magnesium Sulfate (Pharmacy To Dose - Magnesium Replacement) 1 dose .XX ASDIRECTED [facility] Metoclopramide HCl (Reglan) 10 mg IVPUSH ONETIME ONE Stop: 02/08/17 12:50 Last Admin: 02/08/17 12:54 Dose: 10 mg Metoclopramide HCl (Reglan) 10 mg IVPUSH Q6H [facility] Last Admin: 02/11/17 06:14 Dose: Not Given Metoclopramide HCl (Reglan) 10 mg IVPUSH Q6H [facility] Last Admin: 02/16/17 03:16 Dose: 10 mg Miscellaneous Information (Remove Patch) 1 ea TRDERM DAILY [facility] Stop: 02/12/17 09:01 Last Admin: 02/12/17 09:13 Dose: 1 ea Miscellaneous Information (Remove Patch) 0 ea TRDERM ONETIME ONE Stop: 02/13/17 07:46 Last Admin: 02/13/17 08:24 Dose: Not Given Ondansetron HCl (Zofran) 4 mg IVPUSH ONETIME ONE Stop: 02/08/17 10:09 Last Admin: 02/08/17 10:33 Dose: 4 mg Pantoprazole Sodium (Protonix) 40 mg PO BID [facility] Last Admin: 02/12/17 08:54 Dose: 40 mg Pantoprazole Sodium (Protonix Iv) 40 mg IVPUSH Q12H [facility] Last Admin: 02/16/17 08:19 Dose: 40 mg Potassium Chloride (Pharmacy To Dose - Potassium Replacement) 1 dose .XX ASDIRECTED [facility] Potassium Chloride (Klor-Con M20) 40 meq PO Q4H [facility] Stop: 02/10/17 17:01 Last Admin: 02/10/17 13:10 Dose: 40 meq Potassium Chloride (Klor-Con M20) 40 meq PO Q4H [facility] Stop: 02/11/17 12:01 Last Admin: 02/11/17 12:08 Dose: Not Given Saccharomyces Boulardii (Florastor) 250 mg PO TID [facility] Last Admin: 02/13/17 05:28 Dose: Not Given Scopolamine (Transderm-Scop) 1.5 mg TOP ONETIME ONE Stop: 02/09/17 08:01 Last Admin: 02/09/17 08:12 Dose: 1.5 mg Scopolamine (Transderm-Scop) 1.5 mg TOP ONETIME ONE Stop: 02/10/17 07:37 Last Admin: 02/10/17 08:05 Dose: 1.5 mg Scopolamine (Transderm-Scop) 1.5 mg TRDERM Q72H ONE Stop: 02/13/17 13:01 Last Admin: 02/13/17 13:22 Dose: 1.5 mg Sodium Chloride (Saline Flush) 10 ml FLUSH ONETIME ONE Stop: 02/08/17 12:03 Last Admin: 02/08/17 12:26 Dose: 10 ml Sucralfate (Carafate) 1 gm PO ACBED [facility] Last Admin: 02/10/17 10:46 Dose: Not Given - Exam Quality Assessment: DVT prophylaxis General: alert, oriented, cooperative, no acute distress HEENT: Pupils equal, Pupils reactive, EOMI, Mucous membr. moist/pink Neck: supple Lungs: Clear to auscultation, Normal respiratory effort Cardiovascular: Regular Rate, Regular Rhythm Abdomen: bowel sounds present, soft, no tenderness, no distension. No: rigidity , rebound, guarding, organomegaly (Female) Exam: Deferred Extremities: no edema, no calf tenderness Peripheral Pulses: 1+: Dorsalis Pedis (L), Dorsalis Pedis (R) Neurological: no new focal deficit Psy/Mental Status: alert, normal affect, normal mood - Problem List & Annotations (1) Abdominal pain SNOMED Code(s): 21370947 Code(s): R10.9 - UNSPECIFIED ABDOMINAL PAIN Status: Resolved Priority: High Current Visit: Yes Qualifiers: Abdominal location: generalized Qualified Code(s): R10.84 - Generalized abdominal pain (2) Enteritis SNOMED Code(s): 22255722 Code(s): K52.9 - NONINFECTIVE GASTROENTERITIS AND COLITIS, UNSPECIFIED Status: Resolved Priority: High Current Visit: Yes (3) Ileus SNOMED Code(s): 427263277 Code(s): K56.7 - ILEUS, UNSPECIFIED Status: Resolved Priority: High Current Visit: Yes (4) Hypokalemia SNOMED Code(s): 20579660 Code(s): E87.6 - HYPOKALEMIA Status: Acute Priority: High Current Visit : Yes (5) Hypomagnesemia SNOMED Code(s): 517606788 Code(s): E83.42 - HYPOMAGNESEMIA Status: Acute Current Visit: Yes - Problem List Review Problem List Initiated/Reviewed/Updated: Yes - My Orders Last 24 Hours: My Active Orders 02/16/17 09:00 Pantoprazole [ProTONIX] 40 mg PO DAILY Potassium Chloride [Klor-Con M20] 20 meq PO BID 02/17/17 05:11 BASIC METABOLIC PANEL,BMP [CHEM] AM CBC WITH AUTO DIFF [HEME] AM MAGNESIUM [CHEM] AM - Plan Plan:: Assessment/Plan: Acute: Enteritis ----Resolved - Viral vs Bacterial vs Inflammatory---DC abx today - No unusual drink or food - No travel outside the country - She was able to eat or drink - She was PPI for presumptive Gastritis/PUD pending EGD on the of this month with Dr. Correa - Continue supportive care and intravenous antibiotics with Levaquin and Flagyl - Oral Probiotic - PRN meds for symptomatic control; antiementic and pain control Partial Small [place] Obstruction---Resolved - 2/2 Above cannot r/o neoplasm or inflammatory tumor - Supportive Care and Conservative Management - She schedule for endoscopy at the end of the month - Dr. Correa consulted- consulted and following Abdominal Pain/Hx/o Gastritis---Resolved - May have worsened by above - Started on January 01 - Was on Carafate and PPI - She is scheduled to see Dr. Correa at the end of the month - Treatment as above Hypokalemia and Hypomagnesemia - Pharmacy to replete and monitor Cholelithiasis - CT scan finding, negative prior abd US as outpatient. - Stable at this time Right Kidney 7 mm Hypodense Mass - CT scan finding - DDx: cyst, infection, hematoma or neoplasm - Informed patient about findings - Defer further work up at this time; defer to outpatient eval with PCP. Resolved: S/p Leukocytosis - 2/2 Above Chronic: HTN OA/DJD Anxiety HTN Gastritis Hypothyroidism, patient dose has been increased from 75 to 88 mcg Vit D Deficiency Hx/o Breast Cancer S/p Mastectomy Plan: She remains clinically stable Tolerating diet well thus far today; if continues to do well will plan for DC home tomorrow Routine AM Labs Dr. Correa following - agrees with above noted POC Continue to ambulate TID-QID DVT/GI prophylax Additional orders as above Code status: DNR/DNI LOS > 96 hrs due to slow response to treatment--Plan DC home tomorrow <Leeanna Sims - Last Filed: 02/16/17 14:14> - Patient Data Vitals - most recent: Last Vital Signs Temp 36.7 C 02/16/17 11:38 Pulse 66 02/16/17 11:38 Resp 18 02/16/17 11:38 BP 121/61 02/16/17 11:38 Pulse Ox 97 02/16/17 11:38 I&O - last 24 hours: Intake & Output 02/15/17 02/16/17 02/16/17 22:59 06:59 14:59 Intake Total 2390 1228 972 Output Total 800 1925 Balance 1590 -697 972 Lab Results last 24 hrs: Laboratory Results - last 24 hr 02/16/17 02/16/17 Range/Units 07:30 07:30 WBC 8.56 (3.98-10.04) K/mm3 RBC 4.33 (3.98-5.22) M/mm3 Hgb 14.0 (11.2-15.7) gm/L Hct 40.4 (34.1-44.9) % MCV 93.3 (79.4-94.8) fl MCH 32.3 H (25.6-32.2) pg MCHC 34.7 (32.2-35.5) g/dl RDW Std Deviation 42.9 (36.4-46.3) fL Plt Count 183 (182-369) K/mm3 MPV 9.3 L (9.4-12.3) fl Neut % (Auto) 63.4 (34.0-71.1) % Lymph % (Auto) 21.5 (19.3-51.7) % [place] % (Auto) 11.2 (4.7-12.5) % Eos % (Auto) 3.2 (0.7-5.8) Baso % (Auto) 0.2 (0.1-1.2) % Neut # (Auto) 5.43 (1.56-6.13) K/mm3 Lymph # (Auto) 1.84 (1.18-3.74) K/mm3 [place] # (Auto) 0.96 H (0.24-0.36) K/mm3 Eos # (Auto) 0.27 (0.04-0.36) K/mm3 Baso # (Auto) 0.02 (0.01-0.08) K/mm3 Sodium 141 (136-145) mEq/L Potassium 3.2 L (3.5-5.1) mEq/L Chloride 107 (98-107) mEq/L Carbon Dioxide 25 (21-32) mEq/L Anion Gap 12.2 (5-15) BUN 6 L (7-18) mg/dL Creatinine 0.7 (0.55-1.02) mg/dL Est Cr Clr Drug Dosing 51.48 mL/min Estimated GFR (MDRD) > 60 (>60) mL/min BUN/Creatinine Ratio 8.6 L (14-18) Glucose 101 (83-115) mg/dL Calcium 7.8 L (8.5-10.1) mg/dL Magnesium 1.9 (1.8-2.4) mg/dl Med Orders - Current: Current Medications Acetaminophen (Tylenol) 650 mg PO Q4H PRN PRN Reason: Pain (Mild 1-3)/fever Hydrocodone Bitart/Acetaminophen ([place] 325-5 Mg) 1 tab PO Q4H PRN PRN Reason: Pain (moderate 4-6) Last Admin: 02/08/17 21:13 Dose: 1 tab Al Hydroxide/Mg Hydroxide (Mag-Al Plus) 30 ml PO Q4H PRN PRN Reason: Heartburn Last Admin: 02/13/17 01:30 Dose: 30 ml Albuterol/Ipratropium (Duoneb 3.0-0.5 Mg/3 Ml) 3 ml NEB Q4H PRN PRN Reason: Shortness Of Breath/wheezing Amlodipine Besylate (Norvasc) 10 mg PO DAILY [facility] Last Admin: 02/16/17 08:20 Dose: 10 mg Cholecalciferol (Vitamin D3) 2,000 units PO DAILY [facility] Last Admin: 02/16/17 08:26 Dose: Not Given Enoxaparin Sodium (Lovenox) 40 mg SUBCUT DAILY [facility] Last Admin: 02/16/17 08:20 Dose: 40 mg Hydralazine HCl (Apresoline) 10 mg IVPUSH Q4H PRN PRN Reason: Hypertension Last Admin: 02/12/17 18:01 Dose: 10 mg Hydrochlorothiazide (Hydrochlorothiazide) 12.5 mg PO DAILY [facility] Last Admin: 02/16/17 08:21 Dose: 12.5 mg Hydromorphone HCl (Dilaudid) 0.5 mg IVPUSH Q4H PRN PRN Reason: Pain (severe 7-10) Last Admin: 02/15/17 14:11 Dose: 0.5 mg Promethazine HCl 12.5 mg/ (Sodium Chloride) 50.5 mls @ 100 mls/hr IV Q6H PRN PRN Reason: Nausea/Vomiting Levothyroxine Sodium (Synthroid) 88 mcg PO ACBREAKFAST [facility] Last Admin: 02/16/17 06:11 Dose: 88 mcg Lorazepam (Ativan) 0.25 mg IV Q6H PRN PRN Reason: Anxiety Losartan Potassium (Cozaar) 100 mg PO DAILY [facility] Last Admin: 02/16/17 08:21 Dose: 100 mg Magnesium Oxide (Magnesium Oxide) 400 mg PO DAILY [facility] Last Admin: 02/16/17 10:15 Dose: Not Given Metoclopramide HCl (Reglan) 10 mg IVPUSH Q4H PRN PRN Reason: Nausea/Vomiting Last Admin: 02/10/17 17:51 Dose: 10 mg Metoprolol Tartrate (Lopressor) 2.5 mg IVPUSH Q4H PRN PRN Reason: Tachycardia Multivitamins (Thera) 1 each PO DAILY [facility] Last Admin: 02/16/17 08:25 Dose: Not Given Ondansetron HCl (Zofran) 4 mg IV Q6H PRN PRN Reason: Nausea/Vomiting Last Admin: 02/15/17 13:06 Dose: 4 mg Pantoprazole Sodium (Protonix) 40 mg PO DAILY [facility] Last Admin: 02/16/17 09:01 Dose: Not Given Cyanocobalamin ( Vitamin B-12) [ Vitamin B-12] 2,500 Mcg 0 each PO DAILY [facility] Last Admin: 02/16/17 08:25 Dose: Not Given Ubidecarenone 200 Mg 0 each PO DAILY [facility] Last Admin: 02/16/17 08:25 Dose: Not Given Potassium Chloride (Klor-Con M20) 20 meq PO BID [facility] Last Admin: 02/16/17 10:29 Dose: 20 meq Pyridoxine HCl (Vitamin B6-Pyridoxine) 100 mg PO DAILY [facility] Last Admin: 02/16/17 08:25 Dose: Not Given Saccharomyces Boulardii (Florastor) 250 mg PO BID [facility] Last Admin: 02/16/17 08:22 Dose: 250 mg Simvastatin (Zocor) 10 mg PO BEDTIME [facility] Last Admin: 02/15/17 21:01 Dose: 10 mg Sodium Chloride (Saline Flush) 10 ml FLUSH ASDIRECTED PRN PRN Reason: Keep Vein Open Last Admin: 02/08/17 10:36 Dose: 10 ml Temazepam (Restoril) 7.5 mg PO BEDTIME PRN PRN Reason: SLEEP Thiamine HCl (Vitamin B-1) 100 mg PO DAILY [facility] Last Admin: 02/16/17 08:25 Dose: Not Given Vitamin E (Vitamin E) 400 units PO DAILY [facility] Last Admin: 02/16/17 08:26 Dose: Not Given Discontinued Medications Amlodipine Besylate (Norvasc) 5 mg PO DAILY [facility] Last Admin: 02/13/17 08:26 Dose: 5 mg Amlodipine Besylate (Norvasc) 5 mg PO ONETIME ONE Stop: 02/13/17 12:56 Last Admin: 02/13/17 13:23 Dose: 5 mg Atenolol (Tenormin) 25 mg PO DAILY [facility] Last Admin: 02/13/17 08:26 Dose: 25 mg Al Hydroxide/Mg Hydroxide 30 (ml/ Lidocaine HCl 15 ml) 0 ml PO ONETIME ONE Stop: 02/08/17 10:10 Last Admin: 02/08/17 10:30 Dose: 30 ml Diatrizoate Meglum/Diatrizoate Sod (Gastrografin 37%) 90 ml PO ONETIME ONE Stop: 02/08/17 12:03 Last Admin: 02/08/17 12:26 Dose: 90 ml Famotidine (Pepcid) 20 mg PO BID [facility] Last Admin: 02/09/17 08:16 Dose: 20 mg Famotidine (Pepcid) 20 mg PO DAILY [facility] Last Admin: 02/10/17 08:08 Dose: 20 mg Famotidine (Pepcid) 20 mg IVPUSH BID [facility] Last Admin: 02/12/17 22:12 Dose: 20 mg Hydromorphone HCl (Dilaudid) 0.5 mg IVPUSH ONETIME ONE Stop: 02/08/17 10:10 Last Admin: 02/08/17 10:36 Dose: 0.5 mg Hydromorphone HCl (Dilaudid) 1 mg IVPUSH ONETIME ONE Stop: 02/08/17 12:50 Last Admin: 02/08/17 12:55 Dose: 1 mg Hydromorphone HCl (Dilaudid) 0.25 mg IVPUSH Q4H PRN PRN Reason: Pain (severe 7-10) Last Admin: 02/09/17 06:54 Dose: 0.25 mg Sodium Chloride (Normal Saline) 1,000 mls @ 125 mls/hr IV ASDIRECTED [facility] Last Admin: 02/08/17 10:32 Dose: 125 mls/hr Levofloxacin/Dextrose 500 mg/ (Premix) 100 mls @ 100 mls/hr IV ONETIME ONE Stop: 02/08/17 14:38 Last Admin: 02/08/17 14:02 Dose: 100 mls/hr Metronidazole 500 mg/ Premix 100 mls @ 100 mls/hr IV ONETIME ONE Stop: 02/08/17 14:38 Last Admin: 02/08/17 21:08 Dose: Not Given Levofloxacin/Dextrose 500 mg/ (Premix) 100 mls @ 100 mls/hr IV Q24H [facility] Stop: 02/16/17 10:00 Last Admin: 02/16/17 08:18 Dose: 100 mls/hr Metronidazole 500 mg/ Premix 100 mls @ 100 mls/hr IV Q8H [facility] Stop: 02/16/17 23:30 Last Admin: 02/16/17 06:11 Dose: 100 mls/hr Dextrose/Sodium Chloride (Dextrose 5%-Normal Saline) 1,000 mls @ 100 mls/hr IV ASDIRECTED [facility] Last Admin: 02/10/17 08:13 Dose: 100 mls/hr Potassium Chloride 10 meq/ (Premix) 100 mls @ 100 mls/hr IV Q1H [facility] Stop: 02/10/17 16:29 Last Admin: 02/10/17 16:42 Dose: 100 mls/hr Dextrose/Sodium Chloride (Dextrose 5%-Normal Saline) 1,000 mls @ 100 mls/hr IV ASDIRECTED [facility] Last Admin: 02/16/17 06:12 Dose: 100 mls/hr Potassium Chloride 10 meq/ (Premix) 100 mls @ 100 mls/hr IV Q1H [facility] Stop: 02/11/17 17:14 Last Admin: 02/11/17 19:24 Dose: 100 mls/hr Magnesium Sulfate 2 gm/ Premix 50 mls @ 25 mls/hr IV ONETIME ONE Stop: 02/12/17 10:29 Last Admin: 02/12/17 10:02 Dose: 25 mls/hr Potassium Chloride 10 meq/ (Premix) 100 mls @ 100 mls/hr IV Q1H [facility] Stop: 02/12/17 14:29 Last Admin: 02/12/17 15:02 Dose: Not Given Potassium Chloride 10 meq/ (Premix) 100 mls @ 100 mls/hr IV Q1H [facility] Stop: 02/13/17 14:14 Last Admin: 02/13/17 17:11 Dose: 100 mls/hr Potassium Chloride (Kcl 10 Meq In Water 100 Ml) 100 mls @ 100 mls/hr IV Q1H [facility] Stop: 02/14/17 17:59 Last Admin: 02/14/17 18:57 Dose: 100 mls/hr Magnesium Sulfate/Dextrose 1 (gm/ Premix) 100 mls @ 100 mls/hr IV ONETIME ONE Stop: 02/14/17 14:46 Last Admin: 02/14/17 15:38 Dose: 100 mls/hr Potassium Chloride (Kcl 10 Meq In Water 100 Ml) 100 mls @ 100 mls/hr IV Q1H [facility] Stop: 02/15/17 13:59 Last Admin: 02/15/17 14:11 Dose: 100 mls/hr Magnesium Sulfate (Magnesium Sulfate 2 Gm In Water 50 Ml) 50 mls @ 50 mls/hr IV ONETIME ONE Stop: 02/15/17 10:59 Last Admin: 02/15/17 15:14 Dose: 50 mls/hr Iopamidol (Isovue-300 (61%)) 100 ml IVPUSH ONETIME ONE Stop: 02/08/17 12:03 Last Admin: 02/08/17 12:26 Dose: 100 ml Levothyroxine Sodium (Levothyroxine) 75 mcg PO ACBRK [facility] Last Admin: 02/13/17 05:04 Dose: 75 mcg Magnesium Sulfate (Pharmacy To Dose - Magnesium Replacement) 1 dose .XX ASDIRECTED [facility] Metoclopramide HCl (Reglan) 10 mg IVPUSH ONETIME ONE Stop: 02/08/17 12:50 Last Admin: 02/08/17 12:54 Dose: 10 mg Metoclopramide HCl (Reglan) 10 mg IVPUSH Q6H [facility] Last Admin: 02/11/17 06:14 Dose: Not Given Metoclopramide HCl (Reglan) 10 mg IVPUSH Q6H [facility] Last Admin: 02/16/17 03:16 Dose: 10 mg Miscellaneous Information (Remove Patch) 1 ea TRDERM DAILY [facility] Stop: 02/12/17 09:01 Last Admin: 02/12/17 09:13 Dose: 1 ea Miscellaneous Information (Remove Patch) 0 ea TRDERM ONETIME ONE Stop: 02/13/17 07:46 Last Admin: 02/13/17 08:24 Dose: Not Given Miscellaneous Information (Remove Patch) 0 ea TRDERM ONETIME ONE Stop: 02/16/17 13:01 Ondansetron HCl (Zofran) 4 mg IVPUSH ONETIME ONE Stop: 02/08/17 10:09 Last Admin: 02/08/17 10:33 Dose: 4 mg Pantoprazole Sodium (Protonix) 40 mg PO BID [facility] Last Admin: 02/12/17 08:54 Dose: 40 mg Pantoprazole Sodium (Protonix Iv) 40 mg IVPUSH Q12H [facility] Last Admin: 02/16/17 08:19 Dose: 40 mg Potassium Chloride (Pharmacy To Dose - Potassium Replacement) 1 dose .XX ASDIRECTED [facility] Potassium Chloride (Klor-Con M20) 40 meq PO Q4H [facility] Stop: 02/10/17 17:01 Last Admin: 02/10/17 13:10 Dose: 40 meq Potassium Chloride (Klor-Con M20) 40 meq PO Q4H [facility] Stop: 02/11/17 12:01 Last Admin: 02/11/17 12:08 Dose: Not Given Saccharomyces Boulardii (Florastor) 250 mg PO TID [facility] Last Admin: 02/13/17 05:28 Dose: Not Given Scopolamine (Transderm-Scop) 1.5 mg TOP ONETIME ONE Stop: 02/09/17 08:01 Last Admin: 02/09/17 08:12 Dose: 1.5 mg Scopolamine (Transderm-Scop) 1.5 mg TOP ONETIME ONE Stop: 02/10/17 07:37 Last Admin: 02/10/17 08:05 Dose: 1.5 mg Scopolamine (Transderm-Scop) 1.5 mg TRDERM Q72H ONE Stop: 02/13/17 13:01 Last Admin: 02/13/17 13:22 Dose: 1.5 mg Sodium Chloride (Saline Flush) 10 ml FLUSH ONETIME ONE Stop: 02/08/17 12:03 Last Admin: 02/08/17 12:26 Dose: 10 ml Sucralfate (Carafate) 1 gm PO ACBED [facility] Last Admin: 02/10/17 10:46 Dose: Not Given - Plan Plan:: Agree with assessment and plan.
[2017-02-16] MEDS: Simvastatin 10 MG Tab PO SCH (20:21)
[2017-02-17] MEDS: Levothyroxine 88 MCG Tab PO SCH (07:09)
--- NOTE | 2017-02-17 07:13 | PCM.DCSUM1 ---
<Gali Manuel - Last Filed: 02/17/17 07:13> Discharge Summary - Hospital Course Free Text/Narrative:: This is an 81-year-old pleasant elderly white female with past medical history of hypertension, osteoarthritis/DJD, anxiety, hypothyroidism, history of breast , breast cancer status post mastectomy who comes in with with complains of abdominal pain after she attended hoahaoism services today. She is currently nauseous without emesis. She has no diarrhea, is passing gas. She denies taking any unusual drink or food. Her symptom has no associated with food. She denies any systemic symptoms. Her abdominal pain started back early December of this year. She was found to have gastritis and currently on Carafate and PPI. Patient is scheduled to see Dr. Correa for possible EGD on the of this month. Her initial emergency department workup shows a CBC remarkable for hemoglobin 16 , hematocrit 47.5 and platelet 167. Her chemistries remarkable for total protein 8.3. Liver enzymes and lipase are all normal. CRP is normal. UA shows negative for urinary tract infection. Her abdominal CT scan report reads 1) There are multiple loops of dilated small bowel with air contrast levels. Inflammatory changes are seen around loops of small bowel in the right abdomen. There is mucosal thickening of the small bowel in this region. This may represent enteritis differential of dilated loops of bowel includes ileus and small bowel obstruction. 2) Gallstones in the gallbladder. 3) 7 mm hypodense mass in the right kidney is not a cyst. Differential diagnosis includes complex cyst infection hematoma neoplasm. Patient is being admitted for medical management of acute enteritis, partial SBO. She is DNR/DNI. She was treated with IV abx x 7 days, levaquin, flagyl and florastor, IVF. She was maintained NPO status until flatus. Dr. Correa was consulted for opinion. Recommended continue with medical managment. She was on scheduled reglan for prokinetic. She declined/refused NG tube and wished to continue with conservative nonsurgical managment. Pain was controlled with IV narcotic, dilaudid, until she was able to advance and take PO. She did have very large BM , nausea and pain resolved slowly. Diet was advanced, tolerated very well without n/v or further abd. pain. She was hypokalemic and hypomagnesemic, electrolytes were replaced. She will be discharged home today with [facility] nursing and PT. Face to face encounter today reveals patient will benefit from further PT for strengthening and balance, nursing care for assistance with medication education, VS monitoring, disease process education regarding recent current illness of partial small bowel obstruction, enteritis, electrolyte abnormalities. She continues to be weak from this illness and hospital stay. She will be home bound for a period of time. She will f/up with PCP, Dr. Villeda within one week of DC who will then oversee her [facility]. She rec'd 7 days of IV abx, WBC, CRP resolved to normal, no need for further PO abx as outpatient. - Discharge Data Discharge Date: 02/17/17 (admit date 02/08/17) Discharge Disposition: Home, W Home Health Agency 06 Condition: Good - Discharge Diagnosis/Problem(s) (1) Abdominal pain SNOMED Code(s): 80617394 ICD Code: R10.9 - UNSPECIFIED ABDOMINAL PAIN Status: Resolved Priority: High Current Visit: Yes Qualifiers: Abdominal location: generalized Qualified Code(s): R10.84 - Generalized abdominal pain (2) Enteritis SNOMED Code(s): 06491097 ICD Code: K52.9 - NONINFECTIVE GASTROENTERITIS AND COLITIS, UNSPECIFIED Status: Resolved Priority: High Current Visit: Yes (3) Ileus SNOMED Code(s): 210614122 ICD Code: K56.7 - ILEUS, UNSPECIFIED Status: Resolved Priority: High Current Visit: Yes (4) Hypokalemia SNOMED Code(s): 87375958 ICD Code: E87.6 - HYPOKALEMIA Status: Acute Priority: High Current Visit: Yes (5) Hypomagnesemia SNOMED Code(s): 448896175 ICD Code: E83.42 - HYPOMAGNESEMIA Status: Acute Current Visit: Yes - Patient Summary/Data Operative Procedure(s) Performed: None Complications: None Consults: Consultations 02/08/17 15:46 Consult to Case Management [CONS] Routine Consult to Publisher Assistant [CONS] Routine Consult to Spiritual Care [CONS] Routine 02/11/17 09:58 Consult to Physician [CONS] Routine 02/12/17 10:02 PT Evaluation and Treatment [CONS] Routine Labs Pending at D/C: None Recommended Follow-up Testing/Procedures: Therapy recommend home health & home PT Keep previously scheduled appointment on 6/30/[address] Brenna Correa for endoscopy Follow up with Dr. Villeda within one week of discharge with labs at that time ; BMP and magnesium levels Planned Operative Procedure(s) after DC: None Hospital Course: As above - Patient Instructions Diet: Usual Diet as Tolerated Activity: As Tolerated Showering/Bathing: May Shower Notify Provider of: Fever, Increased Pain, Nausea and/or Vomiting - Discharge Plan Prescriptions/Med Rec: Levothyroxine [Synthroid] 88 mcg PO ACBREAKFAST #30 tablet Potassium Chloride [Klor-Con M20] 20 meq PO BID #20 tab.er amLODIPine [Norvasc] 10 mg PO DAILY #30 tablet Home Medications: Home Meds Acebutolol [Sectral] 200 mg PO DAILY 10/06/14 [History] Ascorbate Calcium [Vitamin C] 500 mg PO DAILY 10/06/14 [History] Calcium Citrate/Vitamin D3 [Citracal + D Maximum Caplet] 1 tab PO DAILY [History] Cholecalciferol (Vitamin D3) [Vitamin D3] 2,000 unit PO DAILY 10/06/14 [History] Cyanocobalamin (Vitamin B-12) [Vitamin B-12] 2,500 mcg SL DAILY 10/06/14 [ History] Hydrochlorothiazide 12.5 mg PO DAILY 10/06/14 [History] Losartan Potassium 100 mg PO DAILY 10/06/14 [History] Magnesium Oxide [Magnesium] 400 mg PO DAILY 10/06/14 [History] Multivitamin [Multi-Vitamin Daily] 1 tab PO DAILY 10/06/14 [History] Pyridoxine HCl [Vitamin B-6] 100 mg PO DAILY 10/06/14 [History] Thiamine Mononitrate [Vitamin B-1] 100 mg PO DAILY 10/06/14 [History] Ubidecarenone [Co Q-10] 200 mg PO DAILY 10/06/14 [History] atorvaSTATin [Lipitor] 10 mg PO BEDTIME 10/06/14 [History] Lecithin, Soy [Lecithin] 1,200 mg PO DAILY 11/13/14 [History] Vitamin E 400 unit PO DAILY 11/13/14 [History] Esomeprazole [NexIUM] 40 mg PO ACBREAKFAST #20 cap 01/01/17 [Rx] Sucralfate [Carafate] 1 gm PO ASDIRECTED #500 ml 01/01/17 [Rx] Levothyroxine [Synthroid] 88 mcg PO ACBREAKFAST #30 tablet 02/17/17 [Rx] Potassium Chloride [Klor-Con M20] 20 meq PO BID #20 tab.er 02/17/17 [Rx] amLODIPine [Norvasc] 10 mg PO DAILY #30 tablet 02/17/17 [Rx] Patient Handouts: Ileus, Hypokalemia, Hypomagnesemia, Small Bowel Obstruction Forms: ED Department Discharge Referrals: Rashi Villeda MD [Primary Care Provider] - (Have follow-up CT of the abdomen to evaluate right kidney. Follow up with Dr. Villeda on February 23, 2017 at 10:10 am; labs prior to appointment.) Maria Elena Correa MD [Physician] - - Discharge Summary/Plan Comment DC Time >30 min.: Yes (40 min) - General Info Date of Service: 02/17/17 Admission Dx/Problem (Free Text: Admission Diagnosis/Problem Admission Diagnosis/Problem Abdominal pain Lola is doing well this morning; tolerated regular diet x 3 meals yesterday without n/v or abd pain. VSS Labs stable; WBC WNL, H&H WNL. She is anxious for dc home today. - Review of Systems General: Reports: No Symptoms, Weakness (much improved; working with PT/OT- will cont with [facility] upon DC) HEENT: Reports: no symptoms Pulmonary: Reports: no symptoms Cardiovascular: Reports: No Symptoms Gastrointestinal: Reports: No symptoms Genitourinary: Reports: no symptoms Musculoskeletal: Reports: no symptoms Skin: Reports: no symptoms Neurological: Reports: No Symptoms Psychiatric: Reports: no symptoms - Patient Data Vitals - Most Recent: Last Vital Signs Temp 98.1 F 02/17/17 02:57 Pulse 66 02/17/17 02:57 Resp 18 02/17/17 02:57 BP 140/87 02/17/17 03:07 Pulse Ox 94 L 02/17/17 02:57 Weight - Most Recent: 76.158 kg I&O - Last 24 hours: Intake & Output 02/16/17 02/17/17 02/17/17 22:59 06:59 14:59 Intake Total 970 Output Total 1950 Balance -980 Lab Results - Last 24 hrs: Laboratory Results - last 24 hr 02/16/17 02/16/17 02/17/17 Range/Units 07:30 07:30 06:20 WBC 8.56 7.73 (3.98-10.04) K/mm3 RBC 4.33 4.36 (3.98-5.22) M/mm3 Hgb 14.0 14.0 (11.2-15.7) gm/L Hct 40.4 41.0 (34.1-44.9) % MCV 93.3 94.0 (79.4-94.8) fl MCH 32.3 H 32.1 (25.6-32.2) pg MCHC 34.7 34.1 (32.2-35.5) g/dl RDW Std Deviation 42.9 43.2 (36.4-46.3) fL Plt Count 183 190 (182-369) K/mm3 MPV 9.3 L 9.4 (9.4-12.3) fl Neut % (Auto) 63.4 58.0 (34.0-71.1) % Lymph % (Auto) 21.5 28.8 (19.3-51.7) % [place] % (Auto) 11.2 10.0 (4.7-12.5) % Eos % (Auto) 3.2 2.5 (0.7-5.8) Baso % (Auto) 0.2 0.3 (0.1-1.2) % Neut # (Auto) 5.43 4.49 (1.56-6.13) K/mm3 Lymph # (Auto) 1.84 2.23 (1.18-3.74) K/mm3 [place] # (Auto) 0.96 H 0.77 H (0.24-0.36) K/mm3 Eos # (Auto) 0.27 0.19 (0.04-0.36) K/mm3 Baso # (Auto) 0.02 0.02 (0.01-0.08) K/mm3 Sodium 141 (136-145) mEq/L Potassium 3.2 L (3.5-5.1) mEq/L Chloride 107 (98-107) mEq/L Carbon Dioxide 25 (21-32) mEq/L Anion Gap 12.2 (5-15) BUN 6 L (7-18) mg/dL Creatinine 0.7 (0.55-1.02) mg/dL Est Cr Clr Drug Dosing 51.48 mL/min Estimated GFR (MDRD) > 60 (>60) mL/min BUN/Creatinine Ratio 8.6 L (14-18) Glucose 101 (83-115) mg/dL Calcium 7.8 L (8.5-10.1) mg/dL Magnesium 1.9 (1.8-2.4) mg/dl 02/17/17 Range/Units 06:20 WBC (3.98-10.04) K/mm3 RBC (3.98-5.22) M/mm3 Hgb (11.2-15.7) gm/L Hct (34.1-44.9) % MCV (79.4-94.8) fl MCH (25.6-32.2) pg MCHC (32.2-35.5) g/dl RDW Std Deviation (36.4-46.3) fL Plt Count (182-369) K/mm3 MPV (9.4-12.3) fl Neut % (Auto) (34.0-71.1) % Lymph % (Auto) (19.3-51.7) % [place] % (Auto) (4.7-12.5) % Eos % (Auto) (0.7-5.8) Baso % (Auto) (0.1-1.2) % Neut # (Auto) (1.56-6.13) K/mm3 Lymph # (Auto) (1.18-3.74) K/mm3 [place] # (Auto) (0.24-0.36) K/mm3 Eos # (Auto) (0.04-0.36) K/mm3 Baso # (Auto) (0.01-0.08) K/mm3 Sodium 142 (136-145) mEq/L Potassium 3.7 (3.5-5.1) mEq/L Chloride 107 (98-107) mEq/L Carbon Dioxide 26 (21-32) mEq/L Anion Gap 12.7 (5-15) BUN 8 (7-18) mg/dL Creatinine 0.7 (0.55-1.02) mg/dL Est Cr Clr Drug Dosing 51.48 mL/min Estimated GFR (MDRD) > 60 (>60) mL/min BUN/Creatinine Ratio 11.4 L (14-18) Glucose 94 (83-115) mg/dL Calcium 8.4 L (8.5-10.1) mg/dL Magnesium 1.9 (1.8-2.4) mg/dl Med Orders - Current: Current Medications Acetaminophen (Tylenol) 650 mg PO Q4H PRN PRN Reason: Pain (Mild 1-3)/fever Hydrocodone Bitart/Acetaminophen ([place] 325-5 Mg) 1 tab PO Q4H PRN PRN Reason: Pain (moderate 4-6) Last Admin: 02/08/17 21:13 Dose: 1 tab Al Hydroxide/Mg Hydroxide (Mag-Al Plus) 30 ml PO Q4H PRN PRN Reason: Heartburn Last Admin: 02/13/17 01:30 Dose: 30 ml Albuterol/Ipratropium (Duoneb 3.0-0.5 Mg/3 Ml) 3 ml NEB Q4H PRN PRN Reason: Shortness Of Breath/wheezing Amlodipine Besylate (Norvasc) 10 mg PO DAILY [facility] Last Admin: 02/16/17 08:20 Dose: 10 mg Cholecalciferol (Vitamin D3) 2,000 units PO DAILY [facility] Last Admin: 02/16/17 08:26 Dose: Not Given Enoxaparin Sodium (Lovenox) 40 mg SUBCUT DAILY [facility] Last Admin: 02/16/17 08:20 Dose: 40 mg Hydralazine HCl (Apresoline) 10 mg IVPUSH Q4H PRN PRN Reason: Hypertension Last Admin: 02/12/17 18:01 Dose: 10 mg Hydrochlorothiazide (Hydrochlorothiazide) 12.5 mg PO DAILY [facility] Last Admin: 02/16/17 08:21 Dose: 12.5 mg Hydromorphone HCl (Dilaudid) 0.5 mg IVPUSH Q4H PRN PRN Reason: Pain (severe 7-10) Last Admin: 02/15/17 14:11 Dose: 0.5 mg Promethazine HCl 12.5 mg/ (Sodium Chloride) 50.5 mls @ 100 mls/hr IV Q6H PRN PRN Reason: Nausea/Vomiting Levothyroxine Sodium (Synthroid) 88 mcg PO ACBREAKFAST [facility] Last Admin: 02/17/17 07:09 Dose: 88 mcg Lorazepam (Ativan) 0.25 mg IV Q6H PRN PRN Reason: Anxiety Losartan Potassium (Cozaar) 100 mg PO DAILY [facility] Last Admin: 02/16/17 08:21 Dose: 100 mg Magnesium Oxide (Magnesium Oxide) 400 mg PO DAILY [facility] Last Admin: 02/16/17 10:15 Dose: Not Given Metoclopramide HCl (Reglan) 10 mg IVPUSH Q4H PRN PRN Reason: Nausea/Vomiting Last Admin: 02/10/17 17:51 Dose: 10 mg Metoprolol Tartrate (Lopressor) 2.5 mg IVPUSH Q4H PRN PRN Reason: Tachycardia Multivitamins (Thera) 1 each PO DAILY [facility] Last Admin: 02/16/17 08:25 Dose: Not Given Ondansetron HCl (Zofran) 4 mg IV Q6H PRN PRN Reason: Nausea/Vomiting Last Admin: 02/15/17 13:06 Dose: 4 mg Pantoprazole Sodium (Protonix) 40 mg PO DAILY [facility] Last Admin: 02/16/17 09:01 Dose: Not Given Cyanocobalamin ( Vitamin B-12) [ Vitamin B-12] 2,500 Mcg 0 each PO DAILY [facility] Last Admin: 02/16/17 08:25 Dose: Not Given Ubidecarenone 200 Mg 0 each PO DAILY [facility] Last Admin: 02/16/17 08:25 Dose: Not Given Potassium Chloride (Klor-Con M20) 20 meq PO BID [facility] Last Admin: 02/16/17 20:21 Dose: 20 meq Pyridoxine HCl (Vitamin B6-Pyridoxine) 100 mg PO DAILY [facility] Last Admin: 02/16/17 08:25 Dose: Not Given Saccharomyces Boulardii (Florastor) 250 mg PO BID [facility] Last Admin: 02/16/17 20:20 Dose: 250 mg Simvastatin (Zocor) 10 mg PO BEDTIME [facility] Last Admin: 02/16/17 20:21 Dose: 10 mg Sodium Chloride (Saline Flush) 10 ml FLUSH ASDIRECTED PRN PRN Reason: Keep Vein Open Last Admin: 02/08/17 10:36 Dose: 10 ml Temazepam (Restoril) 7.5 mg PO BEDTIME PRN PRN Reason: SLEEP Thiamine HCl (Vitamin B-1) 100 mg PO DAILY [facility] Last Admin: 02/16/17 08:25 Dose: Not Given Vitamin E (Vitamin E) 400 units PO DAILY [facility] Last Admin: 02/16/17 08:26 Dose: Not Given Discontinued Medications Amlodipine Besylate (Norvasc) 5 mg PO DAILY [facility] Last Admin: 02/13/17 08:26 Dose: 5 mg Amlodipine Besylate (Norvasc) 5 mg PO ONETIME ONE Stop: 02/13/17 12:56 Last Admin: 02/13/17 13:23 Dose: 5 mg Atenolol (Tenormin) 25 mg PO DAILY [facility] Last Admin: 02/13/17 08:26 Dose: 25 mg Al Hydroxide/Mg Hydroxide 30 (ml/ Lidocaine HCl 15 ml) 0 ml PO ONETIME ONE Stop: 02/08/17 10:10 Last Admin: 02/08/17 10:30 Dose: 30 ml Diatrizoate Meglum/Diatrizoate Sod (Gastrografin 37%) 90 ml PO ONETIME ONE Stop: 02/08/17 12:03 Last Admin: 02/08/17 12:26 Dose: 90 ml Famotidine (Pepcid) 20 mg PO BID [facility] Last Admin: 02/09/17 08:16 Dose: 20 mg Famotidine (Pepcid) 20 mg PO DAILY [facility] Last Admin: 02/10/17 08:08 Dose: 20 mg Famotidine (Pepcid) 20 mg IVPUSH BID [facility] Last Admin: 02/12/17 22:12 Dose: 20 mg Hydromorphone HCl (Dilaudid) 0.5 mg IVPUSH ONETIME ONE Stop: 02/08/17 10:10 Last Admin: 02/08/17 10:36 Dose: 0.5 mg Hydromorphone HCl (Dilaudid) 1 mg IVPUSH ONETIME ONE Stop: 02/08/17 12:50 Last Admin: 02/08/17 12:55 Dose: 1 mg Hydromorphone HCl (Dilaudid) 0.25 mg IVPUSH Q4H PRN PRN Reason: Pain (severe 7-10) Last Admin: 02/09/17 06:54 Dose: 0.25 mg Sodium Chloride (Normal Saline) 1,000 mls @ 125 mls/hr IV ASDIRECTED [facility] Last Admin: 02/08/17 10:32 Dose: 125 mls/hr Levofloxacin/Dextrose 500 mg/ (Premix) 100 mls @ 100 mls/hr IV ONETIME ONE Stop: 02/08/17 14:38 Last Admin: 02/08/17 14:02 Dose: 100 mls/hr Metronidazole 500 mg/ Premix 100 mls @ 100 mls/hr IV ONETIME ONE Stop: 02/08/17 14:38 Last Admin: 02/08/17 21:08 Dose: Not Given Levofloxacin/Dextrose 500 mg/ (Premix) 100 mls @ 100 mls/hr IV Q24H [facility] Stop: 02/16/17 10:00 Last Admin: 02/16/17 08:18 Dose: 100 mls/hr Metronidazole 500 mg/ Premix 100 mls @ 100 mls/hr IV Q8H [facility] Stop: 02/16/17 23:30 Last Admin: 02/16/17 06:11 Dose: 100 mls/hr Dextrose/Sodium Chloride (Dextrose 5%-Normal Saline) 1,000 mls @ 100 mls/hr IV ASDIRECTED [facility] Last Admin: 02/10/17 08:13 Dose: 100 mls/hr Potassium Chloride 10 meq/ (Premix) 100 mls @ 100 mls/hr IV Q1H [facility] Stop: 02/10/17 16:29 Last Admin: 02/10/17 16:42 Dose: 100 mls/hr Dextrose/Sodium Chloride (Dextrose 5%-Normal Saline) 1,000 mls @ 100 mls/hr IV ASDIRECTED [facility] Last Admin: 02/16/17 06:12 Dose: 100 mls/hr Potassium Chloride 10 meq/ (Premix) 100 mls @ 100 mls/hr IV Q1H [facility] Stop: 02/11/17 17:14 Last Admin: 02/11/17 19:24 Dose: 100 mls/hr Magnesium Sulfate 2 gm/ Premix 50 mls @ 25 mls/hr IV ONETIME ONE Stop: 02/12/17 10:29 Last Admin: 02/12/17 10:02 Dose: 25 mls/hr Potassium Chloride 10 meq/ (Premix) 100 mls @ 100 mls/hr IV Q1H [facility] Stop: 02/12/17 14:29 Last Admin: 02/12/17 15:02 Dose: Not Given Potassium Chloride 10 meq/ (Premix) 100 mls @ 100 mls/hr IV Q1H [facility] Stop: 02/13/17 14:14 Last Admin: 02/13/17 17:11 Dose: 100 mls/hr Potassium Chloride (Kcl 10 Meq In Water 100 Ml) 100 mls @ 100 mls/hr IV Q1H [facility] Stop: 02/14/17 17:59 Last Admin: 02/14/17 18:57 Dose: 100 mls/hr Magnesium Sulfate/Dextrose 1 (gm/ Premix) 100 mls @ 100 mls/hr IV ONETIME ONE Stop: 02/14/17 14:46 Last Admin: 02/14/17 15:38 Dose: 100 mls/hr Potassium Chloride (Kcl 10 Meq In Water 100 Ml) 100 mls @ 100 mls/hr IV Q1H [facility] Stop: 02/15/17 13:59 Last Admin: 02/15/17 14:11 Dose: 100 mls/hr Magnesium Sulfate (Magnesium Sulfate 2 Gm In Water 50 Ml) 50 mls @ 50 mls/hr IV ONETIME ONE Stop: 02/15/17 10:59 Last Admin: 02/15/17 15:14 Dose: 50 mls/hr Iopamidol (Isovue-300 (61%)) 100 ml IVPUSH ONETIME ONE Stop: 02/08/17 12:03 Last Admin: 02/08/17 12:26 Dose: 100 ml Levothyroxine Sodium (Levothyroxine) 75 mcg PO ACBRK [facility] Last Admin: 02/13/17 05:04 Dose: 75 mcg Magnesium Sulfate (Pharmacy To Dose - Magnesium Replacement) 1 dose .XX ASDIRECTED [facility] Metoclopramide HCl (Reglan) 10 mg IVPUSH ONETIME ONE Stop: 02/08/17 12:50 Last Admin: 02/08/17 12:54 Dose: 10 mg Metoclopramide HCl (Reglan) 10 mg IVPUSH Q6H [facility] Last Admin: 02/11/17 06:14 Dose: Not Given Metoclopramide HCl (Reglan) 10 mg IVPUSH Q6H [facility] Last Admin: 02/16/17 03:16 Dose: 10 mg Miscellaneous Information (Remove Patch) 1 ea TRDERM DAILY [facility] Stop: 02/12/17 09:01 Last Admin: 02/12/17 09:13 Dose: 1 ea Miscellaneous Information (Remove Patch) 0 ea TRDERM ONETIME ONE Stop: 02/13/17 07:46 Last Admin: 02/13/17 08:24 Dose: Not Given Miscellaneous Information (Remove Patch) 0 ea TRDERM ONETIME ONE Stop: 02/16/17 13:01 Last Admin: 02/16/17 14:12 Dose: Not Given Ondansetron HCl (Zofran) 4 mg IVPUSH ONETIME ONE Stop: 02/08/17 10:09 Last Admin: 02/08/17 10:33 Dose: 4 mg Pantoprazole Sodium (Protonix) 40 mg PO BID [facility] Last Admin: 02/12/17 08:54 Dose: 40 mg Pantoprazole Sodium (Protonix Iv) 40 mg IVPUSH Q12H [facility] Last Admin: 02/16/17 08:19 Dose: 40 mg Potassium Chloride (Pharmacy To Dose - Potassium Replacement) 1 dose .XX ASDIRECTED [facility] Potassium Chloride (Klor-Con M20) 40 meq PO Q4H [facility] Stop: 02/10/17 17:01 Last Admin: 02/10/17 13:10 Dose: 40 meq Potassium Chloride (Klor-Con M20) 40 meq PO Q4H [facility] Stop: 02/11/17 12:01 Last Admin: 02/11/17 12:08 Dose: Not Given Saccharomyces Boulardii (Florastor) 250 mg PO TID [facility] Last Admin: 02/13/17 05:28 Dose: Not Given Scopolamine (Transderm-Scop) 1.5 mg TOP ONETIME ONE Stop: 02/09/17 08:01 Last Admin: 02/09/17 08:12 Dose: 1.5 mg Scopolamine (Transderm-Scop) 1.5 mg TOP ONETIME ONE Stop: 02/10/17 07:37 Last Admin: 02/10/17 08:05 Dose: 1.5 mg Scopolamine (Transderm-Scop) 1.5 mg TRDERM Q72H ONE Stop: 02/13/17 13:01 Last Admin: 02/13/17 13:22 Dose: 1.5 mg Sodium Chloride (Saline Flush) 10 ml FLUSH ONETIME ONE Stop: 02/08/17 12:03 Last Admin: 02/08/17 12:26 Dose: 10 ml Sucralfate (Carafate) 1 gm PO ACBED [facility] Last Admin: 02/10/17 10:46 Dose: Not Given - Exam Quality Assessment: Reports: DVT prophylaxis General: Reports: alert, oriented, cooperative, no acute distress HEENT: Reports: Pupils equal, Pupils reactive, EOMI, Mucous membr. moist/pink Neck: Reports: supple Lungs: Reports: Clear to auscultation, Normal respiratory effort Cardiovascular: Reports: Regular Rate, Regular Rhythm Abdomen: Reports: bowel sounds present, soft, no tenderness, no distension (Female) Exam: Deferred Rectal (Female) Exam: Deferred Back Exam: Reports: Normal Inspection Extremities: Reports: no edema Skin: Reports: warm, dry, intact Neurological: Reports: no new focal deficit Psy/Mental Status: Reports: alert, normal affect, normal mood *Q Meaningful Use (DIS) - VTE *Q VTE Criteria *Q: - Stroke *Q Stroke Criteria *Q: - AMI *Q AMI Criteria *Q: <Leeanna Sims M - Last Filed: 02/17/17 12:57> Discharge Summary - Hospital Course Free Text/Narrative:: See above for DC summary - Patient Summary/Data Consults: Consultations 02/08/17 15:46 Consult to Case Management [CONS] Routine Consult to Publisher Assistant [CONS] Routine Consult to Spiritual Care [CONS] Routine 02/11/17 09:58 Consult to Physician [CONS] Routine 02/12/17 10:02 PT Evaluation and Treatment [CONS] Routine - Patient Data Vitals - Most Recent: Last Vital Signs Temp 36.7 C 02/17/17 02:57 Pulse 66 02/17/17 02:57 Resp 18 02/17/17 02:57 BP 138/94 H 02/17/17 08:56 Pulse Ox 94 L 02/17/17 02:57 I&O - Last 24 hours: Intake & Output 02/16/17 02/17/17 02/17/17 22:59 06:59 14:59 Intake Total 970 300 300 Output Total 1950 1900 Balance -980 -1600 300 Lab Results - Last 24 hrs: Laboratory Results - last 24 hr 02/17/17 02/17/17 Range/Units 06:20 06:20 WBC 7.73 (3.98-10.04) K/mm3 RBC 4.36 (3.98-5.22) M/mm3 Hgb 14.0 (11.2-15.7) gm/L Hct 41.0 (34.1-44.9) % MCV 94.0 (79.4-94.8) fl MCH 32.1 (25.6-32.2) pg MCHC 34.1 (32.2-35.5) g/dl RDW Std Deviation 43.2 (36.4-46.3) fL Plt Count 190 (182-369) K/mm3 MPV 9.4 (9.4-12.3) fl Neut % (Auto) 58.0 (34.0-71.1) % Lymph % (Auto) 28.8 (19.3-51.7) % [place] % (Auto) 10.0 (4.7-12.5) % Eos % (Auto) 2.5 (0.7-5.8) Baso % (Auto) 0.3 (0.1-1.2) % Neut # (Auto) 4.49 (1.56-6.13) K/mm3 Lymph # (Auto) 2.23 (1.18-3.74) K/mm3 [place] # (Auto) 0.77 H (0.24-0.36) K/mm3 Eos # (Auto) 0.19 (0.04-0.36) K/mm3 Baso # (Auto) 0.02 (0.01-0.08) K/mm3 Sodium 142 (136-145) mEq/L Potassium 3.7 (3.5-5.1) mEq/L Chloride 107 (98-107) mEq/L Carbon Dioxide 26 (21-32) mEq/L Anion Gap 12.7 (5-15) BUN 8 (7-18) mg/dL Creatinine 0.7 (0.55-1.02) mg/dL Est Cr Clr Drug Dosing 51.48 mL/min Estimated GFR (MDRD) > 60 (>60) mL/min BUN/Creatinine Ratio 11.4 L (14-18) Glucose 94 (83-115) mg/dL Calcium 8.4 L (8.5-10.1) mg/dL Magnesium 1.9 (1.8-2.4) mg/dl Med Orders - Current: Current Medications Acetaminophen (Tylenol) 650 mg PO Q4H PRN PRN Reason: Pain (Mild 1-3)/fever Hydrocodone Bitart/Acetaminophen ([place] 325-5 Mg) 1 tab PO Q4H PRN PRN Reason: Pain (moderate 4-6) Last Admin: 02/08/17 21:13 Dose: 1 tab Al Hydroxide/Mg Hydroxide (Mag-Al Plus) 30 ml PO Q4H PRN PRN Reason: Heartburn Last Admin: 02/13/17 01:30 Dose: 30 ml Albuterol/Ipratropium (Duoneb 3.0-0.5 Mg/3 Ml) 3 ml NEB Q4H PRN PRN Reason: Shortness Of Breath/wheezing Amlodipine Besylate (Norvasc) 10 mg PO DAILY [facility] Last Admin: 02/17/17 08:56 Dose: 10 mg Cholecalciferol (Vitamin D3) 2,000 units PO DAILY [facility] Last Admin: 02/17/17 08:54 Dose: 2,000 units Enoxaparin Sodium (Lovenox) 40 mg SUBCUT DAILY [facility] Last Admin: 02/17/17 08:58 Dose: 40 mg Hydralazine HCl (Apresoline) 10 mg IVPUSH Q4H PRN PRN Reason: Hypertension Last Admin: 02/12/17 18:01 Dose: 10 mg Hydrochlorothiazide (Hydrochlorothiazide) 12.5 mg PO DAILY [facility] Last Admin: 02/17/17 08:55 Dose: 12.5 mg Hydromorphone HCl (Dilaudid) 0.5 mg IVPUSH Q4H PRN PRN Reason: Pain (severe 7-10) Last Admin: 02/15/17 14:11 Dose: 0.5 mg Promethazine HCl 12.5 mg/ (Sodium Chloride) 50.5 mls @ 100 mls/hr IV Q6H PRN PRN Reason: Nausea/Vomiting Levothyroxine Sodium (Synthroid) 88 mcg PO ACBREAKFAST [facility] Last Admin: 02/17/17 07:09 Dose: 88 mcg Lorazepam (Ativan) 0.25 mg IV Q6H PRN PRN Reason: Anxiety Losartan Potassium (Cozaar) 100 mg PO DAILY [facility] Last Admin: 02/17/17 08:55 Dose: 100 mg Magnesium Oxide (Magnesium Oxide) 400 mg PO DAILY [facility] Last Admin: 02/17/17 08:56 Dose: 400 mg Metoclopramide HCl (Reglan) 10 mg IVPUSH Q4H PRN PRN Reason: Nausea/Vomiting Last Admin: 02/10/17 17:51 Dose: 10 mg Metoprolol Tartrate (Lopressor) 2.5 mg IVPUSH Q4H PRN PRN Reason: Tachycardia Multivitamins (Thera) 1 each PO DAILY [facility] Last Admin: 02/17/17 09:02 Dose: Not Given Ondansetron HCl (Zofran) 4 mg IV Q6H PRN PRN Reason: Nausea/Vomiting Last Admin: 02/15/17 13:06 Dose: 4 mg Pantoprazole Sodium (Protonix) 40 mg PO DAILY [facility] Last Admin: 02/17/17 08:55 Dose: 40 mg Cyanocobalamin ( Vitamin B-12) [ Vitamin B-12] 2,500 Mcg 0 each PO DAILY [facility] Last Admin: 02/17/17 09:01 Dose: Not Given Ubidecarenone 200 Mg 0 each PO DAILY [facility] Last Admin: 02/17/17 09:02 Dose: Not Given Potassium Chloride (Klor-Con M20) 20 meq PO BID [facility] Last Admin: 02/17/17 08:58 Dose: 20 meq Pyridoxine HCl (Vitamin B6-Pyridoxine) 100 mg PO DAILY [facility] Last Admin: 02/17/17 08:55 Dose: 100 mg Saccharomyces Boulardii (Florastor) 250 mg PO BID [facility] Last Admin: 02/17/17 08:59 Dose: 250 mg Simvastatin (Zocor) 10 mg PO BEDTIME [facility] Last Admin: 02/16/17 20:21 Dose: 10 mg Sodium Chloride (Saline Flush) 10 ml FLUSH ASDIRECTED PRN PRN Reason: Keep Vein Open Last Admin: 02/08/17 10:36 Dose: 10 ml Temazepam (Restoril) 7.5 mg PO BEDTIME PRN PRN Reason: SLEEP Thiamine HCl (Vitamin B-1) 100 mg PO DAILY [facility] Last Admin: 02/17/17 08:56 Dose: 100 mg Vitamin E (Vitamin E) 400 units PO DAILY [facility] Last Admin: 02/17/17 09:06 Dose: Not Given Discontinued Medications Amlodipine Besylate (Norvasc) 5 mg PO DAILY [facility] Last Admin: 02/13/17 08:26 Dose: 5 mg Amlodipine Besylate (Norvasc) 5 mg PO ONETIME ONE Stop: 02/13/17 12:56 Last Admin: 02/13/17 13:23 Dose: 5 mg Atenolol (Tenormin) 25 mg PO DAILY [facility] Last Admin: 02/13/17 08:26 Dose: 25 mg Al Hydroxide/Mg Hydroxide 30 (ml/ Lidocaine HCl 15 ml) 0 ml PO ONETIME ONE Stop: 02/08/17 10:10 Last Admin: 02/08/17 10:30 Dose: 30 ml Diatrizoate Meglum/Diatrizoate Sod (Gastrografin 37%) 90 ml PO ONETIME ONE Stop: 02/08/17 12:03 Last Admin: 02/08/17 12:26 Dose: 90 ml Famotidine (Pepcid) 20 mg PO BID [facility] Last Admin: 02/09/17 08:16 Dose: 20 mg Famotidine (Pepcid) 20 mg PO DAILY [facility] Last Admin: 02/10/17 08:08 Dose: 20 mg Famotidine (Pepcid) 20 mg IVPUSH BID [facility] Last Admin: 02/12/17 22:12 Dose: 20 mg Hydromorphone HCl (Dilaudid) 0.5 mg IVPUSH ONETIME ONE Stop: 02/08/17 10:10 Last Admin: 02/08/17 10:36 Dose: 0.5 mg Hydromorphone HCl (Dilaudid) 1 mg IVPUSH ONETIME ONE Stop: 02/08/17 12:50 Last Admin: 02/08/17 12:55 Dose: 1 mg Hydromorphone HCl (Dilaudid) 0.25 mg IVPUSH Q4H PRN PRN Reason: Pain (severe 7-10) Last Admin: 02/09/17 06:54 Dose: 0.25 mg Sodium Chloride (Normal Saline) 1,000 mls @ 125 mls/hr IV ASDIRECTED [facility] Last Admin: 02/08/17 10:32 Dose: 125 mls/hr Levofloxacin/Dextrose 500 mg/ (Premix) 100 mls @ 100 mls/hr IV ONETIME ONE Stop: 02/08/17 14:38 Last Admin: 02/08/17 14:02 Dose: 100 mls/hr Metronidazole 500 mg/ Premix 100 mls @ 100 mls/hr IV ONETIME ONE Stop: 02/08/17 14:38 Last Admin: 02/08/17 21:08 Dose: Not Given Levofloxacin/Dextrose 500 mg/ (Premix) 100 mls @ 100 mls/hr IV Q24H [facility] Stop: 02/16/17 10:00 Last Admin: 02/16/17 08:18 Dose: 100 mls/hr Metronidazole 500 mg/ Premix 100 mls @ 100 mls/hr IV Q8H [facility] Stop: 02/16/17 23:30 Last Admin: 02/16/17 06:11 Dose: 100 mls/hr Dextrose/Sodium Chloride (Dextrose 5%-Normal Saline) 1,000 mls @ 100 mls/hr IV ASDIRECTED [facility] Last Admin: 02/10/17 08:13 Dose: 100 mls/hr Potassium Chloride 10 meq/ (Premix) 100 mls @ 100 mls/hr IV Q1H [facility] Stop: 02/10/17 16:29 Last Admin: 02/10/17 16:42 Dose: 100 mls/hr Dextrose/Sodium Chloride (Dextrose 5%-Normal Saline) 1,000 mls @ 100 mls/hr IV ASDIRECTED [facility] Last Admin: 02/16/17 06:12 Dose: 100 mls/hr Potassium Chloride 10 meq/ (Premix) 100 mls @ 100 mls/hr IV Q1H [facility] Stop: 02/11/17 17:14 Last Admin: 02/11/17 19:24 Dose: 100 mls/hr Magnesium Sulfate 2 gm/ Premix 50 mls @ 25 mls/hr IV ONETIME ONE Stop: 02/12/17 10:29 Last Admin: 02/12/17 10:02 Dose: 25 mls/hr Potassium Chloride 10 meq/ (Premix) 100 mls @ 100 mls/hr IV Q1H [facility] Stop: 02/12/17 14:29 Last Admin: 02/12/17 15:02 Dose: Not Given Potassium Chloride 10 meq/ (Premix) 100 mls @ 100 mls/hr IV Q1H [facility] Stop: 02/13/17 14:14 Last Admin: 02/13/17 17:11 Dose: 100 mls/hr Potassium Chloride (Kcl 10 Meq In Water 100 Ml) 100 mls @ 100 mls/hr IV Q1H [facility] Stop: 02/14/17 17:59 Last Admin: 02/14/17 18:57 Dose: 100 mls/hr Magnesium Sulfate/Dextrose 1 (gm/ Premix) 100 mls @ 100 mls/hr IV ONETIME ONE Stop: 02/14/17 14:46 Last Admin: 02/14/17 15:38 Dose: 100 mls/hr Potassium Chloride (Kcl 10 Meq In Water 100 Ml) 100 mls @ 100 mls/hr IV Q1H [facility] Stop: 02/15/17 13:59 Last Admin: 02/15/17 14:11 Dose: 100 mls/hr Magnesium Sulfate (Magnesium Sulfate 2 Gm In Water 50 Ml) 50 mls @ 50 mls/hr IV ONETIME ONE Stop: 02/15/17 10:59 Last Admin: 02/15/17 15:14 Dose: 50 mls/hr Iopamidol (Isovue-300 (61%)) 100 ml IVPUSH ONETIME ONE Stop: 02/08/17 12:03 Last Admin: 02/08/17 12:26 Dose: 100 ml Levothyroxine Sodium (Levothyroxine) 75 mcg PO ACBRK [facility] Last Admin: 02/13/17 05:04 Dose: 75 mcg Magnesium Sulfate (Pharmacy To Dose - Magnesium Replacement) 1 dose .XX ASDIRECTED [facility] Metoclopramide HCl (Reglan) 10 mg IVPUSH ONETIME ONE Stop: 02/08/17 12:50 Last Admin: 02/08/17 12:54 Dose: 10 mg Metoclopramide HCl (Reglan) 10 mg IVPUSH Q6H [facility] Last Admin: 02/11/17 06:14 Dose: Not Given Metoclopramide HCl (Reglan) 10 mg IVPUSH Q6H [facility] Last Admin: 02/16/17 03:16 Dose: 10 mg Miscellaneous Information (Remove Patch) 1 ea TRDERM DAILY [facility] Stop: 02/12/17 09:01 Last Admin: 02/12/17 09:13 Dose: 1 ea Miscellaneous Information (Remove Patch) 0 ea TRDERM ONETIME ONE Stop: 02/13/17 07:46 Last Admin: 02/13/17 08:24 Dose: Not Given Miscellaneous Information (Remove Patch) 0 ea TRDERM ONETIME ONE Stop: 02/16/17 13:01 Last Admin: 02/16/17 14:12 Dose: Not Given Ondansetron HCl (Zofran) 4 mg IVPUSH ONETIME ONE Stop: 02/08/17 10:09 Last Admin: 02/08/17 10:33 Dose: 4 mg Pantoprazole Sodium (Protonix) 40 mg PO BID [facility] Last Admin: 02/12/17 08:54 Dose: 40 mg Pantoprazole Sodium (Protonix Iv) 40 mg IVPUSH Q12H [facility] Last Admin: 02/16/17 08:19 Dose: 40 mg Potassium Chloride (Pharmacy To Dose - Potassium Replacement) 1 dose .XX ASDIRECTED [facility] Potassium Chloride (Klor-Con M20) 40 meq PO Q4H [facility] Stop: 02/10/17 17:01 Last Admin: 02/10/17 13:10 Dose: 40 meq Potassium Chloride (Klor-Con M20) 40 meq PO Q4H [facility] Stop: 02/11/17 12:01 Last Admin: 02/11/17 12:08 Dose: Not Given Saccharomyces Boulardii (Florastor) 250 mg PO TID [facility] Last Admin: 02/13/17 05:28 Dose: Not Given Scopolamine (Transderm-Scop) 1.5 mg TOP ONETIME ONE Stop: 02/09/17 08:01 Last Admin: 02/09/17 08:12 Dose: 1.5 mg Scopolamine (Transderm-Scop) 1.5 mg TOP ONETIME ONE Stop: 02/10/17 07:37 Last Admin: 02/10/17 08:05 Dose: 1.5 mg Scopolamine (Transderm-Scop) 1.5 mg TRDERM Q72H ONE Stop: 02/13/17 13:01 Last Admin: 02/13/17 13:22 Dose: 1.5 mg Sodium Chloride (Saline Flush) 10 ml FLUSH ONETIME ONE Stop: 02/08/17 12:03 Last Admin: 02/08/17 12:26 Dose: 10 ml Sucralfate (Carafate) 1 gm PO ACBED [facility] Last Admin: 02/10/17 10:46 Dose: Not Given *Q Meaningful Use (DIS) - VTE *Q VTE Criteria *Q: - Stroke *Q Stroke Criteria *Q: - AMI *Q AMI Criteria *Q:
[2017-02-17] MEDS: Cholecalciferol (Vitamin D3) 1,000 Unit Tab PO SCH (08:54)
[2017-02-17] MEDS: Pantoprazole 40 MG Tab.CR PO SCH (08:55)
[2017-02-17] MEDS: Hydrochlorothiazide 12.5 MG Cap PO SCH (08:55)
[2017-02-17] MEDS: Vitamin B6-pyridOXINE 50 MG Tab PO SCH (08:55)
[2017-02-17] MEDS: Losartan 100 MG Tab PO SCH (08:55)
[2017-02-17] MEDS: Thiamine 100 MG Tab PO SCH (08:56)
[2017-02-17] MEDS: amLODIPine 10 MG Tab PO SCH (08:56)
[2017-02-17] MEDS: Magnesium Oxide 400 MG Tab PO SCH (08:56)
[2017-02-17] MEDS: Potassium Chloride 20 MEQ Tab.ER PO SCH (08:58)
[2017-02-17] MEDS: Enoxaparin 40 MG/0.4 ML Syringe SUBCUT SCH (08:58)
[2017-02-17] MEDS: Saccharomyces Boulardii (Probiotic) 250 MG Cap PO SCH (08:59)
[2017-02-17] MEDS: Cyanocobalamin (Vitamin B-12) [Vitamin B-12] 2,500 MCG PO SCH (09:01)
[2017-02-17] MEDS: Multivitamins,Therapeutic Tab PO SCH (09:02)
[2017-02-17] MEDS: UBIDECARENONE 200 MG PO SCH (09:02)
[2017-02-17] MEDS: Vitamin E (dl-alpha-tocopherol acetate) 400 Unit Cap PO SCH (09:06)
[2017-02-17 13:49] VITALS: BP 100/68
== END 2017-02-17 13:35 | disposition home health service (06) | DRG 390 ==
LOC: JD.ED 09:42 → JD.MS 14:14
PROVIDERS: ADMIT Internal Medicine; ATTEND Internal Medicine
DX: K56.7 Ileus, unspecified (principal); K56.69 Other intestinal obstruction; K52.9 Noninfective gastroenteritis and colitis, unspecified; N28.89 Other specified disorders of kidney and ureter; K80.20 Calculus of gallbladder without cholecystitis without obstruction; E83.42 Hypomagnesemia; D72.829 Elevated white blood cell count, unspecified; E87.6 Hypokalemia; I10 Essential (primary) hypertension; M19.90 Unspecified osteoarthritis, unspecified site; F41.9 Anxiety disorder, unspecified; E03.9 Hypothyroidism, unspecified; E55.9 Vitamin D deficiency, unspecified; Z85.3 Personal history of malignant neoplasm of breast; Z66 Do not resuscitate; Z79.899 Other long term (current) drug therapy; Z88.4 Allergy status to anesthetic agent; Z88.7 Allergy status to serum and vaccine
CPT/HCPCS: 36415; 74177; 80053; 81001; 83690; 85025; 86140; 96361; 96374; 96375; 96376; 99285; A9270 ×2; J1170 ×2; J1956; J2405; J2765; J7040; J7050 ×2; Q9963; Q9967; 74000; 74000-26; 80048; 83735; 84439; 84443; 97110-GP; 97116-GP; 97162-GP; 99284; C9113; J0360; J1650; J3475; J3480; J7042

== ENCOUNTER 2017-02-27 11:57 | Day surgery (SDC) | payer MEDICARE, OTHER ==
[~2017-02-27 11:57] MED LIST: Lactated Ringers 1,000 ML IV SCH; Lidocaine 1%/Sod Bicarbonate in NS 8.4% 1 ML Syringe PRN; Sodium Chloride 0.9% 10 ML Syringe FLUSH PRN
--- NOTE | 2017-02-27 13:27 | PCM.PREANE ---
Preanesthetic Assessment - Procedure Proposed Procedure: Diagnostic EGD and Diagnostic Colonoscopy - Anesthesia/Transfusion/Family Hx Anesthesia History: Prior Anesthesia Without Reaction Family History of Anesthesia Reaction: No Transfusion History: Prior Transfusion Without Reaction - Review of Systems General: Fatigue (since recent hospitalization) Pulmonary: No Symptoms Cardiovascular: Palpitations (checked with holter. some bigeminy and PVC/PACs noted. less than 4 % of time, and none associated with other sx) Gastrointestinal: Constipation (reason for recent hospitalization) Neurological: Tingling (bilateral feet) Other: Reports: None - Physical Assessment NPO Status Date: 02/27/17 NPO Status Time: 00:00 O2 Sat by Pulse Oximetry: 97 Respiratory Rate: 16 Vital Signs: Last Vital Signs Temp 36.2 C 02/27/17 12:05 Pulse 70 02/27/17 12:05 Resp 16 02/27/17 12:05 BP 153/61 H 02/27/17 12:05 Pulse Ox 97 02/27/17 12:05 Height: 1.61 m Weight: 69.853 kg ASA Class: 3 Mental Status: Alert & Oriented x3 Airway Class: Mallampati = 2 Dentition: Reports: Partial, [place](s) Thyro-Mental Finger Breadths: 3 Mouth Opening Finger Breadths: 3 ROM/Head Extension: Full Lungs: Clear to auscultation, Normal respiratory effort Cardiovascular: Regular Rate, Regular Rhythm, No Murmurs - Lab Values: Labs from [place] 01/06/17 BMP and CBC essentially normal with exception of mildly elevated BU. More recent BMP and CBC from 02/17 at [facility] essentially normal. 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 borderline intraventricular conduction delay and Left axis - Allergies Allergies/Adverse Reactions: Allergies Allergy/AdvReac Type Severity Reaction Status Date / Time benzocaine Allergy Swelling/ra Verified 02/26/17 15:21 sh pneumococcal vaccine Allergy Difficulty Verified 02/26/17 15:21 Breathing procaine HCl [From Novocain] Allergy Swelling/ra Verified 02/26/17 15:21 sh - Blood Blood Available: No - Acknowledgements Anesthesia Type Planned: MAC Pt an Appropriate Candidate for the Planned Anesthesia: Yes Alternatives and Risks of Anesthesia Discussed w Pt/Guardian: Yes Pt/Guardian Understands and Agrees with Anesthesia Plan: Yes PreAnesthesia Questionnaire HEENT History: Reports: Cataract, Other (See Below) Other HEENT History: wears glasses Cardiovascular History: Reports: High Cholesterol, Hypertension Respiratory History: Reports: None Gastrointestinal History: Reports: Other (See Below) Other Gastrointestinal History: hepatic steatosis [employer]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: Reports: (hx) Other OB/BYN History: abnormal mastectomy Musculoskeletal History: Reports: Arthritis Neurological History: Reports: None Psychiatric History: Reports: None Endocrine/Metabolic History: Reports: Hypothyroidism Hematologic History: Reports: None Immunologic History: Reports: None Oncologic (Cancer) History: Reports: Breast, Other (See Below) Other Oncologic History: neoplasm of breat, stage 1, lobular carcinoma in situ Dermatologic History: Reports: Other (See Below) Other Dermatologic History: seborrheic keratosis - Infectious Disease History Infectious Disease History: Reports: Chicken Pox, Influenza, Measles - Past Surgical History Head Surgeries/Procedures: Reports: None HEENT Surgical History: Reports: Tonsillectomy Cardiovascular Surgical History: Reports: Varicose, Other (See Below) Other Cardiovascular Surgeries/Procedures: evacuation of hematoma to L chest Respiratory Surgical History: Reports: None GI Surgical History: Reports: Other (See Below) Other GI Surgeries/Procedures: exploratory laparotomy Female Surgical History: Reports: Mastectomy - SUBSTANCE USE Smoking Status *Q: Never Smoker Tobacco Use Within Last Twelve Months: No Second Hand Smoke Exposure: No Days Per Week of Alcohol Use: 0 Recreational Drug Use History: No - HOME MEDS Home Medications: Home Meds Acebutolol [Sectral] 200 mg PO DAILY 10/06/14 [History] Ascorbate Calcium [Vitamin C] 500 mg PO DAILY 10/06/14 [History] Calcium Citrate/Vitamin D3 [Citracal + D Maximum Caplet] 1 tab PO DAILY [History] Cholecalciferol (Vitamin D3) [Vitamin D3] 2,000 unit PO DAILY 10/06/14 [History] Cyanocobalamin (Vitamin B-12) [Vitamin B-12] 2,500 mcg SL DAILY 10/06/14 [ History] Hydrochlorothiazide 12.5 mg PO DAILY 10/06/14 [History] Losartan Potassium 100 mg PO DAILY 10/06/14 [History] Magnesium Oxide [Magnesium] 400 mg PO DAILY 10/06/14 [History] Multivitamin [Multi-Vitamin Daily] 1 tab PO DAILY 02/06/15 [History] Pyridoxine HCl [Vitamin B-6] 100 mg PO DAILY 10/06/14 [History] Thiamine Mononitrate [Vitamin B-1] 100 mg PO DAILY 10/06/14 [History] Ubidecarenone [Co Q-10] 200 mg PO DAILY 10/06/14 [History] atorvaSTATin [Lipitor] 10 mg PO BEDTIME 10/06/14 [History] Lecithin, Soy [Lecithin] 1,200 mg PO DAILY 11/13/14 [History] Vitamin E 400 unit PO DAILY 11/13/14 [History] Esomeprazole [NexIUM] 40 mg PO ACBREAKFAST #20 cap 01/01/17 [Rx] Sucralfate [Carafate] 1 gm PO ASDIRECTED #500 ml 01/01/17 [Rx] Potassium Chloride [Klor-Con M20] 20 meq PO BID #20 tab.er 02/17/17 [Rx] Acetaminophen [Tylenol Extra Strength] 500 mg PO Q4H PRN 02/26/17 [History] Levothyroxine [Synthroid] 88 mcg PO DAILY 02/26/17 [History] amLODIPine [Norvasc] 10 mg PO DAILY 02/26/17 [History] - CURRENT (IN HOUSE) MEDS Current Meds: Current Medications Lactated Ringer's (Ringers, Lactated) 1,000 mls @ 125 mls/hr IV ASDIRECTED [facility] Stop: 02/27/17 23:00 Last Admin: 02/27/17 12:25 Dose: 125 mls/hr Lidocaine/Sodium Bicarbonate (Buffered Lidocaine 1% In Ns 8.4%) 0.25 ml .XX ONETIME PRN PRN Reason: Prior to IV Start Stop: 02/27/17 18:00 Last Admin: 02/27/17 12:24 Dose: 0.25 ml Sodium Chloride (Saline Flush) 10 ml FLUSH ASDIRECTED PRN PRN Reason: Keep Vein Open Stop: 02/27/17 18:00 Discontinued Medications Fentanyl (Sublimaze) Confirm Administered Dose 100 mcg .ROUTE .STK-MED ONE Stop: 02/27/17 13:32 Lidocaine HCl (Xylocaine-Mpf 1%) Confirm Administered Dose 4 mls @ as directed .ROUTE .STK-MED ONE Stop: 02/27/17 13:31 Propofol (Diprivan 20 Ml) Confirm Administered Dose 200 mg .ROUTE .[facility] ONE Stop: 02/27/17 13:32
[2017-02-27] MEDS ORDERED: Lidocaine 1% 4 ML ONE (13:30)
[2017-02-27] MEDS ORDERED: fentaNYL 100 MCG/2 ML SDV ONE (13:31)
[2017-02-27] MEDS ORDERED: Propofol 200 MG/20 ML SDV ONE ×2 (13:31→14:19)
--- NOTE | 2017-02-27 14:15 | PCM48HPAN ---
Post Anesthesia Note - EVALUATION WITHIN 48HRS OF ANESTHETIC Vital Signs in Normal Range: Yes Patient Participated in Evaluation: Yes Respiratory Function Stable: Yes Airway Patent: Yes Cardiovascular Function Stable: Yes Hydration Status Stable: Yes Pain Control Satisfactory: Yes Nausea and Vomiting Control Satisfactory: Yes Mental Status Recovered: Yes
--- NOTE | 2017-02-27 14:30 | PCM.OPNOTE ---
- General Post-Op/Procedure Note Date of Surgery/Procedure: 02/27/17 Operative Procedure(s): Diagnostic EGD with cold forceps biopsy and diagnostic colonoscopy Pre Op Diagnosis: Weight loss, bloating, upper abdominal pain, lower abdominal pain, no prior colonoscopy Post-Op Diagnosis: Small hiatal hernia, gastric polyps, normal appearing colon, Grade 2/3 hemorrhoids Anesthesia Technique: MAC Primary Surgeon: Maria Elena Correa Anesthesia Provider: Allan Randall Pathology: 1. Small bowel biopsy 2. Antral biopsy 3. Distal esophageal biopsy 4. Gastric polyps Fluid Replacement, Intraop: 700 (mL crystalloid ) EBL in mLs: 1 Complications: None Condition: Good Free Text/Narrative:: INDICATION FOR PROCEDURE: The patient is a 81-year-old woman who was referred to me by Dr. Villeda for evaluation for weight loss, bloating, upper abdominal pain, lower abdominal pain, no prior colonoscopy, need for diagnostic EGD and diagnostic colonoscopy. Performing a colonoscopy and EGD and the associated risks of the procedures had been discussed with the patient. The patient found these risks acceptable and agreed to proceed. DESCRIPTION OF PROCEDURE: The patient was taken to the operating room and placed in the left lateral decubitus position. After induction of adequate sedation, a bite block was placed. A standard Olympus gastroscope was inserted into the oropharynx and guided down the esophagus without difficulty. The gastroesophageal junction was appreciated at 39 cm from the teeth. There was no evidence of stricture or esophageal ulcerations. The scope was advanced into the stomach, and there were numerous gastric polyps, the largest about 5 - 7 mm. The scope was passed into the proximal jejunum and the duodenum which were unremarkable. There were no petechiae or ulcerations. The proximal jejunum was grossly normal in appearance. Multiple cold forceps biopsies were obtained of the proximal jejunum and duodenum. The scope was withdrawn into the antrum, and additional cold forceps biopsies were obtained. The remainder of the gastric body was examined, and there were no additional abnormalities. The scope was retroflexed, and there was a small hiatal hernia. Several gastric polyps were biopsied with cold forceps. The scope was straightened and withdrawn to the GE junction. Additional cold forceps biopsies were obtained of the distal esophagus. The scope was withdrawn through the remainder of the esophagus and no further abnormalities were noted. The posterior oropharynx was grossly normal in appearance. The scope was fully withdrawn and attention was then turned to the colonoscopy. A digital rectal exam was performed which showed one partially prolapsed hemorrhoid in the right posterior position, it was easily reduced. A pediatric Olympus colonoscope was inserted into the rectum and guided under direct visualization to the appendiceal orifice and ileocecal valve. The scope was then slowly withdrawn through the colon. The quality of the prep was excellent. There was no evidence of angiodysplasias, diverticulum or mass lesions. The scope was withdrawn into the rectum and retroflexed. There were Grade II/III internal hemorrhoids. The scope was straightened, the colon was desufflated, and the scope was withdrawn. The patient was awakened from sedation and transferred to the recovery room in stable condition having tolerated the procedure well. POSTOPERATIVE PLAN: I discussed with the patient and her daughter my intraoperative findings and recommendations. The patient will follow up in approximately 7-10 days to discuss pathology and how their symptoms are progressing. The patient is to continue her Nexium daily for now, but may stop the Carafate if desired. I have also asked her to stop the Vitamin C. I have asked the patient to follow a GERD\gastritis diet. The patient is to call with any worsening of symptoms or questions prior to the appointment.
[2017-02-27 15:18] VITALS: BP 133/61
== END 2017-02-27 15:10 | disposition home or self-care (01) ==
LOC: JD.SDS 11:57
PROVIDERS: ATTEND Surgery
DX: K29.80 Duodenitis without bleeding (principal); K31.7 Polyp of stomach and duodenum; K44.9 Diaphragmatic hernia without obstruction or gangrene; K64.8 Other hemorrhoids; I10 Essential (primary) hypertension; E03.9 Hypothyroidism, unspecified; E78.5 Hyperlipidemia, unspecified; Z88.8 Allergy status to other drugs, medicaments and biological substances; Z98.890 Other specified postprocedural states; Z79.899 Other long term (current) drug therapy
CPT/HCPCS: 43239; 45378; 88305; J3010; J7120; J2704

== ENCOUNTER 2019-09-06 07:25 | Emergency (ER) | payer MEDICARE, OTHER ==
--- NOTE | 2019-09-06 08:18 | EDM.PDOC ---
<Lupe Hernadez L - Last Filed: 09/06/19 09:09> ED HPI GENERAL MEDICAL PROBLEM - General Chief Complaint: Lower Extremity Injury/Pain Stated Complaint: HEAD INJURY/R FOOT INJUR-FALL Time Seen by Provider: 09/06/19 07:45 Source of Information: Reports: Patient History Limitations: Reports: No Limitations - History of Present Illness INITIAL COMMENTS - FREE TEXT/NARRATIVE: 83-year-old female presents with injury to the lower right 5th digit and right head injury. She states that she was trying to get out of bed when her toe got caught on the floor causing her to bump her head on the adjacent wall. She notes that the bump to her head was just a "glancing blow" and doesn't feel that any serious harm was done as she no longer has any head pain or any signs of injury. She states that the toe was pulled to the side causing pain, although she has been able to bear weight on the foot. She has not noticed any erythema, bruising, heat, or new edema in the area. She has a history of chronic lower extremity edema and has had her veins stripped in the past. The patient notes she has a history of an open sore on the distal portion of her left large toe which is healing. She denies taking blood thinners. Onset: Today Location: Reports: Head, Lower Extremity, Right Quality: Reports: Ache, Other (numbness) Severity: Mild Improves with: Reports: Cold Therapy, Rest Worsens with: Reports: Movement Associated Symptoms: Reports: No Other Symptoms Treatments MANAGER WOUND CARE: Reports: Cold Therapy Right Foot Pain Score (Numeric/FACES): 5 - Related Data Allergies Allergy/AdvReac Type Severity Reaction Status Date / Time benzocaine Allergy Swelling/ra Verified 09/06/19 07:42 pneumococcal vaccine Allergy Difficulty Verified 09/06/19 07:42 Breathing procaine HCl [From Novocain] Allergy Swelling/ra Verified 09/06/19 07:42 Home Meds: Home Meds Acebutolol [Sectral] 200 mg PO DAILY 10/06/14 [History] Calcium Citrate/Vitamin D3 [Citracal + D Maximum Caplet] 1 tab PO DAILY [History] Cholecalciferol (Vitamin D3) [Vitamin D3] 2,000 unit PO DAILY 10/06/14 [History] Cyanocobalamin (Vitamin B-12) [Vitamin B-12] 2,500 mcg SL DAILY 10/06/14 [ History] Losartan Potassium 100 mg PO DAILY 10/06/14 [History] Magnesium Oxide [Magnesium] 400 mg PO DAILY 10/06/14 [History] Multivitamin [Multi-Vitamin Daily] 1 tab PO DAILY 10/06/14 [History] Pyridoxine HCl (Vitamin B6) [Vitamin B-6] 100 mg PO DAILY 10/06/14 [History] Thiamine Mononitrate (Vit B1) [Vitamin B-1] 100 mg PO DAILY 10/06/14 [History] Ubidecarenone [Co Q-10] 200 mg PO DAILY 10/06/14 [History] atorvaSTATin [Lipitor] 10 mg PO BEDTIME 10/06/14 [History] hydroCHLOROthiazide [Hydrochlorothiazide] 12.5 mg PO DAILY 10/06/14 [History] Lecithin, Soy [Lecithin] 1,200 mg PO DAILY 11/13/14 [History] Vitamin E 400 unit PO DAILY 11/13/14 [History] Esomeprazole [NexIUM] 40 mg PO ACBREAKFAST #20 cap 01/01/17 [Rx] Sucralfate [Carafate] 1 gm PO ASDIRECTED #500 ml 01/01/17 [Rx] Potassium Chloride [Klor-Con M20] 20 meq PO BID #20 tab.er 02/17/17 [Rx] Acetaminophen [Tylenol Extra Strength] 500 mg PO Q4H PRN 02/26/17 [History] Levothyroxine [Synthroid] 88 mcg PO DAILY 02/26/17 [History] amLODIPine [Norvasc] 10 mg PO DAILY 02/26/17 [History] Past Medical History HEENT History: Reports: Cataract, Other (See Below) Other HEENT History: wears glasses Cardiovascular History: Reports: High Cholesterol, Hypertension Respiratory History: Reports: None Gastrointestinal History: Reports: Gastritis, Other (See Below) Other Gastrointestinal History: hepatic steatosis ENVIRONMENTAL CONSULTANT History: Reports: Other ENVIRONMENTAL CONSULTANT History: abnormal mastectomy Musculoskeletal History: Reports: Arthritis, Neck Pain, Chronic Neurological History: Reports: None Psychiatric History: Reports: None Endocrine/Metabolic History: Reports: Hypothyroidism Hematologic History: Reports: None Immunologic History: Reports: None Oncologic (Cancer) History: Reports: Breast, Other (See Below) Other Oncologic History: neoplasm of breat, stage 1, lobular carcinoma in situ Dermatologic History: Reports: Other (See Below) Other Dermatologic History: seborrheic keratosis - Infectious Disease History Infectious Disease History: Reports: Chicken Pox, Influenza, Measles - Past Surgical History Head Surgeries/Procedures: Reports: None HEENT Surgical History: Reports: Tonsillectomy Cardiovascular Surgical History: Reports: Varicose, Other (See Below) Other Cardiovascular Surgeries/Procedures: evacuation of hematoma to L chest Respiratory Surgical History: Reports: None GI Surgical History: Reports: Other (See Below) Other GI Surgeries/Procedures: exploratory laparotomy Female Surgical History: Reports: Mastectomy Social & Family History - Family History HEENT: Reports: None Cardiac: Reports: High Cholesterol, Hypertension, ID Respiratory: Reports: None : Reports: None OBGYN: Reports: None Musculoskeletal: Reports: Arthritis Neurological: Reports: None Psychiatric: Reports: None Endocrine/Metabolic: Reports: Diabetes, type II Hematologic: Reports: None Dermatologic: Reports: None Oncologic: Reports: Breast Other Oncologic Family History: daughter had breast cancer - Tobacco Use Smoking Status *Q: Never Smoker - Caffeine Use Caffeine Use: Reports: None - Recreational Drug Use Recreational Drug Use: No Review of Systems - Review of Systems Review Of Systems: See Below Constitutional: Reports: No Symptoms Eyes: Reports: No Symptoms, Glasses Ears: Reports: No Symptoms Nose: Reports: No Symptoms Mouth/Throat: Reports: No Symptoms Respiratory: Reports: No Symptoms Cardiovascular: Reports: No Symptoms GI/Abdominal: Reports: No Symptoms. Denies: Nausea, Vomiting Genitourinary: Reports: No Symptoms Musculoskeletal: Reports: Foot Pain (right 5th digit ), Other (chronic neck pain ). Denies: Leg Pain, Joint Swelling Skin: Reports: Bruising, Other (bilateral lower extremity edema, healing pressure ulcer on distal left large toe for which she has been wearing a walking boot, broken skin under lower right 4th digit). Denies: Erythema, Wound , Lumps Neurological: Reports: Other (Decreased fine touch sensation to distal toes bilaterally). Denies: Confusion, Dizziness, Headache, Difficulty Walking, Weakness, Change in Speech Psychiatric: Reports: No Symptoms ED EXAM, GENERAL - Physical Exam Exam: See Below Free Text/Narrative:: Eyes: EOM intact, PEERLA, no visual changes, wearing glasses Exam Limited By: No Limitations General Appearance: Alert, No Apparent Distress Ears: Hearing Grossly Normal Head: Atraumatic, Normocephalic Neck: Normal Inspection, Full Range of Motion Respiratory/Chest: No Respiratory Distress, Lungs Clear, Normal Breath Sounds, No Accessory Muscle Use Cardiovascular: Normal Peripheral Pulses, Regular Rate, Rhythm, No Murmur, Other (bilateral lower extremity edema (1+ pitting, worse on left)) Peripheral Pulses: 3+: Posterior Tibial (L), Posterior Tibial (R), Dorsalis Pedis (L), Dorsalis Pedis (R) Back Exam: Normal Inspection Extremities: Normal Range of Motion, Normal Capillary Refill, Pedal Edema, Other (tenderness of right lower 5th digit with movement). No: Joint Swelling, Leg Pain, Redness Neurological: Alert, Oriented, CN II-XII Intact, Normal Cognition, Other ( decreased fine touch sensation to distal toes bilaterally ) Psychiatric: Normal Affect, Normal Mood Skin Exam: Warm, Dry, Intact, Ecchymosis (lower right digits 2-5), Other ( cracked skin under lower right 4th digit ) Course - Vital Signs Last Recorded V/S: Last Vital Signs Temp 98.2 F 09/06/19 07:38 Pulse 62 09/06/19 07:38 Resp 18 09/06/19 07:38 BP 166/76 H 09/06/19 07:38 Pulse Ox 98 09/06/19 07:38 - Orders/Labs/Meds Orders: Active Orders 24 hr Category Date Time Status Foot Comp Min 3V Rt [CR] Stat Exams 09/06/19 08:05 Taken Durable Medical Equipment for Discharge [DME for Oth 09/06/19 08:58 Ordered Discharge] [COMM] Stat Departure - Departure Disposition: Home, Self-Care 01 Clinical Impression: Fracture of fourth toe, right, closed Qualifiers: Encounter type: initial encounter Qualified Code(s): S92.501A - Displaced unspecified fracture of right lesser toe(s), initial encounter for closed fracture - Discharge Information Referrals: Rashi Villeda MD [Primary Care Provider] - Jorje Seth II DPM [Physician] - 1 Week Forms: ED Department Discharge Additional Instructions: Ice your foot for 15 minutes 3 times per day for 2 days. Take tylenol every 4 hours as needed for pain. Wear the post op shoe when walking. Sepsis Event Note - Evaluation Sepsis Screening Result: No Definite Risk - Focused Exam Vital Signs: Vital Signs Temp Pulse Resp BP Pulse Ox 09/06/19 07:38 98.2 F 62 18 166/76 H 98 Date Exam was Performed: 09/06/19 Time Exam was Performed: 09:09 - My Orders Last 24 Hours: My Active Orders 09/06/19 08:05 Foot Comp Min 3V Rt [CR] Stat 09/06/19 08:58 Durable Medical Equipment for Discharge [DME for Discharge] [COMM] Stat - Assessment/Plan Last 24 Hours: My Active Orders 09/06/19 08:05 Foot Comp Min 3V Rt [CR] Stat 09/06/19 08:58 Durable Medical Equipment for Discharge [DME for Discharge] [COMM] Stat <Lamont Gordon - Last Filed: 09/06/19 09:21> Course - Re-Assessments/Exams Free Text/Narrative Re-Assessment/Exam: 09/06/19 09:15 I examined the patient myself and I agree with Lupe's assessment and plan. I ordered a foot x-ray. There is a fracture of the 4th toe. I will get her in a post op shoe and have her follow up with Dr Seth. Departure - Departure Time of Disposition: 09:20 Condition: Good - Discharge Information *PRESCRIPTION DRUG MONITORING PROGRAM REVIEWED*: Not Applicable *COPY OF PRESCRIPTION DRUG MONITORING REPORT IN PATIENT KELIN: Not Applicable Sepsis Event Note - Focused Exam Date Exam was Performed: 09/06/19 Time Exam was Performed: 09:14
--- NOTE | 2019-09-06 09:41 | CR ---
Right foot: Four views of the right foot were obtained. Comparison: No prior foot exam. Pes planus is noted. Degenerative change is noted within the midfoot. Bony structures are osteopenic. Soft tissue swelling is noted dorsally. Fracture is noted within the base of the proximal phalanx of the fourth and fifth toes. Minimal angulation is seen. No additional bony abnormality is appreciated. Impression: 1. Mildly angulated fractures involving the base of the proximal phalanx of the fourth and fifth toes. 2. Osteopenia, soft tissue swelling, pes planus and degenerative change. Diagnostic code #3 This report was dictated in [place] Standard Time
[2019-09-06 10:04] VITALS: BP 157/72; PULSE 63
== END 2019-09-06 09:50 | disposition home or self-care (01) ==
LOC: JD.ED 07:25
DX: S92.511A Displaced fracture of proximal phalanx of right lesser toe(s), initial encounter for closed fracture (principal); S09.90XA Unspecified injury of head, initial encounter; R60.0 Localized edema; I10 Essential (primary) hypertension; E78.00 Pure hypercholesterolemia, unspecified; E03.9 Hypothyroidism, unspecified; Z79.899 Other long term (current) drug therapy; Z79.890 Hormone replacement therapy; Z88.4 Allergy status to anesthetic agent; Z88.7 Allergy status to serum and vaccine; W01.198A Fall on same level from slipping, tripping and stumbling with subsequent striking against other object, initial encounter; Y93.89 Activity, other specified
CPT/HCPCS: 73630-26-RT; 73630-RT; 99282; 99284-25

== ENCOUNTER 2023-01-03 14:06 | Emergency (ER) | payer MEDICARE, OTHER ==
[2023-01-03 14:22] VITALS: BP 146/67; PULSE 68
[2023-01-03] MEDS ORDERED: Ketorolac 30 MG/ML SDV IM ONE (14:31)
== END 2023-01-03 16:26 | disposition home or self-care (01) ==
LOC: JD.ED 14:06
DX: M79.622 Pain in left upper arm (principal); I10 Essential (primary) hypertension; M19.90 Unspecified osteoarthritis, unspecified site; E03.9 Hypothyroidism, unspecified; Z79.899 Other long term (current) drug therapy; Z88.4 Allergy status to anesthetic agent; Z88.7 Allergy status to serum and vaccine
CPT/HCPCS: 73030; 73060; 96372; 99283; J1885

== ENCOUNTER 2023-06-19 15:47 | Emergency (ER) | payer MEDICARE, OTHER ==
[2023-06-19 16:04] VITALS: BP 135/85; PULSE 66
[2023-06-19] MEDS ORDERED: Gabapentin 100 MG Cap PO ONE (18:17)
[2023-06-19] MEDS ORDERED: predniSONE 20 MG Tab PO ONE (18:18)
== END 2023-06-19 20:16 | disposition home or self-care (01) ==
LOC: JD.ED 15:47
DX: M79.604 Pain in right leg (principal); I10 Essential (primary) hypertension; E03.9 Hypothyroidism, unspecified; Z88.5 Allergy status to narcotic agent; Z88.7 Allergy status to serum and vaccine; Z79.899 Other long term (current) drug therapy
CPT/HCPCS: 73502; 99283; A9270; J7512

== ENCOUNTER 2023-09-10 13:27 | Emergency (ER) | payer MEDICARE, OTHER ==
[2023-09-10] MEDS ORDERED: Sodium Chloride 0.9% 10 ML Syringe FLUSH PRN (13:47)
[2023-09-10 14:12] LABS: BASOPHILS ABSOLUTE AUTO 0.1 K/mm3 (0.0-0.2); BASOPHILS PERCENT AUTO 0.4 % (0.0-1.0); EOSINOPHILS ABSOLUTE AUTO 0.2 K/mm3 (0.0-0.4); EOSINOPHILS PERCENT AUTO 1.2 % (0.0-6.0); HEMATOCRIT 44.5 % (37.0-47.0); IMMATURE GRAN PERCENT AUTO 1.4 % (0.0-0.4); LYMPHOCYTES ABSOLUTE AUTO 1.3 K/mm3 (1.0-4.8); LYMPHOCYTES PERCENT AUTO 8.8 % (24.0-44.0); MEAN CORPUSCULAR HEMOGLOBIN 32.8 pg (28.0-32.0); MEAN CORPUSCULAR HGB CONC 33.7 g/dl (32.0-36.0); MEAN CORPUSCULAR VOLUME 97.2 fl (83.0-99.0); MEAN PLATELET VOLUME 9.3 fl (9.4-12.3); NEUTROPHILS ABSOLUTE AUTO 11.7 K/mm3 (1.8-7.7); NEUTROPHILS PERCENT AUTO 81.2 % (41.0-71.0); PLATELET COUNT,PLT 290 K/mm3 (150-400); RED BLOOD CELL COUNT 4.58 M/mm3 (4.10-5.30); WHITE BLOOD CELL COUNT,WBC 14.44 K/mm3 (3.9-11.3)
[2023-09-10 14:32] LABS: C-REACTIVE PROTEIN 0.2 mg/dL (<1.0); PROTEIN TOTAL,TP 8.1 g/dl (6.4-8.2)
[2023-09-10 14:49] LABS: BUN/CREATININE RATIO 41.2 (14-18); CREATININE 1.7 mg/dL (0.55-1.02); EST CRCL DRUG DOSING (CG) 18.56 mL/min
[2023-09-10 14:53] LABS: APPEARANCE,URINE SLT CLOUDY (Clear); BILIRUBIN,URINE NEGATIVE (Negative); COLOR,URINE YELLOW (Yellow); GLUCOSE,URINE NEGATIVE (Negative); KETONES,URINE NEGATIVE (Negative); LEUKOCYTE ESTERASE,URINE NEGATIVE (Negative); NITRITE,URINE NEGATIVE (Negative); OCCULT BLOOD,URINE NEGATIVE (Negative); PH,URINE 6.5 (5.0-8.0); PROTEIN,URINE NEGATIVE (Negative); UROBILINOGEN,URINE 0.2 (0.2-1.0)
[2023-09-10 14:54] LABS: ANION GAP 15.9 (5-15); POTASSIUM,K 3.9 mEq/L (3.5-5.1)
[2023-09-10 14:55] LABS: A/G RATIO 0.6 (1-2); ALBUMIN 3.1 g/dl (3.4-5.0); BILIRUBIN TOTAL 0.8 mg/dL (0.2-1.0); CALCIUM 12.4 mg/dL (8.5-10.1); MAGNESIUM 2.1 mg/dL (1.8-2.4)
[2023-09-10 14:57] LABS: CORONAVIRUS COVID-19 NAA NEGATIVE (NEGATIVE); INFLUENZA A NAA NEGATIVE (NEGATIVE); RESPIRATORY SYNCYTIAL VIR NAA NEGATIVE (NEGATIVE)
[2023-09-10] MEDS ORDERED: Lactated Ringers 1,000 ML IV ONE (15:06)
[2023-09-10 15:39] LABS: BACTERIA,URINE FEW /hpf (FEW); EPITHELIAL CELLS,URINE 0-5 /hpf (0-5); MUCUS,URINE FEW /hpf (FEW); RBC,URINE 0-5 /hpf (0-5); WBC,URINE 0-5 /hpf (0-5)
[2023-09-10 17:38] VITALS: BP 142/71; PULSE 70
== END 2023-09-10 17:35 ==
LOC: JD.ED 13:27
DX: A08.4 Viral intestinal infection, unspecified (principal); E86.0 Dehydration; K59.00 Constipation, unspecified; I10 Essential (primary) hypertension; E03.9 Hypothyroidism, unspecified; Z88.8 Allergy status to other drugs, medicaments and biological substances; Z79.899 Other long term (current) drug therapy; Z20.822 Contact with and (suspected) exposure to COVID-19
CPT/HCPCS: 0241U; 36415; 74018; 80053; 81001; 83690; 83735; 85025; 86140; 96360; 99285; J3490; J7120; 99282

== ENCOUNTER 2023-09-12 12:06 | Emergency (ER) | payer MEDICARE, OTHER ==
[2023-09-12 12:38] LABS: APPEARANCE,URINE SLT CLOUDY (Clear); BILIRUBIN,URINE NEGATIVE (Negative); COLOR,URINE YELLOW (Yellow); GLUCOSE,URINE NEGATIVE (Negative); KETONES,URINE NEGATIVE (Negative); LEUKOCYTE ESTERASE,URINE 2+ (Negative); NITRITE,URINE NEGATIVE (Negative); OCCULT BLOOD,URINE 2+ (Negative); PROTEIN,URINE NEGATIVE (Negative); UROBILINOGEN,URINE 0.2 (0.2-1.0)
[2023-09-12 12:52] LABS: BACTERIA,URINE MODERATE /hpf (FEW); EPITHELIAL CELLS,URINE 0-5 /hpf (0-5); MUCUS,URINE FEW /hpf (FEW); WBC,URINE 20-30 /hpf (0-5)
[2023-09-12 14:30] VITALS: BP 150/69; PULSE 77
== END 2023-09-12 12:20 ==
LOC: JD.ED 12:06
DX: N30.01 Acute cystitis with hematuria (principal); I10 Essential (primary) hypertension; E78.00 Pure hypercholesterolemia, unspecified; E03.9 Hypothyroidism, unspecified; Z79.899 Other long term (current) drug therapy; Z88.7 Allergy status to serum and vaccine; Z88.8 Allergy status to other drugs, medicaments and biological substances
CPT/HCPCS: 81001; 87086; 87088; 87186; 99283; 99285

== ENCOUNTER 2023-11-24 11:52 | Inpatient (IN) | payer MEDICARE, OTHER ==
[2023-11-24] MEDS ORDERED: Sodium Chloride 0.9% 10 ML Syringe FLUSH PRN ×2 (12:42→13:20)
[2023-11-24] MEDS ORDERED: Iopamidol 612 MG/ML 100 ML Bottle IVPUSH ONE ×2 (13:17→13:18)
[2023-11-24] MEDS ORDERED: Iopamidol 612 MG/ML 30 ML SDV IVPUSH ONE (13:18)
[2023-11-24 13:30] LABS: BASOPHILS ABSOLUTE AUTO 0.1 K/mm3 (0.0-0.2); BASOPHILS PERCENT AUTO 0.6 % (0.0-1.0); EOSINOPHILS ABSOLUTE AUTO 0.5 K/mm3 (0.0-0.4); EOSINOPHILS PERCENT AUTO 5.1 % (0.0-6.0); HEMATOCRIT 40.3 % (37.0-47.0); IMMATURE GRAN ABSOLUTE AUTO 0.04 K/mm3 (0.00-0.05); IMMATURE GRAN PERCENT AUTO 0.5 % (0.0-0.4); LYMPHOCYTES ABSOLUTE AUTO 1.6 K/mm3 (1.0-4.8); LYMPHOCYTES PERCENT AUTO 18.3 % (24.0-44.0); MEAN CORPUSCULAR HEMOGLOBIN 32.3 pg (28.0-32.0); MEAN CORPUSCULAR HGB CONC 32.3 g/dl (32.0-36.0); MONOCYTES ABSOLUTE AUTO 0.9 K/mm3 (0.0-0.8); MONOCYTES PERCENT AUTO 10.6 % (0.0-8.0); NEUTROPHILS ABSOLUTE AUTO 5.8 K/mm3 (1.8-7.7); NEUTROPHILS PERCENT AUTO 64.9 % (41.0-71.0); PLATELET COUNT,PLT 225 K/mm3 (150-400); RED BLOOD CELL COUNT 4.03 M/mm3 (4.10-5.30); WHITE BLOOD CELL COUNT,WBC 8.86 K/mm3 (3.9-11.3)
[2023-11-24 13:55] LABS: A/G RATIO 0.8 (1-2); ALBUMIN 3.4 g/dl (3.4-5.0); ANION GAP 12.9 (5-15); BILIRUBIN TOTAL 0.7 mg/dL (0.2-1.0); BUN/CREATININE RATIO 27.9 (14-18); C-REACTIVE PROTEIN 0.66 mg/dL (<0.30); CALCIUM 9.9 mg/dL (8.5-10.1); CREATININE 1.9 mg/dL (0.55-1.02); EST CRCL DRUG DOSING (CG) 16.6 mL/min; MAGNESIUM 2.1 mg/dL (1.8-2.4); POTASSIUM,K 2.9 mEq/L (3.5-5.1); PROTEIN TOTAL,TP 7.9 g/dl (6.4-8.2)
[2023-11-24] MEDS ORDERED: Acetaminophen 325 MG Tab PO PRN (14:54)
[2023-11-24] MEDS: oxyCODONE 5 MG Tab PO PRN ×2 (16:21→23:37)
[2023-11-24] MEDS: Potassium Chloride 10 MEQ in Premix Bag 1 BAG IV SCH (16:22)
[2023-11-24] MEDS: cefTRIAXone 2 GM in Sodium Chloride 0.9% 100 ML IV SCH (16:22)
[2023-11-24] MEDS: Potassium Chloride 20 MEQ Tab.ER PO ONE ×2 (16:38→17:10)
[2023-11-24] MEDS: Apixaban 2.5 MG Tab PO SCH (20:25)
[2023-11-25 04:57] LABS: HEMATOCRIT 35.8 % (37.0-47.0); HEMOGLOBIN 11.8 gm/dl (12.0-16.0); MEAN CORPUSCULAR HEMOGLOBIN 32.2 pg (28.0-32.0); MEAN CORPUSCULAR VOLUME 97.8 fl (83.0-99.0); MEAN PLATELET VOLUME 9.2 fl (9.4-12.3); PLATELET COUNT,PLT 196 K/mm3 (150-400); RED BLOOD CELL COUNT 3.66 M/mm3 (4.10-5.30); WHITE BLOOD CELL COUNT,WBC 8.01 K/mm3 (3.9-11.3)
[2023-11-25 05:25] LABS: A/G RATIO 0.7 (1-2); ALBUMIN 2.8 g/dl (3.4-5.0); ANION GAP 12.2 (5-15); BILIRUBIN TOTAL 0.4 mg/dL (0.2-1.0); CALCIUM 9.3 mg/dL (8.5-10.1); CREATININE 1.5 mg/dL (0.55-1.02); EST CRCL DRUG DOSING (CG) 21.03 mL/min; POTASSIUM,K 3.2 mEq/L (3.5-5.1); PROTEIN TOTAL,TP 6.7 g/dl (6.4-8.2)
[2023-11-25] MEDS ORDERED: hydrOXYzine HCl 10 MG Tab PO PRN (08:11)
[2023-11-25] MEDS: Potassium Chloride 20 MEQ Tab.ER PO SCH (08:18)
[2023-11-25] MEDS: Diltiazem 180 MG Cap.CD PO SCH (08:18)
[2023-11-25] MEDS: Atenolol 25 MG Tab PO SCH (08:22)
[2023-11-25] MEDS: Bumetanide 1 MG/4 ML MDV IVPUSH SCH (08:23)
[2023-11-25] MEDS: Cetirizine 10 MG Tab PO SCH (08:23)
[2023-11-25] MEDS: Melatonin 3 MG Tab PO SCH (20:21)
[2023-11-26] MEDS: Ondansetron 4 MG/2 ML SDV IV PRN (00:25)
[2023-11-26 05:34] LABS: A/G RATIO 0.7 (1-2); ALBUMIN 2.8 g/dl (3.4-5.0); ANION GAP 11.6 (5-15); BILIRUBIN TOTAL 0.3 mg/dL (0.2-1.0); CALCIUM 9.4 mg/dL (8.5-10.1); CREATININE 1.6 mg/dL (0.55-1.02); EST CRCL DRUG DOSING (CG) 19.72 mL/min; POTASSIUM,K 3.6 mEq/L (3.5-5.1); PROTEIN TOTAL,TP 6.8 g/dl (6.4-8.2)
[2023-11-26 05:43] LABS: HEMATOCRIT 36.5 % (37.0-47.0); MEAN CORPUSCULAR HEMOGLOBIN 32.6 pg (28.0-32.0); MEAN CORPUSCULAR HGB CONC 32.9 g/dl (32.0-36.0); MEAN CORPUSCULAR VOLUME 99.2 fl (83.0-99.0); MEAN PLATELET VOLUME 9.6 fl (9.4-12.3); PLATELET COUNT,PLT 192 K/mm3 (150-400); RED BLOOD CELL COUNT 3.68 M/mm3 (4.10-5.30); WHITE BLOOD CELL COUNT,WBC 7.31 K/mm3 (3.9-11.3)
[2023-11-26] MEDS: Polyethylene Glycol 3350 Powder 17 GM Packet PO SCH (09:07)
[2023-11-26] MEDS: Torsemide 20 MG Tab PO SCH (09:09)
[2023-11-26] MEDS: Docusate Sodium 100 MG Cap PO SCH (09:09)
[2023-11-26] MEDS: Levothyroxine 88 MCG Tab PO SCH (10:33)
[2023-11-27 05:58] LABS: A/G RATIO 0.7 (1-2); ALBUMIN 2.6 g/dl (3.4-5.0); ANION GAP 11.2 (5-15); BILIRUBIN TOTAL 0.3 mg/dL (0.2-1.0); BUN/CREATININE RATIO 25.3 (14-18); CALCIUM 8.9 mg/dL (8.5-10.1); CREATININE 1.5 mg/dL (0.55-1.02); EST CRCL DRUG DOSING (CG) 21.03 mL/min; POTASSIUM,K 3.2 mEq/L (3.5-5.1); PROTEIN TOTAL,TP 6.4 g/dl (6.4-8.2)
[2023-11-27] MEDS: Potassium Chloride 10 MEQ in Premix Bag 1 BAG IV SCH (06:26)
[2023-11-28 05:50] LABS: A/G RATIO 0.7 (1-2); ALBUMIN 2.7 g/dl (3.4-5.0); ANION GAP 12.3 (5-15); BILIRUBIN TOTAL 0.3 mg/dL (0.2-1.0); BUN/CREATININE RATIO 26.4 (14-18); CALCIUM 9.1 mg/dL (8.5-10.1); CREATININE 1.4 mg/dL (0.55-1.02); EST CRCL DRUG DOSING (CG) 22.53 mL/min; POTASSIUM,K 3.3 mEq/L (3.5-5.1); PROTEIN TOTAL,TP 6.7 g/dl (6.4-8.2)
[2023-11-29 06:21] LABS: A/G RATIO 0.7 (1-2); ALBUMIN 2.6 g/dl (3.4-5.0); ANION GAP 10.8 (5-15); BILIRUBIN TOTAL 0.4 mg/dL (0.2-1.0); BUN/CREATININE RATIO 28.5 (14-18); CALCIUM 9.1 mg/dL (8.5-10.1); CREATININE 1.3 mg/dL (0.55-1.02); EST CRCL DRUG DOSING (CG) 24.27 mL/min; POTASSIUM,K 2.8 mEq/L (3.5-5.1); PROTEIN TOTAL,TP 6.6 g/dl (6.4-8.2)
[2023-11-29] MEDS: Famotidine 10 MG Tab PO ONE (11:27)
[2023-11-29] MEDS ORDERED: Aluminum Hydroxide/Magnesium Hydroxide/Simethicone Susp 30 ML Cup PO PRN (20:39)
[2023-11-30 06:14] LABS: BASOPHILS PERCENT AUTO 0.4 % (0.0-1.0); EOSINOPHILS ABSOLUTE AUTO 0.5 K/mm3 (0.0-0.4); EOSINOPHILS PERCENT AUTO 6.5 % (0.0-6.0); HEMATOCRIT 36.9 % (37.0-47.0); HEMOGLOBIN 12.4 gm/dl (12.0-16.0); IMMATURE GRAN ABSOLUTE AUTO 0.03 K/mm3 (0.00-0.05); IMMATURE GRAN PERCENT AUTO 0.4 % (0.0-0.4); LYMPHOCYTES ABSOLUTE AUTO 1.2 K/mm3 (1.0-4.8); LYMPHOCYTES PERCENT AUTO 16.1 % (24.0-44.0); MEAN CORPUSCULAR HEMOGLOBIN 32.5 pg (28.0-32.0); MEAN CORPUSCULAR HGB CONC 33.6 g/dl (32.0-36.0); MEAN CORPUSCULAR VOLUME 96.6 fl (83.0-99.0); MEAN PLATELET VOLUME 9.3 fl (9.4-12.3); MONOCYTES ABSOLUTE AUTO 0.9 K/mm3 (0.0-0.8); MONOCYTES PERCENT AUTO 11.3 % (0.0-8.0); NEUTROPHILS ABSOLUTE AUTO 4.9 K/mm3 (1.8-7.7); NEUTROPHILS PERCENT AUTO 65.3 % (41.0-71.0); PLATELET COUNT,PLT 207 K/mm3 (150-400); RED BLOOD CELL COUNT 3.82 M/mm3 (4.10-5.30)
[2023-11-30 06:37] LABS: ANION GAP 13.3 (5-15); BUN/CREATININE RATIO 28.3 (14-18); CALCIUM 9.5 mg/dL (8.5-10.1); CREATININE 1.2 mg/dL (0.55-1.02); EST CRCL DRUG DOSING (CG) 26.29 mL/min; POTASSIUM,K 3.3 mEq/L (3.5-5.1)
[2023-11-30] MEDS ORDERED: oxyCODONE 5 MG Tab PO PRN (11:35)
[2023-12-01 05:04] LABS: BASOPHILS PERCENT AUTO 0.4 % (0.0-1.0); EOSINOPHILS ABSOLUTE AUTO 0.5 K/mm3 (0.0-0.4); HEMATOCRIT 37.1 % (37.0-47.0); HEMOGLOBIN 12.3 gm/dl (12.0-16.0); IMMATURE GRAN ABSOLUTE AUTO 0.04 K/mm3 (0.00-0.05); IMMATURE GRAN PERCENT AUTO 0.5 % (0.0-0.4); LYMPHOCYTES ABSOLUTE AUTO 1.4 K/mm3 (1.0-4.8); LYMPHOCYTES PERCENT AUTO 17.6 % (24.0-44.0); MEAN CORPUSCULAR HEMOGLOBIN 32.5 pg (28.0-32.0); MEAN CORPUSCULAR HGB CONC 33.2 g/dl (32.0-36.0); MEAN CORPUSCULAR VOLUME 98.1 fl (83.0-99.0); MEAN PLATELET VOLUME 9.3 fl (9.4-12.3); MONOCYTES ABSOLUTE AUTO 0.9 K/mm3 (0.0-0.8); MONOCYTES PERCENT AUTO 12.2 % (0.0-8.0); NEUTROPHILS ABSOLUTE AUTO 4.9 K/mm3 (1.8-7.7); NEUTROPHILS PERCENT AUTO 63.3 % (41.0-71.0); PLATELET COUNT,PLT 193 K/mm3 (150-400); RED BLOOD CELL COUNT 3.78 M/mm3 (4.10-5.30); WHITE BLOOD CELL COUNT,WBC 7.69 K/mm3 (3.9-11.3)
[2023-12-01 05:28] LABS: ANION GAP 12.3 (5-15); BUN/CREATININE RATIO 24.2 (14-18); CALCIUM 9.2 mg/dL (8.5-10.1); CREATININE 1.2 mg/dL (0.55-1.02); EST CRCL DRUG DOSING (CG) 26.29 mL/min; POTASSIUM,K 3.3 mEq/L (3.5-5.1)
[2023-12-01] MEDS: Potassium Chloride 10 MEQ in Premix Bag 1 BAG IV SCH (09:07)
[2023-12-02 05:58] LABS: A/G RATIO 0.7 (1-2); ALBUMIN 2.8 g/dl (3.4-5.0); ANION GAP 13.8 (5-15); BILIRUBIN TOTAL 0.5 mg/dL (0.2-1.0); BUN/CREATININE RATIO 25.8 (14-18); CALCIUM 9.2 mg/dL (8.5-10.1); CREATININE 1.2 mg/dL (0.55-1.02); EST CRCL DRUG DOSING (CG) 26.29 mL/min; MAGNESIUM 1.9 mg/dL (1.8-2.4); POTASSIUM,K 3.8 mEq/L (3.5-5.1); PROTEIN TOTAL,TP 6.9 g/dl (6.4-8.2)
[2023-12-02 08:13] VITALS: BP 132/92; PULSE 65
== END 2023-12-02 11:12 | DRG 683 ==
LOC: JD.ED 11:52 → UNDOADMIN 14:19 → JD.MS 14:19
PROVIDERS: ADMIT Internal Medicine; ATTEND Internal Medicine
DX: I97.89 Other postprocedural complications and disorders of the circulatory system, not elsewhere classified (principal); N17.9 Acute kidney failure, unspecified; I50.9 Heart failure, unspecified; I13.0 Hypertensive heart and chronic kidney disease with heart failure and stage 1 through stage 4 chronic kidney disease, or unspecified chronic kidney disease; N28.9 Disorder of kidney and ureter, unspecified; I48.11 Longstanding persistent atrial fibrillation; E03.9 Hypothyroidism, unspecified; Z88.8 Allergy status to other drugs, medicaments and biological substances; Z79.2 Long term (current) use of antibiotics; L97.529 Non-pressure chronic ulcer of other part of left foot with unspecified severity; E87.6 Hypokalemia; I89.0 Lymphedema, not elsewhere classified; M19.90 Unspecified osteoarthritis, unspecified site; G89.29 Other chronic pain; M54.2 Cervicalgia; K29.70 Gastritis, unspecified, without bleeding; N18.9 Chronic kidney disease, unspecified; Z98.49 Cataract extraction status, unspecified eye; Z90.49 Acquired absence of other specified parts of digestive tract; Z90.10 Acquired absence of unspecified breast and nipple; Z98.890 Other specified postprocedural states; Z79.01 Long term (current) use of anticoagulants; Z79.890 Hormone replacement therapy; Z79.899 Other long term (current) drug therapy; Z86.16 Personal history of COVID-19
CPT/HCPCS: 36415; 71045; 71045-26; 72040; 72040-26; 73630-26-LT; 73630-LT; 80048; 80053; 83735; 83880; 85025; 85027; 86140; 87641; 93307; 97110-GP; 97116-GP; 97162-GP; 97530-GP; 99232; 99233; 99239; 99285; A9270-GY; J0696; J2405; J3480; J3490